=== PATIENT | female | born 1960 | race Caucasian/White ===

== ENCOUNTER 2018-04-30 13:02 | Observation (INO) | payer OTHER, BC, SELFPAY ==
[2018-04-30 13:05] VITALS: BP 90/57; PULSE 71; RESP 18; TEMP 37.2; O2SAT 100; BMI 49.0
--- NOTE | 2018-04-30 13:30 | RAD_ITS ---
STUDY: X-RAY - LEFT KNEE REASON FOR EXAM: Pain, injury. TECHNIQUE: 4 view(s) of the knee. COMPARISON: None. FINDINGS: Normal visualized distal femur. Normal visualized proximal tibia and fibula. Normal proximal tibiofibular articulation. There are marginal osteophytes and joint space loss of the medial femorotibial compartment. There is joint space narrowing of the mesial aspect of the lateral femorotibial compartment. There is joint space narrowing of the patellofemoral articulation. There is mild lateral subluxation of the patella. There is a joint effusion. RAD/Knee 4 or More Views IMPRESSION: Tricompartmental arthrosis. Joint effusion. No demonstrated fracture. Electronically Signed: Bne Schultz MD at 14:08 EDT Tel , Service support ,
--- NOTE | 2018-04-30 15:15 | ED.DCSUM_ITS ---
- ER Visit Summary Date of Service: 04/30/18 Chief Complaint: Left knee pain History of Present Illness: The patient is a 57 F who presents with left knee pain. She states that she had bent over to pick something on her computer and when she was in the process of standing back up she heard a sound and had sudden pain behind her left knee. She has been able to stand and bear weight since that time but after sitting down on the commode was unable to get back up due to pain. No history of prior similar symptoms. No other injuries. No recent illness and otherwise without complaint. Physical Examination: Initial blood pressure 90/57 vitals otherwise unremarkable Moist mucous membranes Heart regular rate and rhythm Lungs clear Examination is limited due to obesity, I do not appreciate any obvious effusion on my exam or bony deformity her extensor mechanism is intact she is neurovascularly intact distally with normal sensation light touch is capillary refill and palpable dorsalis pedis pulse Test Results: Knee x-ray shows tricompartmental arthrosis and a joint effusion no fracture Emergency Department Course and Treatment: Patient declined any analgesics here. She was able to ambulate to the bedside commode. She was placed in a knee immobilizer and has a walker that she can use at home. She was referred to Dr. Alfaro of orthopedics for outpatient follow-up. She understands to return for new or worsening symptoms and was discharged home. Treatment Plan: [] Disposition: Discharge Impression: Acute left knee sprain Joint effusion This note was generated with [employer] dictation software. It may contain incorrect words, spelling, and punctuation that were not noted in review of the chart prior to signing ED Disposition - Plan for ED Patient: Chief Complaint: Lower Extremity Injury Referrals: Care Physician,No Primary [Primary Care Provider] -
--- NOTE | 2018-04-30 15:16 | ED.DEP ---
ED Disposition - Plan for ED Patient: Chief Complaint: Lower Extremity Injury Instructions: ED Sprain Knee, ED Effusion Knee Prescriptions: traMADol [Ultram] 50 mg PO Q6H PRN 4 Days #16 tab PRN Reason: Pain Referrals: Justine Alfaro DO [STAFF PHYSICIAN] - Care Physician,No Primary [Primary Care Provider] - Corporate,Care [GROUP OF PHYSICIANS] -
[2018-04-30] MEDS: traMADol 50 MG Tablet PO (15:45)
[2018-04-30 16:40] VITALS: BMI 49.1
[2018-04-30 17:05] VITALS: BP 125/92; PULSE 73; RESP 17; O2SAT 99
--- NOTE | 2018-04-30 17:12 | PCM.HP.STD ---
Problem List (1) Chronic atrial fibrillation Status: Chronic (2) Nonrheumatic tricuspid valve regurgitation Status: Chronic (3) Nonrheumatic mitral (valve) insufficiency Status: Chronic (4) Status post radiofrequency ablation (RFA) operation for arrhythmia Status: Chronic Comment: For Atrial Fib @ [facility] (5) Hypertension Status: Chronic Qualifiers: (6) Iron deficiency anemia Status: Chronic History of Present Illness Date of Admission: 04/30/18 Chief Complaint: Left knee pain. The patient is a 57 year old F with past medical history as mentioned above presented to the emergency department because of left knee pain. She mentioned that she bent over to plug her computer and when she stood up, she heard a sound in the back of her left knee and started having left knee pain. The pain starts in the back of the left knee, described as dull aching pain and sometimes described as muscle spasm pain, 7 out of 10 in severity, not radiating, aggravated by standing, relieved by sitting and resting. She denies any prodromal symptoms. Denied chest pain or shortness of breath. Denied dizziness or lightheadedness. In the emergency room, her vital signs are stable. No routine blood work was done because the plan is was to send her home. She received 1 dose of tramadol. She mentioned that she is not able to stand or walk because of left knee pain. X-ray of the left knee revealed arthritic changes, joint effusion and no evidence of fractures or dislocations. She is being admitted for intractable left knee pain and joint effusion leading to difficulty ambulating and physical debility. Past Medical History Past Medical History (Chronic Problems): Chronic Problems (Last Reviewed 11/21/17 @ 10:26 by Antonino Colvin MD) Chronic atrial fibrillation (Chronic) Nonrheumatic tricuspid valve regurgitation (Chronic) Nonrheumatic mitral (valve) insufficiency (Chronic) Status post radiofrequency ablation (RFA) operation for arrhythmia (Chronic ~09/21/17) For Atrial Fib @ [facility] Hypertension (Chronic) Iron deficiency anemia (Chronic) Medical History: Medical History (Last Reviewed 11/21/17 @ 10:26 by Antonino Colvin MD) Nonrheumatic tricuspid valve regurgitation (Chronic) I36.1 Nonrheumatic mitral (valve) insufficiency (Chronic) I34.0 Hypertension (Chronic) I10 Anemia D64.9 Body mass index (BMI) 35 or more 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 History of cardioversion Onset Date: ~11/2016 Z98.890 Obstructive sleep apnea G47.33 Paroxysmal atrial fibrillation I48.0 Allergies metoprolol Adverse Reaction (Severe, Verified 04/30/18 13:05) Fatigue, weigt gain Home Medications: Ambulatory Orders Medication Instructions Recorded rivaroxaban 20 mg tablet 20 mg PO DAILY #90 tab 11/21/17 dofetilide 250 mcg capsule 250 mcg PO Q12H #180 cap 03/19/18 Diltiazem HCl [Diltiazem ER] 120 mg PO DAILY 04/30/18 traMADol [Ultram] 50 mg PO Q6H PRN 4 Days #16 tab 04/30/18 Surgical History: Surgical History (Last Reviewed 11/21/17 @ 10:26 by Antonino Colvin MD) Status post radiofrequency ablation (RFA) operation for arrhythmia (Chronic) Onset Date: ~09/21/17 Z98.890, Z86.79 For Atrial Fib @ [facility] History of Z98.891 History of tonsillectomy Z98.890, Z90.89 Surgical History: - - section. Psychiatric History: No pertinent psych hx ACTIVITY MANAGER History: No pertinent ACTIVITY MANAGER history, - Lives: With Family Smoking Status: Never smoker Alcohol: None Drugs: None - *Family History Paternal Family History: Family History (Last Updated 02/20/18 @ 08:35 by Faby Starkey) Father Afib History Items: Heart Disease Maternal Family History: Family History (Last Updated 02/20/18 @ 08:35 by Faby Starkey) Father Afib History Items: No pertinent history Review of Systems Constitutional: Denies: Anorexia, Chills, Fever, Weakness Eyes: Denies: Blurred vision, Double vision, Drainage, Redness HEENT: Denies: Difficulty Hearing, Ear Pain, Eye Pain, Nasal Congestion, Sore Throat Cardiovascular: Denies: Chest Pain, Chest Pressure, Chest Tightness, Edema, Heaviness, Palpitations, Syncope Respiratory: Denies: Cough, Hemoptysis, Pleuritic Pain, Shortness of Breath, Sputum production, Wheezing Gastrointestinal: Denies: Abdominal Pain, Constipation, Diarrhea, Nausea, Vomiting Genitourinary: Denies: Dysuria, Frequency, Hematuria Musculoskeletal: Reports: Joint Pain, Joint swelling. Denies: Arm Pain, Back Pain Skin: Denies: Dryness, Rash Neurological: Denies: Balance problems, Double vision, Change in Speech, Slurred speech, Headaches, Incoordination, Numbness Psychiatric: Denies: Anxiety, Depression Endocrine: Denies: Change in Body Habitus, Polydipsia VTE Information - Inpt Only VTE Present on Admission: No VTE Mechan Device Prophylaxis: None VTE Pharm Prophylaxis ordered?: No - Physical Exam General: Alert, Oriented x3, Cooperative, No apparent distress HEENT: Atraumatic, PERRLA, EOMI, Normocephalic Oral: Moist Mucosa, No Gingival or Mucosal Lesions/ Ulcerations Neck: Supple, No JVD, Negative Carotid Bruits, Trachea Midline, Thyroid Normal Size and Texture Lungs: Clear to auscultation, No rhonchi, No wheeze, No rales, Diminished Cardiovascular: Regular rate, Regular Rhythm, Normal S1, Normal S2, No murmurs, PMI Normal Abdomen: Bowel Sounds Present, Soft, Non Tender, Non-Distended, No Hepato-splenomegaly, Obese Extremities: No clubbing, No cyanosis, No edema Skin: No rashes, No breakdown Musculoskeletal: - - Left knee: Morbidly obese patient, swollen knee, no significant tenderness on palpation. Lymphatic: No Cervical, Supraclavicular, or Inguinal Adenopathy Neurological: Cranial nerves II-XII grossly intact, Motor Exam 5/5 strength throughout Psych/Mental Status: Normal Affect, Appropriate, Alert and oriented to time, place, person, mood and affect Vital Signs Temp Pulse Resp BP Pulse Ox 98.9 F 73 17 125/92 H 99 04/30/18 13:05 04/30/18 17:05 04/30/18 17:05 04/30/18 17:05 04/30/18 17:05 Oxygen Delivery Method Room Air Weight: 304 lb Body Mass Index (BMI) 49.0 Assessment/Plan This is a 57 years old female patient presented to the emergency room because of left knee pain after she she was trying to bend over and she is being admitted for intractable left knee pain with physical debility and difficulty ambulating. #1 left knee pain/left knee effusion: Secondary to twisting injury. X-ray of the left knee revealed arthritis and joint effusion. Patient has been on Xarelto. Hemarthrosis cannot be ruled out. [facility] monitoring, ambulate as tolerated, IV morphine as needed for pain, OxyIR as needed for pain, Flexeril as needed for muscle spasm, stat CBC and BMP, pro time and INR, orthopedic surgery consult, PT OT evaluation and treatment. #2 physical debility/difficulty ambulating: Secondary to above in addition to morbid obesity and history of right knee arthritis. Plan to control left knee pain, PT OT evaluation and treatment, patient may need [facility] to [facility] facility. #3 atrial fibrillation, chronic: Status post ablation. At this time, she is in sinus rhythm, rate is controlled. Continue Tikosyn and Cardizem for rate control and Xarelto for defibrillation. #4 chronic anemia: We will do stat CBC at this time. #5 DVT prophylaxis: Continue Xarelto. This note was generated with [employer] dictation software. It may contain incorrect words, spelling, and punctuation that were not noted in checking the note before signing. Code Visit OBSV E&M: 53205 Initial observation care L3
--- NOTE | 2018-04-30 17:21 | HP.PCM_ITS ---
Problem List (1) Chronic atrial fibrillation Status: Chronic (2) Nonrheumatic tricuspid valve regurgitation Status: Chronic (3) Nonrheumatic mitral (valve) insufficiency Status: Chronic (4) Status post radiofrequency ablation (RFA) operation for arrhythmia Status: Chronic Comment: For Atrial Fib @ [facility] (5) Hypertension Status: Chronic Qualifiers: (6) Iron deficiency anemia Status: Chronic History of Present Illness Date of Admission: 04/30/18 Chief Complaint: Left knee pain. The patient is a 57 year old F with past medical history as mentioned above presented to the emergency department because of left knee pain. She mentioned that she bent over to plug her computer and when she stood up, she heard a sound in the back of her left knee and started having left knee pain. The pain starts in the back of the left knee, described as dull aching pain and sometimes described as muscle spasm pain, 7 out of 10 in severity, not radiating , aggravated by standing, relieved by sitting and resting. She denies any prodromal symptoms. Denied chest pain or shortness of breath. Denied dizziness or lightheadedness. In the emergency room, her vital signs are stable. No routine blood work was done because the plan is was to send her home. She received 1 dose of tramadol. She mentioned that she is not able to stand or walk because of left knee pain. X-ray of the left knee revealed arthritic changes, joint effusion and no evidence of fractures or dislocations. She is being admitted for intractable left knee pain and joint effusion leading to difficulty ambulating and physical debility. Past Medical History Past Medical History (Chronic Problems): Chronic Problems (Last Reviewed 11/21/17 @ 10:26 by Antonino Colvin MD) Chronic atrial fibrillation (Chronic) Nonrheumatic tricuspid valve regurgitation (Chronic) Nonrheumatic mitral (valve) insufficiency (Chronic) Status post radiofrequency ablation (RFA) operation for arrhythmia (Chronic ~02/02) For Atrial Fib @ [facility] Hypertension (Chronic) Iron deficiency anemia (Chronic) Medical History: Medical History (Last Reviewed 11/21/17 @ 10:26 by Antonino Colvin MD) Nonrheumatic tricuspid valve regurgitation (Chronic) I36.1 Nonrheumatic mitral (valve) insufficiency (Chronic) I34.0 Hypertension (Chronic) I10 Anemia D64.9 Body mass index (BMI) 35 or more 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 History of cardioversion Onset Date: ~11/2016 Z98.890 Obstructive sleep apnea G47.33 Paroxysmal atrial fibrillation I48.0 Allergies metoprolol Adverse Reaction (Severe, Verified 04/30/18 13:05) Fatigue, weigt gain Home Medications: Ambulatory Orders Medication Instructions Recorded rivaroxaban 20 mg tablet 20 mg PO DAILY #90 tab 11/21/17 dofetilide 250 mcg capsule 250 mcg PO Q12H #180 cap 03/19/18 Diltiazem HCl [Diltiazem ER] 120 mg PO DAILY 04/30/18 traMADol [Ultram] 50 mg PO Q6H PRN 4 Days #16 tab 04/30/18 Surgical History: Surgical History (Last Reviewed 11/21/17 @ 10:26 by Antonino Colvin MD) Status post radiofrequency ablation (RFA) operation for arrhythmia (Chronic) Onset Date: ~09/21/17 Z98.890, Z86.79 For Atrial Fib @ [facility] History of Z98.891 History of tonsillectomy Z98.890, Z90.89 Surgical History: - - section. 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 SANDER WOOD[employer] PENCILS history, - Lives: With Family Smoking Status: Never smoker Alcohol: None Drugs: None - *Family History Paternal Family History: Family History (Last Updated 02/20/18 @ 08:35 by Faby Starkey) Father Afib History Items: Heart Disease Maternal Family History: Family History (Last Updated 02/20/18 @ 08:35 by Faby Starkey) Father Afib History Items: No pertinent history Review of Systems Constitutional: Denies: Anorexia, Chills, Fever, Weakness Eyes: Denies: Blurred vision, Double vision, Drainage, Redness HEENT: Denies: Difficulty Hearing, Ear Pain, Eye Pain, Nasal Congestion, Sore Throat Cardiovascular: Denies: Chest Pain, Chest Pressure, Chest Tightness, Edema, Heaviness, Palpitations, Syncope Respiratory: Denies: Cough, Hemoptysis, Pleuritic Pain, Shortness of Breath, Sputum production, Wheezing Gastrointestinal: Denies: Abdominal Pain, Constipation, Diarrhea, Nausea, Vomiting Genitourinary: Denies: Dysuria, Frequency, Hematuria Musculoskeletal: Reports: Joint Pain, Joint swelling. Denies: Arm Pain, Back Pain Skin: Denies: Dryness, Rash Neurological: Denies: Balance problems, Double vision, Change in Speech, Slurred speech, Headaches, Incoordination, Numbness Psychiatric: Denies: Anxiety, Depression Endocrine: Denies: Change in Body Habitus, Polydipsia VTE Information - Inpt Only VTE Present on Admission: No VTE Mechan Device Prophylaxis: None VTE Pharm Prophylaxis ordered?: No - Physical Exam General: Alert, Oriented x3, Cooperative, No apparent distress HEENT: Atraumatic, PERRLA, EOMI, Normocephalic Oral: Moist Mucosa, No Gingival or Mucosal Lesions/ Ulcerations Neck: Supple, No JVD, Negative Carotid Bruits, Trachea Midline, Thyroid Normal Size and Texture Lungs: Clear to auscultation, No rhonchi, No wheeze, No rales, Diminished Cardiovascular: Regular rate, Regular Rhythm, Normal S1, Normal S2, No murmurs, PMI Normal Abdomen: Bowel Sounds Present, Soft, Non Tender, Non-Distended, No Hepato- splenomegaly, Obese Extremities: No clubbing, No cyanosis, No edema Skin: No rashes, No breakdown Musculoskeletal: - - Left knee: Morbidly obese patient, swollen knee, no significant tenderness on palpation. Lymphatic: No Cervical, Supraclavicular, or Inguinal Adenopathy Neurological: Cranial nerves II-XII grossly intact, Motor Exam 5/5 strength throughout Psych/Mental Status: Normal Affect, Appropriate, Alert and oriented to time, place, person, mood and affect Vital Signs Temp Pulse Resp BP Pulse Ox 98.9 F 73 17 125/92 H 99 04/30/18 13:05 04/30/18 17:05 04/30/18 17:05 04/30/18 17:05 04/30/18 17:05 Oxygen Delivery Method Room Air Weight: 304 lb Body Mass Index (BMI) 49.0 Assessment/Plan This is a 57 years old female patient presented to the emergency room because of left knee pain after she she was trying to bend over and she is being admitted for intractable left knee pain with physical debility and difficulty ambulating. #1 left knee pain/left knee effusion: Secondary to twisting injury. X-ray of the left knee revealed arthritis and joint effusion. Patient has been on Xarelto. Hemarthrosis cannot be ruled out. [facility], cardiac monitoring, ambulate as tolerated, IV morphine as needed for pain, OxyIR as needed for pain, Flexeril as needed for muscle spasm, stat CBC and BMP, pro time and INR, orthopedic surgery consult, PT OT evaluation and treatment. #2 physical debility/difficulty ambulating: Secondary to above in addition to morbid obesity and history of right knee arthritis. Plan to control left knee pain, PT OT evaluation and treatment, patient may need placement to halfway facility. #3 atrial fibrillation, chronic: Status post ablation. At this time, she is in sinus rhythm, rate is controlled. Continue Tikosyn and Cardizem for rate control and Xarelto for defibrillation. #4 chronic anemia: We will do stat CBC at this time. #5 DVT prophylaxis: Continue Xarelto. This note was generated with [employer] dictation software. It may contain incorrect words, spelling, and punctuation that were not noted in checking the note before signing. Code Visit OBSV E&M: 34759 Initial observation care L3
[2018-04-30] MEDS: oxyCODONE 5 MG Tablet PO (18:06)
[2018-04-30 18:46] VITALS: BMI 49.0
--- NOTE | 2018-04-30 18:49 | NURSING ---
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
[2018-04-30 19:11] VITALS: PULSE 80
[2018-04-30 19:42] LABS: Anion Gap 7 (5-15); BUN 22 mg/dL (7-18); BUN/Creat Ratio 16.8 RATIO (10-20); Calcium,Total 9.2 mg/dL (8.5-10.1); Chloride 108 mmol/L (98-107); Creatinine, Serum 1.31 mg/dL (0.55-1.02); EST Glomerular Filtration Rate 45 mL/min (>60); Est Glom Filt Rate - Afr Amer 54 mL/min (>60); Glucose 116 mg/dL (74-106); Potassium 3.9 mmol/L (3.5-5.1); Sodium Level 139 mmol/L (136-145)
[2018-04-30 19:54] LABS: Absolute Lymphocyte Count 1.54 X10^3/ul (0.83-4.51); Absolute Neutrophil Count 6.8 X10^3/uL (2.0-7.7); Basophil# 0.01 X10^3/uL; Basophil% 0.1 % (0-1); Eosinophil# 0.11 X10^3/uL; Eosinophils% 1.2 % (0-5); Hematocrit 29.2 % (37-47); Hemoglobin 8.2 g/dl (12.0-15.0); Lymphocyte # 1.54 X10^3/ul (4.0); Lymphocyte % 17.1 % (19-41); Mean Corp Hgb Conc 28.1 g/gl (32-36); Mean Corpuscular Hgb 21.4 pg (27.0-32.0); Mean Platelet Vol. 10.6 fl (6.2-12.0); Monocyte# 0.53 X10^3/uL; Monocyte% 5.9 % (0-10); Neutrophil # 6.81 X10^3/uL (2.7-7.7); Neutrophil % 75.6 % (47-70); Platelet Count 300 K/mm3 (150-450); RBC Distribution Width CV 16.1 % (11.6-14.6); RBC Distribution Width SD 44.5 fl (35.1-43.9); Red Blood Count 3.84 M/mm3 (4.2-5.4)
[2018-04-30 20:03] LABS: POSITIVE COUNT NO; POSITIVE DIFFERENTIAL NO; POSITIVE MORPHOLOGY NO
[2018-04-30 20:09] LABS: Thyroid Stim Hormone (TSH) 1.26 uIU/mL (0.358-3.74)
[2018-04-30 20:45] VITALS: BP 151/71; PULSE 67; RESP 18; TEMP 36.9; O2SAT 98
--- NOTE | 2018-04-30 20:50 | NURSING ---
Spoke with Dr. Adler the the pt was referred by ED to see Dr. Alfaro of orthopedics for outpatient follow-up before she was admitted d/t unable to ambulate.Pt told her nusre she would like to go with [facility] since she had procedures done @ [facility] in the past.
--- NOTE | 2018-04-30 20:51 | NURSING ---
Pt stated she wanted orthopedic consult with [facility] - Dr. Qureshi - clyde or Dr. Woo. Dr. Samuel Adler has already been called. Notified of toya Becerra nurse that patient wants to change orthopedic groups. toya Becerra nurse called Dr. Adler, as a courtsey, of patient's wishes. Will notify the hospitalist.
[2018-04-30] MEDS: Dofetilide 250 MCG Capsule PO (21:53)
--- NOTE | 2018-04-30 22:36 | PCA ---
this FACILITIES FLIGHT CHECK PILOT assisted patient to BSC, patient asks for BSC to be placed in front of her and she is able to transfer to and from [facility] with minimal assist from this FACILITIES FLIGHT CHECK PILOT. patient is wearing immobilizer on her left leg and is bearing weight during her transfer. patient is able to life both her legs back into bed and tells this FACILITIES FLIGHT CHECK PILOT to let her do it and to just provide help if she asks for it.
[2018-04-30 23:02] VITALS: PULSE 73
[2018-05-01] VITALS (9 sets, daily range): BP systolic 131–150; BP diastolic 67–78; PULSE 59–74; RESP 16–20; TEMP 36.3–37.6; O2SAT 97–99
--- NOTE | 2018-05-01 01:30 | PCA ---
patient assisted up to BSC, patient requests to not wear immobilizer at this time because it cuts into her leg and doesn't stay where it should on her leg.patient continues to bear weight during her transfer and asks for very minimal help in getting on and off BSC.
[2018-05-01] MEDS: Acetaminophen 325 MG Tablet 650 MG PO (01:43)
[2018-05-01] MEDS: oxyCODONE 5 MG Tablet PO (01:44)
[2018-05-01 06:24] LABS: International Normalized Ratio 1.6; Prothrombin Time (Protime)PT. 19.3 SECONDS (11.7-14.9)
--- NOTE | 2018-05-01 06:40 | PCA ---
patient up to [facility] this morning, again refusing to wear the immobilizer, patient bears weight on both legs to and from [facility] and is able to lift both legs back into bed. patient states to this C IRON WORKER that her pain is minimal this morning.
[2018-05-01] MEDS: Nystatin Powder 15gm Bottle 1 APPLIC TOPICAL ×3 (06:48→22:55)
--- NOTE | 2018-05-01 09:28 | PCA ---
PT CALLED OUT TO GO TO THE BATHROOM, THERAPIST GOT THE BSC FOR PT, PT ASSISTED HERSELF ONTO THE BSC, PT THEN ASSISTED HERSELF WITH NO HELP TO GET BACK TO BED, PT DID NOT WANT ANY HELP, BSC EMPTIED, PT LEGS ON PILLOWS
[2018-05-01] MEDS: Dofetilide 250 MCG Capsule PO ×2 (10:31→22:55)
--- NOTE | 2018-05-01 12:27 | CASEMGMT ---
Social Work Assessment Referral Date: 05/01/2018 Date of Assessment: 05/01/2018 Reason for consult: Rehab vs. SNF Informant: CM Personal Status: SW met with pt to complete initial assessment and discuss discharge planning. SW introduced self and role at [facility]. Pt is alert and orientated x4. Pt states that she lives alone in a one story home. Pt denied steps to enter her home but states that she has a steep ramp. Pt states that she was previously independent with ADLs and that she still works. 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 Pt states that her mom lives close to her but that her mom is 76 years old and unable to assist her. Pt states that she would like to wait to hear from orthopedics and what they recommend along with PT/OT to determine what she may need at discharge. Pt states that if she has to be placed at SNF short term for rehabilitation she would prefer [facility] as her first choice and second choice would be [facility]. Pt states that she would like a facility that Dr. Butler follows as this is her PCP. SW informed pt that at this time, this worker is unsure if [facility] accepts pt's insurance which is [employer]. SW explained to pt that last time this worker check, [facility] was only accepting Medicare and Medicaid but that if placement is needed this worker will call them to confirm. SW informed pt that if [facility] is unable to accept, this worker will send a referral to [facility] and confirm that Dr. Butler follows at the facility. Pt states understanding. Pt denied additional needs or concerns at this time. Substance Abuse Hx: Pt denied Mental Health Hx: Pt denied SW will continue to follow along to assist with discharge planning if needs arise. Plan: TBD. Blessing Sorto BLUEPRINT MAKER, ELECTRICAL PROJECT MANAGER
[2018-05-01] MEDS: Rivaroxaban 20 MG Tablet PO (16:28)
[2018-05-01] MEDS: dilTIAZem CD 120 MG Capsule PO (16:28)
--- NOTE | 2018-05-01 16:31 | CHAPLAIN ---
Type of Pastoral Visit _x__ Initial Visit ___ Follow-up Visit ___ On-call Visit ___ General Patient Visit ___ Spiritual Assessment ___ Family Conference ___ Bereavement ___ Rapid Response ___ Code Blue ___ Other (describe below) Pastoral Care Referral From _x__ Patient ___ Family ___ Nurse ___ Physician ___ Bag Making Machine Tender ___ Spa Director/Finance ___ Other (describe below) Sacrament/Intervention _x__ Active listening ___ Anointing ___ Restoration ___ Bereavement ___ Communion _x__ Megan exploration ___ _x__ Life review _x__ Prayer ___ Reconciliation ___ Sacrament of Sick _x__ Supportive presence ___ Wedding ___ Other (describe below) Pastoral Comments patient is very talkative about her life and her situation; pt shares life story and gives examples of 'seeing God and miracles' in her life; pt has concern for her daughter that has major health issues; pt requests prayer as the best thing to be done
--- NOTE | 2018-05-01 16:36 | PCM.PN.HOSP ---
Subjective: CC: Left knee pain Objective: This is a 57 years old female with history of atrial fibrillation on Coumadin who presented to the emergency room due to left knee pain after she she was trying to bend over , xrays showed joint effusion. Vitals/I&O's: Vital Signs Temp Pulse Resp BP Pulse Ox 98.8 F 71 20 H 150/75 H 98 05/01/18 16:22 05/01/18 16:22 05/01/18 16:22 05/01/18 16:22 05/01/18 16:22 Oxygen Delivery Method Room Air Weight: 137.892 kg Body Mass Index (BMI) 49.0 Intake and Output for Last 24 Hours 04/29/18 04/30/18 05/01/18 23:59 23:59 23:59 Intake Total 660 / 660 Output Total 1000 / 1000 Balance -340 / -340 General: Alert, Oriented x3 HEENT: Atraumatic Neck: Supple Lungs: Clear to auscultation Cardiovascular: Regular rate, Normal S1, Normal S2 Abdomen: Bowel Sounds Present, Soft Extremities: Tenderness Neurological: Cranial nerves II-XII grossly intact, Deep Tendon Reflexes 2+/4 and Symmetrical, Motor Exam 5/5 strength throughout Psych/Mental Status: Normal Affect, Appropriate Laboratory Results 04/30/18 19:18: PT Cancelled, INR Cancelled 04/30/18 19:18: TSH 1.26 04/30/18 19:18: WBC 9.0, RBC 3.84 L, Hgb 8.2 L, Hct 29.2 L, MCV 76.0 L, MCH 21.4 L, MCHC 28.1 L, RDW 16.1 H, RDW Differential 44.5 H, Plt Count 300, MPV 10.6, Immature Gran % (Auto) 0.100, Neut % (Auto) 75.6 H, Lymph % (Auto) 17.1 L, [place] % (Auto) 5.9, Eos % (Auto) 1.2, Baso % (Auto) 0.1, Absolute Neuts (auto) 6.8, Absolute Lymphs (auto) 1.54, Total Counted Not Reportable 04/30/18 19:18: Sodium 139, Potassium 3.9, Chloride 108 H, Carbon Dioxide 24.0, Anion Gap 7, BUN 22 H, Creatinine 1.31 H, Est GFR (MDRD) Af Amer 54 L, Est GFR (MDRD) Non-Af 45 L, BUN/Creatinine Ratio 16.8, Glucose 116 H, Calcium 9.2 05/01/18 05:45: PT 19.3 H, INR 1.6 Current Medications Acetaminophen (Tylenol) 650 mg PO Q6H PRN PRN PRN Reason: Headache, pain, fever Last Admin: 05/01/18 01:43 Dose: 650 mg Cyclobenzaprine HCl (Flexeril) 10 mg PO TID PRN PRN PRN Reason: Muscle spasm, knee pain Last Admin: 05/01/18 16:24 Dose: 10 mg Diltiazem HCl (Cardizem Cd) 120 mg PO DAILY@1630 [facility] Last Admin: 05/01/18 16:28 Dose: 120 mg Dofetilide (Tikosyn) 250 mcg PO Q12H [facility] Last Admin: 05/01/18 10:31 Dose: 250 mcg Magnesium Hydroxide (Milk Of Magnesia) 30 ml PO DAILY PRN PRN PRN Reason: Constipation Morphine Sulfate () 2 mg IV Q4H PRN PRN PRN Reason: SEVERE PAIN (6-10/10) Nystatin (Mycostatin Powder) 1 applic TOPICAL TID [facility] PRN Reason: Protocol Last Admin: 05/01/18 16:12 Dose: 1 applicatio Ondansetron HCl (Zofran) 4 mg IV Q6H PRN PRN PRN Reason: NAUSEA/VOMITING Oxycodone HCl (Oxyir) 5 mg PO Q6H PRN PRN PRN Reason: SEVERE PAIN (6-10/10) Last Admin: 05/01/18 01:44 Dose: 5 mg Rivaroxaban (Xarelto) 20 mg PO DAILY@1630 [facility] Last Admin: 05/01/18 16:28 Dose: 20 mg Senna (Senokot) 2 tablet PO DAILY PRN PRN PRN Reason: CONSTIPATION Sodium Chloride () 5 - 30 ml IV UD PRN PRN Reason: SALINE FLUSH Medical Necessity - Tobacco Use Smoking Status: Never smoker Assessment/Plan 1 left knee pain/left knee effusion due to twisting injury; will continue pain control and await orthopedic recommendation. 2. Chronic Atrial fibrillation; S/P RFA, ablation, she is on Tikosyn and Cardizem for rate control , we will hold off on Xarelto until hemarthroses is ruled out. 3. Anemia, chronic; weight loss recommended. 4. Obesity; weight loss recommended. 5. DVT prophylaxis with SCDs. Code Visit Inpatient E&M: 74117 Subs Hosp L2
[2018-05-01] MEDS: 0.9% NaCl Peripheral Flush Adult/Peds IV (16:40)
--- NOTE | 2018-05-01 16:42 | PN_ITS ---
Subjective: CC: Left knee pain Objective: This is a 57 years old female with history of atrial fibrillation on Coumadin who presented to the emergency room due to left knee pain after she she was trying to bend over , xrays showed joint effusion. Vitals/I&O's: Vital Signs Temp Pulse Resp BP Pulse Ox 98.8 F 71 20 H 150/75 H 98 05/01/18 16:22 05/01/18 16:22 05/01/18 16:22 05/01/18 16:22 05/01/18 16:22 Oxygen Delivery Method Room Air Weight: 137.892 kg Body Mass Index (BMI) 49.0 Intake and Output for Last 24 Hours 04/29/18 04/30/18 05/01/18 23:59 23:59 23:59 Intake Total 660 / 660 Output Total 1000 / 1000 Balance -340 / -340 General: Alert, Oriented x3 HEENT: Atraumatic Neck: Supple Lungs: Clear to auscultation Cardiovascular: Regular rate, Normal S1, Normal S2 Abdomen: Bowel Sounds Present, Soft Extremities: Tenderness Neurological: Cranial nerves II-XII grossly intact, Deep Tendon Reflexes 2+/4 and Symmetrical, Motor Exam 5/5 strength throughout Psych/Mental Status: Normal Affect, Appropriate Laboratory Results 04/30/18 19:18: PT Cancelled, INR Cancelled 04/30/18 19:18: TSH 1.26 04/30/18 19:18: WBC 9.0, RBC 3.84 L, Hgb 8.2 L, Hct 29.2 L, MCV 76.0 L, MCH 21.4 L, MCHC 28.1 L, RDW 16.1 H, RDW Differential 44.5 H, Plt Count 300, MPV 10.6, Immature Gran % (Auto) 0.100, Neut % (Auto) 75.6 H, Lymph % (Auto) 17.1 L , [place] % (Auto) 5.9, Eos % (Auto) 1.2, Baso % (Auto) 0.1, Absolute Neuts (auto) 6.8, Absolute Lymphs (auto) 1.54, Total Counted Not Reportable 04/30/18 19:18: Sodium 139, Potassium 3.9, Chloride 108 H, Carbon Dioxide 24.0, Anion Gap 7, BUN 22 H, Creatinine 1.31 H, Est GFR (MDRD) Af Amer 54 L, Est GFR ( MDRD) Non-Af 45 L, BUN/Creatinine Ratio 16.8, Glucose 116 H, Calcium 9.2 05/01/18 05:45: PT 19.3 H, INR 1.6 Current Medications Acetaminophen (Tylenol) 650 mg PO Q6H PRN PRN PRN Reason: Headache, pain, fever Last Admin: 05/01/18 01:43 Dose: 650 mg Cyclobenzaprine HCl (Flexeril) 10 mg PO TID PRN PRN PRN Reason: Muscle spasm, knee pain Last Admin: 05/01/18 16:24 Dose: 10 mg Diltiazem HCl (Cardizem Cd) 120 mg PO DAILY@1630 [facility] Last Admin: 05/01/18 16:28 Dose: 120 mg Dofetilide (Tikosyn) 250 mcg PO Q12H [facility] Last Admin: 05/01/18 10:31 Dose: 250 mcg Magnesium Hydroxide (Milk Of Magnesia) 30 ml PO DAILY PRN PRN PRN Reason: Constipation Morphine Sulfate () 2 mg IV Q4H PRN PRN PRN Reason: SEVERE PAIN (6-10/10) Nystatin (Mycostatin Powder) 1 applic TOPICAL TID [facility] PRN Reason: Protocol Last Admin: 05/01/18 16:12 Dose: 1 applicatio Ondansetron HCl (Zofran) 4 mg IV Q6H PRN PRN PRN Reason: NAUSEA/VOMITING Oxycodone HCl (Oxyir) 5 mg PO Q6H PRN PRN PRN Reason: SEVERE PAIN (6-10/10) Last Admin: 05/01/18 01:44 Dose: 5 mg Rivaroxaban (Xarelto) 20 mg PO DAILY@1630 [facility] Last Admin: 05/01/18 16:28 Dose: 20 mg Senna (Senokot) 2 tablet PO DAILY PRN PRN PRN Reason: CONSTIPATION Sodium Chloride () 5 - 30 ml IV UD PRN PRN Reason: SALINE FLUSH Medical Necessity - Tobacco Use Smoking Status: Never smoker Assessment/Plan 1 left knee pain/left knee effusion due to twisting injury; will continue pain control and await orthopedic recommendation. 2. Chronic Atrial fibrillation; S/P RFA, ablation, she is on Tikosyn and Cardizem for rate control , we will hold off on Xarelto until hemarthroses is ruled out. 3. Anemia, chronic; weight loss recommended. 4. Obesity; weight loss recommended. 5. DVT prophylaxis with SCDs. Code Visit Inpatient E&M: 24570 Subs Hosp L2
[2018-05-02] VITALS (8 sets, daily range): BP systolic 115–149; BP diastolic 68–93; PULSE 66–111; RESP 16–18; TEMP 36.9–37.6; O2SAT 92–99
[2018-05-02] MEDS: Dofetilide 250 MCG Capsule PO ×2 (09:07→22:51)
--- NOTE | 2018-05-02 13:39 | MRI_ITS ---
STUDY: MRI LEFT KNEE REASON FOR EXAM: Chronic knee pain, felt a pop 2 days ago, unable to bear weight. Surgery last year. TECHNIQUE: Standardized fat and water weighted pulse sequences were obtained in all 3 orthogonal planes. COMPARISON: Radiographs 05/02/2018. FINDINGS: There is diffuse attrition of the medial meniscus (proton-density sagittal images 9-17), either secondary to partial medial meniscectomy or tear/degeneration. There is peripheral subluxation of the medial meniscus. There is arthrosis of the medial femorotibial compartment with marginal osteophytes, loss of articular cartilage (T2 sagittal image 8) and subchondral cystic change/mild bone edema. Normal medial collateral ligamentous complex (MCL). Normal distal semimembranosus, gracilis and semitendinosus tendons. There is a radial tear of the posterior horn of the lateral meniscus at the root (T2 coronal image 14; T2 sagittal images 14, 15). There is arthrosis of the lateral femorotibial compartment with marginal osteophytes and chondral thinning (T2 sagittal image 17). Normal lateral femoral condyle and tibial plateau. Normal proximal tibiofibular articulation. There is a sprain of the superficial fibers of the fibular collateral ligament (T2 coronal image 14). Normal popliteus tendon. Normal biceps femoris tendon. There is complete tear of the mid anterior cruciate ligament (T2 sagittal image 12; T2 coronal image 16; series 8 image 11). Normal posterior cruciate ligament (PCL). Normal congruent patellofemoral articulation. There is arthrosis of the patellofemoral compartment with marginal osteophytes, chondral loss (T2 sagittal image 14) and subchondral cystic change of the patella. Normal medial and lateral patellar retinaculum. Normal visualized quadriceps tendon. Normal patellar tendon. Normal Hoffa's fat pad. There is a large joint effusion. There is a popliteal cyst measuring 9.4 cm in length with extravasation of fluid (T2 sagittal images 3-9). There is edema in the subcutis adipose space. There is cystic change in the proximal tibia at the insertion site of the anterior cruciate ligament. MRI/Lower Ext Joint Only (Routine) IMPRESSION: Anterior cruciate ligament tear. Attrition of the medial meniscus, either secondary to partial meniscectomy or tear/degeneration. Radial tear of the lateral meniscus. Fibular collateral ligament sprain. Tricompartmental arthrosis. Joint effusion. Popliteal cyst with extravasation of fluid. Electronically Signed: Ben Schultz MD at 7:20 EDT Tel , Service support ,
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
--- NOTE | 2018-05-02 14:10 | RAD_ITS ---
STUDY: X-RAY - RIGHT KNEE REASON FOR EXAM: Female, 57 years old. Pain. TECHNIQUE: 2 view(s) of the knee. COMPARISON: None. FINDINGS: Normal visualized distal femur. Normal visualized proximal tibia and fibula. Normal proximal tibiofibular articulation. There is no demonstrated fracture. Severe narrowing and degenerative changes of the medial and lateral tibiofemoral compartments. Tibia is subluxed laterally. Moderate patellofemoral osteoarthritis. No gross effusions. The soft tissue structures are unremarkable. RAD/Knee 1 or 2 Views IMPRESSION: Limited 2 view study of the knee shows no acute fracture or dislocation. Moderate to severe multicompartment degenerative changes. Electronically Signed: Pola Vargas MD at 14:46 EDT , Service support ,
--- NOTE | 2018-05-02 14:50 | NURSING ---
PT TO MRI VIA BED.
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
--- NOTE | 2018-05-02 15:12 | PCM.PN.HOSP ---
Subjective: CC: Left knee pain Objective: Pain has improved, she denies any fever, chills, shortness of breath, chest pain, cough, nausea or vomiting. The patient and family insisting an MRI be done of the knees. Vitals/I&O's: Vital Signs Temp Pulse Resp BP Pulse Ox 98.5 F 111 H 16 115/68 92 05/02/18 15:07 05/02/18 15:07 05/02/18 15:07 05/02/18 15:07 05/02/18 15:07 Oxygen Delivery Method Room Air Weight: 137.892 kg Body Mass Index (BMI) 49.0 Intake and Output for Last 24 Hours 04/30/18 05/01/18 05/02/18 23:59 23:59 23:59 Intake Total 780 / 780 500 / 500 Output Total 1500 / 1500 910 / 910 Balance -720 / -720 -410 / -410 General: Alert, Oriented x3 Oral: Moist Mucosa Neck: Supple Lungs: Clear to auscultation Cardiovascular: Regular rate, Normal S1, Normal S2 Abdomen: Bowel Sounds Present, Soft Neurological: Cranial nerves II-XII grossly intact, Deep Tendon Reflexes 2+/4 and Symmetrical, Motor Exam 5/5 strength throughout Current Medications Acetaminophen (Tylenol) 650 mg PO Q6H PRN PRN PRN Reason: Headache, pain, fever Last Admin: 05/01/18 01:43 Dose: 650 mg Cyclobenzaprine HCl (Flexeril) 10 mg PO TID PRN PRN PRN Reason: Muscle spasm, knee pain Last Admin: 05/02/18 07:45 Dose: 10 mg Diltiazem HCl (Cardizem Cd) 120 mg PO DAILY@1630 [facility] Last Admin: 05/01/18 16:28 Dose: 120 mg Dofetilide (Tikosyn) 250 mcg PO Q12H [facility] Last Admin: 05/02/18 09:07 Dose: 250 mcg Magnesium Hydroxide (Milk Of Magnesia) 30 ml PO DAILY PRN PRN PRN Reason: Constipation Morphine Sulfate () 2 mg IV Q4H PRN PRN PRN Reason: SEVERE PAIN (6-10/10) Nystatin (Mycostatin Powder) 1 applic TOPICAL TID [facility] PRN Reason: Protocol Last Admin: 05/02/18 06:05 Dose: Not Given Ondansetron HCl (Zofran) 4 mg IV Q6H PRN PRN PRN Reason: NAUSEA/VOMITING Oxycodone HCl (Oxyir) 5 mg PO Q6H PRN PRN PRN Reason: SEVERE PAIN (6-10/10) Last Admin: 05/01/18 01:44 Dose: 5 mg Rivaroxaban (Xarelto) 20 mg PO DAILY@1630 [facility] Last Admin: 05/01/18 16:28 Dose: 20 mg Senna (Senokot) 2 tablet PO DAILY PRN PRN PRN Reason: CONSTIPATION Sodium Chloride () 5 - 30 ml IV UD PRN PRN Reason: SALINE FLUSH Last Admin: 05/01/18 16:40 Dose: 10 ml Medical Necessity - Tobacco Use Smoking Status: Never smoker Assessment/Plan 1 left knee pain/left knee effusion due to twisting injury; patient and family insisted on getting an MRI done today and that is fine with me. Will continue PT/OT and pain control. 2. Chronic Atrial fibrillation; S/P RFA, ablation, she is on Tikosyn and Cardizem for rate control , we will hold off on Xarelto until hemarthroses is ruled out. 3. Anemia, chronic; weight loss recommended. 4. Obesity; weight loss recommended. 5. Ambulatory dysfunction due to #1, physical and Occupational Therapy, the patient would benefit from post acute care rehabilitation at a skilled facility. 6. DVT prophylaxis with SCDs restart Xarelto. Code Visit Inpatient E&M: 64875 Subs Hosp L2
--- NOTE | 2018-05-02 15:20 | PN_ITS ---
Subjective: CC: Left knee pain Objective: Pain has improved, she denies any fever, chills, shortness of breath, chest pain , cough, nausea or vomiting. The patient and family insisting an MRI be done of the knees. Vitals/I&O's: Vital Signs Temp Pulse Resp BP Pulse Ox 98.5 F 111 H 16 115/68 92 05/02/18 15:07 05/02/18 15:07 05/02/18 15:07 05/02/18 15:07 05/02/18 15:07 Oxygen Delivery Method Room Air Weight: 137.892 kg Body Mass Index (BMI) 49.0 Intake and Output for Last 24 Hours 04/30/18 05/01/18 05/02/18 23:59 23:59 23:59 Intake Total 780 / 780 500 / 500 Output Total 1500 / 1500 910 / 910 Balance -720 / -720 -410 / -410 General: Alert, Oriented x3 Oral: Moist Mucosa Neck: Supple Lungs: Clear to auscultation Cardiovascular: Regular rate, Normal S1, Normal S2 Abdomen: Bowel Sounds Present, Soft Neurological: Cranial nerves II-XII grossly intact, Deep Tendon Reflexes 2+/4 and Symmetrical, Motor Exam 5/5 strength throughout Current Medications Acetaminophen (Tylenol) 650 mg PO Q6H PRN PRN PRN Reason: Headache, pain, fever Last Admin: 05/01/18 01:43 Dose: 650 mg Cyclobenzaprine HCl (Flexeril) 10 mg PO TID PRN PRN PRN Reason: Muscle spasm, knee pain Last Admin: 05/02/18 07:45 Dose: 10 mg Diltiazem HCl (Cardizem Cd) 120 mg PO DAILY@1630 [facility] Last Admin: 05/01/18 16:28 Dose: 120 mg Dofetilide (Tikosyn) 250 mcg PO Q12H [facility] Last Admin: 05/02/18 09:07 Dose: 250 mcg Magnesium Hydroxide (Milk Of Magnesia) 30 ml PO DAILY PRN PRN PRN Reason: Constipation Morphine Sulfate () 2 mg IV Q4H PRN PRN PRN Reason: SEVERE PAIN (6-10/10) Nystatin (Mycostatin Powder) 1 applic TOPICAL TID [facility] PRN Reason: Protocol Last Admin: 05/02/18 06:05 Dose: Not Given Ondansetron HCl (Zofran) 4 mg IV Q6H PRN PRN PRN Reason: NAUSEA/VOMITING Oxycodone HCl (Oxyir) 5 mg PO Q6H PRN PRN PRN Reason: SEVERE PAIN (6-10/10) Last Admin: 05/01/18 01:44 Dose: 5 mg Rivaroxaban (Xarelto) 20 mg PO DAILY@1630 [facility] Last Admin: 05/01/18 16:28 Dose: 20 mg Senna (Senokot) 2 tablet PO DAILY PRN PRN PRN Reason: CONSTIPATION Sodium Chloride () 5 - 30 ml IV UD PRN PRN Reason: SALINE FLUSH Last Admin: 05/01/18 16:40 Dose: 10 ml Medical Necessity - Tobacco Use Smoking Status: Never smoker Assessment/Plan 1 left knee pain/left knee effusion due to twisting injury; patient and family insisted on getting an MRI done today and that is fine with me. Will continue PT/OT and pain control. 2. Chronic Atrial fibrillation; S/P RFA, ablation, she is on Tikosyn and Cardizem for rate control , we will hold off on Xarelto until hemarthroses is ruled out. 3. Anemia, chronic; weight loss recommended. 4. Obesity; weight loss recommended. 5. Ambulatory dysfunction due to #1, physical and Occupational Therapy, the patient would benefit from post acute care rehabilitation at a skilled facility. 6. DVT prophylaxis with SCDs restart Xarelto. Code Visit Inpatient E&M: 84431 Subs Hosp L2
[2018-05-02] MEDS: dilTIAZem CD 120 MG Capsule PO (16:20)
[2018-05-02] MEDS: Rivaroxaban 20 MG Tablet PO (16:20)
[2018-05-02] MEDS: Nystatin Powder 15gm Bottle 1 APPLIC TOPICAL (21:14)
[2018-05-02] MEDS: oxyCODONE 5 MG Tablet PO (23:47)
[2018-05-03 02:07] VITALS: BP 151/80; PULSE 75; RESP 18; TEMP 37.2; O2SAT 99
[2018-05-03 02:29] VITALS: PULSE 101
[2018-05-03] MEDS: Lidocaine 5% Patch 1 PATCH TOPICAL (03:00)
[2018-05-03] MEDS: oxyCODONE 5 MG Tablet PO ×2 (05:48→14:23)
[2018-05-03] MEDS: Acetaminophen 325 MG Tablet 650 MG PO (05:48)
--- NOTE | 2018-05-03 08:33 | CASEMGMT ---
Social Work Note SW received message from Sugar at [facility] stating that she is able to accept pt. TREVOR placed a call to Sugar and left her a message informing Sugar to submit for pre-cert today. Plan: [facility] pending pre-cert Blessing Sorto COOKY PACKER, FILM INSPECTOR
[2018-05-03 10:00] VITALS: BP 134/50; PULSE 72; RESP 18; TEMP 37.2; O2SAT 99
[2018-05-03] MEDS: Dofetilide 250 MCG Capsule PO (10:10)
--- NOTE | 2018-05-03 10:13 | CASEMGMT ---
Social Work Note SW in to update pt that [facility] doesn't accept pt's insurance. SW informed pt that [facility] does accept pt insurance and that they have accepted pt. SW informed pt that pre-cert will need to be obtained from pt's insurance before pt will be able to go to [facility]. SW encouraged pt to continue to work with PT/OT as insurance will review her PT/OT notes. Pt states understanding. Pt denied additional needs or concerns at this time. Plan: [facility] pending pre-cert Blessing Sorto FUR TAILOR, COLLET DRILLER
[2018-05-03 11:15] VITALS: PULSE 70
--- NOTE | 2018-05-03 11:28 | NURSING ---
vitals done late because pt wanted to sleep and not be disturbed for a few hours
--- NOTE | 2018-05-03 14:11 | CASEMGMT ---
Social Work Note TREVOR received call from Sugar at [facility]. Sugar states that she submitted pre-cert and she hasn't heard from pt's insurance yet. TREVOR informed Sugar that pt is ready for discharge once pre-cert is obtained. Sugar states that she will let this worker know if she hears from pt's insurance. Plan: [facility] pending pre-cert Blessing Sorto MARKETING CONTENT COORDINATOR, STEEL PLATE PRINTER
[2018-05-03] MEDS: Nystatin Powder 15gm Bottle 1 APPLIC TOPICAL (14:24)
--- NOTE | 2018-05-03 15:23 | PCM.TXEXTCAR ---
- Diet 04/30/18 17:07 Diet: Regular Diet Food consistency:: Regular Liquid Consistency:: Regular/Thin - Routine Orders/Code Status Code Status: Full Code - Allergies/Procedures Done in Hospital Allergies/Adverse Reactions: Allergies metoprolol Adverse Reaction (Severe, Verified 04/30/18 13:05) Fatigue, weigt gain - Type of Care/Length of Stay Estimated LOS: Convalescent Care Less Than 30 days Type of Care Needed: Skilled Rehab Potential: Fair Prognosis: Fair - Additional Orders/Day of Discharge H&P will serve as current which was dated: 04/30/18 Day of Discharge: 05/03/18 - Dietary and Speech Recommendations Dietitian Recommendations/Changes: Recommend consider changing diet to Cardiac given pt's hx of HTN - Follow Up Care Primary Care Physician: [facility] [GROUP OF PHYSICIANS] - Justine Alfaro DO [STAFF PHYSICIAN] - Care Physician,No Primary [Primary Care Provider] -
--- NOTE | 2018-05-03 15:28 | PCM.DC.SUM ---
Discharge Date and Diagnosis Date of Admission: 04/30/18 Date of Discharge: 05/03/18 - Secondary Discharge Diagnosis Chronic Problems (Last Reviewed 11/21/17 @ 10:26 by Antonino Colvin MD) Chronic atrial fibrillation (Chronic) Nonrheumatic tricuspid valve regurgitation (Chronic) Nonrheumatic mitral (valve) insufficiency (Chronic) Status post radiofrequency ablation (RFA) operation for arrhythmia (Chronic ~09/21/17) For Atrial Fib @ [facility] Hypertension (Chronic) Iron deficiency anemia (Chronic) Hospital Course and Treatment Summary of Care Provided: This is a 57 years old female patient presented to the emergency room because of left knee pain after she she was trying to bend over and she is being admitted for intractable left knee pain with physical debility and difficulty ambulating. Advanced imaging with of the left knee with MRI showed anterior cruciate ligament tear,attrition of the medial meniscus, either secondary to partial meniscectomy or tear/degeneration.Radial tear of the lateral meniscus. Fibular collateral ligament sprain.Tricompartmental arthrosis and small Joint effusion.Popliteal cyst with extravasation of fluid also noted. Orthopedics saw this patient in consultation and recommended pain control and physical therapy, the patient is recommended to follow-up with Dr. Alfaro as an outpatient. Reagrding;' 1 left knee pain twisting injury; patient is being discharged to [facility] with pain control and physical therapy and she will follow-up with orthopedics as an outpatient for further management. 2. Chronic Atrial fibrillation; S/P RFA, ablation, she is on Tikosyn and Cardizem for rate control , we will restart Xarelto . 3. Anemia, chronic; hgb is stable. 4. Obesity; weight loss recommended. 5. Ambulatory dysfunction due to #1, physical and Occupational Therapy, the patient would benefit from post acute care rehabilitation at a skilled facility. physical exam at the time of discharge; vital signs were stable. He was alert and oriented to time place and person. He did not appear to be any form of distress. S1 and S2 heard no murmur or gallop Lung exam was clear to auscultation with no adventitious sounds. Abdomen was soft nontender with normal bowel sounds. extremity exam did not reveal any edema, palpable pulses bilaterally. Neurologic exam was grossly intact. MS: Knee tenderness with range of motion Discharge Diet: No Restrictions Home Medications: Medications to take at Discharge rivaroxaban 20 mg tablet 20 mg PO DAILY #90 tab 11/21/17 dofetilide 250 mcg capsule 250 mcg PO Q12H #180 cap 03/19/18 Diltiazem HCl [Diltiazem ER] 120 mg PO DAILY 04/30/18 Oxycodone [Oxyir] 5 mg PO Q6H PRN PRN #12 tab 05/03/18 Following Prescrptions Were Given to Patient: Oxycodone [Oxyir] 5 mg PO Q6H PRN PRN #12 tab PRN Reason: Severe Pain (-08/28) Primary Care Physician: [facility] [GROUP OF PHYSICIANS] - Justine Alfaro DO [STAFF PHYSICIAN] - Care Physician,No Primary [Primary Care Provider] - Patient Instructions: ED Effusion Knee, ED Sprain Knee Medical Necessity - Tobacco Use Smoking Status: Never smoker Meaningful Use Info Meaningful Use Diagnoses (Choose all that apply): None applicable Code Visit Inpatient E&M: 65595 Disch Hosp
--- NOTE | 2018-05-03 15:43 | CASEMGMT ---
Addendum entered by Blessing Sorto 05/03/18 16:33: SW placed a call to [place] to set up transportation. Per Storm the earliest they could get pt would be 8:00pm tonight. Beef Boner Remi placed a call to [facility] and they are able to pick pt up at 5:15-5:20pm. This worker placed a call back to [place] to cancel transportation. Transportation form on SNF folder and copy on pt's chart. TREVOR placed a call to Sugar at [facility] updating her of transportation time and that once discharge paperwork is completed, it will get faxed. Sugar states understanding. Beef Boner Remi states that she will fax completed discharge paperwork to [facility] when Dr. Curry completes it. Plan: Discharge to [facility] for rehabilitation with [facility] transporting pt via cot at 5:15-5:20pm. Beef Boner Remi will fax completed discharge paperwork to [facility] when available Blessing NICHOLSON, THOMAS Original Note: Social Work Note SW received call from Sugar at [facility] informing this worker that pre-cert has been obtained. SW updated Charge Nurse Yessica who paged Dr. Curry. SW in to update pt that pre-cert has been obtained and the doctor has put in discharge orders for pt. Pt states that she has torn ligaments in her knee and is wondering why she is being discharged instead of having her ligaments fixed. This worker explained that the doctor is recommending that her ligaments can be fixed on an outpatient basis instead of needing to be in the hospital. Pt states that she feel that isn't right and would like to talk to Dr. Curry. SW informed pt that this worker will have the charge nurse page Dr. Curry. SW updated Charge Nurse Sujatha paged Dr. Curry. Once discharge paperwork is complete, this worker will fax completed paperwork and set up transportation. SW waiting for completed paperwork. Plan: Pt is to discharge to [facility] today Blessing NICHOLSON, FILING CLERK
--- NOTE | 2018-05-03 16:35 | RAD_ITS ---
STUDY: X-RAY - LEFT FOOT CLINICAL: Female, 57 years old. Pain and swelling TECHNIQUE: 2 view(s) of the foot. COMPARISON: None. FINDINGS: There is no evidence of fracture or dislocation. There are moderate degenerative changes in the midfoot. There are no radiodense foreign bodies. There is mild diffuse soft tissue swelling. RAD/Foot 2 Views IMPRESSION: No fracture or dislocation. Moderate degenerative changes in the midfoot. Mild diffuse soft tissue swelling. Electronically Signed: Tien Marlow, at 16:57 EDT Tel , Service support ,
--- NOTE | 2018-05-03 16:40 | PCA ---
This clerical secretary faxed all appropriate discharge paperwork to [facility] at [phone]
[2018-05-03 16:43] VITALS: BP 125/75; PULSE 75; RESP 16; TEMP 37.1; O2SAT 98
[2018-05-03] MEDS: dilTIAZem CD 120 MG Capsule PO (16:47)
[2018-05-03] MEDS: Rivaroxaban 20 MG Tablet PO (16:47)
--- NOTE | 2018-05-03 17:37 | NURSING ---
report given to Flores at [facility]
== END 2018-05-03 19:10 | disposition skilled nursing facility (03) ==
LOC: ED 13:44 → MS3 18:07
PROVIDERS: Admitting Provider Hospitalist; Emergency Provider Emergency Medicine; Visit Provider Internal Medicine
DX: S83.512A Sprain of anterior cruciate ligament of left knee, initial encounter (principal); X50.1XXA Overexertion from prolonged static or awkward postures, initial encounter; Y93.89 Activity, other specified; Y92.9 Unspecified place or not applicable; I48.2 Chronic atrial fibrillation; I10 Essential (primary) hypertension; D50.9 Iron deficiency anemia, unspecified; E66.01 Morbid (severe) obesity due to excess calories; Z68.41 Body mass index [BMI] 40.0-44.9, adult; Z71.3 Dietary counseling and surveillance; S83.282A Other tear of lateral meniscus, current injury, left knee, initial encounter; S83.422A Sprain of lateral collateral ligament of left knee, initial encounter; M71.22 Synovial cyst of popliteal space [Baker], left knee; E06.3 Autoimmune thyroiditis; G47.33 Obstructive sleep apnea (adult) (pediatric); I48.0 Paroxysmal atrial fibrillation; Z79.899 Other long term (current) drug therapy
CPT/HCPCS: 36415; 73560; 73564; 73620; 73721; 80048; 84443; 85025; 85610; 97110; 97161; 97165; 97530; 97802; 99218; 99282; A4216; G0378

== ENCOUNTER → 2018-05-08 10:47 | Outpatient (CLI) | payer BC, SELFPAY ==
[2018-05-08] VITALS (7 sets, daily range): BP systolic 124–149; BP diastolic 80–100; PULSE 79–121; RESP 16–18; TEMP 36.1–37.1; O2SAT 99–100; BMI 49.0
[2018-05-08] MEDS: Furosemide 20 MG/2 ML VIAL IV (14:11)
== END ==
PROVIDERS: Family Provider Family Medicine; PCP Family Medicine; Visit Provider Family Medicine
DX: D64.9 Anemia, unspecified (principal)
CPT/HCPCS: 36430; 86850; 86900; 86920; 86922; J7040; P9016; A4216; J1940

== ENCOUNTER 2018-06-05 18:51 | Inpatient (IN) | payer BC, SELFPAY ==
[2018-06-05 18:52] VITALS: PULSE 104; RESP 20; TEMP 37.7; O2SAT 98; BMI 55.5
--- NOTE | 2018-06-05 19:38 | CT_ITS ---
STUDY: CT ABDOMEN AND PELVIS WITHOUT CONTRAST REASON FOR EXAM: Female, 57 years old. Abdominal pain, back pain RADIATION DOSAGE (If Supplied By Facility): CTDIvol = ( 24.18 ) mGy, DLP = ( 1274.56 ) mGycm TECHNIQUE: Transaxial images were obtained from the dome of the diaphragm to the symphysis pubis without oral contrast, and without intravenous contrast. Sagittal and coronal images were reconstructed. Individualized dose optimization techniques were used for this CT. COMPARISON: September 13, 2016 FINDINGS: The visualized lung bases are unremarkable. The visualized portions of the heart are within normal limits. Normal liver. Cholelithiasis. No significant dilatation of the extrahepatic biliary system. Normal spleen. Normal pancreas. Normal bilateral adrenal glands. There are 2 nonobstructive stones up to 7 mm in the right kidney. Possible punctate left renal stone. Perinephric stranding around the left kidney with left suprarenal increased attenuation. Left hydronephrosis with a nonobstructive mid left ureteral stone measuring 8 mm noted. Prominent hiatal hernia. Normal small intestine. Normal colon. The appendix is visualized and appears normal. Calcified abdominal aorta. Normal inferior vena cava. Normal retroperitoneum. Possible 2 mm stone in the urinary bladder. Stable prominent uterus. Small fatty umbilical hernia. Mild degenerative vertebral changes with scoliosis. CT/Abdomen/Pelvis without Cont IMPRESSION: Nonobstructive right renal calculi. Left hydronephrosis with an obstructing mid left ureteral stone. There is left perinephric stranding and suprarenal soft tissue attenuation. Evaluation is limited without intravenous contrast. Possible stone in the urinary bladder. Fatty umbilical hernia. Hiatal hernia. Cholelithiasis. Electronically Signed: Wesley Self DO at 21:54 EDT Tel [phone], Service support ,
[2018-06-05 19:40] VITALS: BP 154/100
[2018-06-05 19:56] LABS: Color, Urine Yellow (Yellow); Glucose, Dipstick Normal (Normal); Ketone-Dipstick Negative (Negative); Leukocyte Esterase-Dipstick 100 /ul (Negative); Mucous, Urine 0 SEEN /hpf (<or=2+); Nitrite-Dipstick Positive (Negative); Occult Blood-Urine 150 /ul (Negative); Protein-Dipstick Negative (Negative); Specific Gravity, Urine 1.015 (1.002-1.030); Urine Bilirubin Dipstick Negative (Negative); Urine Clarity Sl. Cloudy (Clear); Urine Urobilinogen Normal (Normal)
[2018-06-05] MEDS: Ondansetron 4 MG/2 ML Vial IV (20:11)
[2018-06-05] MEDS: Ketorolac 15 MG/ML Vial IV (20:14)
[2018-06-05] MEDS: Morphine 4 MG/ML Syringe IV (20:15)
[2018-06-05] MEDS: 0.9% Normal Saline 1,000 ML 150 ML IV (20:19)
[2018-06-05 20:46] LABS: Bacteria 3+ /hpf (None Seen); Red Blood Cells-Urine 0-5 SEEN /hpf (0-5); Squamous Epithelial Cells - UA 5-10 SEEN /hpf (5-10); White Blood Cells 5-10 SEEN /hpf (0-5)
[2018-06-05 20:55] LABS: Absolute Lymphocyte Count 0.69 X10^3/ul (0.83-4.51); Absolute Neutrophil Count 16.6 X10^3/uL (2.0-7.7); Basophil# 0.02 X10^3/uL; Basophil% 0.1 % (0-1); Hematocrit 37.6 % (37-47); Lymphocyte # 0.69 X10^3/ul (4.0); Lymphocyte % 3.9 % (19-41); Mean Corp Hgb Conc 29.3 g/gl (32-36); Mean Corpuscular Hgb 22.6 pg (27.0-32.0); Mean Corpuscular Volume 77.2 fL (81-99); Monocyte# 0.12 X10^3/uL; Monocyte% 0.7 % (0-10); Platelet Count 273 K/mm3 (150-450); RBC Distribution Width CV 18.3 % (11.6-14.6); RBC Distribution Width SD 51.6 fl (35.1-43.9); Red Blood Count 4.87 M/mm3 (4.2-5.4); White Blood Count 17.5 K/mm3 (4.4-11.0)
[2018-06-05 20:56] LABS: POSITIVE COUNT NO; POSITIVE DIFFERENTIAL NO; POSITIVE MORPHOLOGY NO
[2018-06-05] MEDS: Acetaminophen 500 MG Tablet 1000 MG PO (21:03)
[2018-06-05 21:11] LABS: Anion Gap 12 (5-15); BUN 29 mg/dL (7-18); BUN/Creat Ratio 21.2 RATIO (10-20); Calcium,Total 9.3 mg/dL (8.5-10.1); Chloride 110 mmol/L (98-107); Creatinine, Serum 1.37 mg/dL (0.55-1.02); EST Glomerular Filtration Rate 42 mL/min (>60); Est Glom Filt Rate - Afr Amer 51 mL/min (>60); Estimated Creatinine Clearance 36.26 ml/min; Glucose 132 mg/dL (74-106); Potassium 4.1 mmol/L (3.5-5.1); Sodium Level 142 mmol/L (136-145)
--- NOTE | 2018-06-05 21:15 | ED.RN ---
MULTIPLE ATTEMPTS MADE FOR IV ACCESS. IV ACCESS WAS MADE. BLUE DRAWN VIA BUTTERFLY NEEDLE. NOTIFIED DR. WOODS ONLY ONE BLOOD CULTURE WAS ABLE TO BE DRAWN. PER DR. CHUCK FRAGA FOR NOW.
[2018-06-05 21:37] VITALS: BP 152/84; PULSE 99; RESP 19; O2SAT 96
[2018-06-05] MEDS: Ceftriaxone 1 GM/50 ML BAG IV (21:58)
--- NOTE | 2018-06-05 22:28 | ED.DCSUM_ITS ---
- ER Visit Summary Date of Service: 06/05/18 Chief Complaint: Back pain, nausea History of Present Illness: The patient is a 57 F with left flank pain since early this morning. She reports nausea and heaves. She denies dysuria or hematuria. She did note a fever at home today. She is a history of hypertension, atrial fibrillation status post ablation, Unruly's thyroiditis , anemia, sleep apnea. Physical Examination: Blood pressure is 154/100, temperature 100.0, heart rate 104, respiratory rate 20, pulse ox 98% on room air. Patient sitting upright at bedside. She appears uncomfortable but is not toxic appearing. Heart is regular rate and rhythm. Lung sounds are clear. Abdomen is soft with mild tenderness in the left lower quadrant. There is no guarding or rebound. Back examination does reveal left CVA tenderness. There are no appreciable rashes or lesions. Test Results: CT flank shows a nonobstructive right renal calculi. There is left hydronephrosis with an obstructing 8 mm mid ureter stone. There is left perinephric stranding. CBC was white count 17.5 with 95% neutrophils. Hemoglobin 11.0. Chemistry studies reveal BUN 29 creatinine 1.37. Urinalysis is positive for nitrites with 5-10 white cells and 3+ bacteria. Blood and urine cultures have been ordered. Emergency Department Course and Treatment: Patient was initially given morphine , Zofran, Toradol, and Tylenol. Upon completion of the urinalysis Rocephin was ordered. I spoke with Dr. Posey. He asked that we have the hospitalist admit the patient and keep her n.p.o. after midnight. He will plan to place a stent tomorrow. Treatment Plan: [] Disposition: Admit Impression: 1. Left ureter stone 2. Pyonephritis This note was generated with [employer] dictation software. It may contain incorrect words, spelling, and punctuation that were not noted in review of the chart prior to signing ED Disposition - Plan for ED Patient: Chief Complaint: Back Referrals: Jordan Butler MD [Primary Care Provider] -
[2018-06-05 22:50] VITALS: TEMP 37.5
--- NOTE | 2018-06-05 23:58 | HP.PCM_ITS ---
Problem List (1) Acute pyelonephritis Status: Acute (2) Iron deficiency anemia Status: Chronic History of Present Illness Date of Admission: 06/05/18 Chief Complaint: left flank pain The patient is a 57 year old F with a significant history of hypertension, CKD, A. fib status post ablation, gout and chronic anemia who presents because of left flank pain that started the morning of the day of admission. Patient reported that she had excruciating pain in the left flank that woke up from her sleep. She tried Flexeril, originally prescribed for knee pain, but it did not help with her flank pain. Associated with her symptoms his fever, nausea and vomiting. A CT scan of the abdomen and pelvis showed left hydronephrosis with an obstructing mid left ureteral stone and it was consented for pyelonephritis. Urologist was consulted from the ED. The ED doctor reported that urology wants patient to be kept n.p.o. after midnight for ureteral stent. Patient was started on IV antibiotics while at the emergency department. Past Medical History Past Medical History (Chronic Problems): Chronic Problems (Last Reviewed 11/21/17 @ 10:26 by Antonino Colvin MD) Chronic atrial fibrillation (Chronic) Nonrheumatic tricuspid valve regurgitation (Chronic) Nonrheumatic mitral (valve) insufficiency (Chronic) Status post radiofrequency ablation (RFA) operation for arrhythmia (Chronic ~02/02) For Atrial Fib @ [facility] Hypertension (Chronic) Iron deficiency anemia (Chronic) Medical History: Medical History (Last Reviewed 06/06/18 @ 01:20 by Sacha Giraldo MD) Nonrheumatic tricuspid valve regurgitation (Chronic) I36.1 Nonrheumatic mitral (valve) insufficiency (Chronic) I34.0 Hypertension (Chronic) I10 Anemia D64.9 Body mass index (BMI) 35 or more 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 History of cardioversion Onset Date: ~11/2016 Z98.890 Obstructive sleep apnea G47.33 Paroxysmal atrial fibrillation I48.0 Allergies metoprolol Adverse Reaction (Severe, Verified 06/05/18 18:52) Fatigue, weigt gain Home Medications: Ambulatory Orders Medication Instructions Recorded Diltiazem HCl [Diltiazem ER] 120 mg PO DAILY 04/30/18 Oxycodone [Oxyir] 5 mg PO Q6H PRN PRN #12 tab 05/03/18 Cyclobenzaprine [Flexeril] 10 mg PO Q8H PRN PRN 05/08/18 Dofetilide [Tikosyn] 250 mcg PO Q12 05/08/18 Acetaminophen [Tylenol Extra 500 mg PO Q4H PRN PRN 06/05/18 Strength] Febuxostat [Uloric] 40 mg PO DAILY 06/05/18 Prednisone [Prednisone] See Taper PO DAILY 06/05/18 Rivaroxaban [Xarelto] 20 mg PO DAILY 06/05/18 Surgical History: Surgical History (Last Reviewed 06/06/18 @ 01:21 by Sacha Giraldo MD) Status post radiofrequency ablation (RFA) operation for arrhythmia (Chronic) Onset Date: ~09/21/17 Z98.890, Z86.79 For Atrial Fib @ [facility] History of Z98.891 History of tonsillectomy Z98.890, Z90.89 Surgical History: - - section. Psychiatric History: No pertinent psych hx [facility] History: No pertinent [facility] history, - Lives: Alone Smoking Status: Never smoker - *Family History Paternal Family History: Family History (Last Updated 02/20/18 @ 08:35 by Faby Starkey) Father Afib History Items: Heart Disease, Renal Disease Maternal Family History: Family History (Last Updated 02/20/18 @ 08:35 by Faby Starkey) Father Afib History Items: Renal Disease, No pertinent history Review of Systems Constitutional: Reports: Fever Eyes: Denies: Blurred vision, Pain HEENT: Denies: Head Aches, Sinus Congestion, Sinus Drainage Cardiovascular: Denies: Chest Pain, Palpitations Respiratory: Denies: Cough, Shortness of breath at rest, Sputum production Gastrointestinal: Reports: Nausea, Vomiting Genitourinary: Denies: Dysuria Musculoskeletal: Reports: - - Chronic knee pain Skin: Denies: Rash, Wounds Neurological: Denies: Numbness, Tingling, Focal weakness Psychiatric: Denies: Anxiety, Depression, Homicidal Ideations, Suicidal Ideations Hematologic/ Lymphatic: Denies: Easy Bruising, Easy Bleeding VTE Information - Inpt Only VTE Present on Admission: No VTE Mechan Device Prophylaxis: None VTE Pharm Prophylaxis ordered?: No Reason prophylaxis not ordered:: Medical Contraindication Patient Problems: Active and Suspected Problems (Last Reviewed 11/21/17 @ 10:26 by Antonino Colvin MD ) Acute pyelonephritis (Acute) - Physical Exam General: Alert, Oriented x3, Cooperative HEENT: Atraumatic, PERRLA, EOMI, Normocephalic Neck: Supple, No JVD, Negative Carotid Bruits Lungs: Clear to auscultation, Normal air movement Cardiovascular: Regular rate, No murmurs Abdomen: Bowel Sounds Present, - - Left CVA tenderness Extremities: No clubbing Skin: No rashes, No breakdown Musculoskeletal: No Tenderness to Palpation of Joints or Extremities Neurological: Cranial nerves II-XII grossly intact Psych/Mental Status: Normal Affect, Appropriate Vital Signs Temp Pulse Resp BP Pulse Ox 99.5 F H 99 19 H 152/84 H 96 06/05/18 22:50 06/05/18 21:37 06/05/18 21:37 06/05/18 21:37 06/05/18 21:37 Oxygen Delivery Method Room Air Weight: 137.892 kg Body Mass Index (BMI) 55.5 Laboratory Tests Past 24 Hrs 06/05/18 06/05/18 06/05/18 19:45 20:35 20:35 WBC 17.5 H RBC 4.87 Hgb 11.0 L Hct 37.6 MCV 77.2 L MCH 22.6 L MCHC 29.3 L RDW 18.3 H RDW Differential 51.6 H Plt Count 273 MPV 11.0 Immature Gran % (Auto) 0.300 Neut % (Auto) 95.0 H Lymph % (Auto) 3.9 L [place] % (Auto) 0.7 Eos % (Auto) 0.0 Baso % (Auto) 0.1 Absolute Neuts (auto) 16.6 H Absolute Lymphs (auto) 0.69 L Total Counted Not Reportable Sodium 142 Potassium 4.1 Chloride 110 H Carbon Dioxide 20.0 L Anion Gap 12 BUN 29 H Creatinine 1.37 H Estim Creat Clear Calc 36.26 Est GFR (MDRD) Af Amer 51 L Est GFR (MDRD) Non-Af 42 L BUN/Creatinine Ratio 21.2 H Glucose 132 H Calcium 9.3 Urine Color Yellow Urine Clarity Sl. Cloudy Urine pH 5.0 Ur Specific [place]ector 1.015 Urine Protein Negative Urine Glucose (UA) Normal Urine Ketones Negative Urine Occult Blood 150 H Urine Nitrite Positive H Urine Bilirubin Negative Urine Urobilinogen Normal Ur Leukocyte Esterase 100 H Urine RBC 0-5 SEEN Urine WBC 5-10 SEEN Ur Squamous Epith Cells 5-10 SEEN Urine Bacteria 3+ Urine Mucus 0 SEEN Assessment/Plan All Active Problems (Last Reviewed 11/21/17 @ 10:26 by Antonino Colvin MD) Acute pyelonephritis (Acute) The patient is a 57 year old F with a significant history of hypertension, CKD, A. fib status post ablation, gout and chronic anemia who presents because of left flank pain, nausea, and vomiting with radiographic evidence of left pyelonephritis and left urethral stone. Acute pyelonephritis White count of 17.5. Received morphine, NSS,Toradol, Tylenol and Rocephin at the ED Rocephin continued Left ureteral stone Morphine and Zofran as above Flomax ordered. Continue normal saline N.p.o. after midnight for ureteral stent in the a.m. Urology consulted. History of A. fib Status post ablation Currently in sinus rhythm Continue Xarelto. Chronic anemia Reports receiving 2 units of packed red blood cells 2 weeks ago Hemoglobin stable. DVT prophylaxis On therapeutic anticoagulation with Xarelto. Code Visit Inpatient E&M: 73047 Init Hosp L2
[2018-06-06] VITALS (16 sets, daily range): BP systolic 98–133; BP diastolic 53–80; PULSE 50–79; RESP 14–23; TEMP 36.2–37.4; O2SAT 93–100; BMI 49.4; BMI 48.9
[2018-06-06] MEDS: Ondansetron 4 MG/2 ML Vial IV ×2 (00:41→19:19)
[2018-06-06] MEDS: Morphine 4 MG/ML Syringe IV (00:42)
[2018-06-06] MEDS: 0.9% Normal Saline 1,000 ML 100 ML IV ×2 (04:50→21:58)
--- NOTE | 2018-06-06 05:00 | EKG12_ITS ---
Test Reason : EE Blood Pressure : / mmHG Vent. Rate : 061 BPM Atrial Rate : 061 BPM P-R Int : 148 ms QRS Dur : 082 ms QT Int : 504 ms P-R-T Axes : 052 065 044 degrees QTc Int : 507 ms Sinus rhythm with Premature atrial complexes Nonspecific T wave abnormality Prolonged QT Abnormal ECG Confirmed by MATHEW FELICIANO, REGINE ([id number]), magazine editor GAVIN GAO ([id number]) on 06/14/2018 1:54:15 PM Referred By: Confirmed By:REGINE CARMONA MD
[2018-06-06 05:28] LABS: Absolute Neutrophil Count 20.1 X10^3/uL (2.0-7.7); Basophil# 0.01 X10^3/uL; Eosinophil# 0.02 X10^3/uL; Eosinophils% 0.1 % (0-5); Hematocrit 29.6 % (37-47); Hemoglobin 8.6 g/dl (12.0-15.0); International Normalized Ratio 2.2; Lymphocyte % 8.1 % (19-41); Mean Corp Hgb Conc 29.1 g/gl (32-36); Mean Corpuscular Hgb 22.8 pg (27.0-32.0); Mean Corpuscular Volume 78.3 fL (81-99); Monocyte# 1.51 X10^3/uL; Monocyte% 6.4 % (0-10); Neutrophil # 20.06 X10^3/uL (2.7-7.7); Neutrophil % 85.1 % (47-70); Platelet Count 288 K/mm3 (150-450); Prothrombin Time (Protime)PT. 24.6 SECONDS (11.7-14.9); RBC Distribution Width CV 18.5 % (11.6-14.6); RBC Distribution Width SD 51.1 fl (35.1-43.9); Red Blood Count 3.78 M/mm3 (4.2-5.4); White Blood Count 23.6 K/mm3 (4.4-11.0)
[2018-06-06 05:29] LABS: Partial Thromboplast Time 42.4 Seconds (24.1-36.2)
[2018-06-06 05:30] LABS: Differential Indicated SCAN CRITERIA MET; POSITIVE COUNT NO; POSITIVE DIFFERENTIAL YES; POSITIVE MORPHOLOGY NO
[2018-06-06 05:50] LABS: Anion Gap 7 (5-15); BUN 30 mg/dL (7-18); BUN/Creat Ratio 21.6 RATIO (10-20); Calcium,Total 8.5 mg/dL (8.5-10.1); Chloride 111 mmol/L (98-107); Creatinine, Serum 1.39 mg/dL (0.55-1.02); EST Glomerular Filtration Rate 42 mL/min (>60); Est Glom Filt Rate - Afr Amer 50 mL/min (>60); Estimated Creatinine Clearance 42.31 ml/min; Glucose 129 mg/dL (74-106); Potassium 4.4 mmol/L (3.5-5.1); Sodium Level 141 mmol/L (136-145); Thyroid Stim Hormone (TSH) 0.71 uIU/mL (0.358-3.74)
--- NOTE | 2018-06-06 07:41 | PCM.PN.HOSP ---
Patient Problems: Active and Suspected Problems (Last Reviewed 06/06/18 @ 01:20 by Sacha Giraldo MD) Acute pyelonephritis (Acute) Subjective: Patient is a 57-year-old lady admitted with left flank pain; CT obtained and admission demonstrated Nonobstructive right renal calculi. Left hydronephrosis with an obstructing mid left ureteral stone. There is left perinephric stranding and suprarenal soft tissue attenuation. 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 SKIN: No Rash Vitals/I&O's: Vital Signs Temp Pulse Resp BP Pulse Ox 99.4 F H 64 16 98/56 L 99 06/06/18 01:46 06/06/18 01:46 06/06/18 01:46 06/06/18 01:46 06/06/18 01:46 Oxygen Delivery Method Room Air Weight: 138.709 kg Body Mass Index (BMI) 49.4 Intake and Output for Last 24 Hours 06/04/18 06/05/18 06/06/18 23:59 23:59 23:59 Intake Total 403 / 403 Balance 403 / 403 Laboratory Results 06/06/18 05:10: WBC 23.6 H, RBC 3.78 L, Hgb 8.6 L, Hct 29.6 L, MCV 78.3 L, MCH 22.8 L, MCHC 29.1 L, RDW 18.5 H, RDW Differential 51.1 H, Plt Count 288, MPV 11.0, Immature Gran % (Auto) 0.300, Neut % (Auto) 85.1 H, Lymph % (Auto) 8.1 L, [place] % (Auto) 6.4, Eos % (Auto) 0.1, Baso % (Auto) 0.0, Absolute Neuts (auto) 20.1 H, Absolute Lymphs (auto) 1.90, Total Counted Not Reportable 06/06/18 05:10: PT 24.6 H, INR 2.2, APTT 42.4 H 06/06/18 05:10: Sodium 141, Potassium 4.4, Chloride 111 H, Carbon Dioxide 23.0, Anion Gap 7, BUN 30 H, Creatinine 1.39 H, Estim Creat Clear Calc 42.31, Est GFR (MDRD) Af Amer 50 L, Est GFR (MDRD) Non-Af 42 L, BUN/Creatinine Ratio 21.6 H, Glucose 129 H, Calcium 8.5, TSH 0.71 Current Medications Acetaminophen (Tylenol) 500 mg PO Q4H PRN PRN PRN Reason: PAIN Cyclobenzaprine HCl (Flexeril) 10 mg PO Q8H PRN PRN PRN Reason: MUSCLE SPASM Diltiazem HCl (Cardizem Cd) 120 mg PO DAILY [facility] Docusate Sodium (Colace) 200 mg PO BID PRN PRN PRN Reason: Constipation Dofetilide (Tikosyn) 250 mcg PO Q12 [facility] Sodium Chloride () 1,000 mls @ 100 mls/hr IV .Q10H [facility] Stop: 06/07/18 00:34 Last Admin: 06/06/18 04:50 Dose: 100 mls/hr Ceftriaxone Sodium (Rocephin) 1 gm in 50 mls @ 100 mls/hr IV Q24 [facility] Magnesium Hydroxide (Milk Of Magnesia) 30 ml PO DAILY PRN PRN PRN Reason: Constipation Morphine Sulfate () 1 - 2 mg IV Q4H PRN PRN PRN Reason: Moderate Pain (pain scale 4-5) Ondansetron HCl (Zofran) 4 mg IV Q8H PRN PRN PRN Reason: Nausea Oxycodone HCl (Oxyir) 5 mg PO Q4H PRN PRN PRN Reason: Moderate Pain (pain scale 4-5) Prednisone () 40 mg PO DAILY@0800 [facility] PRN Reason: Taper Stop: 06/14/18 07:59 Rivaroxaban (Xarelto) 20 mg PO DAILY [facility] Sodium Chloride () 5 - 30 ml IV UD PRN PRN Reason: SALINE FLUSH Tamsulosin HCl (Flomax) 0.4 mg PO DAILY [facility] Zolpidem Tartrate (Ambien (Generic)) 5 mg PO QHS PRN PRN PRN Reason: INSOMNIA Medical Necessity - Tobacco Use Smoking Status: Never smoker Assessment/Plan All Active Problems (Last Reviewed 06/06/18 @ 01:20 by Sacha Giraldo MD) Acute pyelonephritis (Acute) Patient is a 57-year-old lady admitted with left flank pain; CT obtained and admission demonstrated Nonobstructive right renal calculi. Left hydronephrosis with an obstructing mid left ureteral stone. There is left perinephric stranding and suprarenal soft tissue attenuation. 1. Acute pyelonephritis patient has been admitted to regular nursing floor cultures sent on admission please on Rocephin with plans to adjust antibiotic therapy based on culture result 2. Nephrolithiasis CT demonstrated Nonobstructive right renal calculi. Left hydronephrosis with an obstructing mid left ureteral stone. There is left perinephric stranding and suprarenal soft tissue attenuation. Consult was placed to urology 4. History of A. fib with previous ablation currently on Tikosyn systemic anticoagulation with Xarelto 4. Anemia secondary to anemia of chronic disorder monitoring H&H with plans to transfuse if patient becomes symptomatic or hemoglobin falls below 7. Of note patient had received 2 units PRBC blood transfusion 2 weeks prior to her admission 5. Hypertension-blood pressure controlled, home medications continued with dose adjustment as needed 6. Acute Renal failure possibly related to patient underlying infection on IV fluids with monitoring of electrolyte 7. Gout 8. DVT prophylaxis on Xarelto 9. Morbid obesity with BMI of 49.4 lifestyle modification including weight loss advised 10. Cholelithiasis. CT findings currently is symptomatic Clinical Impression(s) from Imaging Studies Abdomen/Pelvis CT 06/05/18 19:38 IMPRESSION: Nonobstructive right renal calculi. Left hydronephrosis with an obstructing mid left ureteral stone. There is left perinephric stranding and suprarenal soft tissue attenuation. Evaluation is limited without intravenous contrast. Possible stone in the urinary bladder. Fatty umbilical hernia. Hiatal hernia. Cholelithiasis. Electronically Signed: Wesley Self DO at 21:54 EDT Tel [phone], Service support , Active Medications Acetaminophen (Tylenol) 500 mg PO Q4H PRN PRN PRN Reason: PAIN Cyclobenzaprine HCl (Flexeril) 10 mg PO Q8H PRN PRN PRN Reason: MUSCLE SPASM Diltiazem HCl (Cardizem Cd) 120 mg PO DAILY [facility] Docusate Sodium (Colace) 200 mg PO BID PRN PRN PRN Reason: Constipation Dofetilide (Tikosyn) 250 mcg PO Q12 [facility] Sodium Chloride () 1,000 mls @ 100 mls/hr IV .Q10H [facility] Stop: 06/07/18 00:34 Last Admin: 06/06/18 04:50 Dose: 100 mls/hr Ceftriaxone Sodium (Rocephin) 1 gm in 50 mls @ 100 mls/hr IV Q24 [facility] Magnesium Hydroxide (Milk Of Magnesia) 30 ml PO DAILY PRN PRN PRN Reason: Constipation Morphine Sulfate () 1 - 2 mg IV Q4H PRN PRN PRN Reason: Moderate Pain (pain scale 4-5) Ondansetron HCl (Zofran) 4 mg IV Q8H PRN PRN PRN Reason: Nausea Oxycodone HCl (Oxyir) 5 mg PO Q4H PRN PRN PRN Reason: Moderate Pain (pain scale 4-5) Prednisone () 40 mg PO DAILY@0800 [facility] PRN Reason: Taper Stop: 06/14/18 07:59 Rivaroxaban (Xarelto) 20 mg PO DAILY [facility] Sodium Chloride () 5 - 30 ml IV UD PRN PRN Reason: SALINE FLUSH Tamsulosin HCl (Flomax) 0.4 mg PO DAILY [facility] Zolpidem Tartrate (Ambien (Generic)) 5 mg PO QHS PRN PRN PRN Reason: INSOMNIA Code Visit Inpatient E&M: [id number] [facility] L3
--- NOTE | 2018-06-06 07:44 | PN_ITS ---
Patient Problems: Active and Suspected Problems (Last Reviewed 06/06/18 @ 01:20 by Sacha Giraldo MD) Acute pyelonephritis (Acute) Subjective: Patient is a 57-year-old lady admitted with left flank pain; CT obtained and admission demonstrated Nonobstructive right renal calculi. Left hydronephrosis with an obstructing mid left ureteral stone. There is left perinephric stranding and suprarenal soft tissue attenuation. 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 SKIN: No Rash Vitals/I&O's: Vital Signs Temp Pulse Resp BP Pulse Ox 99.4 F H 64 16 98/56 L 99 06/06/18 01:46 06/06/18 01:46 06/06/18 01:46 06/06/18 01:46 06/06/18 01:46 Oxygen Delivery Method Room Air Weight: 138.709 kg Body Mass Index (BMI) 49.4 Intake and Output for Last 24 Hours 06/04/18 06/05/18 06/06/18 23:59 23:59 23:59 Intake Total 403 / 403 Balance 403 / 403 Laboratory Results 06/06/18 05:10: WBC 23.6 H, RBC 3.78 L, Hgb 8.6 L, Hct 29.6 L, MCV 78.3 L, MCH 22.8 L, MCHC 29.1 L, RDW 18.5 H, RDW Differential 51.1 H, Plt Count 288, MPV 11.0, Immature Gran % (Auto) 0.300, Neut % (Auto) 85.1 H, Lymph % (Auto) 8.1 L, [place] % (Auto) 6.4, Eos % (Auto) 0.1, Baso % (Auto) 0.0, Absolute Neuts (auto) 20.1 H, Absolute Lymphs (auto) 1.90, Total Counted Not Reportable 06/06/18 05:10: PT 24.6 H, INR 2.2, APTT 42.4 H 06/06/18 05:10: Sodium 141, Potassium 4.4, Chloride 111 H, Carbon Dioxide 23.0, Anion Gap 7, BUN 30 H, Creatinine 1.39 H, Estim Creat Clear Calc 42.31, Est GFR (MDRD) Af Amer 50 L, Est GFR (MDRD) Non-Af 42 L, BUN/Creatinine Ratio 21.6 H, Glucose 129 H, Calcium 8.5, TSH 0.71 Current Medications Acetaminophen (Tylenol) 500 mg PO Q4H PRN PRN PRN Reason: PAIN Cyclobenzaprine HCl (Flexeril) 10 mg PO Q8H PRN PRN PRN Reason: MUSCLE SPASM Diltiazem HCl (Cardizem Cd) 120 mg PO DAILY [facility] Docusate Sodium (Colace) 200 mg PO BID PRN PRN PRN Reason: Constipation Dofetilide (Tikosyn) 250 mcg PO Q12 [facility] Sodium Chloride () 1,000 mls @ 100 mls/hr IV .Q10H [facility] Stop: 06/07/18 00:34 Last Admin: 06/06/18 04:50 Dose: 100 mls/hr Ceftriaxone Sodium (Rocephin) 1 gm in 50 mls @ 100 mls/hr IV Q24 [facility] Magnesium Hydroxide (Milk Of Magnesia) 30 ml PO DAILY PRN PRN PRN Reason: Constipation Morphine Sulfate () 1 - 2 mg IV Q4H PRN PRN PRN Reason: Moderate Pain (pain scale 4-5) Ondansetron HCl (Zofran) 4 mg IV Q8H PRN PRN PRN Reason: Nausea Oxycodone HCl (Oxyir) 5 mg PO Q4H PRN PRN PRN Reason: Moderate Pain (pain scale 4-5) Prednisone () 40 mg PO DAILY@0800 [facility] PRN Reason: Taper Stop: 06/14/18 07:59 Rivaroxaban (Xarelto) 20 mg PO DAILY [facility] Sodium Chloride () 5 - 30 ml IV UD PRN PRN Reason: SALINE FLUSH Tamsulosin HCl (Flomax) 0.4 mg PO DAILY [facility] Zolpidem Tartrate (Ambien (Generic)) 5 mg PO QHS PRN PRN PRN Reason: INSOMNIA Medical Necessity - Tobacco Use Smoking Status: Never smoker Assessment/Plan All Active Problems (Last Reviewed 06/06/18 @ 01:20 by Sacha Giraldo MD) Acute pyelonephritis (Acute) Patient is a 57-year-old lady admitted with left flank pain; CT obtained and admission demonstrated Nonobstructive right renal calculi. Left hydronephrosis with an obstructing mid left ureteral stone. There is left perinephric stranding and suprarenal soft tissue attenuation. 1. Acute pyelonephritis patient has been admitted to regular nursing floor cultures sent on admission please on Rocephin with plans to adjust antibiotic therapy based on culture result 2. Nephrolithiasis CT demonstrated Nonobstructive right renal calculi. Left hydronephrosis with an obstructing mid left ureteral stone. There is left perinephric stranding and suprarenal soft tissue attenuation. Consult was placed to urology 4. History of A. fib with previous ablation currently on Tikosyn systemic anticoagulation with Xarelto 4. Anemia secondary to anemia of chronic disorder monitoring H&H with plans to transfuse if patient becomes symptomatic or hemoglobin falls below 7. Of note patient had received 2 units PRBC blood transfusion 2 weeks prior to her admission 5. Hypertension-blood pressure controlled, home medications continued with dose adjustment as needed 6. Acute Renal failure possibly related to patient underlying infection on IV fluids with monitoring of electrolyte 7. Gout 8. DVT prophylaxis on Xarelto 9. Morbid obesity with BMI of 49.4 lifestyle modification including weight loss advised 10. Cholelithiasis. CT findings currently is symptomatic Clinical Impression(s) from Imaging Studies Abdomen/Pelvis CT 06/05/18 19:38 IMPRESSION: Nonobstructive right renal calculi. Left hydronephrosis with an obstructing mid left ureteral stone. There is left perinephric stranding and suprarenal soft tissue attenuation. Evaluation is limited without intravenous contrast. Possible stone in the urinary bladder. Fatty umbilical hernia. Hiatal hernia. Cholelithiasis. Electronically Signed: Wesley Self DO at 21:54 EDT Tel [phone], Service support , Active Medications Acetaminophen (Tylenol) 500 mg PO Q4H PRN PRN PRN Reason: PAIN Cyclobenzaprine HCl (Flexeril) 10 mg PO Q8H PRN PRN PRN Reason: MUSCLE SPASM Diltiazem HCl (Cardizem Cd) 120 mg PO DAILY [facility] Docusate Sodium (Colace) 200 mg PO BID PRN PRN PRN Reason: Constipation Dofetilide (Tikosyn) 250 mcg PO Q12 [facility] Sodium Chloride () 1,000 mls @ 100 mls/hr IV .Q10H [facility] Stop: 06/07/18 00:34 Last Admin: 06/06/18 04:50 Dose: 100 mls/hr Ceftriaxone Sodium (Rocephin) 1 gm in 50 mls @ 100 mls/hr IV Q24 [facility] Magnesium Hydroxide (Milk Of Magnesia) 30 ml PO DAILY PRN PRN PRN Reason: Constipation Morphine Sulfate () 1 - 2 mg IV Q4H PRN PRN PRN Reason: Moderate Pain (pain scale 4-5) Ondansetron HCl (Zofran) 4 mg IV Q8H PRN PRN PRN Reason: Nausea Oxycodone HCl (Oxyir) 5 mg PO Q4H PRN PRN PRN Reason: Moderate Pain (pain scale 4-5) Prednisone () 40 mg PO DAILY@0800 [facility] PRN Reason: Taper Stop: 06/14/18 07:59 Rivaroxaban (Xarelto) 20 mg PO DAILY [facility] Sodium Chloride () 5 - 30 ml IV UD PRN PRN Reason: SALINE FLUSH Tamsulosin HCl (Flomax) 0.4 mg PO DAILY [facility] Zolpidem Tartrate (Ambien (Generic)) 5 mg PO QHS PRN PRN PRN Reason: INSOMNIA Code Visit Inpatient E&M: 90064 [facility] L3
--- NOTE | 2018-06-06 07:52 | PCM.CONS.U ---
Problem List (1) Left ureteral calculus Status: Acute (2) Acute pyelonephritis Status: Acute Reason for Consult Date of Consultation: 06/06/18 Reason for Consultation: Obstructing stone in pyelonephritis, left side History of Present Illness: The patient is a 57 year old female who presents with an elevated white blood count left flank pain and has obstruction of the left kidney with an 8 mm stone in the mid ureter. She is admitted for pyelonephritis and to take her surgery today for cystoscopy and left stent placement explained to the patient why I cannot do ureteroscopy and laser lithotripsy the setting of an infection. Clinically she is now stable Past Medical History Past Medical History (Chronic Problems): Chronic Problems (Last Reviewed 06/06/18 @ 01:20 by Sacha Giraldo MD) Chronic atrial fibrillation (Chronic) Nonrheumatic tricuspid valve regurgitation (Chronic) Nonrheumatic mitral (valve) insufficiency (Chronic) Status post radiofrequency ablation (RFA) operation for arrhythmia (Chronic ~09/21/17) For Atrial Fib @ [facility] Hypertension (Chronic) Iron deficiency anemia (Chronic) Medical History: Medical History (Last Reviewed 06/06/18 @ 01:20 by Sacha Giraldo MD) Nonrheumatic tricuspid valve regurgitation (Chronic) I36.1 Nonrheumatic mitral (valve) insufficiency (Chronic) I34.0 Hypertension (Chronic) I10 Anemia D64.9 Body mass index (BMI) 35 or more 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 History of cardioversion Onset Date: ~11/2016 Z98.890 Obstructive sleep apnea G47.33 Paroxysmal atrial fibrillation I48.0 Allergies metoprolol Adverse Reaction (Severe, Verified 06/05/18 18:52) Fatigue, weigt gain Home Medications: Ambulatory Orders Medication Instructions Recorded Diltiazem HCl [Diltiazem ER] 120 mg PO DAILY 04/30/18 Oxycodone [Oxyir] 5 mg PO Q6H PRN PRN #12 tab 05/03/18 Cyclobenzaprine [Flexeril] 10 mg PO Q8H PRN PRN 05/08/18 Dofetilide [Tikosyn] 250 mcg PO Q12 05/08/18 Acetaminophen [Tylenol Extra 500 mg PO Q4H PRN PRN 06/05/18 Strength] Febuxostat [Uloric] 40 mg PO DAILY 06/05/18 Prednisone [Prednisone] See Taper PO DAILY 06/05/18 Rivaroxaban [Xarelto] 20 mg PO DAILY 06/05/18 Surgical History: Surgical History (Last Reviewed 06/06/18 @ 01:21 by Sacha Giraldo MD) Status post radiofrequency ablation (RFA) operation for arrhythmia (Chronic) Onset Date: ~09/21/17 Z98.890, Z86.79 For Atrial Fib @ [facility] History of Z98.891 History of tonsillectomy Z98.890, Z90.89 Surgical History: noncontributory, - - section. 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 Denies: Weight Change HEENT: Denies: Head Aches, Sinus Congestion, Sinus Drainage Cardiovascular: Denies: Chest Pain, Palpitations Respiratory: Denies: Cough, Shortness of breath at rest, Sputum production Gastrointestinal: Reports: Abdominal Pain. Denies: Nausea, Vomiting Genitourinary: Denies: Dysuria Musculoskeletal: Denies: Joint Pain, Joint Tenderness Skin: Denies: Rash, Wounds Neurological: Denies: Numbness, Tingling, Focal weakness Psychiatric: Denies: Anxiety, Depression, Homicidal Ideations, Suicidal Ideations Hematologic/ Lymphatic: Denies: Easy Bruising, Easy Bleeding Physical Exam - Physical Exam Vital Signs Temp 99.4 F H 06/06/18 01:46 Pulse 64 06/06/18 01:46 Resp 16 06/06/18 01:46 BP 98/56 L 06/06/18 01:46 Pulse Ox 99 06/06/18 01:46 Intake & Output 06/04/18 06/05/18 06/06/18 23:59 23:59 23:59 Intake Total 403 / 403 Balance 403 / 403 Weight: 138.709 kg Intake: IV fluid/meds 403 / 403 General: Alert, Oriented x3 HEENT: Atraumatic Oral: Moist Mucosa Neck: Supple Lungs: Normal air movement Cardiovascular: Regular rate Abdomen: Bowel Sounds Present, Soft, Obese Laboratory Tests Past 24 Hrs 06/06/18 06/06/18 06/06/18 05:10 05:10 05:10 WBC 23.6 H RBC 3.78 L Hgb 8.6 L Hct 29.6 L MCV 78.3 L MCH 22.8 L MCHC 29.1 L RDW 18.5 H RDW Differential 51.1 H Plt Count 288 MPV 11.0 Immature Gran % (Auto) 0.300 Neut % (Auto) 85.1 H Lymph % (Auto) 8.1 L [place] % (Auto) 6.4 Eos % (Auto) 0.1 Baso % (Auto) 0.0 Absolute Neuts (auto) 20.1 H Absolute Lymphs (auto) 1.90 Total Counted Not Reportable PT 24.6 H INR 2.2 APTT 42.4 H Sodium 141 Potassium 4.4 Chloride 111 H Carbon Dioxide 23.0 Anion Gap 7 BUN 30 H Creatinine 1.39 H Estim Creat Clear Calc 42.31 Est GFR (MDRD) Af Amer 50 L Est GFR (MDRD) Non-Af 42 L BUN/Creatinine Ratio 21.6 H Glucose 129 H Calcium 8.5 TSH 0.71 Assessment/Plan All Active Problems (Last Reviewed 06/06/18 @ 01:20 by Sacha Giraldo MD) Acute pyelonephritis (Acute) Left ureteral calculus (Acute) 57-year-old female with obstructing stone in the proximal left ureter, pyelonephritis, fevers and chills, elevated white count plan to take her surgery for a cystoscopy left stent placement and then plan for delayed laser lithotripsy or shockwave lithotripsy of stone depending on the findings.
[2018-06-06] MEDS: Dofetilide 250 MCG Capsule PO ×2 (09:25→21:57)
[2018-06-06] MEDS: Ceftriaxone 1 GM/50 ML BAG IV (09:26)
--- NOTE | 2018-06-06 09:47 | NURSING ---
Upon entry into patient's room- pt removed her cpap appliance and said, this is unbelievable! she states she arrived at 0300 and expected to get some sleep but that she has been interrupted every 30 minutes. Apology given- educated patient that when you arrive at 0300 to the hospital and have an infection and are scheduled to have surgery- sleep is not the priority but that her health is. Patient states that she always takes her tikosyn at 1000 and wants to take it now for her arryhythmia. Patient given same per her request. Did notify patient that after this RN finished vitals and assessment with atb infusion patient would be left alone by this RN and a sign would be placed on door to not disturb patient. Patient asked who the anesthesiologist is today- notified that this RN is not sure- but that it could be Dr. Thomas. This RN offered to call and find out- patient denied need for same. patient states no, it is probably [facility]. This RN asked patient if she worked in hospital or knows Dr. 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 Patient requested BSC to be moved near her bed and denies further needs. Cpap placed and patient closed eyes. After this RN left pts. room- therapy asked to assess patient- notified rakan Hunt, to skip her today due to her request to not be disturbed until surgery pick up driver. Verbalized understanding.
--- NOTE | 2018-06-06 10:27 | NURSING ---
pt taken from unit at this time for MRI-
--- NOTE | 2018-06-06 11:14 | NURSING ---
REPORT CALLED TO [facility] IN [facility] AT THIS TIME-
--- NOTE | 2018-06-06 12:25 | CASEMGMT ---
RN CM NOTE: Attempted to do Initial CM assessment. Pt @ OR at this time. RN CM to attempt assessment @ later time. Tyler ESPARZA RN CM.
[2018-06-06] MEDS: Lidocaine Jelly 2% 20 ML Syringe (URO-JET) 20 APPLIC (12:46)
--- NOTE | 2018-06-06 12:53 | PCM.OPRPT ---
Problem List (1) Left ureteral calculus Status: Acute (2) Acute pyelonephritis Status: Acute Report of Operation Date of Procedure: 06/06/18 Pre-Operative Diagnosis: Left ureteral calculi causing obstruction and pain and pyelonephritis Post-Operative Diagnosis: Same Surgery/Procedure Performed:: Cystoscopy and left stent placement Description of Surgical Findings:: 57-year-old female taken back to the operating room after smooth induction of MAC local she is placed in dorsal lithotomy position the urethra and vaginal area were prepped and draped in usual sterile fashion, went into the bladder with a 21 [place] rigid cystourethroscope cannulated the left ureteral orifice advanced it up into the kidney and then over the wire I then advanced a stent 6 [place] by 26 cm stent pulled the wire the stent coiled in the kidney bladder good good position the stone is radiolucent was then not able to see the stone under fluoroscopy. Patient bladder was drained she is taken back to the PACU in good condition Type of Anesthesia:: Local MAC Drains: Left stent - Admit VTE Documentation VTE Present on Admission: No VTE Mechan Device Prophylaxis: SCD's
--- NOTE | 2018-06-06 15:21 | CHAPLAIN ---
Type of Pastoral Visit ___ Initial Visit ___ Follow-up Visit ___ On-call Visit ___ General Patient Visit ___ Spiritual Assessment ___ Family Conference ___ Bereavement ___ Rapid Response ___ Code Blue _x__ Other (describe below) Pastoral Care Referral From ___ Patient ___ Family ___ Nurse ___ Physician ___ Pediatric Surgeon ___ Mortgage Loan Reviewer ___ Other (describe below) Sacrament/Intervention ___ Active listening ___ Anointing ___ Scientologist ___ Bereavement ___ Communion ___ Megan exploration ___ ___ Life review ___ Prayer ___ Reconciliation ___ Sacrament of Sick ___ Supportive presence ___ Wedding ___ Other (describe below) Pastoral Comments two attempts made to visit with patient; pt is not in her room at either occasion and bed is also gone; left a calling card with message at bedside
[2018-06-06] MEDS: Tamsulosin HCl 0.4 MG Capsule PO (16:31)
[2018-06-06] MEDS: Febuxostat 40 MG TABLET PO (16:31)
[2018-06-06] MEDS: Rivaroxaban 20 MG Tablet PO (16:31)
[2018-06-06] MEDS: dilTIAZem CD 120 MG Capsule PO (16:31)
[2018-06-06] MEDS: predniSONE 10 MG Tablet 40 MG PO (16:34)
[2018-06-06] MEDS: 0.9% NaCl Peripheral Flush Adult/Peds IV (19:19)
[2018-06-06] MEDS: Morphine 2 MG/ML Syringe IV (19:19)
--- NOTE | 2018-06-06 19:46 | PCA ---
upon this [employer]'s initial rounding entered patient's room and RN was present providing patient with pain medication. RN told this [employer] that patient had been incontinent but patient then said she did not want to get OOB at this time due to her pain and would let this [employer] know when she felt okay enough to get OOB and clean up from her incontinence. patient then started to eat from her dinner tray still refusing to get OOB for hygiene purposes.
--- NOTE | 2018-06-06 20:41 | PCA ---
patient called out at this time with multiple different requests, this ITALIAN TUTOR entered patient's room and with supplies to preform incontinence hygiene and patient is still refusing hygiene at this time due to her pain. this ITALIAN TUTOR offered for patient to stay in bed and just roll back and forth so hygiene can be provided and patient states that her pain is still to much to tolerate any activity. this ITALIAN TUTOR met patient's other needs and patient states no other needs at this time, will attempt hygiene again at a later time.
--- NOTE | 2018-06-06 21:26 | PCA ---
PATIENT CALLED OUT TO GO TO [facility], HYGIENE PROVIDED AT THAT TIME- BED LINENS CHANGED
[2018-06-06] MEDS: Docusate Sodium 100 MG Capsule 200 MG PO (21:57)
[2018-06-06] MEDS: Acetaminophen 500 MG Tablet PO (23:34)
[2018-06-07 02:15] VITALS: BP 136/71; PULSE 64; RESP 18; TEMP 36.9; O2SAT 97
[2018-06-07] MEDS: 0.9% NaCl Peripheral Flush Adult/Peds IV ×2 (02:24→10:02)
[2018-06-07] MEDS: oxyCODONE 5 MG Tablet PO (02:25)
[2018-06-07 09:05] LABS: Hematocrit 30.7 % (37-47); Hemoglobin 8.9 g/dl (12.0-15.0); Mean Corpuscular Volume 79.3 fL (81-99); Mean Platelet Vol. 11.8 fl (6.2-12.0); Platelet Count 303 K/mm3 (150-450); RBC Distribution Width CV 18.4 % (11.6-14.6); RBC Distribution Width SD 51.8 fl (35.1-43.9); Red Blood Count 3.87 M/mm3 (4.2-5.4); Scan Indicated on CBC? Y/N NO; White Blood Count 9.4 K/mm3 (4.4-11.0)
[2018-06-07 09:18] LABS: Anion Gap 5 (5-15); BUN 25 mg/dL (7-18); BUN/Creat Ratio 21.9 RATIO (10-20); Calcium,Total 8.3 mg/dL (8.5-10.1); Chloride 113 mmol/L (98-107); Creatinine, Serum 1.14 mg/dL (0.55-1.02); EST Glomerular Filtration Rate 52 mL/min (>60); Est Glom Filt Rate - Afr Amer 63 mL/min (>60); Estimated Creatinine Clearance 51.58 ml/min; Glucose 105 mg/dL (74-106); Magnesium 2.4 mg/dL (1.6-2.6); Potassium 4.4 mmol/L (3.5-5.1); Sodium Level 143 mmol/L (136-145)
[2018-06-07 09:58] VITALS: BP 125/50; PULSE 60; RESP 18; TEMP 36.6; O2SAT 100
[2018-06-07] MEDS: Rivaroxaban 20 MG Tablet PO (10:01)
[2018-06-07] MEDS: Febuxostat 40 MG TABLET PO (10:01)
[2018-06-07] MEDS: Dofetilide 250 MCG Capsule PO ×2 (10:01→21:01)
[2018-06-07] MEDS: Tamsulosin HCl 0.4 MG Capsule PO (10:01)
[2018-06-07] MEDS: dilTIAZem CD 120 MG Capsule PO (10:01)
[2018-06-07] MEDS: predniSONE 10 MG Tablet PO (10:01)
[2018-06-07] MEDS: Ceftriaxone 1 GM/50 ML BAG IV (10:02)
--- NOTE | 2018-06-07 10:43 | PCM.PN.HOSP ---
Patient Problems: Active and Suspected Problems (Last Reviewed 06/06/18 @ 01:20 by Sacha Giraldo MD) Acute pyelonephritis (Acute) Left ureteral calculus (Acute) Subjective: Patient seen still complains of back pain. Urine cultures back positive for E. coli on appropriate antibiotic therapy. She underwent cystoscopy and left stent placement on 06/06/2018 Objective: GENERAL: Seen appears ill looking HEENT: Clear conjunctiva, NECK; supple, normal thyroid, CHEST: Diminished to auscultation bilaterally, HEART: Regular S1 S2, no audible murmurs ABDOMEN: soft, non-tender, normoactive bowel sounds, RECTAL: deferred EXTREMITIES: No edema, no clubbing, EXPLOSIVE ORDNANCE DISPOSAL SPECIALIST: Awake; no lateralizing signs. SKIN: No Rash Vitals/I&O's: Vital Signs Temp Pulse Resp BP Pulse Ox 98 F 60 18 125/50 H 100 06/07/18 09:58 06/07/18 09:58 06/07/18 09:58 06/07/18 09:58 06/07/18 09:58 Oxygen Delivery Method Room Air Weight: 138.709 kg Body Mass Index (BMI) 48.9 Intake and Output for Last 24 Hours 06/05/18 06/06/18 06/07/18 23:59 23:59 23:59 Intake Total 3315 / 3315 750 / 750 Output Total 560 / 560 350 / 350 Balance 2755 / 2755 400 / 400 Laboratory Results 06/07/18 08:30: WBC 9.4, RBC 3.87 L, Hgb 8.9 L, Hct 30.7 L, MCV 79.3 L, MCH 23.0 L, MCHC 29.0 L, RDW 18.4 H, RDW Differential 51.8 H, Plt Count 303, MPV 11.8 06/07/18 08:30: Sodium 143, Potassium 4.4, Chloride 113 H, Carbon Dioxide 25.0, Anion Gap 5, BUN 25 H, Creatinine 1.14 H, Estim Creat Clear Calc 51.58, Est GFR (MDRD) Af Amer 63, Est GFR (MDRD) Non-Af 52 L, BUN/Creatinine Ratio 21.9 H, Glucose 105, Calcium 8.3 L, Magnesium 2.4 Current Medications Acetaminophen (Tylenol) 500 mg PO Q4H PRN PRN PRN Reason: PAIN Last Admin: 06/06/18 23:34 Dose: 500 mg Cyclobenzaprine HCl (Flexeril) 10 mg PO Q8H PRN PRN PRN Reason: MUSCLE SPASM Last Admin: 06/06/18 23:34 Dose: 10 mg Diltiazem HCl (Cardizem Cd) 120 mg PO DAILY [facility] Last Admin: 06/07/18 10:01 Dose: 120 mg Docusate Sodium (Colace) 200 mg PO BID PRN PRN PRN Reason: Constipation Last Admin: 06/06/18 21:57 Dose: 200 mg Dofetilide (Tikosyn) 250 mcg PO Q12 [facility] Last Admin: 06/07/18 10:01 Dose: 250 mcg Ceftriaxone Sodium (Rocephin) 1 gm in 50 mls @ 100 mls/hr IV Q24 [facility] Last Admin: 06/07/18 10:02 Dose: 100 mls/hr Magnesium Hydroxide (Milk Of Magnesia) 30 ml PO DAILY PRN PRN PRN Reason: Constipation Morphine Sulfate () 1 - 2 mg IV Q4H PRN PRN PRN Reason: Moderate Pain (pain scale 4-5) Last Admin: 06/06/18 19:19 Dose: 2 mg Ondansetron HCl (Zofran) 4 mg IV Q8H PRN PRN PRN Reason: Nausea Last Admin: 06/06/18 19:19 Dose: 4 mg Oxycodone HCl (Oxyir) 5 mg PO Q4H PRN PRN PRN Reason: Moderate Pain (pain scale 4-5) Last Admin: 06/07/18 02:25 Dose: 5 mg Prednisone () 20 mg PO DAILY@0800 [facility] PRN Reason: Taper Stop: 06/11/18 07:59 Last Admin: 06/07/18 10:01 Dose: 20 mg Rivaroxaban (Xarelto) 20 mg PO DAILY [facility] Last Admin: 06/07/18 10:01 Dose: 20 mg Sodium Chloride () 5 - 30 ml IV UD PRN PRN Reason: SALINE FLUSH Last Admin: 06/07/18 10:02 Dose: 10 ml Tamsulosin HCl (Flomax) 0.4 mg PO DAILY [facility] Last Admin: 06/07/18 10:01 Dose: 0.4 mg Zolpidem Tartrate (Ambien (Generic)) 5 mg PO QHS PRN PRN PRN Reason: INSOMNIA Medical Necessity - Tobacco Use Smoking Status: Never smoker Assessment/Plan All Active Problems (Last Reviewed 06/06/18 @ 01:20 by Sacha Giraldo MD) Acute pyelonephritis (Acute) Left ureteral calculus (Acute) Patient is a 57-year-old lady admitted with left flank pain; CT obtained and admission demonstrated Nonobstructive right renal calculi. Left hydronephrosis with an obstructing mid left ureteral stone. There is left perinephric stranding and suprarenal soft tissue attenuation. 1. Acute pyelonephritis E. coli patient has been managed appropriately with Rocephin 2. Nephrolithiasis CT demonstrated Nonobstructive right renal calculi. Left hydronephrosis with an obstructing mid left ureteral stone. There is left perinephric stranding and suprarenal soft tissue attenuation. Consult was placed to urology patient underwent Cystoscopy and left stent placement on 06/06/2018 4. History of A. fib with previous ablation currently on Tikosyn systemic anticoagulation with Xarelto 4. Anemia secondary to anemia of chronic disorder monitoring H&H with plans to transfuse if patient becomes symptomatic or hemoglobin falls below 7. Of note patient had received 2 units PRBC blood transfusion 2 weeks prior to her admission 5. Hypertension-blood pressure controlled, home medications continued with dose adjustment as needed 6. Acute Renal failure possibly related to patient underlying infection on IV fluids with monitoring of electrolyte 7. Gout 8. DVT prophylaxis on Xarelto 9. Morbid obesity with BMI of 49.4 lifestyle modification including weight loss advised 10. Cholelithiasis. CT findings currently is symptomatic Clinical Impression(s) from Imaging Studies Abdomen/Pelvis CT 06/05/18 19:38 IMPRESSION: Nonobstructive right renal calculi. Left hydronephrosis with an obstructing mid left ureteral stone. There is left perinephric stranding and suprarenal soft tissue attenuation. Evaluation is limited without intravenous contrast. Possible stone in the urinary bladder. Fatty umbilical hernia. Hiatal hernia. Cholelithiasis. Electronically Signed: Wesley Self DO at 21:54 EDT Tel [phone], Service support , Active Medications Acetaminophen (Tylenol) 500 mg PO Q4H PRN PRN PRN Reason: PAIN Cyclobenzaprine HCl (Flexeril) 10 mg PO Q8H PRN PRN PRN Reason: MUSCLE SPASM Diltiazem HCl (Cardizem Cd) 120 mg PO DAILY [facility] Docusate Sodium (Colace) 200 mg PO BID PRN PRN PRN Reason: Constipation Dofetilide (Tikosyn) 250 mcg PO Q12 [facility] Sodium Chloride () 1,000 mls @ 100 mls/hr IV .Q10H [facility] Stop: 06/07/18 00:34 Last Admin: 06/06/18 04:50 Dose: 100 mls/hr Ceftriaxone Sodium (Rocephin) 1 gm in 50 mls @ 100 mls/hr IV Q24 [facility] Magnesium Hydroxide (Milk Of Magnesia) 30 ml PO DAILY PRN PRN PRN Reason: Constipation Morphine Sulfate () 1 - 2 mg IV Q4H PRN PRN PRN Reason: Moderate Pain (pain scale 4-5) Ondansetron HCl (Zofran) 4 mg IV Q8H PRN PRN PRN Reason: Nausea Oxycodone HCl (Oxyir) 5 mg PO Q4H PRN PRN PRN Reason: Moderate Pain (pain scale 4-5) Prednisone () 40 mg PO DAILY@0800 [facility] PRN Reason: Taper Stop: 06/14/18 07:59 Rivaroxaban (Xarelto) 20 mg PO DAILY [facility] Sodium Chloride () 5 - 30 ml IV UD PRN PRN Reason: SALINE FLUSH Tamsulosin HCl (Flomax) 0.4 mg PO DAILY [facility] Zolpidem Tartrate (Ambien (Generic)) 5 mg PO QHS PRN PRN PRN Reason: INSOMNIA Code Visit Inpatient E&M: 65452 [facility] Hosp L3
--- NOTE | 2018-06-07 12:31 | CASEMGMT ---
SEE TERA CANNON ASSESS LINK: Intro to role of CM to pt. Assess completed. Pt states would like Adv Directive Info. TREVOR Gonzalez notified. No other needs identified. D/C Plan: Discharge Home to her mother's house where she was previously staying. Tyler TOTHN RN CM
--- NOTE | 2018-06-07 13:27 | CHAPLAIN ---
Type of Pastoral Visit _x__ Initial Visit ___ Follow-up Visit ___ On-call Visit ___ General Patient Visit ___ Spiritual Assessment ___ Family Conference ___ Bereavement ___ Rapid Response ___ Code Blue ___ Other (describe below) Pastoral Care Referral From _x__ Patient ___ Family ___ Nurse ___ Physician ___ Polymerization Kettle Operator ___ Real Estate Marketing Coordinator ___ Other (describe below) Sacrament/Intervention ___ Active listening ___ Anointing ___ Yarsanism ___ Bereavement ___ Communion ___ Megan exploration ___ ___ Life review ___ Prayer ___ Reconciliation ___ Sacrament of Sick _x__ Supportive presence ___ Wedding ___ Other (describe below) Pastoral Comments patient is trying to sleep and asked if this no experience would come back another time; pt would welcome visit and prayers from no experience and states that I'm going to be here for awhile
[2018-06-07 14:18] VITALS: BP 142/78; PULSE 62; RESP 18; TEMP 36.9; O2SAT 98
--- NOTE | 2018-06-07 15:26 | CASEMGMT ---
Social Work Note MS2 Referral source: TERA CANNON Reason for referral: Advanced directives Met with patient in room, introducing to self and social work role. Patient confirms interest in completed advanced directives before going home, but does not wish to complete today as patient recently had surgery, and reports to not be feeling up to completion of forms. Answered patient's questions about the advanced directives and agreed that a social work professor will try to meet with patient at a later time. Patient reports will be having surgery again next week, so will be here for awhile. Patient reports to have a copy of the power of salt washer harvesting station on night stand and plans to review. Plan: Will attempt completion of advanced directives with patient at a later time during this admission. -CRISTI Amezcua, ASSEMBLY MEMBER
[2018-06-07 20:49] VITALS: BP 146/90; PULSE 60; RESP 18; TEMP 37.1; O2SAT 100
[2018-06-08] MEDS: oxyCODONE 5 MG Tablet PO ×3 (00:29→23:48)
[2018-06-08 03:00] VITALS: BP 140/78; PULSE 62; RESP 18; TEMP 37.1; O2SAT 99
[2018-06-08] MEDS: 0.9% NaCl Peripheral Flush Adult/Peds IV ×4 (05:41→10:15)
[2018-06-08] MEDS: Morphine 2 MG/ML Syringe IV (06:52)
[2018-06-08] MEDS: Ondansetron 4 MG/2 ML Vial IV (07:12)
--- NOTE | 2018-06-08 08:16 | CASEMGMT ---
SW checked in with patient to see if she wanted to complete advance directives. Patient said she had a bad night and does not want to do them today. Zahra RAMÍREZ MSW
--- NOTE | 2018-06-08 08:49 | PN_ITS ---
Patient Problems: Active and Suspected Problems (Last Reviewed 06/06/18 @ 01:20 by Sacha Giraldo MD) Acute pyelonephritis (Acute) Left ureteral calculus (Acute) Subjective: Chief complaint: Follow-up after admission for acute pyelonephritis, nonobstructive right kidney stone, obstructing left ureteral stone with left hydronephrosis. Patient seen and examined. No acute events overnight. She mentioned that overnight, her pain was not very well controlled. This morning, she received IV morphine and she feels better. Denies fever chills. Denied chest pain or shortness of breath. She has been afebrile, other vital signs are stable. - Physical Exam General: Alert, Oriented x3, Cooperative, No apparent distress HEENT: Atraumatic, PERRLA, EOMI, Normocephalic Oral: Moist Mucosa, No Gingival or Mucosal Lesions/ Ulcerations Neck: Supple, No JVD, Negative Carotid Bruits, Trachea Midline, Thyroid Normal Size and Texture Lungs: Clear to auscultation, No rhonchi, No wheeze, No rales, Diminished Cardiovascular: Normal S1, Normal S2, No murmurs, PMI Normal, Irregular Rate Abdomen: Bowel Sounds Present, Soft, Non Tender, Non-Distended, No Hepato- splenomegaly, Obese Extremities: No clubbing, No cyanosis, No edema Skin: No rashes, No breakdown Lymphatic: No Cervical, Supraclavicular, or Inguinal Adenopathy Neurological: Cranial nerves II-XII grossly intact, Motor Exam 5/5 strength throughout Psych/Mental Status: Normal Affect, Appropriate, Alert and oriented to time, place, person, mood and affect Vital Signs Temp Pulse Resp BP Pulse Ox 98.7 F 62 18 140/78 H 99 06/08/18 03:00 06/08/18 03:00 06/08/18 03:00 06/08/18 03:00 06/08/18 03:00 Oxygen Delivery Method Room Air Weight: 305 lb 12.816 oz Body Mass Index (BMI) 48.9 Intake and Output for Last 24 Hours 06/06/18 06/07/18 06/08/18 23:59 23:59 23:59 Intake Total 3315 / 3315 1800 / 1800 360 / 360 Output Total 560 / 560 350 / 350 150 / 150 Balance 2755 / 2755 1450 / 1450 210 / 210 Laboratory Tests Past 24 Hrs 06/07/18 06/07/18 08:30 08:30 WBC 9.4 RBC 3.87 L Hgb 8.9 L Hct 30.7 L MCV 79.3 L MCH 23.0 L MCHC 29.0 L RDW 18.4 H RDW Differential 51.8 H Plt Count 303 MPV 11.8 Sodium 143 Potassium 4.4 Chloride 113 H Carbon Dioxide 25.0 Anion Gap 5 BUN 25 H Creatinine 1.14 H Estim Creat Clear Calc 51.58 Est GFR (MDRD) Af Amer 63 Est GFR (MDRD) Non-Af 52 L BUN/Creatinine Ratio 21.9 H Glucose 105 Calcium 8.3 L Magnesium 2.4 Clinical Impression(s) from Imaging Studies Abdomen/Pelvis CT 06/05/18 19:38 IMPRESSION: Nonobstructive right renal calculi. Left hydronephrosis with an obstructing mid left ureteral stone. There is left perinephric stranding and suprarenal soft tissue attenuation. Evaluation is limited without intravenous contrast. Possible stone in the urinary bladder. Fatty umbilical hernia. Hiatal hernia. Cholelithiasis. Electronically Signed: Wesley Self DO at 21:54 EDT Tel [phone], Service support , Medical Necessity - Tobacco Use Smoking Status: Never smoker Assessment/Plan All Active Problems (Last Reviewed 06/06/18 @ 01:20 by Sacha Giraldo MD) Acute pyelonephritis (Acute) Left ureteral calculus (Acute) This is a 57 years old female patient admitted because of left flank pain, found to have acute left-sided pyelonephritis, obstructing mid left ureteral stone with left hydronephrosis status post cystoscopy and left stent placement. #1 acute left pyelonephritis: She is on IV Rocephin. Vital signs are stable, remained afebrile, white blood cell count is back to normal. Urinalysis revealed E. coli, pansensitive. Blood cultures pending. Plan to change IV Rocephin to 2 g IV daily, continue other treatments, repeat CBC and BMP after tomorrow. #2 obstructing left mid ureteral stone/left hydronephrosis: CT scan abdomen and pelvis revealed nonobstructing right kidney stone, obstructing left mid ureteral stone with hydronephrosis. Status post cystoscopy and left stent placement. Her kidney function is improving, plan for external shockwave lithotripsy on Sunday. Urology on the case. #3 chronic atrial fibrillation: Heart rate controlled, blood pressure stable. Continue Cardizem and Tikosyn for rate control, continue Xarelto for anticoagulation. #4 hypertension: Blood pressure stable, continue Cardizem. #5 chronic anemia: Hemoglobin and hematocrit are stable at baseline, no indication for transfusion. #6 stage III chronic kidney disease: His baseline creatinine has been around 1.1 -1.3 mg/dL. Her GFR has been always less than 60. Admission creatinine is 1.37 , today's creatinine 1.14, improving. #7 DVT prophylaxis: Continue Xarelto. This note was generated with [employer] dictation software. It may contain incorrect words, spelling, and punctuation that were not noted in checking the note before signing. Code Visit Inpatient E&M: 18486 Subs Hosp L2
[2018-06-08 09:00] VITALS: BP 134/69; PULSE 57; RESP 16; TEMP 36.6; O2SAT 100
[2018-06-08] MEDS: predniSONE 10 MG Tablet PO (10:10)
[2018-06-08] MEDS: Dofetilide 250 MCG Capsule PO ×2 (10:11→22:36)
[2018-06-08] MEDS: Tamsulosin HCl 0.4 MG Capsule PO (10:11)
[2018-06-08] MEDS: Febuxostat 40 MG TABLET PO (10:11)
[2018-06-08 15:00] VITALS: BP 136/80; PULSE 72; RESP 14; TEMP 36.7; O2SAT 99
[2018-06-08] MEDS: dilTIAZem CD 120 MG Capsule PO (16:02)
[2018-06-08] MEDS: Rivaroxaban 20 MG Tablet PO (16:03)
[2018-06-08 21:00] VITALS: BP 130/58; PULSE 64; RESP 20; TEMP 37; O2SAT 100
[2018-06-09 02:37] VITALS: BP 120/55; PULSE 58; RESP 18; TEMP 36.9; O2SAT 99
[2018-06-09] MEDS: oxyCODONE 5 MG Tablet PO ×2 (04:51→10:15)
[2018-06-09 08:08] VITALS: O2SAT 97
--- NOTE | 2018-06-09 08:59 | PCM.PROGNOTE ---
Patient Problems: Active and Suspected Problems (Last Reviewed 06/06/18 @ 01:20 by Sacha Giraldo MD) Acute pyelonephritis (Acute) Left ureteral calculus (Acute) Subjective: Chief complaint: Follow-up after admission for acute pyelonephritis, nonobstructive right kidney stone, obstructing left ureteral stone with left hydronephrosis. Patient seen and examined. No acute events overnight. All over, she is feeling better. She still having intermittent mild left flank pain. Urine is clearing up. Her vital signs are stable. - Physical Exam General: Alert, Oriented x3, Cooperative, No apparent distress HEENT: Atraumatic, PERRLA, EOMI, Normocephalic Oral: Moist Mucosa, No Gingival or Mucosal Lesions/ Ulcerations Neck: Supple, No JVD, Negative Carotid Bruits, Trachea Midline, Thyroid Normal Size and Texture Lungs: Clear to auscultation, No rhonchi, No wheeze, No rales, Diminished Cardiovascular: Normal S1, Normal S2, No murmurs, PMI Normal, Irregular Rate Abdomen: Bowel Sounds Present, Soft, Non Tender, Non-Distended, No Hepato-splenomegaly, Obese Extremities: No clubbing, No cyanosis, No edema Skin: No rashes, No breakdown Lymphatic: No Cervical, Supraclavicular, or Inguinal Adenopathy Neurological: Cranial nerves II-XII grossly intact, Motor Exam 5/5 strength throughout Psych/Mental Status: Normal Affect, Appropriate, Alert and oriented to time, place, person, mood and affect Vital Signs Temp Pulse Resp BP Pulse Ox 98.4 F 58 L 18 120/55 L 97 06/09/18 02:37 06/09/18 02:37 06/09/18 02:37 06/09/18 02:37 06/09/18 08:08 Oxygen Delivery Method Room Air Weight: 305 lb 12.816 oz Body Mass Index (BMI) 48.9 Intake and Output for Last 24 Hours 06/07/18 06/08/18 06/09/18 23:59 23:59 23:59 Intake Total 1800 / 1800 2194 / 2194 600 / 600 Output Total 350 / 350 150 / 150 Balance 1450 / 1450 2044 / 2044 600 / 600 Medical Necessity - Tobacco Use Smoking Status: Never smoker Assessment/Plan All Active Problems (Last Reviewed 06/06/18 @ 01:20 by Sacha Giraldo MD) Acute pyelonephritis (Acute) Left ureteral calculus (Acute) This is a 57 years old female patient admitted because of left flank pain, found to have acute left-sided pyelonephritis, obstructing mid left ureteral stone with left hydronephrosis status post cystoscopy and left stent placement. #1 E. coli acute left pyelonephritis: Remained on IV Rocephin. Vital signs are stable, remained afebrile, white blood cell count is back to normal. Urine culture revealed E. coli, pansensitive. Blood cultures showed no growth in 48 hours. Plan to continue same treatment, repeat CBC and BMP tomorrow morning. #2 obstructing left mid ureteral stone/left hydronephrosis: CT scan abdomen and pelvis revealed nonobstructing right kidney stone, obstructing left mid ureteral stone with hydronephrosis. Status post cystoscopy and left stent placement. Her kidney function is improving, plan for external shockwave lithotripsy tomorrow morning according to urology. #3 chronic atrial fibrillation: Heart rate controlled, blood pressure stable. Continue Cardizem and Tikosyn for rate control, continue Xarelto for anticoagulation. #4 hypertension: Blood pressure stable, continue Cardizem. #5 chronic anemia: Hemoglobin and hematocrit are stable at baseline, no indication for transfusion. #6 stage III chronic kidney disease: His baseline creatinine has been around 1.1-1.3 mg/dL. Her GFR has been always less than 60. Admission creatinine is 1.37, yesterday's creatinine 1.14, stable. #7 DVT prophylaxis: Continue Xarelto. This note was generated with [employer] dictation software. It may contain incorrect words, spelling, and punctuation that were not noted in checking the note before signing. Code Visit Inpatient E&M: 39699 Subs Hosp L2
[2018-06-09 09:46] VITALS: BP 124/49; PULSE 56; RESP 18; TEMP 36.9; O2SAT 99
[2018-06-09] MEDS: Tamsulosin HCl 0.4 MG Capsule PO (09:49)
[2018-06-09] MEDS: predniSONE 10 MG Tablet PO (09:49)
[2018-06-09] MEDS: dilTIAZem CD 120 MG Capsule PO (09:49)
[2018-06-09] MEDS: Dofetilide 250 MCG Capsule PO ×2 (09:50→21:32)
[2018-06-09] MEDS: Febuxostat 40 MG TABLET PO (09:50)
[2018-06-09] MEDS: Rivaroxaban 20 MG Tablet PO (09:51)
[2018-06-09] MEDS: 0.9% NaCl Peripheral Flush Adult/Peds IV (09:55)
[2018-06-09] MEDS: Acetaminophen 500 MG Tablet PO ×2 (10:15→17:32)
[2018-06-09 14:39] VITALS: BP 127/58; PULSE 65; RESP 18; TEMP 36.7; O2SAT 100
[2018-06-09 21:27] VITALS: BP 117/65; PULSE 68; RESP 18; TEMP 36.8; O2SAT 99
[2018-06-10] VITALS (17 sets, daily range): BP systolic 109–179; BP diastolic 43–107; PULSE 59–84; RESP 18; TEMP 36.6–37.4; O2SAT 97–100
[2018-06-10] MEDS: oxyCODONE 5 MG Tablet PO (00:15)
[2018-06-10 06:24] LABS: Absolute Lymphocyte Count 2.85 X10^3/ul (0.83-4.51); Basophil# 0.02 X10^3/uL; Basophil% 0.2 % (0-1); Eosinophil# 0.27 X10^3/uL; Eosinophils% 2.7 % (0-5); Hematocrit 22.9 % (37-47); Hemoglobin 6.4 g/dl (12.0-15.0); Lymphocyte # 2.85 X10^3/ul (4.0); Lymphocyte % 28.7 % (19-41); Mean Corp Hgb Conc 27.9 g/gl (32-36); Mean Corpuscular Hgb 21.9 pg (27.0-32.0); Mean Corpuscular Volume 78.4 fL (81-99); Mean Platelet Vol. 10.4 fl (6.2-12.0); Monocyte# 0.65 X10^3/uL; Monocyte% 6.5 % (0-10); Neutrophil # 5.96 X10^3/uL (2.7-7.7); Neutrophil % 60.1 % (47-70); Platelet Count 256 K/mm3 (150-450); RBC Distribution Width CV 18.6 % (11.6-14.6); RBC Distribution Width SD 53.7 fl (35.1-43.9); Red Blood Count 2.92 M/mm3 (4.2-5.4); White Blood Count 9.9 K/mm3 (4.4-11.0)
[2018-06-10 06:31] LABS: Anion Gap 8 (5-15); BUN 29 mg/dL (7-18); BUN/Creat Ratio 27.6 RATIO (10-20); Calcium,Total 8.2 mg/dL (8.5-10.1); Chloride 112 mmol/L (98-107); Creatinine, Serum 1.05 mg/dL (0.55-1.02); EST Glomerular Filtration Rate 57 mL/min (>60); Est Glom Filt Rate - Afr Amer 70 mL/min (>60); Estimated Creatinine Clearance 56.01 ml/min; Glucose 103 mg/dL (74-106); Sodium Level 146 mmol/L (136-145)
[2018-06-10 06:36] LABS: POSITIVE COUNT NO; POSITIVE DIFFERENTIAL NO; POSITIVE MORPHOLOGY NO
--- NOTE | 2018-06-10 07:49 | PCM.PN.BLA ---
Progress Note 57-year-old female status post stent placement the left side for pyelonephritis. Some confusion patient thinks she was going to go to surgery today spoke to the patient explained that early stye could do the surgery because of my schedule will be this Sunday she still in the hospital so if she has not discharged by Sunday I can do her surgery with ureteroscopy and laser other issue is her hemoglobin is really low I do not think it is caused by her stent. She states she has had low hemoglobin in the past. 57-year-old female status post stent placement for pyelonephritis and kidney stone , Patient still in the hospital by Sunday and clinically and medically ready plan to proceed with left ureteroscopy laser of stone and removal of stent.
[2018-06-10 08:32] LABS: International Normalized Ratio 1.6; Prothrombin Time (Protime)PT. 19.1 SECONDS (11.7-14.9)
[2018-06-10 08:33] LABS: Partial Thromboplast Time 35.4 Seconds (24.1-36.2)
--- NOTE | 2018-06-10 08:47 | PCM.PROGNOTE ---
Patient Problems: Active and Suspected Problems (Last Reviewed 06/06/18 @ 01:20 by Sacha Giraldo MD) Acute pyelonephritis (Acute) Left ureteral calculus (Acute) Subjective: Chief complaint: Follow-up after admission for acute pyelonephritis, nonobstructive right kidney stone, obstructing left ureteral stone with left hydronephrosis and she developed acute on chronic anemia requiring blood transfusion. Patient seen and examined. No acute events overnight. She has no acute symptoms at this time. She has no more flank pain, denies fever chills. She mentioned that her urine is clean except some blood-tinged urine occasionally. She stated that she has been having dark black stool and that has been going on for some time. She mentioned that she has history of anemia with multiple blood transfusions. Her vital signs are stable. - Physical Exam General: Alert, Oriented x3, Cooperative, No apparent distress HEENT: Atraumatic, PERRLA, EOMI, Normocephalic Oral: Moist Mucosa, No Gingival or Mucosal Lesions/ Ulcerations Neck: Supple, No JVD, Negative Carotid Bruits, Trachea Midline, Thyroid Normal Size and Texture Lungs: Clear to auscultation, No rhonchi, No wheeze, No rales, Diminished Cardiovascular: Normal S1, Normal S2, No murmurs, PMI Normal, Irregular Rate Abdomen: Bowel Sounds Present, Soft, Non Tender, Non-Distended, No Hepato-splenomegaly, Obese Extremities: No clubbing, No cyanosis, No edema Skin: No rashes, No breakdown Lymphatic: No Cervical, Supraclavicular, or Inguinal Adenopathy Neurological: Cranial nerves II-XII grossly intact, Motor Exam 5/5 strength throughout Psych/Mental Status: Normal Affect, Appropriate, Alert and oriented to time, place, person, mood and affect Vital Signs Temp Pulse Resp BP Pulse Ox 98.8 F 60 18 109/43 L 98 06/10/18 02:38 06/10/18 02:38 06/10/18 02:38 06/10/18 02:38 06/10/18 07:17 Oxygen Delivery Method Room Air Weight: 305 lb 12.816 oz Body Mass Index (BMI) 48.9 Intake and Output for Last 24 Hours 06/08/18 06/09/18 06/10/18 23:59 23:59 23:59 Intake Total 2194 / 2194 1800 / 1800 600 / 600 Output Total 150 / 150 Balance 2044 / 2044 1800 / 1800 600 / 600 Laboratory Tests Past 24 Hrs 06/10/18 06/10/18 06/10/18 05:35 05:35 08:15 WBC 9.9 RBC 2.92 L Hgb 6.4 L Hct 22.9 L MCV 78.4 L MCH 21.9 L MCHC 27.9 L RDW 18.6 H RDW Differential 53.7 H Plt Count 256 MPV 10.4 Immature Gran % (Auto) 1.800 H Neut % (Auto) 60.1 Lymph % (Auto) 28.7 [place] % (Auto) 6.5 Eos % (Auto) 2.7 Baso % (Auto) 0.2 Absolute Neuts (auto) 6.0 Absolute Lymphs (auto) 2.85 Total Counted Not Reportable PT 19.1 H INR 1.6 APTT 35.4 Sodium 146 H Potassium 4.0 Chloride 112 H Carbon Dioxide 26.0 Anion Gap 8 BUN 29 H Creatinine 1.05 H Estim Creat Clear Calc 56.01 Est GFR (MDRD) Af Amer 70 Est GFR (MDRD) Non-Af 57 L BUN/Creatinine Ratio 27.6 H Glucose 103 Calcium 8.2 L Medical Necessity - Tobacco Use Smoking Status: Never smoker Assessment/Plan All Active Problems (Last Reviewed 06/06/18 @ 01:20 by Sacha Giraldo MD) Acute pyelonephritis (Acute) Left ureteral calculus (Acute) This is a 57 years old female patient admitted because of left flank pain, found to have acute left-sided pyelonephritis, obstructing mid left ureteral stone with left hydronephrosis status post cystoscopy and left stent placement. She developed acute on chronic anemia requiring blood transfusion while in the hospital. #1 E. coli acute left pyelonephritis: Remained on IV Rocephin. Vital signs are stable, remained afebrile, white blood cell count is back to normal. Urine culture revealed E. coli, pansensitive. Blood cultures showed no growth in 48 hours. Plan to continue same treatment. #2 obstructing left mid ureteral stone/left hydronephrosis: CT scan abdomen and pelvis revealed nonobstructing right kidney stone, obstructing left mid ureteral stone with hydronephrosis. Status post cystoscopy and left stent placement. Her kidney function is improving. Urology on the case. There was misunderstanding that patient will go for shockwave lithotripsy today but urology mentioned that it will not be today and it would be either this coming Sunday or in the near future as outpatient. #3 acute on chronic anemia: Today's hemoglobin is 6.4 g/dL. Patient mentioned that she has been having black dark stool and that has been going on for a long time. She has been on Xarelto. Her INR was 2.23 days ago and today, it is 1.6. She denied sheila hematuria, denied hemoptysis or hematemesis. She denies hematochezia but reported melena. She had upper endoscopy and colonoscopy on August, that revealed no evidence of bleeding, ulcers, polyps or masses. Plan: Stool for occult blood, transfuse 2 units of packed RBCs, repeat CBC tomorrow morning. #4 chronic atrial fibrillation: Heart rate controlled, blood pressure stable. Continue Cardizem and Tikosyn for rate control, continue Xarelto for anticoagulation. #5 hypertension: Blood pressure stable, continue Cardizem. #6 stage III chronic kidney disease: His baseline creatinine has been around 1.1-1.3 mg/dL. Her GFR has been always less than 60. Admission creatinine is 1.37, yesterday's creatinine 1.05, stable. #7 DVT prophylaxis: Continue Xarelto. This note was generated with [employer] software. It may contain incorrect words, spelling, and punctuation that were not noted in checking the note before signing. Code Visit Inpatient E&M: [id number] [place] [id number]
--- NOTE | 2018-06-10 08:54 | PN_ITS ---
Patient Problems: Active and Suspected Problems (Last Reviewed 06/06/18 @ 01:20 by Sacha Giraldo MD) Acute pyelonephritis (Acute) Left ureteral calculus (Acute) Subjective: Chief complaint: Follow-up after admission for acute pyelonephritis, nonobstructive right kidney stone, obstructing left ureteral stone with left hydronephrosis and she developed acute on chronic anemia requiring blood transfusion. Patient seen and examined. No acute events overnight. She has no acute symptoms at this time. She has no more flank pain, denies fever chills. She mentioned that her urine is clean except some blood-tinged urine occasionally. She stated that she has been having dark black stool and that has been going on for some time. She mentioned that she has history of anemia with multiple blood transfusions. Her vital signs are stable. - Physical Exam General: Alert, Oriented x3, Cooperative, No apparent distress HEENT: Atraumatic, PERRLA, EOMI, Normocephalic Oral: Moist Mucosa, No Gingival or Mucosal Lesions/ Ulcerations Neck: Supple, No JVD, Negative Carotid Bruits, Trachea Midline, Thyroid Normal Size and Texture Lungs: Clear to auscultation, No rhonchi, No wheeze, No rales, Diminished Cardiovascular: Normal S1, Normal S2, No murmurs, PMI Normal, Irregular Rate Abdomen: Bowel Sounds Present, Soft, Non Tender, Non-Distended, No Hepato- splenomegaly, Obese Extremities: No clubbing, No cyanosis, No edema Skin: No rashes, No breakdown Lymphatic: No Cervical, Supraclavicular, or Inguinal Adenopathy Neurological: Cranial nerves II-XII grossly intact, Motor Exam 5/5 strength throughout Psych/Mental Status: Normal Affect, Appropriate, Alert and oriented to time, place, person, mood and affect Vital Signs Temp Pulse Resp BP Pulse Ox 98.8 F 60 18 109/43 L 98 06/10/18 02:38 06/10/18 02:38 06/10/18 02:38 06/10/18 02:38 06/10/18 07:17 Oxygen Delivery Method Room Air Weight: 305 lb 12.816 oz Body Mass Index (BMI) 48.9 Intake and Output for Last 24 Hours 06/08/18 06/09/18 06/10/18 23:59 23:59 23:59 Intake Total 2194 / 2194 1800 / 1800 600 / 600 Output Total 150 / 150 Balance 2044 / 2044 1800 / 1800 600 / 600 Laboratory Tests Past 24 Hrs 06/10/18 06/10/18 06/10/18 05:35 05:35 08:15 WBC 9.9 RBC 2.92 L Hgb 6.4 L Hct 22.9 L MCV 78.4 L MCH 21.9 L MCHC 27.9 L RDW 18.6 H RDW Differential 53.7 H Plt Count 256 MPV 10.4 Immature Gran % (Auto) 1.800 H Neut % (Auto) 60.1 Lymph % (Auto) 28.7 [place] % (Auto) 6.5 Eos % (Auto) 2.7 Baso % (Auto) 0.2 Absolute Neuts (auto) 6.0 Absolute Lymphs (auto) 2.85 Total Counted Not Reportable PT 19.1 H INR 1.6 APTT 35.4 Sodium 146 H Potassium 4.0 Chloride 112 H Carbon Dioxide 26.0 Anion Gap 8 BUN 29 H Creatinine 1.05 H Estim Creat Clear Calc 56.01 Est GFR (MDRD) Af Amer 70 Est GFR (MDRD) Non-Af 57 L BUN/Creatinine Ratio 27.6 H Glucose 103 Calcium 8.2 L Medical Necessity - Tobacco Use Smoking Status: Never smoker Assessment/Plan All Active Problems (Last Reviewed 06/06/18 @ 01:20 by Sacha Giraldo MD) Acute pyelonephritis (Acute) Left ureteral calculus (Acute) This is a 57 years old female patient admitted because of left flank pain, found to have acute left-sided pyelonephritis, obstructing mid left ureteral stone with left hydronephrosis status post cystoscopy and left stent placement. She developed acute on chronic anemia requiring blood transfusion while in the hospital. #1 E. coli acute left pyelonephritis: Remained on IV Rocephin. Vital signs are stable, remained afebrile, white blood cell count is back to normal. Urine culture revealed E. coli, pansensitive. Blood cultures showed no growth in 48 hours. Plan to continue same treatment. #2 obstructing left mid ureteral stone/left hydronephrosis: CT scan abdomen and pelvis revealed nonobstructing right kidney stone, obstructing left mid ureteral stone with hydronephrosis. Status post cystoscopy and left stent placement. Her kidney function is improving. Urology on the case. There was misunderstanding that patient will go for shockwave lithotripsy today but urology mentioned that it will not be today and it would be either this coming Sunday or in the near future as outpatient. #3 acute on chronic anemia: Today's hemoglobin is 6.4 g/dL. Patient mentioned that she has been having black dark stool and that has been going on for a long time. She has been on Xarelto. Her INR was 2.23 days ago and today, it is 1.6. She denied sheila hematuria, denied hemoptysis or hematemesis. She denies hematochezia but reported melena. She had upper endoscopy and colonoscopy on August, that revealed no evidence of bleeding, ulcers, polyps or masses. Plan: Stool for occult blood, transfuse 2 units of packed RBCs, repeat CBC tomorrow morning. #4 chronic atrial fibrillation: Heart rate controlled, blood pressure stable. Continue Cardizem and Tikosyn for rate control, continue Xarelto for anticoagulation. #5 hypertension: Blood pressure stable, continue Cardizem. #6 stage III chronic kidney disease: His baseline creatinine has been around 1.1 -1.3 mg/dL. Her GFR has been always less than 60. Admission creatinine is 1.37 , yesterday's creatinine 1.05, stable. #7 DVT prophylaxis: Continue Xarelto. This note was generated with [employer] software. It may contain incorrect words, spelling, and punctuation that were not noted in checking the note before signing. Code Visit Inpatient E&M: [id number] [place] [id number]
[2018-06-10] MEDS: 0.9% NaCl Peripheral Flush Adult/Peds IV ×2 (09:28→20:09)
[2018-06-10] MEDS: predniSONE 10 MG Tablet PO (09:29)
[2018-06-10] MEDS: Febuxostat 40 MG TABLET PO (09:29)
[2018-06-10] MEDS: Tamsulosin HCl 0.4 MG Capsule PO (09:29)
[2018-06-10] MEDS: Dofetilide 250 MCG Capsule PO ×2 (09:29→21:45)
--- NOTE | 2018-06-10 12:18 | CASEMGMT ---
SW spoke w/pt briefly today, she states she is not up for doing the advance directives forms today. SW let pt know when she is feeling up to it, to let the RN know and SW can come in to complete forms w/pt. Pt expressed frustration with her current situation, states she has been dealing with this since April 30. SW offered support to pt, let pt know if she needs to talk about anything else, SW is available. CRISTI Kruse, SEISMOGRAPH OPERATOR
[2018-06-10] MEDS: Rivaroxaban 20 MG Tablet PO (18:08)
[2018-06-10] MEDS: dilTIAZem CD 120 MG Capsule PO (18:09)
[2018-06-10] MEDS: Acetaminophen 500 MG Tablet PO (21:47)
[2018-06-11 01:52] VITALS: BP 151/86; PULSE 64; RESP 18; TEMP 36.9; O2SAT 99
[2018-06-11 01:54] VITALS: PULSE 64
[2018-06-11] MEDS: oxyCODONE 5 MG Tablet PO (02:14)
[2018-06-11] MEDS: 0.9% NaCl Peripheral Flush Adult/Peds IV (02:17)
[2018-06-11] MEDS: Ondansetron 4 MG/2 ML Vial IV (02:17)
[2018-06-11 07:26] VITALS: O2SAT 96
[2018-06-11 07:53] LABS: Differential Indicated MANUAL DIFF; Hematocrit 27.2 % (37-47); Hemoglobin 8.1 g/dl (12.0-15.0); Mean Corp Hgb Conc 29.8 g/gl (32-36); Mean Corpuscular Hgb 23.9 pg (27.0-32.0); Mean Corpuscular Volume 80.2 fL (81-99); Mean Platelet Vol. 11.1 fl (6.2-12.0); POSITIVE COUNT YES; POSITIVE DIFFERENTIAL NO; POSITIVE MORPHOLOGY YES; Platelet Count 261 K/mm3 (150-450); RBC Distribution Width CV 18.6 % (11.6-14.6); RBC Distribution Width SD 52.1 fl (35.1-43.9); Red Blood Count 3.39 M/mm3 (4.2-5.4); White Blood Count 11.2 K/mm3 (4.4-11.0)
[2018-06-11 08:00] VITALS: BP 149/83; PULSE 67; RESP 18; TEMP 37.1; O2SAT 98
[2018-06-11 08:13] LABS: Anion Gap 6 (5-15); BUN 20 mg/dL (7-18); BUN/Creat Ratio 20.8 RATIO (10-20); Chloride 111 mmol/L (98-107); Creatinine, Serum 0.96 mg/dL (0.55-1.02); EST Glomerular Filtration Rate 64 mL/min (>60); Est Glom Filt Rate - Afr Amer 77 mL/min (>60); Estimated Creatinine Clearance 61.26 ml/min; Glucose 100 mg/dL (74-106); Potassium 3.9 mmol/L (3.5-5.1); Sodium Level 145 mmol/L (136-145)
[2018-06-11 08:18] LABS: Eosinophil 2 % (0-5); Lymphocyte 32 % (19-41); Monocyte 6 % (0-10); Neutrophil-Segmented 60 % (47-70); Nucleated Red Bld Cells,Manual 1 % (0-5); Total Cells Counted 100 (MANUAL DIFF)
[2018-06-11 08:19] LABS: Hypochromasia 2+; Platelet Estimate ADEQUATE (ADEQ); Polychromasia RARE
[2018-06-11 08:20] LABS: Absolute Neutrophil Count 6.7 X10^3/uL (2.0-7.7)
[2018-06-11 09:00] VITALS: PULSE 67; RESP 18; O2SAT 100
--- NOTE | 2018-06-11 09:00 | DCINST_ITS ---
- Discharge Diagnoses Current Active Problems: Current Active and Chronic Problems (Last Reviewed 06/06/18 @ 01:20 by Sacha Giraldo MD) Acute pyelonephritis (Acute) Left ureteral calculus (Acute) You will use the following diet at home:: Regular Your food should be the consistency of: Regular Discharge Activity: Return to Normal Activity Weight Bearing Status: Weight bearing as tolerated Call your doctor if you observe: Fever of 101 or Higher, Shortness of breath, Dizziness, Fainting spells, Chest pain, Increased palpitations (irregular heartbeat), Uncontrolled pain Additional Instructions: Do not take xarelto tonight. No food or drink starting midnight. Allergies/Adverse Reactions: Allergies metoprolol Adverse Reaction (Severe, Verified 06/05/18 18:52) Fatigue, weigt gain Medications to take at Discharge Diltiazem HCl [Diltiazem ER] 120 mg PO DAILY 04/30/18 Oxycodone [Oxyir] 5 mg PO Q6H PRN PRN #12 tab 05/03/18 Cyclobenzaprine [Flexeril] 10 mg PO Q8H PRN PRN 05/08/18 Dofetilide [Tikosyn] 250 mcg PO Q12 05/08/18 Acetaminophen [Tylenol] 500 mg PO Q4H PRN PRN 06/05/18 Febuxostat [Uloric] 40 mg PO DAILY 06/05/18 Rivaroxaban [Xarelto] 20 mg PO DAILY 06/05/18 Ciprofloxacin [Cipro] 500 mg PO BID #10 tab 06/11/18 The following prescriptions were given: Ciprofloxacin [Cipro] 500 mg PO BID #10 tab Primary Care Physician: Jordan Butler MD [Primary Care Provider] - Please follow up with your Primary Care Physician in: 1 week. Test Results: Test results from this visit will be discussed in further detail at your follow- up appointment, if applicable. Please Follow Up With: Yash Posey MD When: they will call you.
[2018-06-11] MEDS: Febuxostat 40 MG TABLET PO (09:46)
[2018-06-11] MEDS: Dofetilide 250 MCG Capsule PO (09:46)
[2018-06-11] MEDS: Tamsulosin HCl 0.4 MG Capsule PO (09:47)
[2018-06-11 12:05] VITALS: BP 149/83; PULSE 67; RESP 18; TEMP 37.1; O2SAT 100
--- NOTE | 2018-06-11 14:40 | PCM.DC.SUM ---
Discharge Date and Diagnosis Date of Admission: 06/05/18 Date of Discharge: 06/11/18 - Primary Discharge Diagnosis #1 acute E. coli left pyelonephritis. #2 obstructing left mid ureteral stone/left hydronephrosis, status post cystoscopy and left stent placement. #3 acute on chronic anemia required blood transfusion. - Secondary Discharge Diagnosis Chronic Problems (Last Reviewed 06/06/18 @ 01:20 by Sacha Giraldo MD) Chronic atrial fibrillation (Chronic) Nonrheumatic tricuspid valve regurgitation (Chronic) Nonrheumatic mitral (valve) insufficiency (Chronic) Status post radiofrequency ablation (RFA) operation for arrhythmia (Chronic ~09/21/17) For Atrial Fib @ [facility] Hypertension (Chronic) Iron deficiency anemia (Chronic) Hospital Course and Treatment Imaging Results: Clinical Impression(s) from Imaging Studies Abdomen/Pelvis CT 06/05/18 19:38 IMPRESSION: Nonobstructive right renal calculi. Left hydronephrosis with an obstructing mid left ureteral stone. There is left perinephric stranding and suprarenal soft tissue attenuation. Evaluation is limited without intravenous contrast. Possible stone in the urinary bladder. Fatty umbilical hernia. Hiatal hernia. Cholelithiasis. Electronically Signed: Wesley Self DO at 21:54 EDT Tel [phone], Service support , Dr. Posey, urology. Operations: None Procedures: Blood transfusion, - - Cystoscopy and placement of left ureteral stent. Summary of Care Provided: Patient seen and examined on the day of discharge and appeared to be stable to be discharged home. She has no specific complaints today. She has no more flank pain. Denied chest pain or shortness of breath. Denied dizziness or lightheadedness. Urine is clean and clear, no more hematuria. Vital signs are stable. - Physical Exam General: Alert, Oriented x3, Cooperative, No apparent distress. HEENT: Atraumatic, PERRLA, EOMI. Neck: Supple, No JVD, Negative Carotid Bruits, Trachea Midline, Thyroid Normal. Lungs: Decreased breath sounds bilateral, otherwise clear, no rhonchi, No wheeze, No rales. Cardiovascular: Regular rate, Regular Rhythm, Normal S1, Normal S2, PMI Normal. Abdomen: Bowel Sounds Present, Soft, Non Tender, Non-Distended, No Hepato-splenomegaly, obese. Extremities: No clubbing, No cyanosis, No edema Skin: No rashes, No breakdown Neurological: Neuro grossly intact Vital Signs are stable. Hospital course: This is a 57 years old female patient admitted because of left flank pain, found to have acute left-sided pyelonephritis, obstructing mid left ureteral stone with left hydronephrosis status post cystoscopy and left stent placement. She developed acute on chronic anemia required blood transfusion while in the hospital. #1 E. coli acute left pyelonephritis: Treated with IV Rocephin. CT scan abdomen and pelvis revealed left mid ureteral stone with left hydronephrosis. She underwent cystoscopy and placement of left ureteral stent. Urine culture revealed E. coli, pansensitive. Blood cultures showed no growth in 5 days. Patient discharged home in a stable medical condition, discharged on Omnicef 300 mg p.o. twice daily for 5 days. Initially, I sent prescription of ciprofloxacin to the pharmacy and the pharmacist called me back saying that patient has been on Tikosyn and ciprofloxacin is contraindicated. Prescription was changed to Omnicef 300 mg p.o. twice daily. #2 obstructing left mid ureteral stone/left hydronephrosis: Status post cystoscopy and placement of left ureteral stent. CT scan abdomen and pelvis revealed nonobstructing right kidney stone, obstructing left mid ureteral stone with hydronephrosis. After the procedure, patient symptoms improved and she has been having satisfactory urine output. Her kidney function was normal. Urology is planning to do shockwave lithotripsy tomorrow as outpatient. #3 acute on chronic anemia: She does have history of chronic anemia with recurrent transfusions. During this hospital stay, hemoglobin came down to 6.4 g/dL. There was no evidence of active bleeding. She denied sheila hematuria, denied hemoptysis or hematemesis. She denies hematochezia but reported melena. She had upper endoscopy and colonoscopy on August, that revealed no evidence of bleeding, ulcers, polyps or masses. Stool for occult blood was negative. She received 2 units of packed RBCs and hemoglobin up to 8.1 g/dL. #4 chronic atrial fibrillation: Stable, continued on Cardizem and Tikosyn for rate control, continue Xarelto for anticoagulation. #5 hypertension: Blood pressure stable, continued on Cardizem. Patient discharged home in a stable medical condition, discharged on Omnicef twice daily for 5 days to complete treatment of 10 days for acute pyonephritis, continued on her chronic home medication without any changes, order given to repeat CBC in 1 week, plan to come back tomorrow morning as outpatient for shockwave lithotripsy according to urology, recommended follow-up with PCP in 1 week. This note was generated with [employer] dictation software. It may contain incorrect words, spelling, and punctuation that were not noted in checking the note before signing. Discharge Activity: Return to Normal Activity Weight Bearing Status: Weight bearing as tolerated Call your doctor if you observe: Fever of 101 or Higher, Shortness of breath, Dizziness, Fainting spells, Chest pain, Increased palpitations (irregular heartbeat), Uncontrolled pain Home Medications: Medications to take at Discharge Diltiazem HCl [Diltiazem ER] 120 mg PO DAILY 04/30/18 Oxycodone [Oxyir] 5 mg PO Q6H PRN PRN #12 tab 05/03/18 Cyclobenzaprine [Flexeril] 10 mg PO Q8H PRN PRN 05/08/18 Dofetilide [Tikosyn] 250 mcg PO Q12 05/08/18 Acetaminophen [Tylenol] 500 mg PO Q4H PRN PRN 06/05/18 Febuxostat [Uloric] 40 mg PO DAILY 06/05/18 Rivaroxaban [Xarelto] 20 mg PO DAILY 06/05/18 Ciprofloxacin [Cipro] 500 mg PO BID #10 tab 06/11/18 Following Prescrptions Were Given to Patient: Ciprofloxacin [Cipro] 500 mg PO BID #10 tab Primary Care Physician: Jordan Butler MD [Primary Care Provider] - Please follow up with your Primary Care Physician in: 1 week. Please Follow Up With: Yash Posey MD When: they will call you. Disposition: Home Minutes spent on discharge:: 34 Patient Condition:: Stable Medical Necessity - Tobacco Use Smoking Status: Never smoker Meaningful Use Info Meaningful Use Diagnoses (Choose all that apply): None applicable Code Visit Inpatient E&M: [id number] [facility]
--- NOTE | 2018-06-11 14:49 | DS.PCM_ITS ---
Discharge Date and Diagnosis Date of Admission: 06/05/18 Date of Discharge: 06/11/18 - Primary Discharge Diagnosis #1 acute E. coli left pyelonephritis. #2 obstructing left mid ureteral stone/left hydronephrosis, status post cystoscopy and left stent placement. #3 acute on chronic anemia required blood transfusion. - Secondary Discharge Diagnosis Chronic Problems (Last Reviewed 06/06/18 @ 01:20 by Sacha Giraldo MD) Chronic atrial fibrillation (Chronic) Nonrheumatic tricuspid valve regurgitation (Chronic) Nonrheumatic mitral (valve) insufficiency (Chronic) Status post radiofrequency ablation (RFA) operation for arrhythmia (Chronic ~02/02) For Atrial Fib @ [facility] Hypertension (Chronic) Iron deficiency anemia (Chronic) Hospital Course and Treatment Imaging Results: Clinical Impression(s) from Imaging Studies Abdomen/Pelvis CT 06/05/18 19:38 IMPRESSION: Nonobstructive right renal calculi. Left hydronephrosis with an obstructing mid left ureteral stone. There is left perinephric stranding and suprarenal soft tissue attenuation. Evaluation is limited without intravenous contrast. Possible stone in the urinary bladder. Fatty umbilical hernia. Hiatal hernia. Cholelithiasis. Electronically Signed: Wesley Self DO at 21:54 EDT Tel [phone], Service support , Dr. Posey, urology. Operations: None Procedures: Blood transfusion, - - Cystoscopy and placement of left ureteral stent. Summary of Care Provided: Patient seen and examined on the day of discharge and appeared to be stable to be discharged home. She has no specific complaints today. She has no more flank pain. Denied chest pain or shortness of breath. Denied dizziness or lightheadedness. Urine is clean and clear, no more hematuria. Vital signs are stable. - Physical Exam General: Alert, Oriented x3, Cooperative, No apparent distress. HEENT: Atraumatic, PERRLA, EOMI. Neck: Supple, No JVD, Negative Carotid Bruits, Trachea Midline, Thyroid Normal. Lungs: Decreased breath sounds bilateral, otherwise clear, no rhonchi, No wheeze , No rales. Cardiovascular: Regular rate, Regular Rhythm, Normal S1, Normal S2, PMI Normal. Abdomen: Bowel Sounds Present, Soft, Non Tender, Non-Distended, No Hepato- splenomegaly, obese. Extremities: No clubbing, No cyanosis, No edema Skin: No rashes, No breakdown Neurological: Neuro grossly intact Vital Signs are stable. Hospital course: This is a 57 years old female patient admitted because of left flank pain, found to have acute left-sided pyelonephritis, obstructing mid left ureteral stone with left hydronephrosis status post cystoscopy and left stent placement. She developed acute on chronic anemia required blood transfusion while in the hospital. #1 E. coli acute left pyelonephritis: Treated with IV Rocephin. CT scan abdomen and pelvis revealed left mid ureteral stone with left hydronephrosis. She underwent cystoscopy and placement of left ureteral stent. Urine culture revealed E. coli, pansensitive. Blood cultures showed no growth in 5 days. Patient discharged home in a stable medical condition, discharged on Omnicef 300 mg p.o. twice daily for 5 days. Initially, I sent prescription of ciprofloxacin to the pharmacy and the pharmacist called me back saying that patient has been on Tikosyn and ciprofloxacin is contraindicated. Prescription was changed to Omnicef 300 mg p.o. twice daily. #2 obstructing left mid ureteral stone/left hydronephrosis: Status post cystoscopy and placement of left ureteral stent. CT scan abdomen and pelvis revealed nonobstructing right kidney stone, obstructing left mid ureteral stone with hydronephrosis. After the procedure, patient symptoms improved and she has been having satisfactory urine output. Her kidney function was normal. Urology is planning to do shockwave lithotripsy tomorrow as outpatient. #3 acute on chronic anemia: She does have history of chronic anemia with recurrent transfusions. During this hospital stay, hemoglobin came down to 6.4 g/dL. There was no evidence of active bleeding. She denied sheila hematuria, denied hemoptysis or hematemesis. She denies hematochezia but reported melena. She had upper endoscopy and colonoscopy on August, that revealed no evidence of bleeding, ulcers, polyps or masses. Stool for occult blood was negative. She received 2 units of packed RBCs and hemoglobin up to 8.1 g/dL. #4 chronic atrial fibrillation: Stable, continued on Cardizem and Tikosyn for rate control, continue Xarelto for anticoagulation. #5 hypertension: Blood pressure stable, continued on Cardizem. Patient discharged home in a stable medical condition, discharged on Omnicef twice daily for 5 days to complete treatment of 10 days for acute pyonephritis, continued on her chronic home medication without any changes, order given to repeat CBC in 1 week, plan to come back tomorrow morning as outpatient for shockwave lithotripsy according to urology, recommended follow-up with PCP in 1 week. This note was generated with [employer] dictation software. It may contain incorrect words, spelling, and punctuation that were not noted in checking the note before signing. Discharge Activity: Return to Normal Activity Weight Bearing Status: Weight bearing as tolerated Call your doctor if you observe: Fever of 101 or Higher, Shortness of breath, Dizziness, Fainting spells, Chest pain, Increased palpitations (irregular heartbeat), Uncontrolled pain Home Medications: Medications to take at Discharge Diltiazem HCl [Diltiazem ER] 120 mg PO DAILY 04/30/18 Oxycodone [Oxyir] 5 mg PO Q6H PRN PRN #12 tab 05/03/18 Cyclobenzaprine [Flexeril] 10 mg PO Q8H PRN PRN 05/08/18 Dofetilide [Tikosyn] 250 mcg PO Q12 05/08/18 Acetaminophen [Tylenol] 500 mg PO Q4H PRN PRN 06/05/18 Febuxostat [Uloric] 40 mg PO DAILY 06/05/18 Rivaroxaban [Xarelto] 20 mg PO DAILY 06/05/18 Ciprofloxacin [Cipro] 500 mg PO BID #10 tab 06/11/18 Following Prescrptions Were Given to Patient: Ciprofloxacin [Cipro] 500 mg PO BID #10 tab Primary Care Physician: Jordan Butler MD [Primary Care Provider] - Please follow up with your Primary Care Physician in: 1 week. Please Follow Up With: Yash Posey MD When: they will call you. Disposition: Home Minutes spent on discharge:: 34 Patient Condition:: Stable Medical Necessity - Tobacco Use Smoking Status: Never smoker Meaningful Use Info Meaningful Use Diagnoses (Choose all that apply): None applicable Code Visit Inpatient E&M: 48648 Disch Hosp
[2018-06-11 16:29] LABS: Pathologist Review Reviewed
== END 2018-06-11 12:20 | disposition home or self-care (01) | DRG 690 ==
LOC: ED 21:08 → MS2 06-06 00:25
PROVIDERS: Anesthesiology; Internal Medicine; Urology; Admitting Provider Hospitalist; Emergency Provider Emergency Medicine; Family Provider Family Medicine; PCP Family Medicine; Visit Provider Hospitalist
PROC: 0T778DZ Dilation of Left Ureter with Intraluminal Device, Via Natural or Artificial Opening Endoscopic (ICD-10-PCS; principal; 2018-06-06 12:20)
DX: N13.6 Pyonephrosis (principal); Z68.42 Body mass index [BMI] 45.0-49.9, adult; B96.20 Unspecified Escherichia coli [E. coli] as the cause of diseases classified elsewhere; I48.0 Paroxysmal atrial fibrillation; I12.9 Hypertensive chronic kidney disease with stage 1 through stage 4 chronic kidney disease, or unspecified chronic kidney disease; N18.3 Chronic kidney disease, stage 3 (moderate); D50.9 Iron deficiency anemia, unspecified; D63.8 Anemia in other chronic diseases classified elsewhere; I36.1 Nonrheumatic tricuspid (valve) insufficiency; I34.0 Nonrheumatic mitral (valve) insufficiency; E06.3 Autoimmune thyroiditis; M10.9 Gout, unspecified; G47.33 Obstructive sleep apnea (adult) (pediatric); E66.01 Morbid (severe) obesity due to excess calories; Z79.01 Long term (current) use of anticoagulants; Z79.52 Long term (current) use of systemic steroids; Z79.899 Other long term (current) drug therapy
CPT/HCPCS: 36415; 74176; 76000; 80048; 81001; 82274; 83735; 84443; 85025; 85027; 85610; 85730; 86850; 86900; 86920; 86922; 87040; 87077; 87086; 87088; 87186; 93005; 97802; 99285; J7030; J7040; P9016; A4216; C1769; C2617; J0696; J2405

== ENCOUNTER 2018-06-12 10:48 | Day surgery (SDC) | payer BC, SELFPAY ==
[2018-06-12 11:17] VITALS: BP 132/68; PULSE 116; RESP 16; TEMP 36.4; O2SAT 97; BMI 49.0
[2018-06-12] MEDS: Cefazolin 2 GM in 0.9% Normal Saline 100 ML IV (13:53)
--- NOTE | 2018-06-12 14:28 | PCM.DC.URO ---
Discharge Diet: Light diet - advance as tolerated Discharge Activity: Return to Normal Activity Allergies/Adverse Reactions: Allergies metoprolol Adverse Reaction (Severe, Verified 06/11/18 16:03) Fatigue, weigt gain Medications to take at Discharge Diltiazem HCl [Diltiazem ER] 120 mg PO DAILY 04/30/18 Oxycodone [Oxyir] 5 mg PO Q6H PRN PRN #12 tab 05/03/18 Cyclobenzaprine [Flexeril] 10 mg PO Q8H PRN PRN 05/08/18 Dofetilide [Tikosyn] 250 mcg PO DAILY 05/08/18 Acetaminophen [Tylenol] 500 mg PO Q4H PRN PRN 06/05/18 Febuxostat [Uloric] 40 mg PO DAILY 06/05/18 Rivaroxaban [Xarelto] 20 mg PO DAILY 06/05/18 Hydrocodone/Acetaminophen [[place] 5-325 Tablet] 1 ea PO Q4H PRN PRN 5 Days #14 tab 06/12/18 Ondansetron HCl [Zofran] 4 mg PO Q4H PRN PRN #10 tab 06/12/18 Primary Care Physician: Jordan Butler MD [Primary Care Provider] - Test Results: Test results from this visit will be discussed in further detail at your follow-up appointment, if applicable. Please Follow Up With: Yash Posey MD When: in 2 weeks, please call to make an appointment.
--- NOTE | 2018-06-12 14:32 | DCINST_ITS ---
Discharge Diet: Light diet - advance as tolerated Discharge Activity: Return to Normal Activity Allergies/Adverse Reactions: Allergies metoprolol Adverse Reaction (Severe, Verified 06/11/18 16:03) Fatigue, weigt gain Medications to take at Discharge Diltiazem HCl [Diltiazem ER] 120 mg PO DAILY 04/30/18 Oxycodone [Oxyir] 5 mg PO Q6H PRN PRN #12 tab 05/03/18 Cyclobenzaprine [Flexeril] 10 mg PO Q8H PRN PRN 05/08/18 Dofetilide [Tikosyn] 250 mcg PO DAILY 05/08/18 Acetaminophen [Tylenol] 500 mg PO Q4H PRN PRN 06/05/18 Febuxostat [Uloric] 40 mg PO DAILY 06/05/18 Rivaroxaban [Xarelto] 20 mg PO DAILY 06/05/18 Hydrocodone/Acetaminophen [[place] 5-325 Tablet] 1 ea PO Q4H PRN PRN 5 Days #14 tab 06/12/18 Ondansetron HCl [Zofran] 4 mg PO Q4H PRN PRN #10 tab 06/12/18 Primary Care Physician: Jordan Butler MD [Primary Care Provider] - Test Results: Test results from this visit will be discussed in further detail at your follow- up appointment, if applicable. Please Follow Up With: Yash Posey MD When: in 2 weeks, please call to make an appointment.
--- NOTE | 2018-06-12 14:34 | OP.PCM_ITS ---
Report of Operation Date of Procedure: 06/12/18 Pre-Operative Diagnosis: Left ureteral calculi causing obstruction Post-Operative Diagnosis: Same Surgery/Procedure Performed:: Cystoscopy left ureteroscopy laser lithotripsy of stone, removal of stent to left retrograde Polygram Description of Surgical Findings:: 57-year-old female taken back to the operating room at the smooth induction of general anesthesia she was placed in dorsal lithotomy position, the urethra and vaginal area were prepped and draped in usual sterile fashion within the bladder with a 21 [place] rigid cystourethroscope grabbed the existing stent pulled out the meatus, but a wire up the stent and over the wire went with a flexible ureteroscope I encountered a stone and laser the stone little tiny pieces went up to the kidney then and check the upper pole midpole lower pole no other fragments are seen did a retrograde pyelogram contrast stayed within the system went all the way down the ureter and all the stones extracted into the bladder inside out the leave the stent since he is causing her a lot of irritation preoperatively, drain the bladder patient anesthetic was reversed and she will see her back in the office in a few weeks. Type of Anesthesia:: General Drains: none - Admit VTE Documentation VTE Present on Admission: No VTE Mechan Device Prophylaxis: SCD's VTE Pharm Prophylaxis ordered?: No Reason prophylaxis not ordered:: Treatment Not Indicated
[2018-06-12 14:40] VITALS: BP 132/68; BP 153/57; PULSE 78; RESP 16; TEMP 37.2; O2SAT 91
[2018-06-12 14:45] VITALS: BP 132/68; BP 160/76; PULSE 68; RESP 16; O2SAT 93
[2018-06-12 15:00] VITALS: BP 132/68; BP 137/67; PULSE 70; RESP 16; TEMP 37.1; O2SAT 95
[2018-06-12 15:30] VITALS: BP 132/68
== END 2018-06-12 15:43 | disposition home or self-care (01) ==
LOC: SDC 10:49 → AC 10:50
PROVIDERS: Family Provider Family Medicine; PCP Family Medicine; Visit Provider Urology
PROC: 0TJ98ZZ Inspection of Ureter, Via Natural or Artificial Opening Endoscopic (ICD-10-PCS; CPT 52352; principal; 2018-06-12 12:40)
DX: N13.6 Pyonephrosis (principal); I48.0 Paroxysmal atrial fibrillation; I10 Essential (primary) hypertension; D50.9 Iron deficiency anemia, unspecified; E06.3 Autoimmune thyroiditis; G47.33 Obstructive sleep apnea (adult) (pediatric); Z79.01 Long term (current) use of anticoagulants; Z79.899 Other long term (current) drug therapy
CPT/HCPCS: 52353; 76000; J7120; C1769; J2405

== ENCOUNTER → 2018-06-24 11:50 | Outpatient (CLI) | payer BC, SELFPAY ==
[2018-06-24 13:11] LABS: Absolute Lymphocyte Count 1.05 X10^3/ul (0.83-4.51); Absolute Neutrophil Count 2.3 X10^3/uL (2.0-7.7); Basophil# 0.01 X10^3/uL; Basophil% 0.3 % (0-1); Eosinophil# 0.15 X10^3/uL; Eosinophils% 3.9 % (0-5); Hematocrit 34.7 % (37-47); Hemoglobin 10.1 g/dl (12.0-15.0); Lymphocyte # 1.05 X10^3/ul (4.0); Lymphocyte % 27.6 % (19-41); Mean Corp Hgb Conc 29.1 g/gl (32-36); Mean Corpuscular Hgb 24.8 pg (27.0-32.0); Mean Platelet Vol. 11.3 fl (6.2-12.0); Monocyte% 7.9 % (0-10); Neutrophil # 2.28 X10^3/uL (2.7-7.7); Platelet Count 281 K/mm3 (150-450); RBC Distribution Width CV 21.5 % (11.6-14.6); Red Blood Count 4.08 M/mm3 (4.2-5.4); White Blood Count 3.8 K/mm3 (4.4-11.0)
[2018-06-24 13:13] LABS: POSITIVE COUNT NO; POSITIVE DIFFERENTIAL NO
[2018-06-24 13:14] LABS: Differential Indicated SCAN CRITERIA MET; POSITIVE MORPHOLOGY YES
[2018-06-24 13:31] LABS: Anisocytosis 1+; Red Cell Morphology N CHROM NORMAL (NORM C&C)
== END ==
PROVIDERS: Family Provider Family Medicine; PCP Family Medicine; Visit Provider Hospitalist
DX: D64.9 Anemia, unspecified (principal)
CPT/HCPCS: 36415; 85025

== ENCOUNTER → 2018-07-04 11:26 | Outpatient (CLI) | payer BC, SELFPAY ==
[2018-07-04 13:06] LABS: Anion Gap 8 (5-15); BUN 16 mg/dL (7-18); BUN/Creat Ratio 16.5 RATIO (10-20); Calcium,Total 9.1 mg/dL (8.5-10.1); Chloride 111 mmol/L (98-107); Cholesterol 192 mg/dL (200); Creatinine, Serum 0.97 mg/dL (0.55-1.02); EST Glomerular Filtration Rate 63 mL/min (>60); Est Glom Filt Rate - Afr Amer 76 mL/min (>60); Glucose 101 mg/dL (74-106); High Density Lipoprotein 67 mg/dL; Potassium 4.1 mmol/L (3.5-5.1); Sodium Level 142 mmol/L (136-145); Triglycerides 96 mg/dL; Uric Acid 4.6 mg/dL (2.6-6.0); Very Low Density Lipoprotein 19 mg/dL (5-40)
== END ==
PROVIDERS: Family Provider Family Medicine; PCP Family Medicine; Visit Provider Family Medicine
DX: I48.91 Unspecified atrial fibrillation (principal); M10.9 Gout, unspecified
CPT/HCPCS: 36415; 80048; 80061; 84550

== ENCOUNTER → 2018-09-10 17:27 | Outpatient (CLI) | payer BC, SELFPAY ==
[2018-09-10 18:00] LABS: Absolute Neutrophil Count 3.9 X10^3/uL (2.0-7.7); Basophil# 0.01 X10^3/uL; Basophil% 0.2 % (0-1); Eosinophil# 0.21 X10^3/uL; Eosinophils% 3.5 % (0-5); Hemoglobin 11.4 g/dl (12.0-15.0); Lymphocyte % 21.7 % (19-41); Mean Corpuscular Hgb 26.8 pg (27.0-32.0); Mean Corpuscular Volume 89.2 fL (81-99); Monocyte# 0.52 X10^3/uL; Monocyte% 8.7 % (0-10); Neutrophil # 3.94 X10^3/uL (2.7-7.7); Neutrophil % 65.7 % (47-70); Platelet Count 268 K/mm3 (150-450); RBC Distribution Width CV 14.1 % (11.6-14.6); RBC Distribution Width SD 45.5 fl (35.1-43.9); Red Blood Count 4.26 M/mm3 (4.2-5.4)
[2018-09-10 18:07] LABS: Anion Gap 8 (5-15); BUN 25 mg/dL (7-18); BUN/Creat Ratio 24.8 RATIO (10-20); Calcium,Total 9.3 mg/dL (8.5-10.1); Chloride 108 mmol/L (98-107); Creatinine, Serum 1.01 mg/dL (0.55-1.02); EST Glomerular Filtration Rate 60 mL/min (>60); Est Glom Filt Rate - Afr Amer 73 mL/min (>60); Glucose 97 mg/dL (74-106); Potassium 4.1 mmol/L (3.5-5.1); Sodium Level 140 mmol/L (136-145)
[2018-09-10 18:10] LABS: Hemoglobin A1c 4.9 % (4.2-6.3)
[2018-09-10 18:13] LABS: POSITIVE COUNT NO; POSITIVE DIFFERENTIAL NO; POSITIVE MORPHOLOGY NO
== END ==
PROVIDERS: Family Provider Family Medicine; PCP Family Medicine; Referring Provider Family Medicine; Visit Provider Family Medicine
DX: Z01.818 Encounter for other preprocedural examination (principal); R73.09 Other abnormal glucose
CPT/HCPCS: 80048; 83036; 85025

== ENCOUNTER 2018-09-17 10:29 | Observation (INO) | payer BC, SELFPAY ==
[2018-09-17 10:31] VITALS: BP 123/82; PULSE 77; PULSE 80; RESP 14; RESP 18; TEMP 37.4; O2SAT 95; O2SAT 97; BMI 49.2
--- NOTE | 2018-09-17 11:33 | RAD_ITS ---
STUDY: X-RAY - RIGHT KNEE REASON FOR EXAM: Female, 58 years old. Recent total knee replacement. TECHNIQUE: 3 view(s) of the knee. COMPARISON: Comparison is made with prior study dated May 02, 2018. FINDINGS: Normal visualized distal femur. Normal visualized proximal tibia and fibula. Normal proximal tibiofibular articulation. The patient is status post total knee replacement. The alignment. Diffuse soft tissue swelling. Moderate joint effusion. RAD/Knee 1 or 2 Views IMPRESSION: Status post total knee replacement. Diffuse soft tissue swelling. Moderate size joint effusion. Electronically Signed: Moshe Field MD at 12:35 EDT Tel [phone], Service support ,
--- NOTE | 2018-09-17 11:36 | ED.VISSUMM ---
- ER Visit Summary Date of Service: 09/17/18 Chief Complaint: Atraumatic right knee pain and swelling History of Present Illness: The patient is a 58 F has a history of gout and A. fib. She is currently on Xarelto. She underwent a right knee total joint replacement by Dr. Александр Whaley at the [facility] in [place] last . States she was doing well. She does have a wound VAC on the site. She states today she had more swelling and pain to the knee. Denies any fall or trauma. No fever. States that the surgery she has been doing well. Physical Examination: Vital signs are stable. Afebrile. She does not look septic or toxic. She is in no acute distress. H EENT exam unremarkable. Neck nontender no lymphadenopathy. Lungs clear to auscultation bilaterally. Heart regular rhythm no murmur. Abdomen no peritoneal signs. Extremities both upper and left lower extremity unremarkable. Her right knee has a wound VAC. There is swelling. There is no significant warmth. No redness. She has significant pain with passive or active range of motion of the right knee. Thigh and hamstring are unremarkable. Right foot is neurovascularly intact with palpable DP pulse. Dorsi and plantar flexion. Normal touch sensation. Neurologically she is awake alert with no focal motor deficits. Test Results: Right knee x-ray shows dorsal soft tissue swelling and a moderate effusion read both of myself and the radiologist. Status post right total knee replacement. White count of 10. Hemoglobin 9.6 patient's hemoglobin normally runs between 8 and 11. Electrolytes unremarkable creatinine 1.06. Gap is 6. Sed rate of 30. Patient's labs and exam are consistent with a knee infusion post knee replacement. On repeat exam at 1415 patient is any sustained. Again no signs or red or warm. Emergency Department Course and Treatment: Patient was treated with IV morphine and Zofran. Screening labs and x-ray will be obtained. Treatment Plan: I discussed with the patient all test results. She wants to be admitted to a skilled facility for rehab. We already spoken to the social work associate states with the patient's insurance she will need clearance and need to be admitted to the hospital first. Disposition: admission Impression: Atraumatic right knee pain status post knee replacement Right knee postop effusion Status post right knee replacement This note was generated with [employer] software. It may contain incorrect words, spelling, and punctuation that were not noted in review of the chart prior to signing ED Disposition - Plan for ED Patient: Chief Complaint: Lower Extremity Injury Referrals: Jordan Butler MD [Primary Care Provider] -
[2018-09-17] MEDS: morphine 8 MG/ML Syringe 6 MG IV ×2 (11:55→13:32)
[2018-09-17] MEDS: Ondansetron 4 MG/2 ML Vial IV (11:55)
[2018-09-17 13:22] LABS: Absolute Lymphocyte Count 1.09 X10^3/ul (0.83-4.51); Absolute Neutrophil Count 8.3 X10^3/uL (2.0-7.7); Basophil# 0.01 X10^3/uL; Basophil% 0.1 % (0-1); Eosinophil# 0.12 X10^3/uL; Eosinophils% 1.2 % (0-5); Hematocrit 31.6 % (37-47); Hemoglobin 9.6 g/dl (12.0-15.0); Lymphocyte # 1.09 X10^3/ul (4.0); Lymphocyte % 10.7 % (19-41); Mean Corp Hgb Conc 30.4 g/gl (32-36); Mean Corpuscular Volume 88.8 fL (81-99); Mean Platelet Vol. 11.4 fl (6.2-12.0); Monocyte# 0.68 X10^3/uL; Monocyte% 6.7 % (0-10); Neutrophil # 8.27 X10^3/uL (2.7-7.7); Neutrophil % 80.8 % (47-70); POSITIVE COUNT NO; POSITIVE DIFFERENTIAL NO; POSITIVE MORPHOLOGY NO; Platelet Count 268 K/mm3 (150-450); RBC Distribution Width CV 13.5 % (11.6-14.6); RBC Distribution Width SD 41.9 fl (35.1-43.9); Red Blood Count 3.56 M/mm3 (4.2-5.4); White Blood Count 10.2 K/mm3 (4.4-11.0)
[2018-09-17 13:26] VITALS: RESP 17
[2018-09-17 13:26] LABS: Erythrocyte Sedimentation Rate 30 mm/hr (0-30)
[2018-09-17 13:36] LABS: Anion Gap 6 (5-15); BUN 28 mg/dL (7-18); BUN/Creat Ratio 26.4 RATIO (10-20); Calcium,Total 8.4 mg/dL (8.5-10.1); Chloride 108 mmol/L (98-107); Creatinine, Serum 1.06 mg/dL (0.55-1.02); EST Glomerular Filtration Rate 57 mL/min (>60); Est Glom Filt Rate - Afr Amer 69 mL/min (>60); Estimated Creatinine Clearance 54.82 ml/min; Glucose 110 mg/dL (74-106); Potassium 4.3 mmol/L (3.5-5.1); Sodium Level 140 mmol/L (136-145)
--- NOTE | 2018-09-17 14:36 | NURSING ---
MED SURG [place] POST OP RT KNEE EFFUSION, S/P RT TKR PLACEMENT
[2018-09-17 14:49] VITALS: BP 114/90; RESP 14
--- NOTE | 2018-09-17 14:50 | NURSING ---
CALLED [facility] FOR DR RAIZA SANCHEZ. IS OUT TODAY AND LEFT MESSAGE ON [employer] PHONE
[2018-09-17 15:11] VITALS: BMI 49.2
[2018-09-17] MEDS: Morphine 4 MG/ML Syringe 6 MG IV (15:17)
--- NOTE | 2018-09-17 15:26 | PCM.HP.STD ---
<Maru Bauer - Last Filed: 09/17/18 16:12> Problem List (1) Chronic atrial fibrillation Status: Chronic (2) Nonrheumatic tricuspid valve regurgitation Status: Chronic (3) Nonrheumatic mitral (valve) insufficiency Status: Chronic (4) Status post radiofrequency ablation (RFA) operation for arrhythmia Status: Chronic Comment: [facility] (5) Hypertension Status: Chronic History of Present Illness Date of Admission: 09/17/18 Chief Complaint: Right knee pain and swelling. The patient is a 58 year old F who presents emergency room due to increased right knee pain and swelling. She underwent right total knee replacement with Dr. Whaley at [facility] 09/12/18. Patient states she was doing well at home. This morning around 4:30 AM she developed right knee pain and swelling. She reports she is now not able to ambulate due to severe right knee pain. She denies fall or injury to right knee. She had wound VAC in place which has since been removed. She wishes to go to rehab for further PT. She currently states her right knee pain is 10 out of 10 and throbbing in nature. Denies fever, chills. She has a past medical history of atrial fibrillation status post ablation, tricuspid valve regurgitation, mitral valve insufficiency, hypertension, gout, MALA, morbid obesity, chronic kidney disease, chronic normocytic anemia. Past Medical History Past Medical History (Chronic Problems): Chronic Problems (Last Reviewed 07/30/18 @ 14:14 by Antonino Colvin MD) Chronic atrial fibrillation (Chronic) Nonrheumatic tricuspid valve regurgitation (Chronic) Nonrheumatic mitral (valve) insufficiency (Chronic) Status post radiofrequency ablation (RFA) operation for arrhythmia (Chronic ~09/21/17) For Atrial [facility] Hypertension (Chronic) Medical History: Medical History (Last Reviewed 07/30/18 @ 14:14 by Antonino Colvin MD) Nonrheumatic tricuspid valve regurgitation (Chronic) I36.1 Nonrheumatic mitral (valve) insufficiency (Chronic) I34.0 Hypertension (Chronic) I10 Body mass index (BMI) 35 or more Urnuly's thyroiditis E06.3 History of cardioversion Onset Date: ~11/2016 Z98.890 Iron deficiency anemia D50.9 Obstructive sleep apnea G47.33 Paroxysmal atrial fibrillation I48.0 Acute pyelonephritis (Resolved) N10 Left ureteral calculus (Resolved) N20.1 Anemia D64.9 Allergies metoprolol Adverse Reaction (Severe, Verified 09/17/18 10:30) Fatigue, weigt gain Home Medications: Ambulatory Orders Medication Instructions Recorded Diltiazem HCl [Diltiazem ER] 120 mg PO DAILY 04/30/18 Dofetilide [Tikosyn] 250 mcg PO BID 05/08/18 febuxostat 40 mg tablet 40 mg PO DAILY 07/30/18 ondansetron HCl 4 mg tablet 4 mg PO Q4H PRN PRN tab 07/30/18 rivaroxaban 20 mg tablet 20 mg PO DAILY 07/30/18 Colchicine 0.6 mg PO PRN PRN 09/17/18 Cyclobenzaprine [Flexeril] 10 mg PO TID PRN PRN 09/17/18 Oxycodone HCl/Acetaminophen 1 tablet PO Q6H PRN PRN 09/17/18 [Percocet 5/325] Surgical History: Surgical History (Last Reviewed 09/17/18 @ 16:01 by TABATHA Menezes) Status post radiofrequency ablation (RFA) operation for arrhythmia (Chronic) Onset Date: ~09/21/17 Z98.890, Z86.79 For Atrial Fib @ [facility] History of Z98.891 History of tonsillectomy Z98.890, Z90.89 Surgical History: - - section, tonsillectomy, cystoscopy left ureteroscopy laser lithotripsy of stone, removal of stent to left retrograde pyelogram Psychiatric History: 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 Denies: Chest Pain, Palpitations, Syncope Respiratory: Denies: Cough, Shortness of breath at rest, Sputum production Gastrointestinal: Denies: Abdominal Pain, Nausea, Vomiting Genitourinary: Denies: Dysuria Musculoskeletal: Reports: - - Right knee pain Skin: Reports: - - Right knee post-op incision. Denies: Rash, Wounds Psychiatric: Denies: Anxiety, Depression, Homicidal Ideations, Suicidal Ideations Hematologic/ Lymphatic: Denies: Easy Bruising, Easy Bleeding VTE Information - Inpt Only VTE Present on Admission: No VTE Mechan Device Prophylaxis: None VTE Pharm Prophylaxis ordered?: Yes - Physical Exam General: Alert, Oriented x3, Cooperative, - - Appears uncomfortable HEENT: Atraumatic, PERRLA, EOMI, Normocephalic Neck: Supple, No JVD, Negative Carotid Bruits Lungs: Clear to auscultation, Normal air movement Cardiovascular: Regular rate, Regular Rhythm, Normal S1, Normal S2, No murmurs Abdomen: Bowel Sounds Present, Soft, Non Tender, Non-Distended, Obese Extremities: No clubbing, No cyanosis, Edema - Right knee Skin: No rashes, No breakdown, - - Right knee postop incision without redness or drainage Musculoskeletal: Tenderness - Right knee Neurological: Cranial nerves II-XII grossly intact, Neuro grossly intact Psych/Mental Status: Normal Affect, Appropriate Vital Signs Temp Pulse Resp BP Pulse Ox 99.4 F H 80 14 114/90 H 97 09/17/18 10:31 09/17/18 10:31 09/17/18 14:49 09/17/18 14:49 09/17/18 10:31 Oxygen Delivery Method Room Air Weight: 305 lb Body Mass Index (BMI) 49.2 Laboratory Tests Past 24 Hrs 09/17/18 09/17/18 13:15 13:15 WBC 10.2 RBC 3.56 L Hgb 9.6 L Hct 31.6 L MCV 88.8 MCH 27.0 MCHC 30.4 L RDW 13.5 RDW Differential 41.9 Plt Count 268 MPV 11.4 Immature Gran % (Auto) 0.500 Neut % (Auto) 80.8 H Lymph % (Auto) 10.7 L [place] % (Auto) 6.7 Eos % (Auto) 1.2 Baso % (Auto) 0.1 Absolute Neuts (auto) 8.3 H Absolute Lymphs (auto) 1.09 Total Counted Not Reportable ESR 30 Sodium 140 Potassium 4.3 Chloride 108 H Carbon Dioxide 26.0 Anion Gap 6 BUN 28 H Creatinine 1.06 H Estim Creat Clear Calc 54.82 Est GFR (MDRD) Af Amer 69 Est GFR (MDRD) Non-Af 57 L BUN/Creatinine Ratio 26.4 H Glucose 110 H Calcium 8.4 L Assessment/Plan All Active Problems (Last Reviewed 07/30/18 @ 14:14 by Antonino Colvin MD) Acute pyelonephritis (Resolved) Left ureteral calculus (Resolved) 1. Right knee post-op effusion/intractable right knee pain with associated debility- Status post right total knee replacement with Dr. Whaley at [facility] 09/12/18. X-ray of right knee on admission shows dorsal soft tissue swelling and moderate effusion. Consult ortho. PRN pain regimen. PT/OT. Plan for rehab pending insurance pre-cert. Elevate and ice RLE. Keep post op incision covered with ABD/wrap with kerlex. Snug ronald wrap right knee. 2. Chronic atrial fibrillation-status post ablation. States she has been sinus rhythm since ablation in 2017. Continue Tikosyn, Xarelto, Cardizem. 3. Hypertension-stable, continue home Cardizem, Tikosyn regimen. 4. Valvular heart disease, mild-echo 2015 with EF 60%, mild aortic sclerosis, pulmonary systolic pressure 37 mmHg, mild tricuspid valve insufficiency. 5. Gout- continue uloric. 6. Obstructive sleep apnea-CPAP nightly. 7. Chronic normocytic anemia-stable, trend CBC. 8. Chronic kidney disease stage III-stable, trend BMP. 9. Morbid obesity-encourage diet lifestyle modifications. DVT prophylaxis-Xarelto. This patient was seen by TABATHA Menezes under the supervision of Dr. Acuna. <Richard Acuna F - Last Filed: 09/17/18 21:03> History of Present Illness The patient is a 58 year old F [] Past Medical History Medical History: Medical History (Last Reviewed 07/30/18 @ 14:14 by Antonino Colvin MD) Nonrheumatic tricuspid valve regurgitation (Chronic) I36.1 Nonrheumatic mitral (valve) insufficiency (Chronic) I34.0 Hypertension (Chronic) I10 Body mass index (BMI) 35 or more 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 History of cardioversion Onset Date: ~11/2016 Z98.890 Iron deficiency anemia D50.9 Obstructive sleep apnea G47.33 Paroxysmal atrial fibrillation I48.0 Acute pyelonephritis (Resolved) N10 Left ureteral calculus (Resolved) N20.1 Anemia D64.9 Allergies metoprolol Adverse Reaction (Severe, Verified 09/17/18 10:30) Fatigue, weigt gain Surgical History: Surgical History (Last Reviewed 09/17/18 @ 16:01 by TABATHA Menezes) Status post radiofrequency ablation (RFA) operation for arrhythmia (Chronic) Onset Date: ~09/21/17 Z98.890, Z86.79 For Atrial Fib @ [facility] History of Z98.891 History of tonsillectomy Z98.890, Z90.89 - *Family History Paternal Family History: Family History (Last Reviewed 09/17/18 @ 16:10 by TABATHA Menezes) Father Afib Maternal Family History: Family History (Last Reviewed 09/17/18 @ 16:10 by TABATHA Menezes) Father Afib - Physical Exam Vital Signs Temp Pulse Resp BP Pulse Ox 99.4 F H 90 16 132/67 H 94 09/17/18 16:52 09/17/18 16:52 09/17/18 16:52 09/17/18 16:52 09/17/18 16:52 Oxygen Delivery Method Room Air Weight: 324 lb 1.272 oz Body Mass Index (BMI) 52.0 Intake and Output for Last 24 Hours 09/15/18 09/16/18 09/17/18 23:59 23:59 23:59 Intake Total 200 / 200 Balance 200 / 200 Laboratory Tests Past 24 Hrs 09/17/18 09/17/18 09/17/18 13:15 13:15 13:15 WBC 10.2 RBC 3.56 L Hgb 9.6 L Hct 31.6 L MCV 88.8 MCH 27.0 MCHC 30.4 L RDW 13.5 RDW Differential 41.9 Plt Count 268 MPV 11.4 Immature Gran % (Auto) 0.500 Neut % (Auto) 80.8 H Lymph % (Auto) 10.7 L [place] % (Auto) 6.7 Eos % (Auto) 1.2 Baso % (Auto) 0.1 Absolute Neuts (auto) 8.3 H Absolute Lymphs (auto) 1.09 Total Counted Not Reportable ESR 30 Sodium 140 Potassium 4.3 Chloride 108 H Carbon Dioxide 26.0 Anion Gap 6 BUN 28 H Creatinine 1.06 H Estim Creat Clear Calc 54.82 Est GFR (MDRD) Af Amer 69 Est GFR (MDRD) Non-Af 57 L BUN/Creatinine Ratio 26.4 H Glucose 110 H Calcium 8.4 L C-React Prot Ext Range 36.40 H Code Visit Addendum: Dr. Acuna I personally examined the patient and reviewed the chart. I agree with the above. 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 fib, iron deficiency anemia, hypertension presenting with increased right knee pain a week after a right total knee replacement by Dr. Whaley. She states that she had been doing fine and everything felt great over the last week and then this morning she woke up at 4 AM with significant right knee pain with inability to walk or ambulate very well. Her surgical incision is so new that she still has her wound VAC in place. She called her orthopedic surgeon today who recommended that she present to this hospital for evaluation. On presentation she did not have a leukocytosis and was afebrile, her ESR was 30 and her CRP was elevated to 36. X-ray of the right knee on admission in the ER shows dorsal soft tissue swelling and moderate effusion. At this time given the lack of a leukocytosis and no other systemic symptoms I do not feel that this effusion is necessarily inflammatory or infectious however will consult orthopedics for follow-up. I do recommend that if for some reason this were to become more present as a postoperative infection I would recommend transferring back to the performing surgeon. Otherwise on my exam her heart and lungs were normal, and her knee was tender but given her body habitus could not feel infusion. We will consult PT and OT for evaluation and possible placement in a rehab facility. OBSV E&M: 19344 Initial observation care L3
[2018-09-17 15:48] VITALS: BMI 52.0
[2018-09-17] MEDS: HYDROmorphone 1 MG/ML Syringe IV ×2 (16:26→20:48)
[2018-09-17] MEDS: 0.9% NaCl Peripheral Flush Adult/Peds IV (16:26)
--- NOTE | 2018-09-17 16:26 | NURSING ---
Spoke with Dr. Jose Guadalupe Camarillo re: consult. states that since pt did not have surgery by [facility], the consult should go to Dr. 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 Dr. Alfaro called, states that she does not do total knee surgeries and that if pt would require a revision, the consult should go to Dr. Hawk. Dr. Alfaro states she will call Dr. Hawk and discuss.
[2018-09-17 16:52] VITALS: BP 132/67; PULSE 90; RESP 16; TEMP 37.4; O2SAT 94
[2018-09-17] MEDS: dilTIAZem CD 120 MG Capsule PO (17:03)
[2018-09-17] MEDS: Rivaroxaban 20 MG Tablet PO (17:03)
[2018-09-17 22:00] VITALS: BP 105/65; PULSE 72; PULSE 73; RESP 16; TEMP 37.3; O2SAT 97
[2018-09-17] MEDS: Dofetilide 250 MCG Capsule PO (22:06)
[2018-09-18] MEDS: HYDROmorphone 1 MG/ML Syringe IV ×3 (00:01→09:38)
[2018-09-18 04:00] VITALS: BP 106/66; PULSE 74; PULSE 80; RESP 16; TEMP 37.4; O2SAT 96
[2018-09-18 06:13] LABS: Absolute Lymphocyte Count 1.56 X10^3/ul (0.83-4.51); Absolute Neutrophil Count 4.1 X10^3/uL (2.0-7.7); Basophil# 0.01 X10^3/uL; Basophil% 0.1 % (0-1); Eosinophil# 0.22 X10^3/uL; Eosinophils% 3.3 % (0-5); Hematocrit 26.2 % (37-47); Hemoglobin 7.8 g/dl (12.0-15.0); Lymphocyte # 1.56 X10^3/ul (4.0); Lymphocyte % 23.1 % (19-41); Mean Corp Hgb Conc 29.8 g/gl (32-36); Mean Corpuscular Hgb 26.9 pg (27.0-32.0); Mean Corpuscular Volume 90.3 fL (81-99); Mean Platelet Vol. 11.2 fl (6.2-12.0); Monocyte# 0.82 X10^3/uL; Monocyte% 12.2 % (0-10); Neutrophil # 4.07 X10^3/uL (2.7-7.7); Neutrophil % 60.4 % (47-70); Platelet Count 223 K/mm3 (150-450); RBC Distribution Width CV 13.5 % (11.6-14.6); RBC Distribution Width SD 43.1 fl (35.1-43.9); White Blood Count 6.7 K/mm3 (4.4-11.0)
[2018-09-18 06:17] LABS: POSITIVE COUNT NO; POSITIVE DIFFERENTIAL NO; POSITIVE MORPHOLOGY NO
[2018-09-18 06:37] LABS: Anion Gap 8 (5-15); BUN 21 mg/dL (7-18); BUN/Creat Ratio 23.1 RATIO (10-20); Chloride 109 mmol/L (98-107); Creatinine, Serum 0.91 mg/dL (0.55-1.02); EST Glomerular Filtration Rate 68 mL/min (>60); Est Glom Filt Rate - Afr Amer 82 mL/min (>60); Estimated Creatinine Clearance 63.85 ml/min; Glucose 120 mg/dL (74-106); Sodium Level 142 mmol/L (136-145)
--- NOTE | 2018-09-18 09:11 | PCM.PN.HOSP ---
Patient Problems: Active and Suspected Problems (Last Reviewed 07/30/18 @ 14:14 by Antonino Colvin MD) Postoperative pain of right knee (Acute) Subjective: Still with pain in right knee, though the pain medication are helping. Receiving diludid. Denies any antecedent trauma before pain set in. Vitals/I&O's: Vital Signs Temp Pulse Resp BP Pulse Ox 37.4 C H 74 16 106/66 96 09/18/18 04:00 09/18/18 04:00 09/18/18 04:00 09/18/18 04:00 09/18/18 04:00 Oxygen Delivery Method CPAP Weight: 147 kg Body Mass Index (BMI) 52.0 Intake and Output for Last 24 Hours 09/16/18 09/17/18 09/18/18 23:59 23:59 23:59 Intake Total 200 / 200 200 / 200 Balance 200 / 200 200 / 200 General: Alert, Cooperative, No apparent distress HEENT: Atraumatic, Normocephalic Oral: Moist Mucosa, No Gingival or Mucosal Lesions/ Ulcerations Neck: No Nodes, Thyroid Normal Size and Texture Lungs: Clear to auscultation, Normal air movement, No rhonchi, No wheeze Cardiovascular: Regular rate, Regular Rhythm, Normal S1, Normal S2, No murmurs Abdomen: Bowel Sounds Present, Soft, Non Tender, Non-Distended, No Hepato-splenomegaly, Obese Extremities: - - TTP medial and lateral knee. unable to appreciate any significant effusion in right knee. incision badaged--did not remove. Skin: No rashes, No breakdown Psych/Mental Status: Normal Affect Laboratory Results 09/17/18 13:15: WBC 10.2, RBC 3.56 L, Hgb 9.6 L, Hct 31.6 L, MCV 88.8, MCH 27.0, MCHC 30.4 L, RDW 13.5, RDW Differential 41.9, Plt Count 268, MPV 11.4, Immature Gran % (Auto) 0.500, Neut % (Auto) 80.8 H, Lymph % (Auto) 10.7 L, [place] % (Auto) 6.7, Eos % (Auto) 1.2, Baso % (Auto) 0.1, Absolute Neuts (auto) 8.3 H, Absolute Lymphs (auto) 1.09, Total Counted Not Reportable, ESR 30 09/17/18 13:15: Sodium 140, Potassium 4.3, Chloride 108 H, Carbon Dioxide 26.0, Anion Gap 6, BUN 28 H, Creatinine 1.06 H, Estim Creat Clear Calc 54.82, Est GFR (MDRD) Af Amer 69, Est GFR (MDRD) Non-Af 57 L, BUN/Creatinine Ratio 26.4 H, Glucose 110 H, Calcium 8.4 L 09/17/18 13:15: C-React Prot Ext Range 36.40 H 09/18/18 05:15: WBC 6.7, RBC 2.90 L, Hgb 7.8 L, Hct 26.2 L, MCV 90.3, MCH 26.9 L, MCHC 29.8 L, RDW 13.5, RDW Differential 43.1, Plt Count 223, MPV 11.2, Immature Gran % (Auto) 0.900, Neut % (Auto) 60.4, Lymph % (Auto) 23.1, [place] % (Auto) 12.2 H, Eos % (Auto) 3.3, Baso % (Auto) 0.1, Absolute Neuts (auto) 4.1, Absolute Lymphs (auto) 1.56, Total Counted Not Reportable 09/18/18 05:15: Sodium 142, Potassium 4.0, Chloride 109 H, Carbon Dioxide 25.0, Anion Gap 8, BUN 21 H, Creatinine 0.91, Estim Creat Clear Calc 63.85, Est GFR (MDRD) Af Amer 82, Est GFR (MDRD) Non-Af 68, BUN/Creatinine Ratio 23.1 H, Glucose 120 H, Calcium 8.0 L Current Medications Cyclobenzaprine HCl (Flexeril) 10 mg PO TID PRN PRN PRN Reason: PAIN Diltiazem HCl (Cardizem Cd) 120 mg PO DAILY [facility] Last Admin: 09/17/18 17:03 Dose: 120 mg Dofetilide (Tikosyn) 250 mcg PO BID [facility] Last Admin: 09/17/18 22:06 Dose: 250 mcg Hydromorphone HCl (Dilaudid Inj) 1 mg IV Q2H PRN PRN PRN Reason: SEVERE PAIN (6-10/10) Last Admin: 09/18/18 04:48 Dose: 1 mg Magnesium Hydroxide (Milk Of Magnesia) 30 ml PO DAILY PRN PRN PRN Reason: Constipation Rivaroxaban (Xarelto) 20 mg PO DAILY@1700 STEFF Last Admin: 09/17/18 17:03 Dose: 20 mg Sodium Chloride () 5 - 30 ml IV UD PRN PRN Reason: SALINE FLUSH Last Admin: 09/17/18 16:26 Dose: 10 ml Medical Necessity - Tobacco Use Smoking Status: Never smoker Tobacco Use: Non-smoker Assessment/Plan All Active Problems (Last Reviewed 07/30/18 @ 14:14 by Antonino Colvin MD) Postoperative pain of right knee (Acute) Acute pyelonephritis (Resolved) Left ureteral calculus (Resolved) 1. right knee pain, postoperative no s/s of septic arthritis xray showed diffuse soft tissue swelling with moderate joint effusion pain control: will start oxycodone, scheduled acetaminophen, decrease dilaudid ortho on consult, if intervention necessary, then patient will need to transferred back to [place] more likely, no intervention will be necessary, and patient will need to go to rehab/SNF 2. chronic afib: stable continue with dilt, tikosyn, xarelto 3. dvt proph: anticoagulated. Code Visit Inpatient E&M: 63138 Subs Hosp L2
--- NOTE | 2018-09-18 09:15 | PN_ITS ---
Patient Problems: Active and Suspected Problems (Last Reviewed 07/30/18 @ 14:14 by Antonino Colvin MD) Postoperative pain of right knee (Acute) Subjective: Still with pain in right knee, though the pain medication are helping. Receiving diludid. Denies any antecedent trauma before pain set in. Vitals/I&O's: Vital Signs Temp Pulse Resp BP Pulse Ox 37.4 C H 74 16 106/66 96 09/18/18 04:00 09/18/18 04:00 09/18/18 04:00 09/18/18 04:00 09/18/18 04:00 Oxygen Delivery Method CPAP Weight: 147 kg Body Mass Index (BMI) 52.0 Intake and Output for Last 24 Hours 09/16/18 09/17/18 09/18/18 23:59 23:59 23:59 Intake Total 200 / 200 200 / 200 Balance 200 / 200 200 / 200 General: Alert, Cooperative, No apparent distress HEENT: Atraumatic, Normocephalic Oral: Moist Mucosa, No Gingival or Mucosal Lesions/ Ulcerations Neck: No Nodes, Thyroid Normal Size and Texture Lungs: Clear to auscultation, Normal air movement, No rhonchi, No wheeze Cardiovascular: Regular rate, Regular Rhythm, Normal S1, Normal S2, No murmurs Abdomen: Bowel Sounds Present, Soft, Non Tender, Non-Distended, No Hepato- splenomegaly, Obese Extremities: - - TTP medial and lateral knee. unable to appreciate any significant effusion in right knee. incision badaged--did not remove. Skin: No rashes, No breakdown Psych/Mental Status: Normal Affect Laboratory Results 09/17/18 13:15: WBC 10.2, RBC 3.56 L, Hgb 9.6 L, Hct 31.6 L, MCV 88.8, MCH 27.0, MCHC 30.4 L, RDW 13.5, RDW Differential 41.9, Plt Count 268, MPV 11.4, Immature Gran % (Auto) 0.500, Neut % (Auto) 80.8 H, Lymph % (Auto) 10.7 L, [place] % (Auto) 6.7, Eos % (Auto) 1.2, Baso % (Auto) 0.1, Absolute Neuts (auto) 8.3 H, Absolute Lymphs (auto) 1.09, Total Counted Not Reportable, ESR 30 09/17/18 13:15: Sodium 140, Potassium 4.3, Chloride 108 H, Carbon Dioxide 26.0, Anion Gap 6, BUN 28 H, Creatinine 1.06 H, Estim Creat Clear Calc 54.82, Est GFR (MDRD) Af Amer 69, Est GFR (MDRD) Non-Af 57 L, BUN/Creatinine Ratio 26.4 H, Glucose 110 H, Calcium 8.4 L 09/17/18 13:15: C-React Prot Ext Range 36.40 H 09/18/18 05:15: WBC 6.7, RBC 2.90 L, Hgb 7.8 L, Hct 26.2 L, MCV 90.3, MCH 26.9 L , MCHC 29.8 L, RDW 13.5, RDW Differential 43.1, Plt Count 223, MPV 11.2, Immature Gran % (Auto) 0.900, Neut % (Auto) 60.4, Lymph % (Auto) 23.1, [place] % (Auto) 12.2 H, Eos % (Auto) 3.3, Baso % (Auto) 0.1, Absolute Neuts (auto) 4.1, Absolute Lymphs (auto) 1.56, Total Counted Not Reportable 09/18/18 05:15: Sodium 142, Potassium 4.0, Chloride 109 H, Carbon Dioxide 25.0, Anion Gap 8, BUN 21 H, Creatinine 0.91, Estim Creat Clear Calc 63.85, Est GFR (MDRD) Af Amer 82, Est GFR (MDRD) Non-Af 68, BUN/Creatinine Ratio 23.1 H, Glucose 120 H, Calcium 8.0 L Current Medications Cyclobenzaprine HCl (Flexeril) 10 mg PO TID PRN PRN PRN Reason: PAIN Diltiazem HCl (Cardizem Cd) 120 mg PO DAILY [facility] Last Admin: 09/17/18 17:03 Dose: 120 mg Dofetilide (Tikosyn) 250 mcg PO BID [facility] Last Admin: 09/17/18 22:06 Dose: 250 mcg Hydromorphone HCl (Dilaudid Inj) 1 mg IV Q2H PRN PRN PRN Reason: SEVERE PAIN (6-10/10) Last Admin: 09/18/18 04:48 Dose: 1 mg Magnesium Hydroxide (Milk Of Magnesia) 30 ml PO DAILY PRN PRN PRN Reason: Constipation Rivaroxaban (Xarelto) 20 mg PO DAILY@1700 STEFF Last Admin: 09/17/18 17:03 Dose: 20 mg Sodium Chloride () 5 - 30 ml IV UD PRN PRN Reason: SALINE FLUSH Last Admin: 09/17/18 16:26 Dose: 10 ml Medical Necessity - Tobacco Use Smoking Status: Never smoker Tobacco Use: Non-smoker Assessment/Plan All Active Problems (Last Reviewed 07/30/18 @ 14:14 by Antonino Colvin MD) Postoperative pain of right knee (Acute) Acute pyelonephritis (Resolved) Left ureteral calculus (Resolved) 1. right knee pain, postoperative * no s/s of septic arthritis * xray showed diffuse soft tissue swelling with moderate joint effusion * pain control: will start oxycodone, scheduled acetaminophen, decrease dilaudid * ortho on consult, if intervention necessary, then patient will need to transferred back to [place] * more likely, no intervention will be necessary, and patient will need to go to rehab/SNF 2. chronic afib: * stable * continue with dilt, tikosyn, xarelto 3. dvt proph: anticoagulated. Code Visit Inpatient E&M: 10952 Subs Hosp L2
[2018-09-18 09:20] VITALS: BP 127/58; PULSE 87; RESP 16; TEMP 37.1; O2SAT 98
[2018-09-18] MEDS: 0.9% NaCl Peripheral Flush Adult/Peds IV (09:38)
[2018-09-18] MEDS: Febuxostat 40 MG TABLET PO (09:38)
[2018-09-18] MEDS: Dofetilide 250 MCG Capsule PO ×2 (09:38→22:37)
--- NOTE | 2018-09-18 10:35 | CASEMGMT ---
Social Work Note SW met with pt to confirm discharge plans. Pt states that she wishes to go to TCU at discharge. SW explained this worker will have to check on bed availability and pt will need pre-cert from insurance. Pt states understanding. SW placed a call to referral line and spoke with Ryann. SW provided Ryann with referral. Per Ryann TCU is able to accept and she will submit for pre-cert. Plan: TCU pending pre-cert [facility] POISON INFORMATION SPECIALIST, CORPORATE STAFF ACCOUNTANT
[2018-09-18] MEDS: oxyCODONE 5 MG Tablet 10 MG PO ×3 (11:12→19:36)
--- NOTE | 2018-09-18 12:16 | PCM.PN.ORT ---
Patient Problems: Active and Suspected Problems (Last Reviewed 07/30/18 @ 14:14 by Antonino Colvin MD) Postoperative pain of right knee (Acute) Subjective: Patient sitting up in bed with her mother at her side. States her pain has improved but still having a lot of pain with any motion. For complete details of my interaction please see my fully dictated consult note - Physical Exam Vital Signs Temp Pulse Resp BP Pulse Ox 98.8 F 87 16 127/58 H 98 09/18/18 09:20 09/18/18 09:20 09/18/18 09:20 09/18/18 09:20 09/18/18 09:20 Oxygen Delivery Method Room Air Weight: 147 kg Body Mass Index (BMI) 52.0 Intake and Output for Last 24 Hours 09/16/18 09/17/18 09/18/18 23:59 23:59 23:59 Intake Total 200 / 200 200 / 200 Balance 200 / 200 200 / 200 Laboratory Tests Past 24 Hrs 09/17/18 09/17/18 09/17/18 13:15 13:15 13:15 WBC 10.2 RBC 3.56 L Hgb 9.6 L Hct 31.6 L MCV 88.8 MCH 27.0 MCHC 30.4 L RDW 13.5 RDW Differential 41.9 Plt Count 268 MPV 11.4 Immature Gran % (Auto) 0.500 Neut % (Auto) 80.8 H Lymph % (Auto) 10.7 L [place] % (Auto) 6.7 Eos % (Auto) 1.2 Baso % (Auto) 0.1 Absolute Neuts (auto) 8.3 H Absolute Lymphs (auto) 1.09 Total Counted Not Reportable ESR 30 Sodium 140 Potassium 4.3 Chloride 108 H Carbon Dioxide 26.0 Anion Gap 6 BUN 28 H Creatinine 1.06 H Estim Creat Clear Calc 54.82 Est GFR (MDRD) Af Amer 69 Est GFR (MDRD) Non-Af 57 L BUN/Creatinine Ratio 26.4 H Glucose 110 H Calcium 8.4 L C-React Prot Ext Range 36.40 H 09/18/18 09/18/18 05:15 05:15 WBC 6.7 RBC 2.90 L Hgb 7.8 L Hct 26.2 L MCV 90.3 MCH 26.9 L MCHC 29.8 L RDW 13.5 RDW Differential 43.1 Plt Count 223 MPV 11.2 Immature Gran % (Auto) 0.900 Neut % (Auto) 60.4 Lymph % (Auto) 23.1 [place] % (Auto) 12.2 H Eos % (Auto) 3.3 Baso % (Auto) 0.1 Absolute Neuts (auto) 4.1 Absolute Lymphs (auto) 1.56 Total Counted Not Reportable ESR Sodium 142 Potassium 4.0 Chloride 109 H Carbon Dioxide 25.0 Anion Gap 8 BUN 21 H Creatinine 0.91 Estim Creat Clear Calc 63.85 Est GFR (MDRD) Af Amer 82 Est GFR (MDRD) Non-Af 68 BUN/Creatinine Ratio 23.1 H Glucose 120 H Calcium 8.0 L C-React Prot Ext Range Medical Necessity - Tobacco Use Smoking Status: Never smoker Tobacco Use: Non-smoker Assessment/Plan All Active Problems (Last Reviewed 07/30/18 @ 14:14 by Antonino Colvin MD) Postoperative pain of right knee (Acute) Acute pyelonephritis (Resolved) Left ureteral calculus (Resolved)
--- NOTE | 2018-09-18 12:23 | CON.PCM_ITS ---
Problem List (1) Postoperative pain of right knee Status: Acute - Consult Date of Consult: 09/18/18 Impression postop right total knee pain Morbid obesity Plan 1. Continue all pain medications as presently prescribed by medicine, and operative orthopedic surgeon 2. Continue DVT prophylaxis as prescribed 3. Continue aggressive physical therapy 4. Consult operative orthopedic surgeon for possible transfer to the patient's operative facility History Patient states that she underwent a right total knee on 09/12/2018 at [facility]. Patient states she was discharged home and started developing pain in her thigh and knee. Patient denies any falls, denies any chest pain, shortness breath, calf pain, nausea vomiting. Patient also denies any fever chills or rigor she feels she is also having spasm type activity or pain in her thigh and knee. Exam I found a morbidly obese 58-year-old female lying in bed. Patient was alert oriented, without respiratory distress. Patient speaking in full sentences. Patient appear to be resting comfortably in bed upon entering the room. Patient good range of motion of the upper extremities without limitations patient abdomen was pendulous and obese. Exam of the right leg patient was exquisitely tender to palpation through the mid thigh area, in the area where the tourniquet went up in place. Patient had no obvious ecchymosis or soft tissue trauma to this area. Patient's dressing was clean dry and intact the knee was cool to touch nonerythematous. Patient complained of severe pain with any flexion and extension. Patient had asked full extension to 5 degrees, flexion to 80 degrees with severe pain. Patient had no pain in the calf region she had negative signs and symptoms of DVT. She had good plantar flexion dorsiflexion of the right foot without pain. Imaging studies 3 views of the operative right knee show patient has a very nicely seated cemented femoral component, the tibial tray is seated nicely with a stem the patella appears to be tracking very nice within the femoral groove. There appears to be no obvious translucency's or loosening of the components. And no other bony abnormality noted. Discussion Patient is approximately 6 days postop, surgery performed at [facility] in [place] by Dr. Whaley. Patient at this time does not appear to be febrile or septic. The knee is cool to touch does not appear to be septic. There is no calf tenderness or indication of DVT. Patient's vitals labs all within normal limits. At this time patient appears to be presenting with acute postoperative pain. It is recommended that she continue all pain medications as prescribed, continue ice, physical therapy with ambulation with walker. Discussion with Dr. Whaley for possible transfer to a rehab facility. And follow with Dr. Whaley at discharge. This is Fantasma Brandy dictating a perform a consult per the request of Dr. Adelso Hamilton. All clinical findings and review of medical records were discussed at length with Dr. Hamilton and plan approved by Dr. Hamilton. Approximately 45 minutes was spent performing this consult.
--- NOTE | 2018-09-18 12:48 | CHAPLAIN ---
Type of Pastoral Visit ___ Initial Visit ___ Follow-up Visit ___ On-call Visit ___ General Patient Visit ___ Spiritual Assessment ___ Family Conference ___ Bereavement ___ Rapid Response ___ Code Blue _x__ Other (describe below) Pastoral Care Referral From ___ Patient ___ Family ___ Nurse ___ Physician ___ Etl Bi Developer ___ Examining Chair Assembler _x__ Other (describe below) Sacrament/Intervention ___ Active listening ___ Anointing ___ Sikhism ___ Bereavement ___ Communion ___ Megan exploration ___ ___ Life review ___ Prayer ___ Reconciliation ___ Sacrament of Sick ___ Supportive presence ___ Wedding _x__ Other (describe below) Pastoral Comments patient was a referral for spiritual support on 09/17 but press feeder broomcorn was unable to make visit; on 09/18 offer of support given but patient declined it due to increased pain; family member is with patient and pt has notified RN of her situation
[2018-09-18] MEDS: Acetaminophen 500 MG Tablet 1000 MG PO ×2 (14:44→22:37)
[2018-09-18 14:45] VITALS: BP 114/47; PULSE 73; RESP 16; TEMP 37.3; O2SAT 98
[2018-09-18] MEDS: Rivaroxaban 20 MG Tablet PO (17:20)
[2018-09-18] MEDS: dilTIAZem CD 120 MG Capsule PO (17:20)
[2018-09-18 22:05] VITALS: BP 119/49; PULSE 68; RESP 18; TEMP 37.4; O2SAT 98
[2018-09-18] MEDS: Senna Tablet 1 TABLET PO (22:37)
[2018-09-19] MEDS: oxyCODONE 5 MG Tablet 10 MG PO ×2 (01:01→10:39)
[2018-09-19 04:00] VITALS: BP 128/75; PULSE 63; RESP 18; TEMP 37.2; O2SAT 97
[2018-09-19] MEDS: Acetaminophen 500 MG Tablet 1000 MG PO ×2 (05:54→13:10)
--- NOTE | 2018-09-19 08:25 | PCM.PN.HOSP ---
Patient Problems: Active and Suspected Problems (Last Reviewed 07/30/18 @ 14:14 by Antonino Colvin MD) Postoperative pain of right knee (Acute) Subjective: Feeling better. Decreased pain in right knee, though, still uncomfortable. Vitals/I&O's: Vital Signs Temp Pulse Resp BP Pulse Ox 37.2 C 63 18 128/75 H 97 09/19/18 04:00 09/19/18 04:00 09/19/18 04:00 09/19/18 04:00 09/19/18 04:00 Oxygen Delivery Method Room Air Weight: 147 kg Body Mass Index (BMI) 52.0 Intake and Output for Last 24 Hours 09/17/18 09/18/18 09/19/18 23:59 23:59 23:59 Intake Total 200 / 200 1000 / 1000 810 / 810 Balance 200 / 200 1000 / 1000 810 / 810 General: Alert, No apparent distress HEENT: Atraumatic, Normocephalic Oral: Moist Mucosa, No Gingival or Mucosal Lesions/ Ulcerations Neck: No Nodes, Thyroid Normal Size and Texture Lungs: Clear to auscultation, Normal air movement, No rhonchi, No wheeze Cardiovascular: Regular rate, Regular Rhythm, Normal S1, Normal S2, No murmurs Abdomen: Bowel Sounds Present, Soft, Non Tender, Non-Distended, No Hepato-splenomegaly Extremities: No clubbing, No Calf Tenderness Skin: No rashes, No breakdown Musculoskeletal: - - TTP over right medial knee. no palpable effusion. Psych/Mental Status: Normal Affect, Appropriate Current Medications Acetaminophen (Tylenol) 1,000 mg PO Q8 [facility] Last Admin: 09/19/18 05:54 Dose: 1,000 mg Cyclobenzaprine HCl (Flexeril) 10 mg PO TID PRN PRN PRN Reason: PAIN Diltiazem HCl (Cardizem Cd) 120 mg PO DAILY@1700 [facility] Last Admin: 09/18/18 17:20 Dose: 120 mg Dofetilide (Tikosyn) 250 mcg PO BID [facility] Last Admin: 09/18/18 22:37 Dose: 250 mcg Hydromorphone HCl (Dilaudid Inj) 1 mg IV Q2H PRN PRN PRN Reason: SEVERE PAIN (6-10/10) Last Admin: 10/31/18 09:38 Dose: 1 mg Magnesium Hydroxide (Milk Of Magnesia) 30 ml PO DAILY PRN PRN PRN Reason: Constipation Oxycodone HCl (Oxyir) 10 mg PO Q4H PRN PRN PRN Reason: SEVERE PAIN (6-10/10) Last Admin: 09/19/18 01:01 Dose: 10 mg Rivaroxaban (Xarelto) 20 mg PO DAILY@1700 [facility] Last Admin: 09/18/18 17:20 Dose: 20 mg Senna (Senokot) 1 tablet PO BID [facility] Last Admin: 09/18/18 22:37 Dose: 1 tablet Sodium Chloride () 5 - 30 ml IV UD PRN PRN Reason: SALINE FLUSH Last Admin: 09/18/18 09:38 Dose: 10 ml Medical Necessity - Tobacco Use Smoking Status: Never smoker Tobacco Use: Non-smoker Assessment/Plan All Active Problems (Last Reviewed 07/30/18 @ 14:14 by Antonino Colvin MD) Postoperative pain of right knee (Acute) Acute pyelonephritis (Resolved) Left ureteral calculus (Resolved) 1. right knee pain, postoperative improved due to effusion and routine healing. no acute surgical intervention necessary. no s/s of septic arthritis xray showed diffuse soft tissue swelling with moderate joint effusion pain control: will start oxycodone, scheduled acetaminophen, decrease dilaudid seen by ortho here, and have deferred any true clinical assessment to pt's primary orthopaedist clinically, I do not feel there as any surgical need at this time. Patient may follow up with Dr. Whaley as outpt, as previously scheduled. 2. chronic afib: stable continue with dilt, tikosyn, xarelto 3. dvt proph: anticoagulated. 4. Debility to SNF pending precertification. Code Visit Inpatient E&M: 26207 Subs Hosp L2
--- NOTE | 2018-09-19 08:30 | PN_ITS ---
Patient Problems: Active and Suspected Problems (Last Reviewed 07/30/18 @ 14:14 by Antonino Colvin MD) Postoperative pain of right knee (Acute) Subjective: Feeling better. Decreased pain in right knee, though, still uncomfortable. Vitals/I&O's: Vital Signs Temp Pulse Resp BP Pulse Ox 37.2 C 63 18 128/75 H 97 09/19/18 04:00 09/19/18 04:00 09/19/18 04:00 09/19/18 04:00 09/19/18 04:00 Oxygen Delivery Method Room Air Weight: 147 kg Body Mass Index (BMI) 52.0 Intake and Output for Last 24 Hours 09/17/18 09/18/18 09/19/18 23:59 23:59 23:59 Intake Total 200 / 200 1000 / 1000 810 / 810 Balance 200 / 200 1000 / 1000 810 / 810 General: Alert, No apparent distress HEENT: Atraumatic, Normocephalic Oral: Moist Mucosa, No Gingival or Mucosal Lesions/ Ulcerations Neck: No Nodes, Thyroid Normal Size and Texture Lungs: Clear to auscultation, Normal air movement, No rhonchi, No wheeze Cardiovascular: Regular rate, Regular Rhythm, Normal S1, Normal S2, No murmurs Abdomen: Bowel Sounds Present, Soft, Non Tender, Non-Distended, No Hepato- splenomegaly Extremities: No clubbing, No Calf Tenderness Skin: No rashes, No breakdown Musculoskeletal: - - TTP over right medial knee. no palpable effusion. Psych/Mental Status: Normal Affect, Appropriate Current Medications Acetaminophen (Tylenol) 1,000 mg PO Q8 [facility] Last Admin: 09/19/18 05:54 Dose: 1,000 mg Cyclobenzaprine HCl (Flexeril) 10 mg PO TID PRN PRN PRN Reason: PAIN Diltiazem HCl (Cardizem Cd) 120 mg PO DAILY@1700 [facility] Last Admin: 09/18/18 17:20 Dose: 120 mg Dofetilide (Tikosyn) 250 mcg PO BID [facility] Last Admin: 09/18/18 22:37 Dose: 250 mcg Hydromorphone HCl (Dilaudid Inj) 1 mg IV Q2H PRN PRN PRN Reason: SEVERE PAIN (6-10/10) Last Admin: 10/31/18 09:38 Dose: 1 mg Magnesium Hydroxide (Milk Of Magnesia) 30 ml PO DAILY PRN PRN PRN Reason: Constipation Oxycodone HCl (Oxyir) 10 mg PO Q4H PRN PRN PRN Reason: SEVERE PAIN (6-10/10) Last Admin: 09/19/18 01:01 Dose: 10 mg Rivaroxaban (Xarelto) 20 mg PO DAILY@1700 [facility] Last Admin: 09/18/18 17:20 Dose: 20 mg Senna (Senokot) 1 tablet PO BID [facility] Last Admin: 09/18/18 22:37 Dose: 1 tablet Sodium Chloride () 5 - 30 ml IV UD PRN PRN Reason: SALINE FLUSH Last Admin: 09/18/18 09:38 Dose: 10 ml Medical Necessity - Tobacco Use Smoking Status: Never smoker Tobacco Use: Non-smoker Assessment/Plan All Active Problems (Last Reviewed 07/30/18 @ 14:14 by Antonino Colvin MD) Postoperative pain of right knee (Acute) Acute pyelonephritis (Resolved) Left ureteral calculus (Resolved) 1. right knee pain, postoperative * improved * due to effusion and routine healing. no acute surgical intervention necessary. * no s/s of septic arthritis * xray showed diffuse soft tissue swelling with moderate joint effusion * pain control: will start oxycodone, scheduled acetaminophen, decrease dilaudid * seen by ortho here, and have deferred any true clinical assessment to pt's primary orthopaedist * clinically, I do not feel there as any surgical need at this time. Patient may follow up with Dr. Whaley as outpt, as previously scheduled. 2. chronic afib: * stable * continue with dilt, tikosyn, xarelto 3. dvt proph: anticoagulated. 4. Debility * to SNF pending precertification. Code Visit Inpatient E&M: 44725 Subs Hosp L2
--- NOTE | 2018-09-19 09:00 | CASEMGMT ---
Social Work Note TREVOR received message from Nenita in TCU stating pre-cert has been obtained and pt is able to discharge today. TREVOR updated physician. Plan: Discharge to TCU today Blessing Sorto MSW, GRAIN UNLOADER MACHINE
--- NOTE | 2018-09-19 09:32 | DCINST_ITS ---
- Discharge Diagnoses Current Active Problems: Current Active and Chronic Problems (Last Reviewed 07/30/18 @ 14:14 by Antonino Colvin MD) Postoperative pain of right knee (Acute) You will use the following diet at home:: Cardiac Your food should be the consistency of: Regular Call your doctor if you observe: Fever of 101 or Higher, - - increased pain in knee. Allergies/Adverse Reactions: Allergies metoprolol Adverse Reaction (Severe, Verified 09/17/18 10:30) Fatigue, weigt gain Medications to take at Discharge Diltiazem HCl [Diltiazem ER] 120 mg PO DAILY 04/30/18 Dofetilide [Tikosyn] 250 mcg PO BID 05/08/18 febuxostat 40 mg tablet 40 mg PO DAILY 07/30/18 ondansetron HCl 4 mg tablet 4 mg PO Q4H PRN PRN tab 07/30/18 rivaroxaban 20 mg tablet 20 mg PO DAILY 07/30/18 Colchicine 0.6 mg PO PRN PRN 09/17/18 Cyclobenzaprine [Flexeril] 10 mg PO TID PRN PRN 09/17/18 Acetaminophen [Tylenol] 1,000 mg PO Q8 tablet 09/19/18 Oxycodone [Oxyir] 1 - 2 tab PO Q4H PRN PRN 3 Days #18 tab 09/19/18 The following prescriptions were given: Oxycodone [Oxyir] 1 - 2 tab PO Q4H PRN PRN 3 Days #18 tab PRN Reason: Severe Pain (6-10/10) Primary Care Physician: Jordan Butler MD [Primary Care Provider] - Within 2 Weeks Test Results: Test results from this visit will be discussed in further detail at your follow- up appointment, if applicable. Please Follow Up With: Randy Whaley MD When: next scheduled appointment.
--- NOTE | 2018-09-19 09:33 | PCM.TXEXTCAR ---
- Diet 09/17/18 15:46 Diet: Regular Diet Food consistency:: Regular Liquid Consistency:: Regular/Thin - Routine Orders/Code Status Routine Lab Work: CBC, BMP - Wound(s) Right Knee Wound Type: Surgical Incision Dressing Change: Dry Sterile Dressing - Therapies Weight Bearing: Weight bearing as tolerated Extremity Affected:: Right Lower Physical Therapy: Eval and Treat Occupational Therapy: Eval and Treat - Allergies/Procedures Done in Hospital Allergies/Adverse Reactions: Allergies metoprolol Adverse Reaction (Severe, Verified 09/17/18 10:30) Fatigue, weigt gain - Type of Care/Length of Stay Estimated LOS: Convalescent Care Less Than 30 days Type of Care Needed: Skilled Rehab Potential: Fair Prognosis: Good - Additional Orders/Day of Discharge Day of Discharge: 09/19/18 - Dietary and Speech Recommendations Dietitian Recommendations/Changes: Suggest diet change to 2000 jacey/Cardiac/low sodium. - Follow Up Care Primary Care Physician: Jordan Butler MD [Primary Care Provider] - Within 2 Weeks Please Follow Up With: Randy Whaley MD When: next scheduled appointment.
--- NOTE | 2018-09-19 09:36 | PCM.DC.SUM ---
Discharge Date and Diagnosis - Problem List Patient Problems: Active and Suspected Problems (Last Reviewed 07/30/18 @ 14:14 by Antonino Colvin MD) Postoperative pain of right knee (Acute) Date of Admission: 09/17/18 Date of Discharge: 09/19/18 - Primary Discharge Diagnosis Active and Suspected Problems (Last Reviewed 07/30/18 @ 14:14 by Antonino Colvin MD) Postoperative pain of right knee (Acute) - Secondary Discharge Diagnosis Chronic Problems (Last Reviewed 07/30/18 @ 14:14 by Antonino Colvin MD) Chronic atrial fibrillation (Chronic) Nonrheumatic tricuspid valve regurgitation (Chronic) Nonrheumatic mitral (valve) insufficiency (Chronic) Status post radiofrequency ablation (RFA) operation for arrhythmia (Chronic ~09/21/17) For Atrial Fib @ [facility] Hypertension (Chronic) Hospital Course and Treatment Imaging Results: Clinical Impression(s) from Imaging Studies Knee X-Ray 09/17/18 11:33 IMPRESSION: Status post total knee replacement. Diffuse soft tissue swelling. Moderate size joint effusion. Electronically Signed: Moshe Field MD at 12:35 EDT Tel [phone], Service support , Operations: None Procedures: None Summary of Care Provided: The patient is a 58 year old F presents with pain in her knee. Patient on 12 September underwent a total knee arthroplasty by Dr. Whaley at the [facility]. Patient was doing well then patient suddenly had increased pain in her right knee and unable to bear weight. Presented to [facility] with these complaints and did have after x-ray that showed an effusion. Ranger to be likely the etiology of her pain. Patient was seen by the orthopedic service here and essentially to heard to the patient's orthopedic doctor Dr. Whaley. On my evaluation, clinically I did not feel that there is any concern for septic arthritis nor a compromise of her device. Feel is probably a postoperative effusion and expected healing processes associated with that. Patient was evaluated by physical therapy and recommended intermediate facility. Patient achieved precertification for the transitional care unit and will be discharged there today. Patient will need follow-up with Dr. Whaley. I called the [facility] but was unable to contact anyone to verify her appointment dates. [] Patient Problems: Active and Suspected Problems (Last Reviewed 07/30/18 @ 14:14 by Antonino Colvin MD) Postoperative pain of right knee (Acute) - Physical Exam Vital Signs Temp Pulse Resp BP Pulse Ox 37.2 C 63 18 128/75 H 97 09/19/18 04:00 09/19/18 04:00 09/19/18 04:00 09/19/18 04:00 09/19/18 04:00 Oxygen Delivery Method Room Air Weight: 147 kg Body Mass Index (BMI) 52.0 Intake and Output for Last 24 Hours 09/17/18 09/18/18 09/19/18 23:59 23:59 23:59 Intake Total 200 / 200 1000 / 1000 810 / 810 Balance 200 / 200 1000 / 1000 810 / 810 Discharge Diet: Low fat/ Low Cholesterol Discharge Activity: Return to Normal Activity Home Medications: Medications to take at Discharge Diltiazem HCl [Diltiazem ER] 120 mg PO DAILY 04/30/18 Dofetilide [Tikosyn] 250 mcg PO BID 05/08/18 febuxostat 40 mg tablet 40 mg PO DAILY 07/30/18 ondansetron HCl 4 mg tablet 4 mg PO Q4H PRN PRN tab 07/30/18 rivaroxaban 20 mg tablet 20 mg PO DAILY 07/30/18 Colchicine 0.6 mg PO PRN PRN 09/17/18 Cyclobenzaprine [Flexeril] 10 mg PO TID PRN PRN 09/17/18 Acetaminophen [Tylenol] 1,000 mg PO Q8 tablet 09/19/18 Oxycodone [Oxyir] 1 - 2 tab PO Q4H PRN PRN 3 Days #18 tab 09/19/18 Following Prescrptions Were Given to Patient: Oxycodone [Oxyir] 1 - 2 tab PO Q4H PRN PRN 3 Days #18 tab PRN Reason: Severe Pain (-08/28) Primary Care Physician: Jordan Butler MD [Primary Care Provider] - Within 2 Weeks Please Follow Up With: Randy Whaley MD When: next scheduled appointment. Disposition: [facility] facility Minutes spent on discharge:: 35 Patient Condition:: Good Medical Necessity - Tobacco Use Smoking Status: Never smoker Tobacco Use: Non-smoker Meaningful Use Info Meaningful Use Diagnoses (Choose all that apply): None applicable Code Visit Inpatient E&M: 19082 Disch Hosp
--- NOTE | 2018-09-19 09:40 | DS.PCM_ITS ---
Discharge Date and Diagnosis - Problem List Patient Problems: Active and Suspected Problems (Last Reviewed 07/30/18 @ 14:14 by Antonino Colvin MD) Postoperative pain of right knee (Acute) Date of Admission: 09/17/18 Date of Discharge: 09/19/18 - Primary Discharge Diagnosis Active and Suspected Problems (Last Reviewed 07/30/18 @ 14:14 by Antonino Colvin MD) Postoperative pain of right knee (Acute) - Secondary Discharge Diagnosis Chronic Problems (Last Reviewed 07/30/18 @ 14:14 by Antonino Colvin MD) Chronic atrial fibrillation (Chronic) Nonrheumatic tricuspid valve regurgitation (Chronic) Nonrheumatic mitral (valve) insufficiency (Chronic) Status post radiofrequency ablation (RFA) operation for arrhythmia (Chronic ~09/21/17) For Atrial Fib @ [facility] Hypertension (Chronic) Hospital Course and Treatment Imaging Results: Clinical Impression(s) from Imaging Studies Knee X-Ray 09/17/18 11:33 IMPRESSION: Status post total knee replacement. Diffuse soft tissue swelling. Moderate size joint effusion. Electronically Signed: Moshe Field MD at 12:35 EDT Tel [phone], Service support , Operations: None Procedures: None Summary of Care Provided: The patient is a 58 year old F presents with pain in her knee. Patient on 12 September underwent a total knee arthroplasty by Dr. Whaley at the [facility]. Patient was doing well then patient suddenly had increased pain in her right knee and unable to bear weight. Presented to [facility] with these complaints and did have after x-ray that showed an effusion. [place] to be likely the etiology of her pain. Patient was seen by the orthopedic service here and essentially to heard to the patient's orthopedic doctor Dr. Whaley. On my evaluation, clinically I did not feel that there is any concern for septic arthritis nor a compromise of her device. Feel is probably a postoperative effusion and expected healing processes associated with that. Patient was evaluated by physical therapy and recommended fdc facility. Patient achieved precertification for the transitional care unit and will be discharged there today. Patient will need follow-up with Dr. Whaley. I called the [facility] but was unable to contact anyone to verify her appointment dates. [] Patient Problems: Active and Suspected Problems (Last Reviewed 07/30/18 @ 14:14 by Lorna Zavala) Postoperative pain of right knee (Acute) - Physical Exam Vital Signs Temp Pulse Resp BP Pulse Ox 37.2 C 63 18 128/75 H 97 09/19/18 04:00 09/19/18 04:00 09/19/18 04:00 09/19/18 04:00 09/19/18 04:00 Oxygen Delivery Method Room Air Weight: 147 kg Body Mass Index (BMI) 52.0 Intake and Output for Last 24 Hours 09/17/18 09/18/18 09/19/18 23:59 23:59 23:59 Intake Total 200 / 200 1000 / 1000 810 / 810 Balance 200 / 200 1000 / 1000 810 / 810 Discharge Diet: Low fat/ Low Cholesterol Discharge Activity: Return to Normal Activity Home Medications: Medications to take at Discharge Diltiazem HCl [Diltiazem ER] 120 mg PO DAILY 04/30/18 Dofetilide [Tikosyn] 250 mcg PO BID 05/08/18 febuxostat 40 mg tablet 40 mg PO DAILY 07/30/18 ondansetron HCl 4 mg tablet 4 mg PO Q4H PRN PRN tab 07/30/18 rivaroxaban 20 mg tablet 20 mg PO DAILY 07/30/18 Colchicine 0.6 mg PO PRN PRN 09/17/18 Cyclobenzaprine [Flexeril] 10 mg PO TID PRN PRN 09/17/18 Acetaminophen [Tylenol] 1,000 mg PO Q8 tablet 09/19/18 Oxycodone [Oxyir] 1 - 2 tab PO Q4H PRN PRN 3 Days #18 tab 09/19/18 Following Prescrptions Were Given to Patient: Oxycodone [Oxyir] 1 - 2 tab PO Q4H PRN PRN 3 Days #18 tab PRN Reason: Severe Pain (-08/28) Primary Care Physician: Jordan Butler MD [Primary Care Provider] - Within 2 Weeks Please Follow Up With: Randy Whaley MD When: next scheduled appointment. Disposition: Detention facility Minutes spent on discharge:: 35 Patient Condition:: Good Medical Necessity - Tobacco Use Smoking Status: Never smoker Tobacco Use: Non-smoker Meaningful Use Info Meaningful Use Diagnoses (Choose all that apply): None applicable Code Visit Inpatient E&M: 46974 Disch Hosp
[2018-09-19] MEDS: Senna Tablet 1 TABLET PO (09:43)
[2018-09-19] MEDS: Febuxostat 40 MG TABLET PO (09:44)
[2018-09-19] MEDS: Dofetilide 250 MCG Capsule PO (09:44)
[2018-09-19 10:00] VITALS: BP 112/66; PULSE 68; RESP 18; TEMP 37.2; O2SAT 97
== END 2018-09-19 10:45 | disposition skilled nursing facility (03) ==
LOC: ED 11:41 → MS3 14:40
PROVIDERS: Orthopaedic Surgery; Admitting Provider Family Medicine; Emergency Provider Emergency Medicine; Family Provider Family Medicine; PCP Family Medicine
DX: G89.18 Other acute postprocedural pain (principal); M25.561 Pain in right knee; I48.2 Chronic atrial fibrillation; G47.33 Obstructive sleep apnea (adult) (pediatric); E66.01 Morbid (severe) obesity due to excess calories; I12.9 Hypertensive chronic kidney disease with stage 1 through stage 4 chronic kidney disease, or unspecified chronic kidney disease; Z68.43 Body mass index [BMI] 50.0-59.9, adult; Z71.3 Dietary counseling and surveillance; Z79.899 Other long term (current) drug therapy; Z96.651 Presence of right artificial knee joint; Z79.01 Long term (current) use of anticoagulants; I48.0 Paroxysmal atrial fibrillation; N18.3 Chronic kidney disease, stage 3 (moderate); D50.9 Iron deficiency anemia, unspecified
CPT/HCPCS: 36415; 73560; 80048; 85025; 85652; 86140; 96374; 96375; 96376; 97162; 97165; 97530; 97535; 97802; 99218; 99285; A4216; G0378; J2405

== ENCOUNTER 2018-09-19 11:03 | Inpatient (IN) | payer BC, SELFPAY ==
[2018-09-19 12:00] VITALS: BP 134/73; PULSE 59; RESP 16; TEMP 36.5; O2SAT 97; BMI 52.2
[2018-09-19 12:14] VITALS: BMI 52.3
[2018-09-19 16:00] VITALS: BP 121/56; PULSE 70; RESP 16; TEMP 36.9; O2SAT 97
[2018-09-19] MEDS: Senna/Docusate Sodium 1 Tablet 2 TABLET PO (17:04)
[2018-09-19] MEDS: dilTIAZem CD 120 MG Capsule PO (17:40)
--- NOTE | 2018-09-19 20:09 | PCM.HP.STD ---
Problem List (1) Effusion of right knee Status: Acute (2) Osteoarthritis of knees, bilateral Status: Acute (3) Gout Status: Chronic (4) Atrial fibrillation Status: Chronic (5) Tricuspid regurgitation Status: Chronic (6) Mitral valve insufficiency Status: Chronic (7) Obstructive sleep apnea Status: Chronic (8) Body mass index (BMI) 50-59.9, adult Status: Chronic (9) Chronic kidney disease Status: Chronic (10) Anemia Status: Chronic (11) Muscle spasm Status: Acute (12) Postoperative pain of right knee Status: Acute (13) Hypertension Status: Chronic Qualifiers: History of Present Illness Date of Admission: 09/19/18 Chief Complaint: Here for rehabilitation, strengthening, prior to discharge home. The patient is a 58 year old Female with below past medical history presented to [facility] Emergency Department 09/17/2018 with right knee pain, swelling. 09/17/2018 X-ray right knee, status post right total knee replacement, diffuse soft tissue swelling, moderate joint effusion. Right total knee arthroplasty 09/12/2018, [address] Whaley at [facility]. Wound on right knee. Increased swelling, pain, no trauma. WBC 10, Hemoglobin 9.6, Cr 1.06, ESR 30. Morphine, Zofran IV given, unable to walk, pain 10 out of 10. 09/17/2018 Admit to Hospital. PT/OT, consult Orthopedics. 09/18/2018 Fantasma Mcguire recommended conservative treatment, follow up with Dr. Whaley. 09/19/2018 Admit to TCU with debility, here for rehabilitation, strengthening, prior to discharge home. Past Medical History Past Medical History (Chronic Problems): Chronic Problems (Last Reviewed 07/30/18 @ 14:14 by Antonino Colvin MD) Gout (Chronic) Atrial fibrillation (Chronic) Tricuspid regurgitation (Chronic) Mitral valve insufficiency (Chronic) Obstructive sleep apnea (Chronic) Body mass index (BMI) 50-59.9, adult (Chronic) Chronic kidney disease (Chronic) Anemia (Chronic) Chronic atrial fibrillation (Chronic) Nonrheumatic tricuspid valve regurgitation (Chronic) Nonrheumatic mitral (valve) insufficiency (Chronic) Status post radiofrequency ablation (RFA) operation for arrhythmia (Chronic ~09/21/17) For Atrial Fib @ [facility] Hypertension (Chronic) Medical History: Medical History (Last Reviewed 07/30/18 @ 14:14 by Antonino Colvin MD) Nonrheumatic tricuspid valve regurgitation (Chronic) I36.1 Nonrheumatic mitral (valve) insufficiency (Chronic) I34.0 Hypertension (Chronic) I10 Body mass index (BMI) 35 or more 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 History of cardioversion Onset Date: ~11/2016 Z98.890 Iron deficiency anemia D50.9 Obstructive sleep apnea G47.33 Paroxysmal atrial fibrillation I48.0 Acute pyelonephritis (Resolved) N10 Left ureteral calculus (Resolved) N20.1 Anemia D64.9 Allergies metoprolol Adverse Reaction (Severe, Verified 09/17/18 10:30) Fatigue, weigt gain Home Medications: Ambulatory Orders Medication Instructions Recorded Diltiazem HCl [Diltiazem ER] 120 mg PO DAILY 04/30/18 Dofetilide [Tikosyn] 250 mcg PO BID 05/08/18 febuxostat 40 mg tablet 40 mg PO DAILY 07/30/18 ondansetron HCl 4 mg tablet 4 mg PO Q4H PRN PRN tab 07/30/18 rivaroxaban 20 mg tablet 20 mg PO DAILY 07/30/18 Colchicine 0.6 mg PO PRN PRN 09/17/18 Cyclobenzaprine [Flexeril] 10 mg PO TID PRN PRN 09/17/18 Acetaminophen [Tylenol] 1,000 mg PO Q8 09/19/18 Oxycodone [Oxyir] 1 - 2 tab PO Q4H PRN PRN 3 Days 09/19/18 #18 tab Surgical History: Surgical History (Last Reviewed 09/17/18 @ 16:01 by Maru Bauer NP-[facility]) Status post radiofrequency ablation (RFA) operation for arrhythmia (Chronic) Onset Date: ~09/21/17 Z98.890, Z86.79 For Atrial Fib @ [facility] History of Z98.891 History of tonsillectomy Z98.890, Z90.89 Surgical History: total knee arthroplasty - Right., tonsillectomy, - - section, cystoscopy left ureteroscopy laser lithotripsy of stone, removal of stent to left retrograde pyelogram, s/p RFA for atrial fibrillation. Psychiatric History: No pertinent psych hx INSIGHTS STRATEGIST History: No pertinent INSIGHTS STRATEGIST history Lives: Alone Smoking Status: Never smoker Tobacco Use: Non-smoker Alcohol: None Drugs: None - *Family History Paternal Family History: Family History (Last Reviewed 09/17/18 @ 16:10 by TABATHA Menezes) Father Afib History Items: Heart Disease - A.fib Maternal Family History: Family History (Last Reviewed 09/17/18 @ 16:10 by TABATHA Menezes) Father Afib History Items: Hypertension, Renal Disease Review of Systems Constitutional: Denies: Chills, Fever, Weight Change HEENT: Denies: Head Aches, Sinus Congestion, Sinus Drainage Cardiovascular: Denies: Chest Pain, Palpitations Respiratory: Denies: Cough, Shortness of breath at rest, Sputum production Gastrointestinal: Denies: Abdominal Pain, Nausea, Vomiting Genitourinary: Denies: Dysuria Musculoskeletal: Reports: Joint Pain - Right knee.. Denies: Joint Tenderness Skin: Denies: Rash, Wounds Neurological: Denies: Numbness, Tingling, Focal weakness Psychiatric: Denies: Anxiety, Depression, Homicidal Ideations, Suicidal Ideations Hematologic/ Lymphatic: Denies: Easy Bruising, Easy Bleeding VTE Information - Inpt Only VTE Present on Admission: No VTE Mechan Device Prophylaxis: Knee High GIFTY Hose VTE Pharm Prophylaxis ordered?: No Reason prophylaxis not ordered:: Treatment Not Indicated Patient Problems: Active and Suspected Problems (Last Reviewed 07/30/18 @ 14:14 by Antonino Colvin MD) Effusion of right knee (Acute) Osteoarthritis of knees, bilateral (Acute) Muscle spasm (Acute) Postoperative pain of right knee (Acute) - Physical Exam General: Alert, Oriented x3, Cooperative HEENT: Atraumatic, PERRLA, EOMI, Normocephalic Neck: Supple, No JVD, Negative Carotid Bruits Lungs: Clear to auscultation, Normal air movement Cardiovascular: Regular rate, No murmurs Abdomen: Bowel Sounds Present, Soft, Non Tender Extremities: No edema, Capillary Refill Less than 3 Seconds Skin: No rashes, No breakdown, Incision - Right knee clean, dry, intact. Musculoskeletal: No Tenderness to Palpation of Joints or Extremities Neurological: Cranial nerves II-XII grossly intact Psych/Mental Status: Normal Affect, Appropriate Vital Signs Temp Pulse Resp BP Pulse Ox 98.4 F 70 16 121/56 H 97 09/19/18 16:00 09/19/18 16:00 09/19/18 16:00 09/19/18 16:00 09/19/18 16:00 Oxygen Delivery Method Room Air Weight: 147 kg Body Mass Index (BMI) 52.2 Assessment/Plan All Active Problems (Last Reviewed 07/30/18 @ 14:14 by Antonino Colvin MD) Effusion of right knee (Acute) Osteoarthritis of knees, bilateral (Acute) Muscle spasm (Acute) Postoperative pain of right knee (Acute) Acute pyelonephritis (Resolved) Left ureteral calculus (Resolved) 58 year old female with below past medical history status post recent right total knee arthroplasty, hospitalized with intractable right knee pain, right knee effusion, admitted to TCU with debility, here for rehabilitation, strengthening, prior to discharge home. Debility - PT/OT. Pain - Tylenol 1000MG Q8H, Oxycodone 5-10MG Q4H PRN severe pain. Bowel - Miralax 17GM daily, Senna/colace 2 tablets BID, Dulcolax 10MG PO daily PRN. Pneumonia vaccination - Too young for pneumonia vaccination. DVT prophylaxis - Not necessary, already on Xarelto. Gout - Uloric 40MG daily, Colchicine 0.6MG BID PRN. Muscle spasm - Flexeril 10MG TID PRN. Atrial fibrillation - Diltiazem 120MG daily, Tikosyn 250MCG BID, Xarelto 20MG daily. Nausea - Zofran 4MG Q4H PRN.
--- NOTE | 2018-09-19 20:16 | HP.PCM_ITS ---
Problem List (1) Effusion of right knee Status: Acute (2) Osteoarthritis of knees, bilateral Status: Acute (3) Gout Status: Chronic (4) Atrial fibrillation Status: Chronic (5) Tricuspid regurgitation Status: Chronic (6) Mitral valve insufficiency Status: Chronic (7) Obstructive sleep apnea Status: Chronic (8) Body mass index (BMI) 50-59.9, adult Status: Chronic (9) Chronic kidney disease Status: Chronic (10) Anemia Status: Chronic (11) Muscle spasm Status: Acute (12) Postoperative pain of right knee Status: Acute (13) Hypertension Status: Chronic Qualifiers: History of Present Illness Date of Admission: 09/19/18 Chief Complaint: Here for rehabilitation, strengthening, prior to discharge home. The patient is a 58 year old Female with below past medical history presented to [facility] Emergency Department 09/17/2018 with right knee pain, swelling. 09/17/2018 X-ray right knee, status post right total knee replacement, diffuse soft tissue swelling, moderate joint effusion. Right total knee arthroplasty 09/12/2018, [address] Whaley at [facility]. Wound on right knee. Increased swelling, pain, no trauma. WBC 10, Hemoglobin 9.6, Cr 1.06, ESR 30. Morphine, Zofran IV given, unable to walk, pain 10 out of 10. 09/17/2018 Admit to Hospital. PT/OT, consult Orthopedics. 09/18/2018 Fantasma Mcguire recommended conservative treatment, follow up with Dr. Whaley. 09/19/2018 Admit to TCU with debility, here for rehabilitation, strengthening, prior to discharge home. Past Medical History Past Medical History (Chronic Problems): Chronic Problems (Last Reviewed 07/30/18 @ 14:14 by Antonino Colvin MD) Gout (Chronic) Atrial fibrillation (Chronic) Tricuspid regurgitation (Chronic) Mitral valve insufficiency (Chronic) Obstructive sleep apnea (Chronic) Body mass index (BMI) 50-59.9, adult (Chronic) Chronic kidney disease (Chronic) Anemia (Chronic) Chronic atrial fibrillation (Chronic) Nonrheumatic tricuspid valve regurgitation (Chronic) Nonrheumatic mitral (valve) insufficiency (Chronic) Status post radiofrequency ablation (RFA) operation for arrhythmia (Chronic ~09/21/17) For Atrial Fib @ [facility] Hypertension (Chronic) Medical History: Medical History (Last Reviewed 07/30/18 @ 14:14 by Antonino Colvin MD) Nonrheumatic tricuspid valve regurgitation (Chronic) I36.1 Nonrheumatic mitral (valve) insufficiency (Chronic) I34.0 Hypertension (Chronic) I10 Body mass index (BMI) 35 or more 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 History of cardioversion Onset Date: ~11/2016 Z98.890 Iron deficiency anemia D50.9 Obstructive sleep apnea G47.33 Paroxysmal atrial fibrillation I48.0 Acute pyelonephritis (Resolved) N10 Left ureteral calculus (Resolved) N20.1 Anemia D64.9 Allergies metoprolol Adverse Reaction (Severe, Verified 09/17/18 10:30) Fatigue, weigt gain Home Medications: Ambulatory Orders Medication Instructions Recorded Diltiazem HCl [Diltiazem ER] 120 mg PO DAILY 04/30/18 Dofetilide [Tikosyn] 250 mcg PO BID 05/08/18 febuxostat 40 mg tablet 40 mg PO DAILY 07/30/18 ondansetron HCl 4 mg tablet 4 mg PO Q4H PRN PRN tab 07/30/18 rivaroxaban 20 mg tablet 20 mg PO DAILY 07/30/18 Colchicine 0.6 mg PO PRN PRN 09/17/18 Cyclobenzaprine [Flexeril] 10 mg PO TID PRN PRN 09/17/18 Acetaminophen [Tylenol] 1,000 mg PO Q8 09/19/18 Oxycodone [Oxyir] 1 - 2 tab PO Q4H PRN PRN 3 Days 09/19/18 #18 tab Surgical History: Surgical History (Last Reviewed 09/17/18 @ 16:01 by Maru Bauer NP-[facility]) Status post radiofrequency ablation (RFA) operation for arrhythmia (Chronic) Onset Date: ~09/21/17 Z98.890, Z86.79 For Atrial Fib @ [facility] History of Z98.891 History of tonsillectomy Z98.890, Z90.89 Surgical History: total knee arthroplasty - Right., tonsillectomy, - - section, cystoscopy left ureteroscopy laser lithotripsy of stone, removal of stent to left retrograde pyelogram, s/p RFA for atrial fibrillation. Psychiatric History: No pertinent psych hx DIRECT CARE SPECIALIST History: No pertinent DIRECT CARE SPECIALIST history Lives: Alone Smoking Status: Never smoker Tobacco Use: Non-smoker Alcohol: None Drugs: None - *Family History Paternal Family History: Family History (Last Reviewed 09/17/18 @ 16:10 by TABATHA Menezes) Father Afib History Items: Heart Disease - A.fib Maternal Family History: Family History (Last Reviewed 09/17/18 @ 16:10 by TABATHA Menezes) Father Afib History Items: Hypertension, Renal Disease Review of Systems Constitutional: Denies: Chills, Fever, Weight Change HEENT: Denies: Head Aches, Sinus Congestion, Sinus Drainage Cardiovascular: Denies: Chest Pain, Palpitations Respiratory: Denies: Cough, Shortness of breath at rest, Sputum production Gastrointestinal: Denies: Abdominal Pain, Nausea, Vomiting Genitourinary: Denies: Dysuria Musculoskeletal: Reports: Joint Pain - Right knee.. Denies: Joint Tenderness Skin: Denies: Rash, Wounds Neurological: Denies: Numbness, Tingling, Focal weakness Psychiatric: Denies: Anxiety, Depression, Homicidal Ideations, Suicidal Ideations Hematologic/ Lymphatic: Denies: Easy Bruising, Easy Bleeding VTE Information - Inpt Only VTE Present on Admission: No VTE Mechan Device Prophylaxis: Knee High GIFTY Hose VTE Pharm Prophylaxis ordered?: No Reason prophylaxis not ordered:: Treatment Not Indicated Patient Problems: Active and Suspected Problems (Last Reviewed 07/30/18 @ 14:14 by Antonino Colvin MD) Effusion of right knee (Acute) Osteoarthritis of knees, bilateral (Acute) Muscle spasm (Acute) Postoperative pain of right knee (Acute) - Physical Exam General: Alert, Oriented x3, Cooperative HEENT: Atraumatic, PERRLA, EOMI, Normocephalic Neck: Supple, No JVD, Negative Carotid Bruits Lungs: Clear to auscultation, Normal air movement Cardiovascular: Regular rate, No murmurs Abdomen: Bowel Sounds Present, Soft, Non Tender Extremities: No edema, Capillary Refill Less than 3 Seconds Skin: No rashes, No breakdown, Incision - Right knee clean, dry, intact. Musculoskeletal: No Tenderness to Palpation of Joints or Extremities Neurological: Cranial nerves II-XII grossly intact Psych/Mental Status: Normal Affect, Appropriate Vital Signs Temp Pulse Resp BP Pulse Ox 98.4 F 70 16 121/56 H 97 09/19/18 16:00 09/19/18 16:00 09/19/18 16:00 09/19/18 16:00 09/19/18 16:00 Oxygen Delivery Method Room Air Weight: 147 kg Body Mass Index (BMI) 52.2 Assessment/Plan All Active Problems (Last Reviewed 07/30/18 @ 14:14 by Antonino Colvin MD) Effusion of right knee (Acute) Osteoarthritis of knees, bilateral (Acute) Muscle spasm (Acute) Postoperative pain of right knee (Acute) Acute pyelonephritis (Resolved) Left ureteral calculus (Resolved) 58 year old female with below past medical history status post recent right total knee arthroplasty, hospitalized with intractable right knee pain, right knee effusion, admitted to TCU with debility, here for rehabilitation, strengthening, prior to discharge home. * Debility - PT/OT. * Pain - Tylenol 1000MG Q8H, Oxycodone 5-10MG Q4H PRN severe pain. * Bowel - Miralax 17GM daily, Senna/colace 2 tablets BID, Dulcolax 10MG PO daily PRN. * Pneumonia vaccination - Too young for pneumonia vaccination. * DVT prophylaxis - Not necessary, already on Xarelto. * Gout - Uloric 40MG daily, Colchicine 0.6MG BID PRN. * Muscle spasm - Flexeril 10MG TID PRN. * Atrial fibrillation - Diltiazem 120MG daily, Tikosyn 250MCG BID, Xarelto 20MG daily. * Nausea - Zofran 4MG Q4H PRN.
[2018-09-19] MEDS: Bisacodyl 5 MG Tablet 10 MG PO (21:30)
[2018-09-19] MEDS: Dofetilide 250 MCG Capsule PO (21:31)
[2018-09-19] MEDS: Acetaminophen 500 MG Tablet 1000 MG PO (21:32)
[2018-09-19] MEDS: oxyCODONE 5 MG Tablet PO (23:24)
[2018-09-20 05:50] LABS: Absolute Lymphocyte Count 2.05 X10^3/ul (0.83-4.51); Absolute Neutrophil Count 4.3 X10^3/uL (2.0-7.7); Basophil# 0.01 X10^3/uL; Basophil% 0.1 % (0-1); Eosinophil# 0.26 X10^3/uL; Eosinophils% 3.5 % (0-5); Hematocrit 25.5 % (37-47); Hemoglobin 7.5 g/dl (12.0-15.0); Lymphocyte # 2.05 X10^3/ul (4.0); Lymphocyte % 27.8 % (19-41); Mean Corp Hgb Conc 29.4 g/gl (32-36); Mean Corpuscular Hgb 26.5 pg (27.0-32.0); Mean Corpuscular Volume 90.1 fL (81-99); Mean Platelet Vol. 11.4 fl (6.2-12.0); Monocyte# 0.64 X10^3/uL; Monocyte% 8.7 % (0-10); Neutrophil # 4.33 X10^3/uL (2.7-7.7); Neutrophil % 58.7 % (47-70); POSITIVE COUNT NO; POSITIVE DIFFERENTIAL NO; POSITIVE MORPHOLOGY NO; Platelet Count 251 K/mm3 (150-450); RBC Distribution Width CV 13.5 % (11.6-14.6); RBC Distribution Width SD 42.8 fl (35.1-43.9); Red Blood Count 2.83 M/mm3 (4.2-5.4); White Blood Count 7.4 K/mm3 (4.4-11.0)
[2018-09-20 06:10] LABS: Anion Gap 6 (5-15); BUN 15 mg/dL (7-18); BUN/Creat Ratio 17.8 RATIO (10-20); Calcium,Total 8.2 mg/dL (8.5-10.1); Chloride 111 mmol/L (98-107); Creatinine, Serum 0.84 mg/dL (0.55-1.02); EST Glomerular Filtration Rate 74 mL/min (>60); Est Glom Filt Rate - Afr Amer 89 mL/min (>60); Estimated Creatinine Clearance 69.17 ml/min; Glucose 103 mg/dL (74-106); Potassium 3.8 mmol/L (3.5-5.1); Sodium Level 143 mmol/L (136-145)
[2018-09-20] MEDS: Acetaminophen 500 MG Tablet 1000 MG PO ×3 (06:51→20:36)
[2018-09-20] MEDS: Febuxostat 40 MG TABLET PO (06:51)
[2018-09-20] MEDS: Senna/Docusate Sodium 1 Tablet 2 TABLET PO (06:58)
--- NOTE | 2018-09-20 07:02 | NURSING ---
Patient c/o of pain. Patient thinks that it can be possibly gout. Dr. Peraza notified, new orders given for uric acid.
[2018-09-20 07:17] LABS: Uric Acid 4.8 mg/dL (2.6-6.0)
[2018-09-20] MEDS: oxyCODONE 5 MG Tablet PO ×3 (08:58→22:02)
[2018-09-20] MEDS: Rivaroxaban 20 MG Tablet PO (10:24)
[2018-09-20] MEDS: Dofetilide 250 MCG Capsule PO ×2 (10:24→20:37)
[2018-09-20] MEDS: Tuberculin,Purif.prot.deriv. 50 TU/ML Vial 5 ML ID (13:47)
[2018-09-20] MEDS: dilTIAZem CD 120 MG Capsule PO (18:53)
[2018-09-20 20:40] VITALS: PULSE 74; RESP 16; O2SAT 95
[2018-09-21] MEDS: Ondansetron ODT 4 MG Tablet PO (00:13)
[2018-09-21] MEDS: Senna/Docusate Sodium 1 Tablet 2 TABLET PO (06:58)
[2018-09-21] MEDS: Febuxostat 40 MG TABLET PO (06:59)
[2018-09-21] MEDS: Acetaminophen 500 MG Tablet 1000 MG PO ×3 (06:59→21:05)
[2018-09-21] MEDS: Dofetilide 250 MCG Capsule PO ×2 (09:07→21:07)
[2018-09-21] MEDS: Iron Polysaccharide Complex 150 MG CAPSULE PO (09:07)
[2018-09-21] MEDS: oxyCODONE 5 MG Tablet PO ×2 (09:07→14:11)
[2018-09-21] MEDS: Rivaroxaban 20 MG Tablet PO (09:08)
[2018-09-21 15:45] VITALS: BP 127/70; PULSE 90; RESP 14; TEMP 35; O2SAT 97
[2018-09-21] MEDS: dilTIAZem CD 120 MG Capsule PO (16:32)
[2018-09-21 20:51] VITALS: PULSE 68; RESP 16; O2SAT 100
[2018-09-22] MEDS: oxyCODONE 5 MG Tablet PO ×2 (01:23→22:22)
--- NOTE | 2018-09-22 01:25 | NURSING ---
Pt c/o feeling nausea and having spasms in R knee, states she feel like under mepliex that the skin is tight. Request two things of jello and kayleigh sam this nurse offered prn zofran refused. Pt has polar care on and off during this shift. Given prn flexril at 9:03 pm states spasms has worsen requested PRN oxyir given rates pain level at 9 out 10 describe pain as spasms. Rn's made aware.
[2018-09-22] MEDS: Menthol/Lanolin/Calamine/Znox 113 GM Tube 1 APPLIC TOPICAL ×2 (06:24→17:32)
[2018-09-22] MEDS: Senna/Docusate Sodium 1 Tablet 2 TABLET PO (06:25)
[2018-09-22] MEDS: Acetaminophen 500 MG Tablet 1000 MG PO ×3 (06:25→21:17)
[2018-09-22] MEDS: Febuxostat 40 MG TABLET PO (06:26)
[2018-09-22 10:00] VITALS: PULSE 77; RESP 16; O2SAT 96
[2018-09-22] MEDS: Rivaroxaban 20 MG Tablet PO (10:11)
[2018-09-22] MEDS: Dofetilide 250 MCG Capsule PO ×2 (10:11→22:21)
[2018-09-22] MEDS: Iron Polysaccharide Complex 150 MG CAPSULE PO (10:13)
[2018-09-22] MEDS: Nystatin Powder 15gm Bottle 1 APPLIC TOPICAL ×2 (12:53→17:30)
[2018-09-22] MEDS: Ondansetron ODT 4 MG Tablet PO (15:31)
[2018-09-22 16:00] VITALS: BP 155/68; PULSE 74; RESP 14; TEMP 35.2; O2SAT 99
[2018-09-22] MEDS: dilTIAZem CD 120 MG Capsule PO (17:29)
--- NOTE | 2018-09-22 22:28 | NURSING ---
Addendum entered by Kimberly Red 09/23/18 16:43: ceftin started for UTI Original Note: Patient c/o abdominal discomfort, nausea and urine has a strong odor to it. Patient c/o urinary frequency. Dr. Peraza notified. New orders given
[2018-09-22 22:34] LABS: Color, Urine Yellow (Yellow); Glucose, Dipstick Normal (Normal); Ketone-Dipstick 5 mg/dl (Negative); Leukocyte Esterase-Dipstick 100 /ul (Negative); Nitrite-Dipstick Positive (Negative); Occult Blood-Urine 250 /ul (Negative); Protein-Dipstick 30 mg/dl (Negative); Specific Gravity, Urine 1.015 (1.002-1.030); Urine Bilirubin Dipstick Negative (Negative); Urine Clarity Sl. Cloudy (Clear); Urine Urobilinogen Normal (Normal)
[2018-09-22 22:46] LABS: White Blood Cells 10-25 SEEN /hpf (0-5)
[2018-09-22 22:47] LABS: Bacteria 3+ /hpf (None Seen); Mucous, Urine 1+ /hpf (<or=2+); Red Blood Cells-Urine 50-100 SEEN /hpf (0-5); Squamous Epithelial Cells - UA 5-10 SEEN /hpf (5-10)
[2018-09-23] MEDS: Acetaminophen 500 MG Tablet 1000 MG PO ×3 (06:30→21:36)
[2018-09-23] MEDS: Senna/Docusate Sodium 1 Tablet 2 TABLET PO (06:33)
[2018-09-23] MEDS: Febuxostat 40 MG TABLET PO (06:33)
[2018-09-23] MEDS: Nystatin Powder 15gm Bottle 1 APPLIC TOPICAL ×2 (06:35→16:44)
[2018-09-23] MEDS: Menthol/Lanolin/Calamine/Znox 113 GM Tube 1 APPLIC TOPICAL ×2 (06:36→16:44)
[2018-09-23] MEDS: oxyCODONE 5 MG Tablet PO (08:07)
[2018-09-23] MEDS: Ondansetron ODT 4 MG Tablet PO ×2 (08:10→21:36)
[2018-09-23] MEDS: Rivaroxaban 20 MG Tablet PO (10:37)
[2018-09-23] MEDS: Dofetilide 250 MCG Capsule PO ×2 (10:38→21:36)
--- NOTE | 2018-09-23 12:33 | CASEMGMT ---
Insurance Clinical information sent. Pending continued stay approval. Auth#[id number] THOMAS Angel, WARP KNIT OPERATOR
[2018-09-23 16:00] VITALS: BP 143/65; PULSE 63; RESP 16; TEMP 36.6; O2SAT 93
--- NOTE | 2018-09-23 16:07 | CASEMGMT ---
Insurance Continued stay approved with next update due on 09/27/18. LCD day being 09/28/18. Resident has used 40 our of 100 skilled days this year per insurance. Auth#[id number] THOMAS Angel, EXECUTIVE SECRETARY
[2018-09-23] MEDS: CEFUROXIME AXETIL 250 MG TABLET 500 MG PO (16:45)
[2018-09-23] MEDS: dilTIAZem CD 120 MG Capsule PO (16:46)
[2018-09-24] MEDS: oxyCODONE 5 MG Tablet PO ×4 (01:02→23:13)
[2018-09-24] MEDS: Acetaminophen 500 MG Tablet 1000 MG PO ×3 (06:34→21:45)
[2018-09-24] MEDS: CEFUROXIME AXETIL 250 MG TABLET 500 MG PO ×2 (06:34→17:48)
[2018-09-24] MEDS: Febuxostat 40 MG TABLET PO (06:34)
[2018-09-24] MEDS: Nystatin Powder 15gm Bottle 1 APPLIC TOPICAL ×2 (06:38→17:49)
[2018-09-24] MEDS: Menthol/Lanolin/Calamine/Znox 113 GM Tube 1 APPLIC TOPICAL ×2 (06:39→17:49)
[2018-09-24] MEDS: Iron Polysaccharide Complex 150 MG CAPSULE PO (08:30)
[2018-09-24] MEDS: Ondansetron ODT 4 MG Tablet PO ×2 (09:13→13:14)
[2018-09-24] MEDS: Dofetilide 250 MCG Capsule PO ×2 (10:00→21:45)
[2018-09-24] MEDS: Rivaroxaban 20 MG Tablet PO (10:01)
--- NOTE | 2018-09-24 12:56 | PCM.PN.RX ---
<Randy Manuel D - Last Filed: 09/24/18 12:56> Progress Note - Pharmacy Subjective: TCU Admission Objective: Allergies metoprolol Adverse Reaction (Severe, Verified 09/17/18 10:30) Fatigue, weigt gain Current Medications Generic Name Dose Route Start Last Admin Trade Name Freq PRN Reason Stop Dose Admin Acetaminophen 1,000 mg 09/19/18 14:00 09/24/18 06:34 Tylenol PO 1,000 mg Q8 STEFF Administration Bisacodyl 10 mg 09/19/18 20:26 09/19/18 21:30 Dulcolax PO 10 mg DAILY PRN Administration Constipation Calamine/Phenol 1 applic 09/22/18 06:00 09/24/18 06:39 Calmoseptine Ointment TOPICAL 1 applicatio BID [facility] Administration Protocol Cefuroxime Axetil 500 mg 09/23/18 16:30 09/24/18 06:34 Ceftin PO 10/03/18 16:31 500 mg BIDAC STEFF Administration Colchicine 0.6 mg 09/19/18 18:00 09/19/18 23:26 Colchicine PO 0.6 mg BID PRN Administration GOUT Cyclobenzaprine HCl 10 mg 09/19/18 11:49 09/23/18 23:05 Flexeril PO 10 mg TID PRN PRN Administration PAIN Diltiazem HCl 120 mg 09/19/18 17:15 09/23/18 16:46 Cardizem Cd PO 120 mg DAILY@1700 STEFF Administration Dofetilide 250 mcg 09/19/18 22:00 09/24/18 10:00 Tikosyn PO 250 mcg 1000,2200 STEFF Administration Nystatin 1 applic 09/22/18 06:00 09/24/18 06:38 Mycostatin Powder TOPICAL 1 applicatio BID STEFF Administration Protocol Ondansetron HCl 4 mg 09/19/18 11:49 09/24/18 09:13 Zofran Odt PO 4 mg Q4H PRN PRN Administration NAUSEA Oxycodone HCl 5 - 10 mg 09/19/18 11:48 09/24/18 06:34 Oxyir PO 10 mg Q4H PRN PRN Administration SEVERE PAIN (6-10/10) Polyethylene Glycol 17 gm 09/20/18 06:00 09/24/18 06:36 Miralax PO Not Given DAILY [facility] Polysaccharide Iron Complex 150 mg 09/21/18 08:00 09/24/18 08:30 Ferrex 150 PO 150 mg DAILYCM STEFF Administration Rivaroxaban 20 mg 09/20/18 10:00 09/24/18 10:01 Xarelto PO 20 mg DAILY@1000 STEFF Administration Senna/Docusate Sodium 2 tablet 09/19/18 18:00 09/24/18 06:36 Senokot-S, Lani-Colace PO Not Given BID [facility] Tuberculin PPD 5 tu 09/27/18 10:00 Tubersol, Aplisol, Ppd ID 09/27/18 10:01 X1 ONE Problem List (Last Reviewed 07/30/18 @ 14:14 by Antonino Colvin MD) Effusion of right knee (Acute) Osteoarthritis of knees, bilateral (Acute) Gout (Chronic) Atrial fibrillation (Chronic) Tricuspid regurgitation (Chronic) Mitral valve insufficiency (Chronic) Obstructive sleep apnea (Chronic) Body mass index (BMI) 50-59.9, adult (Chronic) Chronic kidney disease (Chronic) Anemia (Chronic) Muscle spasm (Acute) Vital Signs Temp Pulse Resp BP Pulse Ox 97.9 F 63 16 143/65 H 93 09/23/18 16:00 09/23/18 16:00 09/23/18 16:00 09/23/18 16:00 09/23/18 16:00 Oxygen Delivery Method Room Air Weight: 147 kg Body Mass Index (BMI) 52.2 Sodium 143 mmol/L (136-145) 09/20/18 05:10 Potassium 3.8 mmol/L (3.5-5.1) 09/20/18 05:10 Chloride 111 mmol/L (98-107) H 09/20/18 05:10 Carbon Dioxide 26.0 mmol/L (21.0-32.0) 09/20/18 05:10 Anion Gap 6 (5-15) 09/20/18 05:10 BUN 15 mg/dL (7-18) 09/20/18 05:10 Creatinine 0.84 mg/dL (0.55-1.02) 09/20/18 05:10 Est GFR (MDRD) Af Amer 89 mL/min (>60) 09/20/18 05:10 Est GFR (MDRD) Non-Af 74 mL/min (>60) 09/20/18 05:10 BUN/Creatinine Ratio 17.8 RATIO (10-20) 09/20/18 05:10 Glucose 103 mg/dL (74-106) 09/20/18 05:10 Assessment/Plan: 1) Pain APAP scheduled, oxycodone for severe pain, cyclobenzaprine for pain. Continue to monitor daily pain scores, prn medication use. * Please clarify instructions for cyclobenzaprine to reflect actual prn indication. Thank you. 2) ID Cefuroxime until 10/03. Continue to monitor s/s infection. 3) AFib Dofetilide, diltiazem, rivaroxaban. Continue to monitor BP/HR, renal function, s/s bleeding/clot. 4) Gout Febuxostat daily, colchicine as needed. Continue to monitor prn medication use, for gout symptoms. Psychotropic Medications: None Unnecessary Medications: None Bowel Regimen: 5) Senna/s, PEG, prn bisacodyl. Continue to monitor prn medication use, for constipation/diarrhea. Date of Note:: 09/24/18 - Provider Comments Provider responsibility: Provider responsible to enter orders to implement recommendations <Lm Peraza Chi - Last Filed: 09/24/18 17:18> Progress Note - Pharmacy Subjective: [] Objective: Allergies metoprolol Adverse Reaction (Severe, Verified 09/17/18 10:30) Fatigue, weigt gain Current Medications Generic Name Dose Route Start Last Admin Trade Name Freq PRN Reason Stop Dose Admin Acetaminophen 1,000 mg 09/19/18 14:00 09/24/18 13:15 Tylenol PO 1,000 mg Q8 STEFF Administration Bisacodyl 10 mg 09/19/18 20:26 09/19/18 21:30 Dulcolax PO 10 mg DAILY PRN Administration Constipation Calamine/Phenol 1 applic 09/22/18 06:00 09/24/18 06:39 Calmoseptine Ointment TOPICAL 1 applicatio BID STEFF Administration Protocol Cefuroxime Axetil 500 mg 09/23/18 16:30 09/24/18 06:34 Ceftin PO 10/03/18 16:31 500 mg BIDAC STEFF Administration Colchicine 0.6 mg 09/19/18 18:00 09/19/18 23:26 Colchicine PO 0.6 mg BID PRN Administration GOUT Cyclobenzaprine HCl 10 mg 09/19/18 11:49 09/23/18 23:05 Flexeril PO 10 mg TID PRN PRN Administration PAIN Diltiazem HCl 120 mg 09/19/18 17:15 09/23/18 16:46 Cardizem Cd PO 120 mg DAILY@1700 [facility] Administration Dofetilide 250 mcg 09/19/18 22:00 09/24/18 10:00 Tikosyn PO 250 mcg 1000,2200 [facility] Administration Nystatin 1 applic 09/22/18 06:00 09/24/18 06:38 Mycostatin Powder TOPICAL 1 applicatio BID [facility] Administration Protocol Ondansetron HCl 4 mg 09/19/18 11:49 09/24/18 13:14 Zofran Odt PO 4 mg Q4H PRN PRN Administration NAUSEA Oxycodone HCl 5 - 10 mg 09/19/18 11:48 09/24/18 13:14 Oxyir PO 10 mg Q4H PRN PRN Administration SEVERE PAIN (6-10/10) Polyethylene Glycol 17 gm 09/20/18 06:00 09/24/18 06:36 Miralax PO Not Given DAILY [facility] Polysaccharide Iron Complex 150 mg 09/21/18 08:00 09/24/18 08:30 Ferrex 150 PO 150 mg DAILYCM [facility] Administration Rivaroxaban 20 mg 09/20/18 10:00 09/24/18 10:01 Xarelto PO 20 mg DAILY@1000 [facility] Administration Senna/Docusate Sodium 2 tablet 09/19/18 18:00 09/24/18 06:36 Senokot-S, Lani-Colace PO Not Given BID [facility] Tuberculin PPD 5 tu 09/27/18 10:00 Tubersol, Aplisol, Ppd ID 09/27/18 10:01 X1 ONE Problem List (Last Reviewed 07/30/18 @ 14:14 by Antonino Colvin MD) Effusion of right knee (Acute) Osteoarthritis of knees, bilateral (Acute) Gout (Chronic) Atrial fibrillation (Chronic) Tricuspid regurgitation (Chronic) Mitral valve insufficiency (Chronic) Obstructive sleep apnea (Chronic) Body mass index (BMI) 50-59.9, adult (Chronic) Chronic kidney disease (Chronic) Anemia (Chronic) Muscle spasm (Acute) Vital Signs Temp Pulse Resp BP Pulse Ox 96.9 F L 70 18 125/79 H 95 09/24/18 16:00 09/24/18 16:00 09/24/18 16:00 09/24/18 16:00 09/24/18 16:00 Oxygen Delivery Method Room Air Weight: 147 kg Body Mass Index (BMI) 52.2 Sodium 143 mmol/L (136-145) 09/20/18 05:10 Potassium 3.8 mmol/L (3.5-5.1) 09/20/18 05:10 Chloride 111 mmol/L (98-107) H 09/20/18 05:10 Carbon Dioxide 26.0 mmol/L (21.0-32.0) 09/20/18 05:10 Anion Gap 6 (5-15) 09/20/18 05:10 BUN 15 mg/dL (7-18) 09/20/18 05:10 Creatinine 0.84 mg/dL (0.55-1.02) 09/20/18 05:10 Est GFR (MDRD) Af Amer 89 mL/min (>60) 09/20/18 05:10 Est GFR (MDRD) Non-Af 74 mL/min (>60) 09/20/18 05:10 BUN/Creatinine Ratio 17.8 RATIO (10-20) 09/20/18 05:10 Glucose 103 mg/dL (74-106) 09/20/18 05:10 Assessment/Plan: Psychotropic Medications: Unnecessary Medications: Bowel Regimen: - Provider Comments Provider responsibility: Provider responsible to enter orders to implement recommendations Provider Comments to Recommendations by Pharmacy: Agree
--- NOTE | 2018-09-24 13:11 | PHA.CONS_ITS ---
<Randy Manuel D - Last Filed: 09/24/18 12:56> Progress Note - Pharmacy Subjective: TCU Admission Objective: Allergies metoprolol Adverse Reaction (Severe, Verified 09/17/18 10:30) Fatigue, weigt gain Current Medications Generic Name Dose Route Start Last Admin Trade Name Freq PRN Reason Stop Dose Admin Acetaminophen 1,000 mg 09/19/18 14:00 09/24/18 06:34 Tylenol PO 1,000 mg Q8 STEFF Administration Bisacodyl 10 mg 09/19/18 20:26 09/19/18 21:30 Dulcolax PO 10 mg DAILY PRN Administration Constipation Calamine/Phenol 1 applic 09/22/18 06:00 09/24/18 06:39 Calmoseptine Ointment TOPICAL 1 applicatio BID [facility] Administration Protocol Cefuroxime Axetil 500 mg 09/23/18 16:30 09/24/18 06:34 Ceftin PO 10/03/18 16:31 500 mg BIDAC STEFF Administration Colchicine 0.6 mg 09/19/18 18:00 09/19/18 23:26 Colchicine PO 0.6 mg BID PRN Administration GOUT Cyclobenzaprine HCl 10 mg 09/19/18 11:49 09/23/18 23:05 Flexeril PO 10 mg TID PRN PRN Administration PAIN Diltiazem HCl 120 mg 09/19/18 17:15 09/23/18 16:46 Cardizem Cd PO 120 mg DAILY@1700 STEFF Administration Dofetilide 250 mcg 09/19/18 22:00 09/24/18 10:00 Tikosyn PO 250 mcg 1000,2200 STEFF Administration Nystatin 1 applic 09/22/18 06:00 09/24/18 06:38 Mycostatin Powder TOPICAL 1 applicatio BID STEFF Administration Protocol Ondansetron HCl 4 mg 09/19/18 11:49 09/24/18 09:13 Zofran Odt PO 4 mg Q4H PRN PRN Administration NAUSEA Oxycodone HCl 5 - 10 mg 09/19/18 11:48 09/24/18 06:34 Oxyir PO 10 mg Q4H PRN PRN Administration SEVERE PAIN (6-10/10) Polyethylene Glycol 17 gm 09/20/18 06:00 09/24/18 06:36 Miralax PO Not Given DAILY [facility] Polysaccharide Iron Complex 150 mg 09/21/18 08:00 09/24/18 08:30 Ferrex 150 PO 150 mg DAILYCM STEFF Administration Rivaroxaban 20 mg 09/20/18 10:00 09/24/18 10:01 Xarelto PO 20 mg DAILY@1000 STEFF Administration Senna/Docusate Sodium 2 tablet 09/19/18 18:00 09/24/18 06:36 Senokot-S, Lani-Colace PO Not Given BID [facility] Tuberculin PPD 5 tu 09/27/18 10:00 Tubersol, Aplisol, Ppd ID 09/27/18 10:01 X1 ONE Problem List (Last Reviewed 07/30/18 @ 14:14 by Antonino Colvin MD) Effusion of right knee (Acute) Osteoarthritis of knees, bilateral (Acute) Gout (Chronic) Atrial fibrillation (Chronic) Tricuspid regurgitation (Chronic) Mitral valve insufficiency (Chronic) Obstructive sleep apnea (Chronic) Body mass index (BMI) 50-59.9, adult (Chronic) Chronic kidney disease (Chronic) Anemia (Chronic) Muscle spasm (Acute) Vital Signs Temp Pulse Resp BP Pulse Ox 97.9 F 63 16 143/65 H 93 09/23/18 16:00 09/23/18 16:00 09/23/18 16:00 09/23/18 16:00 09/23/18 16:00 Oxygen Delivery Method Room Air Weight: 147 kg Body Mass Index (BMI) 52.2 Sodium 143 mmol/L (136-145) 09/20/18 05:10 Potassium 3.8 mmol/L (3.5-5.1) 09/20/18 05:10 Chloride 111 mmol/L (98-107) H 09/20/18 05:10 Carbon Dioxide 26.0 mmol/L (21.0-32.0) 09/20/18 05:10 Anion Gap 6 (5-15) 09/20/18 05:10 BUN 15 mg/dL (7-18) 09/20/18 05:10 Creatinine 0.84 mg/dL (0.55-1.02) 09/20/18 05:10 Est GFR (MDRD) Af Amer 89 mL/min (>60) 09/20/18 05:10 Est GFR (MDRD) Non-Af 74 mL/min (>60) 09/20/18 05:10 BUN/Creatinine Ratio 17.8 RATIO (10-20) 09/20/18 05:10 Glucose 103 mg/dL (74-106) 09/20/18 05:10 Assessment/Plan: 1) Pain APAP scheduled, oxycodone for severe pain, cyclobenzaprine for pain. Continue to monitor daily pain scores, prn medication use. * Please clarify instructions for cyclobenzaprine to reflect actual prn indication. Thank you. 2) ID Cefuroxime until 10/03. Continue to monitor s/s infection. 3) AFib Dofetilide, diltiazem, rivaroxaban. Continue to monitor BP/HR, renal function, s/s bleeding/clot. 4) Gout Febuxostat daily, colchicine as needed. Continue to monitor prn medication use, for gout symptoms. Psychotropic Medications: None Unnecessary Medications: None Bowel Regimen: 5) Senna/s, PEG, prn bisacodyl. Continue to monitor prn medication use, for constipation/diarrhea. Date of Note:: 09/24/18 - Provider Comments Provider responsibility: Provider responsible to enter orders to implement recommendations <Lm Peraza Chi - Last Filed: 09/24/18 17:18> Progress Note - Pharmacy Subjective: [] Objective: Allergies metoprolol Adverse Reaction (Severe, Verified 09/17/18 10:30) Fatigue, weigt gain Current Medications Generic Name Dose Route Start Last Admin Trade Name Freq PRN Reason Stop Dose Admin Acetaminophen 1,000 mg 09/19/18 14:00 09/24/18 13:15 Tylenol PO 1,000 mg Q8 STEFF Administration Bisacodyl 10 mg 09/19/18 20:26 09/19/18 21:30 Dulcolax PO 10 mg DAILY PRN Administration Constipation Calamine/Phenol 1 applic 09/22/18 06:00 09/24/18 06:39 Calmoseptine Ointment TOPICAL 1 applicatio BID STEFF Administration Protocol Cefuroxime Axetil 500 mg 09/23/18 16:30 09/24/18 06:34 Ceftin PO 10/03/18 16:31 500 mg BIDAC STEFF Administration Colchicine 0.6 mg 09/19/18 18:00 09/19/18 23:26 Colchicine PO 0.6 mg BID PRN Administration GOUT Cyclobenzaprine HCl 10 mg 09/19/18 11:49 09/23/18 23:05 Flexeril PO 10 mg TID PRN PRN Administration PAIN Diltiazem HCl 120 mg 09/19/18 17:15 09/23/18 16:46 Cardizem Cd PO 120 mg DAILY@1700 [facility] Administration Dofetilide 250 mcg 09/19/18 22:00 09/24/18 10:00 Tikosyn PO 250 mcg 1000,2200 [facility] Administration Nystatin 1 applic 09/22/18 06:00 09/24/18 06:38 Mycostatin Powder TOPICAL 1 applicatio BID [facility] Administration Protocol Ondansetron HCl 4 mg 09/19/18 11:49 09/24/18 13:14 Zofran Odt PO 4 mg Q4H PRN PRN Administration NAUSEA Oxycodone HCl 5 - 10 mg 09/19/18 11:48 09/24/18 13:14 Oxyir PO 10 mg Q4H PRN PRN Administration SEVERE PAIN (6-10/10) Polyethylene Glycol 17 gm 09/20/18 06:00 09/24/18 06:36 Miralax PO Not Given DAILY [facility] Polysaccharide Iron Complex 150 mg 09/21/18 08:00 09/24/18 08:30 Ferrex 150 PO 150 mg DAILYCM [facility] Administration Rivaroxaban 20 mg 09/20/18 10:00 09/24/18 10:01 Xarelto PO 20 mg DAILY@1000 [facility] Administration Senna/Docusate Sodium 2 tablet 09/19/18 18:00 09/24/18 06:36 Senokot-S, Lani-Colace PO Not Given BID [facility] Tuberculin PPD 5 tu 09/27/18 10:00 Tubersol, Aplisol, Ppd ID 09/27/18 10:01 X1 ONE Problem List (Last Reviewed 07/30/18 @ 14:14 by Antonino Clovin MD) Effusion of right knee (Acute) Osteoarthritis of knees, bilateral (Acute) Gout (Chronic) Atrial fibrillation (Chronic) Tricuspid regurgitation (Chronic) Mitral valve insufficiency (Chronic) Obstructive sleep apnea (Chronic) Body mass index (BMI) 50-59.9, adult (Chronic) Chronic kidney disease (Chronic) Anemia (Chronic) Muscle spasm (Acute) Vital Signs Temp Pulse Resp BP Pulse Ox 96.9 F L 70 18 125/79 H 95 09/24/18 16:00 09/24/18 16:00 09/24/18 16:00 09/24/18 16:00 09/24/18 16:00 Oxygen Delivery Method Room Air Weight: 147 kg Body Mass Index (BMI) 52.2 Sodium 143 mmol/L (136-145) 09/20/18 05:10 Potassium 3.8 mmol/L (3.5-5.1) 09/20/18 05:10 Chloride 111 mmol/L (98-107) H 09/20/18 05:10 Carbon Dioxide 26.0 mmol/L (21.0-32.0) 09/20/18 05:10 Anion Gap 6 (5-15) 09/20/18 05:10 BUN 15 mg/dL (7-18) 09/20/18 05:10 Creatinine 0.84 mg/dL (0.55-1.02) 09/20/18 05:10 Est GFR (MDRD) Af Amer 89 mL/min (>60) 09/20/18 05:10 Est GFR (MDRD) Non-Af 74 mL/min (>60) 09/20/18 05:10 BUN/Creatinine Ratio 17.8 RATIO (10-20) 09/20/18 05:10 Glucose 103 mg/dL (74-106) 09/20/18 05:10 Assessment/Plan: Psychotropic Medications: Unnecessary Medications: Bowel Regimen: - Provider Comments Provider responsibility: Provider responsible to enter orders to implement recommendations Provider Comments to Recommendations by Pharmacy: Agree
[2018-09-24 16:00] VITALS: BP 125/79; PULSE 70; RESP 18; TEMP 36.1; O2SAT 95
--- NOTE | 2018-09-24 16:20 | CASEMGMT ---
Brief interview for mental status (BIMS) and resident mood interview (PHQ-9) completed on this day. BIMS score 13/15. PHQ-9 score 03/15
[2018-09-24] MEDS: dilTIAZem CD 120 MG Capsule PO (17:48)
[2018-09-24 21:45] VITALS: PULSE 90; RESP 16; O2SAT 95
[2018-09-24] MEDS: Senna/Docusate Sodium 1 Tablet 2 TABLET PO (23:15)
[2018-09-25] MEDS: Menthol/Lanolin/Calamine/Znox 113 GM Tube 1 APPLIC TOPICAL ×2 (06:47→15:59)
[2018-09-25] MEDS: Nystatin Powder 15gm Bottle 1 APPLIC TOPICAL ×2 (06:48→16:00)
[2018-09-25] MEDS: Febuxostat 40 MG TABLET PO (06:49)
[2018-09-25] MEDS: Acetaminophen 500 MG Tablet 1000 MG PO ×3 (06:49→22:38)
[2018-09-25] MEDS: CEFUROXIME AXETIL 250 MG TABLET 500 MG PO ×2 (06:50→15:58)
[2018-09-25] MEDS: oxyCODONE 5 MG Tablet PO ×3 (07:32→16:01)
[2018-09-25] MEDS: Dofetilide 250 MCG Capsule PO ×2 (10:10→22:38)
[2018-09-25] MEDS: Rivaroxaban 20 MG Tablet PO (10:10)
[2018-09-25] MEDS: Iron Polysaccharide Complex 150 MG CAPSULE PO (10:10)
--- NOTE | 2018-09-25 13:10 | CASEMGMT ---
Plan of care meeting held. Resident present as well as resident mother. No discharge date set at this time. Resident with insurance update due on 09/27/18 and aware that continued stay approval is not guaranteed. Resident plans to discharge to home with mother at time of discharge. Resident to continue with further care and treatment on the Transitional Care Unit. Support given. Will continue to follow. Jenny Tilley, VETERINARY MEDICINE SCIENTIST, PHYSICAL INTEGRATION PRACTITIONER
[2018-09-25 14:21] VITALS: PULSE 72; RESP 18; O2SAT 95
[2018-09-25] MEDS: dilTIAZem CD 120 MG Capsule PO (15:59)
[2018-09-25 16:00] VITALS: BP 138/66; PULSE 74; RESP 20; TEMP 36.2; O2SAT 96
[2018-09-25] MEDS: Senna/Docusate Sodium 1 Tablet 2 TABLET PO (16:00)
[2018-09-26] MEDS: oxyCODONE 5 MG Tablet PO ×2 (00:49→08:29)
[2018-09-26] MEDS: Acetaminophen 500 MG Tablet 1000 MG PO ×3 (05:31→22:41)
[2018-09-26] MEDS: Senna/Docusate Sodium 1 Tablet 2 TABLET PO (05:31)
[2018-09-26] MEDS: Febuxostat 40 MG TABLET PO (05:31)
[2018-09-26] MEDS: Menthol/Lanolin/Calamine/Znox 113 GM Tube 1 APPLIC TOPICAL ×2 (05:32→17:45)
[2018-09-26] MEDS: Nystatin Powder 15gm Bottle 1 APPLIC TOPICAL ×2 (05:33→17:46)
[2018-09-26] MEDS: Iron Polysaccharide Complex 150 MG CAPSULE PO (08:28)
[2018-09-26] MEDS: CEFUROXIME AXETIL 250 MG TABLET 500 MG PO ×2 (08:29→17:47)
[2018-09-26] MEDS: Rivaroxaban 20 MG Tablet PO (10:26)
[2018-09-26] MEDS: Dofetilide 250 MCG Capsule PO ×2 (10:26→21:45)
[2018-09-26 15:39] VITALS: BP 123/64; PULSE 70; RESP 18; TEMP 36.9; O2SAT 97
[2018-09-26] MEDS: dilTIAZem CD 120 MG Capsule PO (17:47)
[2018-09-26 22:00] VITALS: PULSE 66; RESP 18; O2SAT 95
[2018-09-27] MEDS: oxyCODONE 5 MG Tablet PO (04:18)
[2018-09-27 05:53] LABS: Absolute Lymphocyte Count 1.36 X10^3/ul (0.83-4.51); Absolute Neutrophil Count 3.8 X10^3/uL (2.0-7.7); Basophil# 0.01 X10^3/uL; Basophil% 0.2 % (0-1); Eosinophil# 0.17 X10^3/uL; Eosinophils% 2.9 % (0-5); Hematocrit 26.2 % (37-47); Hemoglobin 7.4 g/dl (12.0-15.0); Lymphocyte # 1.36 X10^3/ul (4.0); Lymphocyte % 23.4 % (19-41); Mean Corp Hgb Conc 28.2 g/gl (32-36); Mean Corpuscular Hgb 26.5 pg (27.0-32.0); Mean Corpuscular Volume 93.9 fL (81-99); Mean Platelet Vol. 11.7 fl (6.2-12.0); Monocyte# 0.48 X10^3/uL; Monocyte% 8.3 % (0-10); Neutrophil # 3.75 X10^3/uL (2.7-7.7); Neutrophil % 64.5 % (47-70); POSITIVE COUNT NO; POSITIVE DIFFERENTIAL NO; POSITIVE MORPHOLOGY NO; Platelet Count 238 K/mm3 (150-450); RBC Distribution Width CV 14.9 % (11.6-14.6); Red Blood Count 2.79 M/mm3 (4.2-5.4); White Blood Count 5.8 K/mm3 (4.4-11.0)
[2018-09-27 06:18] LABS: Anion Gap 7 (5-15); BUN 12 mg/dL (7-18); BUN/Creat Ratio 15.2 RATIO (10-20); Calcium,Total 8.4 mg/dL (8.5-10.1); Chloride 110 mmol/L (98-107); Creatinine, Serum 0.79 mg/dL (0.55-1.02); EST Glomerular Filtration Rate 79 mL/min (>60); Est Glom Filt Rate - Afr Amer 96 mL/min (>60); Estimated Creatinine Clearance 73.55 ml/min; Glucose 95 mg/dL (74-106); Potassium 3.8 mmol/L (3.5-5.1); Sodium Level 144 mmol/L (136-145)
[2018-09-27] MEDS: Nystatin Powder 15gm Bottle 1 APPLIC TOPICAL ×2 (06:40→17:02)
[2018-09-27] MEDS: Menthol/Lanolin/Calamine/Znox 113 GM Tube 1 APPLIC TOPICAL ×2 (06:40→17:02)
[2018-09-27] MEDS: Febuxostat 40 MG TABLET PO (06:42)
[2018-09-27] MEDS: Acetaminophen 500 MG Tablet 1000 MG PO ×3 (06:42→22:02)
[2018-09-27] MEDS: Ondansetron ODT 4 MG Tablet PO ×2 (06:48→19:20)
[2018-09-27 10:00] VITALS: PULSE 70; RESP 18; O2SAT 94
[2018-09-27] MEDS: Dofetilide 250 MCG Capsule PO ×2 (10:11→21:55)
[2018-09-27] MEDS: Rivaroxaban 20 MG Tablet PO (10:11)
--- NOTE | 2018-09-27 11:53 | CASEMGMT ---
Insurance Clinical updates faxed. Will await continued stay determination. Auth # [id number] THOMAS Campbell
--- NOTE | 2018-09-27 13:30 | CASEMGMT ---
Insurance Continued stay approved with next update due 10/04/18. Auth # [id number] THOMAS Campbell
[2018-09-27 16:00] VITALS: BP 133/70; PULSE 75; RESP 20; TEMP 36.6; O2SAT 97
[2018-09-27] MEDS: CEFUROXIME AXETIL 250 MG TABLET 500 MG PO (17:03)
[2018-09-27] MEDS: dilTIAZem CD 120 MG Capsule PO (17:03)
--- NOTE | 2018-09-27 21:37 | NURSING ---
Dr. Peraza notified of patient Hbg of 7.4 and that patient is feeling more fatigued than usual. Orders given for occult stool.
[2018-09-28] MEDS: oxyCODONE 5 MG Tablet PO ×3 (01:03→23:40)
[2018-09-28] MEDS: Acetaminophen 500 MG Tablet 1000 MG PO ×3 (07:07→22:14)
[2018-09-28] MEDS: Menthol/Lanolin/Calamine/Znox 113 GM Tube 1 APPLIC TOPICAL (07:07)
[2018-09-28] MEDS: Nystatin Powder 15gm Bottle 1 APPLIC TOPICAL (07:08)
[2018-09-28] MEDS: Febuxostat 40 MG TABLET PO (07:09)
[2018-09-28] MEDS: CEFUROXIME AXETIL 250 MG TABLET 500 MG PO ×2 (07:09→16:31)
[2018-09-28] MEDS: Dofetilide 250 MCG Capsule PO ×2 (10:53→22:14)
[2018-09-28] MEDS: Rivaroxaban 20 MG Tablet PO (10:54)
[2018-09-28] MEDS: Iron Polysaccharide Complex 150 MG CAPSULE PO (10:54)
--- NOTE | 2018-09-28 12:58 | NURSING ---
Pt having c/o fatigue, weakness, nausea, no appetite. Feels it's related to low hemoglobin. Dr. Peraza updated, NO for type and cross and to transfuse 2 units PRBC with 40 units of lasix in between. Pt updated. Refusing to having lasix in between units, states it makes me pee every 5 minutes. Explained to patient that the lasix is to help decrease any fluid overload in the body, patient continued to refuse stating she was not taking the lasix. Dr. Peraza updated.
--- NOTE | 2018-09-28 15:57 | NURSING ---
Addendum entered by Andreina Montesinos 09/28/18 23:47: Pt arrived back to floor. Vitals BP 164/90, HR 69, resp 22, 94% on room air, and temp 98.8. Original Note: Pt transported to [facility] rm 214 for blood transfusion. Paperwork sent with patient, mother at bedside. Report called to TERA Almaraz.
[2018-09-28 16:00] VITALS: BP 174/96; PULSE 74; RESP 18; TEMP 36.4; O2SAT 92
[2018-09-28] MEDS: dilTIAZem CD 120 MG Capsule PO (16:31)
[2018-09-29] MEDS: Nystatin Powder 15gm Bottle 1 APPLIC TOPICAL ×2 (07:06→16:29)
[2018-09-29] MEDS: Menthol/Lanolin/Calamine/Znox 113 GM Tube 1 APPLIC TOPICAL (07:06)
[2018-09-29] MEDS: Febuxostat 40 MG TABLET PO (07:07)
[2018-09-29] MEDS: CEFUROXIME AXETIL 250 MG TABLET 500 MG PO ×2 (07:08→16:25)
[2018-09-29] MEDS: Acetaminophen 500 MG Tablet 1000 MG PO ×2 (09:53→16:26)
[2018-09-29] MEDS: Dofetilide 250 MCG Capsule PO ×2 (09:54→21:49)
[2018-09-29] MEDS: Rivaroxaban 20 MG Tablet PO (09:54)
[2018-09-29] MEDS: Iron Polysaccharide Complex 150 MG CAPSULE PO (09:54)
[2018-09-29 15:28] VITALS: BP 108/78; PULSE 84; RESP 18; TEMP 36.9; O2SAT 98
[2018-09-29] MEDS: dilTIAZem CD 120 MG Capsule PO (16:25)
[2018-09-29 20:20] VITALS: PULSE 67; RESP 18
[2018-09-29] MEDS: oxyCODONE 5 MG Tablet PO (21:51)
[2018-09-29 22:07] LABS: Hematocrit 32.6 % (37-47); Hemoglobin 9.9 g/dl (12.0-15.0)
--- NOTE | 2018-09-30 00:32 | NURSING ---
Pt states pain is at a 10/10. Repositioned for comfort and K pad applied. RN aware, continuing to monitor.
[2018-09-30] MEDS: Ondansetron ODT 4 MG Tablet PO (01:23)
--- NOTE | 2018-09-30 01:25 | NURSING ---
Pt remains extremely uncomfortable, writhing in bed, moaning, tearful and dry heaving twice. Cannot get comfortable in bed and cannot lie or sit still. Moving all about the bed in pain and discomfort. Has no other prn meds available for pain or discomfort, asked for zofran for nausea and was given it. RN aware. Pt requesting anything that might help her to relax. Encouraged to try and sit still, attempted several interventions to relieve pain. Remains at 10/10. Continuing to monitor.
[2018-09-30] MEDS: oxyCODONE 5 MG Tablet PO ×4 (02:11→23:17)
--- NOTE | 2018-09-30 06:26 | NURSING ---
Pt called nurse into room and stated Get me an EKG because I think I'm in Afib. Asked why she thought this, hoping for symptoms or why she was requesting this and she said because I've felt it before. RNs both made aware, vitals obtained. 173/106 Apical 88, sp02 99%, R 18, T 98.5. Pt has not slept at all during night. While this nurse was speaking with RN in hallway, pt called out again and told MC KAY MACHINE OPERATOR Tell the nurse to quit dicking around and get me my EKG. Second set of vitals obtained, 166/112, sp02 99% apical 83, R 18. Orders for EKG obtained. Pt aware.
--- NOTE | 2018-09-30 06:31 | EKG12_ITS ---
Test Reason : AFIB Blood Pressure : / mmHG Vent. Rate : 081 BPM Atrial Rate : 081 BPM P-R Int : 140 ms QRS Dur : 090 ms QT Int : 418 ms P-R-T Axes : 048 -05 061 degrees QTc Int : 485 ms Sinus rhythm with Premature atrial complexes Prolonged QT Abnormal ECG When compared with ECG of 06-JUN-2018 05:09, Questionable change in QRS axis Nonspecific T wave abnormality no longer evident in Anterolateral leads Confirmed by GHASSAN FELICIANO, BANDAR ([id number]), editor managing newspaper GAVIN GAO ([id number]) on 10/02/2018 11:40:32 AM Referred By: Lm Peraza Confirmed By:BANDAR FERRELL MD
[2018-09-30] MEDS: Menthol/Lanolin/Calamine/Znox 113 GM Tube 1 APPLIC TOPICAL ×2 (07:16→21:52)
[2018-09-30] MEDS: Febuxostat 40 MG TABLET PO (07:17)
[2018-09-30] MEDS: Acetaminophen 500 MG Tablet 1000 MG PO ×3 (07:17→22:01)
--- NOTE | 2018-09-30 07:19 | NURSING ---
Pt not pleased with EKG results, stating I know what I felt. Asked if Dr. Colvin had seen results and insisted he made aware of them MINAL, saying he was extremely unhappy he was not made aware of her hospitalization. Oncoming staff and RN aware of this. Mother is present in room and rubbing pts feet. Pt was pleasant with this nurse at this time. Continuing to monitor.
[2018-09-30] MEDS: CEFUROXIME AXETIL 250 MG TABLET 500 MG PO (08:19)
[2018-09-30] MEDS: Iron Polysaccharide Complex 150 MG CAPSULE PO (08:20)
[2018-09-30] MEDS: Dofetilide 250 MCG Capsule PO ×2 (10:04→22:04)
[2018-09-30] MEDS: Rivaroxaban 20 MG Tablet PO (10:04)
[2018-09-30 10:06] VITALS: BP 160/79; PULSE 70
[2018-09-30 16:00] VITALS: BP 126/60; PULSE 64; RESP 18; TEMP 36.8; O2SAT 98
[2018-09-30] MEDS: dilTIAZem CD 120 MG Capsule PO (18:35)
[2018-09-30] MEDS: Ciprofloxacin 500 MG Tablet PO (18:35)
[2018-09-30] MEDS: Nystatin Powder 15gm Bottle 1 APPLIC TOPICAL (21:56)
[2018-09-30] MEDS: LORazepam 0.5 MG Tablet PO (22:04)
[2018-09-30 22:05] VITALS: RESP 16
[2018-10-01] MEDS: oxyCODONE 5 MG Tablet PO ×2 (07:05→12:30)
[2018-10-01] MEDS: Febuxostat 40 MG TABLET PO (07:06)
[2018-10-01] MEDS: Ciprofloxacin 500 MG Tablet PO ×2 (07:07→17:23)
[2018-10-01] MEDS: Dofetilide 250 MCG Capsule PO ×2 (09:05→22:17)
[2018-10-01] MEDS: Rivaroxaban 20 MG Tablet PO (09:05)
[2018-10-01] MEDS: Iron Polysaccharide Complex 150 MG CAPSULE PO (09:05)
[2018-10-01] MEDS: Acetaminophen 500 MG Tablet 1000 MG PO (13:24)
[2018-10-01 16:00] VITALS: BP 136/60; PULSE 66; RESP 14; TEMP 36.4; O2SAT 95
[2018-10-01] MEDS: dilTIAZem CD 120 MG Capsule PO (17:24)
--- NOTE | 2018-10-01 18:08 | NURSING ---
PT REQEUSTING THAT FLEXERIL DOSE BE INCREASED, DR MONTALVO NOTIFIED, NEW ORDER FLEXERIL 10MG TID PRN. PT UPDATED ON NEW ORDER
[2018-10-01 21:15] VITALS: PULSE 78; RESP 16; O2SAT 95
[2018-10-01] MEDS: Nystatin Powder 15gm Bottle 1 APPLIC TOPICAL (22:19)
[2018-10-01] MEDS: LORazepam 0.5 MG Tablet PO (22:22)
[2018-10-02] MEDS: oxyCODONE 5 MG Tablet PO ×3 (00:45→14:06)
[2018-10-02] MEDS: Acetaminophen 500 MG Tablet 1000 MG PO (06:00)
[2018-10-02] MEDS: Febuxostat 40 MG TABLET PO (06:00)
[2018-10-02] MEDS: Ciprofloxacin 500 MG Tablet PO ×2 (06:00→18:29)
--- NOTE | 2018-10-02 08:46 | MDS.RN ---
Information for the mds was obtained from review of the clinical record, interview of resident, staff, and direct observation of resident's care.
--- NOTE | 2018-10-02 08:50 | NURSING ---
pt requesting Ferrex, Xarelto and Tikosyn to be given @ 10am
[2018-10-02] MEDS: Iron Polysaccharide Complex 150 MG CAPSULE PO (11:06)
[2018-10-02] MEDS: Dofetilide 250 MCG Capsule PO ×2 (11:06→22:03)
[2018-10-02] MEDS: Rivaroxaban 20 MG Tablet PO (11:06)
[2018-10-02 15:40] VITALS: BP 142/69; PULSE 66; RESP 20; TEMP 36.2; O2SAT 97
[2018-10-02] MEDS: dilTIAZem CD 120 MG Capsule PO (18:30)
[2018-10-02 22:00] VITALS: PULSE 68; RESP 18; O2SAT 96
[2018-10-02] MEDS: LORazepam 0.5 MG Tablet PO (22:02)
[2018-10-02] MEDS: Nystatin Powder 15gm Bottle 1 APPLIC TOPICAL (22:03)
[2018-10-02] MEDS: Menthol/Lanolin/Calamine/Znox 113 GM Tube 1 APPLIC TOPICAL (22:04)
[2018-10-03] MEDS: oxyCODONE 5 MG Tablet PO ×4 (01:25→23:04)
[2018-10-03] MEDS: Menthol/Lanolin/Calamine/Znox 113 GM Tube 1 APPLIC TOPICAL ×2 (06:53→22:03)
[2018-10-03] MEDS: Nystatin Powder 15gm Bottle 1 APPLIC TOPICAL ×2 (06:54→22:04)
[2018-10-03] MEDS: Febuxostat 40 MG TABLET PO (06:55)
[2018-10-03] MEDS: Ciprofloxacin 500 MG Tablet PO ×2 (06:56→17:41)
[2018-10-03] MEDS: Iron Polysaccharide Complex 150 MG CAPSULE PO (09:07)
[2018-10-03] MEDS: Rivaroxaban 20 MG Tablet PO (09:07)
[2018-10-03] MEDS: Dofetilide 250 MCG Capsule PO ×2 (10:15→22:05)
[2018-10-03] MEDS: Ondansetron ODT 4 MG Tablet PO (12:46)
[2018-10-03 15:43] VITALS: BP 120/61; PULSE 69; RESP 20; TEMP 36.8; O2SAT 94
[2018-10-03] MEDS: dilTIAZem CD 120 MG Capsule PO (17:42)
[2018-10-03 22:00] VITALS: PULSE 66; RESP 16; O2SAT 96
[2018-10-03] MEDS: LORazepam 0.5 MG Tablet PO (22:02)
[2018-10-04] MEDS: Ciprofloxacin 500 MG Tablet PO ×2 (04:54→17:27)
[2018-10-04] MEDS: Febuxostat 40 MG TABLET PO (04:54)
[2018-10-04] MEDS: Menthol/Lanolin/Calamine/Znox 113 GM Tube 1 APPLIC TOPICAL ×2 (04:55→20:53)
[2018-10-04] MEDS: Nystatin Powder 15gm Bottle 1 APPLIC TOPICAL ×2 (04:56→20:53)
[2018-10-04 06:26] LABS: Absolute Lymphocyte Count 1.19 X10^3/ul (0.83-4.51); Absolute Neutrophil Count 2.6 X10^3/uL (2.0-7.7); Basophil# 0.01 X10^3/uL; Basophil% 0.2 % (0-1); Eosinophils% 4.5 % (0-5); Hematocrit 32.4 % (37-47); Hemoglobin 9.6 g/dl (12.0-15.0); Lymphocyte # 1.19 X10^3/ul (4.0); Lymphocyte % 26.6 % (19-41); Mean Corp Hgb Conc 29.6 g/gl (32-36); Mean Corpuscular Hgb 27.2 pg (27.0-32.0); Mean Corpuscular Volume 91.8 fL (81-99); Mean Platelet Vol. 11.4 fl (6.2-12.0); Monocyte# 0.49 X10^3/uL; Monocyte% 10.9 % (0-10); Neutrophil # 2.58 X10^3/uL (2.7-7.7); Neutrophil % 57.6 % (47-70); Platelet Count 284 K/mm3 (150-450); RBC Distribution Width CV 15.1 % (11.6-14.6); RBC Distribution Width SD 49.1 fl (35.1-43.9); Red Blood Count 3.53 M/mm3 (4.2-5.4); White Blood Count 4.5 K/mm3 (4.4-11.0)
[2018-10-04 06:27] LABS: POSITIVE COUNT NO; POSITIVE DIFFERENTIAL NO; POSITIVE MORPHOLOGY NO
[2018-10-04 06:36] LABS: Anion Gap 8 (5-15); BUN 14 mg/dL (7-18); Calcium,Total 8.8 mg/dL (8.5-10.1); Chloride 107 mmol/L (98-107); EST Glomerular Filtration Rate 61 mL/min (>60); Est Glom Filt Rate - Afr Amer 73 mL/min (>60); Estimated Creatinine Clearance 58.11 ml/min; Glucose 93 mg/dL (74-106); Potassium 4.1 mmol/L (3.5-5.1); Sodium Level 142 mmol/L (136-145)
[2018-10-04] MEDS: oxyCODONE 5 MG Tablet PO ×3 (07:04→20:54)
[2018-10-04] MEDS: Iron Polysaccharide Complex 150 MG CAPSULE PO (09:16)
--- NOTE | 2018-10-04 10:06 | CASEMGMT ---
Insurance Clinicals provided via phone call with resident Elda approved more time. Next update due on 10/09/18. Auth#[id number] THOMAS Angel, GROCERY ASSOCIATE
[2018-10-04] MEDS: Rivaroxaban 20 MG Tablet PO (10:08)
[2018-10-04] MEDS: Dofetilide 250 MCG Capsule PO ×2 (10:08→21:08)
[2018-10-04 10:15] VITALS: PULSE 63; RESP 18; O2SAT 92
[2018-10-04 16:00] VITALS: BP 144/87; PULSE 74; RESP 18; TEMP 37.1; O2SAT 96
[2018-10-04] MEDS: dilTIAZem CD 120 MG Capsule PO (17:27)
[2018-10-04] MEDS: LORazepam 0.5 MG Tablet PO (20:54)
[2018-10-05] MEDS: oxyCODONE 5 MG Tablet PO ×3 (02:10→23:11)
[2018-10-05] MEDS: Menthol/Lanolin/Calamine/Znox 113 GM Tube 1 APPLIC TOPICAL ×2 (06:35→22:00)
[2018-10-05] MEDS: Febuxostat 40 MG TABLET PO (06:35)
[2018-10-05] MEDS: Ciprofloxacin 500 MG Tablet PO ×2 (06:35→17:51)
[2018-10-05] MEDS: Nystatin Powder 15gm Bottle 1 APPLIC TOPICAL ×2 (06:37→22:01)
[2018-10-05] MEDS: Iron Polysaccharide Complex 150 MG CAPSULE PO (09:35)
[2018-10-05] MEDS: Rivaroxaban 20 MG Tablet PO (09:35)
[2018-10-05] MEDS: Dofetilide 250 MCG Capsule PO ×2 (09:35→22:02)
[2018-10-05] MEDS: Ondansetron ODT 4 MG Tablet PO (15:06)
[2018-10-05 15:26] VITALS: BP 130/61; PULSE 66; RESP 14; TEMP 36.6; O2SAT 94
--- NOTE | 2018-10-05 16:01 | NURSING ---
Aware of Vital Signs taken at 1526 today.
[2018-10-05] MEDS: dilTIAZem CD 120 MG Capsule PO (17:51)
[2018-10-05] MEDS: Famotidine 20 MG Tablet 40 MG PO (18:02)
--- NOTE | 2018-10-05 18:09 | NURSING ---
pt daughter very upset that daughter was not getting PRN pepcid scheduled for her nausea. staff had been giving PRN Zofran d/t pt reporting that she was nauseated. Dr Peraza updated, pepcid changed to Daily scheduled. mother and pt updated.
[2018-10-05] MEDS: LORazepam 0.5 MG Tablet PO (22:08)
[2018-10-06] MEDS: Menthol/Lanolin/Calamine/Znox 113 GM Tube 1 APPLIC TOPICAL ×2 (07:10→22:11)
[2018-10-06] MEDS: Famotidine 20 MG Tablet 40 MG PO (07:11)
[2018-10-06] MEDS: Febuxostat 40 MG TABLET PO (07:11)
[2018-10-06] MEDS: Nystatin Powder 15gm Bottle 1 APPLIC TOPICAL ×2 (07:12→22:12)
[2018-10-06] MEDS: Rivaroxaban 20 MG Tablet PO (10:45)
[2018-10-06] MEDS: Iron Polysaccharide Complex 150 MG CAPSULE PO (10:45)
[2018-10-06] MEDS: Dofetilide 250 MCG Capsule PO ×2 (10:45→22:11)
--- NOTE | 2018-10-06 10:47 | NURSING ---
AM MEDS GIVEN NOW PER PT REQUEST. PT REPORTS SL NAUSEA. INFORMED THAT PEPCID WAS GIVEN EARLIER THIS AM, ZOFRAN IS AVAILABLE AT THIS TIME. PT STATES THE PEPCID SHOULD BE ENOUGH AND REFUSES THE ZOFRAN. WILL MONITOR.
--- NOTE | 2018-10-06 11:50 | NURSING ---
REPORTED TO STAFF FEELING NAUSEATED WHEN IN RESTROOM TO HAVE BM. THIS NURSE SPOKE TO PT WHEN SHE'S BACK TO BED. PT REPORTS NAUSEA IS GONE-DENIES NEED FOR MED. REPORTS FEELING BETTER AFTER LARGE BM. HAS ORDERED LUNCH. WILL CONT TO MONITOR. TOLD PT TO CALL IF NAUSEA RETURNS.
[2018-10-06] MEDS: dilTIAZem CD 120 MG Capsule PO (17:31)
[2018-10-06 22:00] VITALS: BP 134/76; PULSE 60; RESP 18; TEMP 36.4; O2SAT 96
[2018-10-07] MEDS: Febuxostat 40 MG TABLET PO (05:46)
[2018-10-07] MEDS: Famotidine 20 MG Tablet 40 MG PO (05:46)
[2018-10-07] MEDS: Nystatin Powder 15gm Bottle 1 APPLIC TOPICAL ×2 (05:47→20:57)
[2018-10-07] MEDS: oxyCODONE 5 MG Tablet PO ×3 (06:01→20:40)
[2018-10-07] MEDS: Iron Polysaccharide Complex 150 MG CAPSULE PO (09:56)
[2018-10-07] MEDS: Dofetilide 250 MCG Capsule PO ×2 (09:57→22:22)
[2018-10-07] MEDS: Rivaroxaban 20 MG Tablet PO (09:57)
[2018-10-07 10:00] VITALS: PULSE 77; RESP 18; O2SAT 96
--- NOTE | 2018-10-07 10:23 | NURSING ---
PT REQUESTING THAT 8AM FERREX BE CHANGED TO 10 AM. THIS NURSE SENT A COMMUNICATION TO PHARMACY. REPORTED TO TERA PHILLIPS
[2018-10-07 15:53] VITALS: BP 157/80; PULSE 68; RESP 16; TEMP 36.6; O2SAT 93
[2018-10-07] MEDS: dilTIAZem CD 120 MG Capsule PO (18:05)
[2018-10-07] MEDS: Menthol/Lanolin/Calamine/Znox 113 GM Tube 1 APPLIC TOPICAL (20:56)
[2018-10-08] MEDS: Menthol/Lanolin/Calamine/Znox 113 GM Tube 1 APPLIC TOPICAL ×2 (06:52→21:43)
[2018-10-08] MEDS: Nystatin Powder 15gm Bottle 1 APPLIC TOPICAL ×2 (06:52→21:43)
[2018-10-08] MEDS: oxyCODONE 5 MG Tablet PO (06:53)
[2018-10-08] MEDS: Famotidine 20 MG Tablet 40 MG PO (06:54)
[2018-10-08] MEDS: Febuxostat 40 MG TABLET PO (06:54)
--- NOTE | 2018-10-08 09:54 | CASEMGMT ---
Social Work Spoke with resident in room. Resident requesting for discharge date to be set for 10/09/18. Spoke with staff/therapy, 10/09/18 is an agreeable discharge date at this time. Physical therapy is recommending for resident to continue with outpatient physical therapy services. Resident is agreeable to recommendation and requesting for outpatient physical therapy to be set up through [facility]. Resident aware that order will be faxed to [facility] and then [facility] will contact resident to set up appointment. Resident reporting to have all needed durable medical equipment already set up within the home. Resident plans to discharge to home with mother at time of discharge. Resident mother plans to provide transportation home for resident at time of discharge. Support given. Will fax order to [facility] when obtained. Proposed discharge date: 10/09/18 PLAN: Discharge to home with mother and outpatient physical therapy. REBECCA AngelW, EXPERIMENTAL WELDER
[2018-10-08 10:00] VITALS: PULSE 80
[2018-10-08] MEDS: Iron Polysaccharide Complex 150 MG CAPSULE PO (10:08)
[2018-10-08] MEDS: Rivaroxaban 20 MG Tablet PO (10:08)
[2018-10-08] MEDS: Dofetilide 250 MCG Capsule PO ×2 (10:08→21:44)
--- NOTE | 2018-10-08 10:23 | CASEMGMT ---
Brief interview for mental status (BIMS) and resident mood interview (PHQ-9) completed on this day. BIMS score 1515. PHQ-9 score 02/12
[2018-10-08 16:00] VITALS: BP 133/71; PULSE 83; RESP 18; TEMP 37; O2SAT 94
[2018-10-08] MEDS: dilTIAZem CD 120 MG Capsule PO (17:56)
--- NOTE | 2018-10-08 20:55 | DCINST_ITS ---
- Discharge Diagnoses Current Active Problems: Current Active and Chronic Problems (Last Reviewed 07/30/18 @ 14:14 by Antonino Colvin MD) Effusion of right knee (Acute) Osteoarthritis of knees, bilateral (Acute) Gout (Chronic) Atrial fibrillation (Chronic) Tricuspid regurgitation (Chronic) Mitral valve insufficiency (Chronic) Obstructive sleep apnea (Chronic) Body mass index (BMI) 50-59.9, adult (Chronic) Chronic kidney disease (Chronic) Anemia (Chronic) Muscle spasm (Acute) You will use the following diet at home:: No restrictions, Regular Your food should be the consistency of: Regular Your liquids should be the consistency of: Regular/Thin Discharge Activity: Return to Normal Activity, May Shower, Use Walker Weight Bearing Status: Weight bearing as tolerated Call your doctor if you observe: Fever of 101 or Higher, Inability to urinate, Inability to have a bowel movement, Shortness of breath, Chest pain, Uncontrolled pain Allergies/Adverse Reactions: Allergies metoprolol Adverse Reaction (Severe, Verified 09/17/18 10:30) Fatigue, weigt gain Medications to take at Discharge Diltiazem HCl [Diltiazem ER] 120 mg PO DAILY 04/30/18 Dofetilide [Tikosyn] 250 mcg PO BID 05/08/18 febuxostat 40 mg tablet 40 mg PO DAILY 07/30/18 ondansetron HCl 4 mg tablet 4 mg PO Q4H PRN PRN tab 07/30/18 rivaroxaban 20 mg tablet 20 mg PO DAILY 07/30/18 Colchicine 0.6 mg PO PRN PRN 09/17/18 Cyclobenzaprine [Flexeril] 10 mg PO TID PRN PRN 09/17/18 Acetaminophen [Tylenol] 1,000 mg PO Q8 09/19/18 Famotidine [Pepcid] 40 mg PO DAILY #30 tablet 10/08/18 Iron Polysaccharide Complex [Ferrex 150] 150 mg PO DAILY@1000 #30 capsule 10/08/18 Lorazepam [Ativan] 0.5 mg PO Q8H PRN PRN #30 tab 10/08/18 Menthol/Lanolin/Calamine/Znox [Calmoseptine Ointment] 1 applic TOPICAL 0600,2200 tube 10/08/18 Nystatin Powder [Mycostatin Powder] 1 applic TOPICAL 0600,2200 bottle 10/08/18 Oxycodone [Oxyir] 5 - 10 mg PO Q4H PRN PRN 7 Days #30 tab 10/08/18 Polyethylene Glycol 3350 [Miralax] 17 gm PO DAILY #30 packet 10/08/18 Senna/Docusate Sodium [Senokot-S] 2 tablet PO BID #120 tablet 10/08/18 The following prescriptions were given: Oxycodone [Oxyir] 5 - 10 mg PO Q4H PRN PRN 7 Days #30 tab PRN Reason: Severe Pain () Lorazepam [Ativan] 0.5 mg PO Q8H PRN PRN #30 tab PRN Reason: Anxiety Famotidine [Pepcid] 40 mg PO DAILY #30 tablet Iron Polysaccharide Complex [Ferrex 150] 150 mg PO DAILY@1000 #30 capsule Polyethylene Glycol 3350 [Miralax] 17 gm PO DAILY #30 packet Senna/Docusate Sodium [Senokot-S] 2 tablet PO BID #120 tablet Primary Care Physician: Jordan Butler MD [Primary Care Provider] - Please follow up with your Primary Care Physician in: 1 week. Test Results: Test results from this visit will be discussed in further detail at your follow- up appointment, if applicable. Please Follow Up With: Kyle Whaley When: 2 weeks. Proposed Discharge Date: 10/09/18
--- NOTE | 2018-10-08 20:57 | DS.PCM_ITS ---
Discharge Date and Diagnosis - Problem List Patient Problems: Active and Suspected Problems (Last Reviewed 07/30/18 @ 14:14 by Antonino Colvin MD) Effusion of right knee (Acute) Osteoarthritis of knees, bilateral (Acute) Muscle spasm (Acute) Date of Admission: 09/19/18 Date of Discharge: 10/09/18 - Primary Discharge Diagnosis Active and Suspected Problems (Last Reviewed 07/30/18 @ 14:14 by Antonino Colvin MD) Effusion of right knee (Acute) Osteoarthritis of knees, bilateral (Acute) Muscle spasm (Acute) - Secondary Discharge Diagnosis Chronic Problems (Last Reviewed 07/30/18 @ 14:14 by Antonino Colvin MD) Gout (Chronic) Atrial fibrillation (Chronic) Tricuspid regurgitation (Chronic) Mitral valve insufficiency (Chronic) Obstructive sleep apnea (Chronic) Body mass index (BMI) 50-59.9, adult (Chronic) Chronic kidney disease (Chronic) Anemia (Chronic) Chronic atrial fibrillation (Chronic) Nonrheumatic tricuspid valve regurgitation (Chronic) Nonrheumatic mitral (valve) insufficiency (Chronic) Status post radiofrequency ablation (RFA) operation for arrhythmia (Chronic ~09/21/17) For Atrial Fib @ [facility] Hypertension (Chronic) Hospital Course and Treatment Imaging Results: 09/26/18 13:30 Diet: Regular Diet Food consistency:: Regular Liquid Consistency:: Regular/Thin Is pt able to select menu?: Yes Operations: None Procedures: None Summary of Care Provided: The patient is a 58 year old Female with below past medical history status post recent right total knee arthroplasty, hospitalized with intractable right knee pain, right knee effusion, admitted to TCU with debility, here for rehabilitation, strengthening, prior to discharge home. Discharge home with mother, outpatient physical therapy. Patient Problems: Active and Suspected Problems (Last Reviewed 07/30/18 @ 14:14 by Lorna Zavala) Effusion of right knee (Acute) Osteoarthritis of knees, bilateral (Acute) Muscle spasm (Acute) - Physical Exam Vital Signs Temp Pulse Resp BP Pulse Ox 98.6 F 83 18 133/71 H 94 10/08/18 16:00 10/08/18 16:00 10/08/18 16:00 10/08/18 16:00 10/08/18 16:00 Oxygen Delivery Method Room Air Weight: 138.998 kg Body Mass Index (BMI) 52.2 Intake and Output for Last 24 Hours 10/06/18 10/07/18 10/08/18 23:59 23:59 23:59 Intake Total 160 / 160 480 / 480 1080 / 1080 Balance 160 / 160 480 / 480 1080 / 1080 Discharge Diet: No Restrictions Discharge Activity: Return to Normal Activity, May Shower, Use Walker Weight Bearing Status: Weight bearing as tolerated Call your doctor if you observe: Fever of 101 or Higher, Inability to urinate, Inability to have a bowel movement, Shortness of breath, Chest pain, Uncontrolled pain Home Medications: Medications to take at Discharge Diltiazem HCl [Diltiazem ER] 120 mg PO DAILY 04/30/18 Dofetilide [Tikosyn] 250 mcg PO BID 05/08/18 febuxostat 40 mg tablet 40 mg PO DAILY 07/30/18 ondansetron HCl 4 mg tablet 4 mg PO Q4H PRN PRN tab 07/30/18 rivaroxaban 20 mg tablet 20 mg PO DAILY 07/30/18 Colchicine 0.6 mg PO PRN PRN 09/17/18 Cyclobenzaprine [Flexeril] 10 mg PO TID PRN PRN 09/17/18 Acetaminophen [Tylenol] 1,000 mg PO Q8 09/19/18 Famotidine [Pepcid] 40 mg PO DAILY #30 tablet 10/08/18 Iron Polysaccharide Complex [Ferrex 150] 150 mg PO DAILY@1000 #30 capsule 10/08/18 Lorazepam [Ativan] 0.5 mg PO Q8H PRN PRN #30 tab 10/08/18 Menthol/Lanolin/Calamine/Znox [Calmoseptine Ointment] 1 applic TOPICAL 0600,2200 tube 10/08/18 Nystatin Powder [Mycostatin Powder] 1 applic TOPICAL 0600,2200 bottle 10/08/18 Oxycodone [Oxyir] 5 - 10 mg PO Q4H PRN PRN 7 Days #30 tab 10/08/18 Polyethylene Glycol 3350 [Miralax] 17 gm PO DAILY #30 packet 10/08/18 Senna/Docusate Sodium [Senokot-S] 2 tablet PO BID #120 tablet 10/08/18 Following Prescrptions Were Given to Patient: Oxycodone [Oxyir] 5 - 10 mg PO Q4H PRN PRN 7 Days #30 tab PRN Reason: Severe Pain (-08/28) Lorazepam [Ativan] 0.5 mg PO Q8H PRN PRN #30 tab PRN Reason: Anxiety Famotidine [Pepcid] 40 mg PO DAILY #30 tablet Iron Polysaccharide Complex [Ferrex 150] 150 mg PO DAILY@1000 #30 capsule Polyethylene Glycol 3350 [Miralax] 17 gm PO DAILY #30 packet Senna/Docusate Sodium [Senokot-S] 2 tablet PO BID #120 tablet Primary Care Physician: Jordan Butler MD [Primary Care Provider] - Please follow up with your Primary Care Physician in: 1 week. Please Follow Up With: Kyle Whaley When: 2 weeks. Disposition: Home Minutes spent on discharge:: 30 Patient Condition:: Stable Medical Necessity - Tobacco Use Smoking Status: Never smoker Tobacco Use: Non-smoker Meaningful Use Info Meaningful Use Diagnoses (Choose all that apply): None applicable
[2018-10-08] MEDS: LORazepam 0.5 MG Tablet PO (21:47)
[2018-10-09] MEDS: oxyCODONE 5 MG Tablet PO (04:59)
[2018-10-09] MEDS: Febuxostat 40 MG TABLET PO (05:01)
[2018-10-09] MEDS: Famotidine 20 MG Tablet 40 MG PO (05:01)
[2018-10-09] MEDS: Nystatin Powder 15gm Bottle 1 APPLIC TOPICAL (05:06)
[2018-10-09 09:15] VITALS: PULSE 66; RESP 18; O2SAT 97
[2018-10-09] MEDS: Iron Polysaccharide Complex 150 MG CAPSULE PO (09:21)
[2018-10-09] MEDS: Rivaroxaban 20 MG Tablet PO (09:21)
[2018-10-09] MEDS: Dofetilide 250 MCG Capsule PO (09:21)
--- NOTE | 2018-10-09 09:33 | CASEMGMT ---
Social Work Order faxed to [facility]. [facility] to be in contact with resident to set up appointment. Proposed discharge date: 10/09/18 PLAN: Discharge to home with mother and outpatient physical therapy. THOMAS Angel, SHEET METAL DUCT INSTALLER APPRENTICE
[2018-10-09 11:11] VITALS: BP 132/68; PULSE 87; RESP 18; TEMP 37.3; O2SAT 93
--- NOTE | 2018-10-09 13:57 | CASEMGMT ---
Insurance Notified insurance of resident discharge on 10/09/18 to home with outpatient physical therapy. Auth#[id number] THOMAS Angel, ORGAN TUNER ELECTRONIC
== END 2018-10-09 11:20 | disposition home or self-care (01) | DRG 560 ==
PROVIDERS: Admitting Provider Family Medicine Geriatric Medicine; Family Provider Family Medicine; PCP Family Medicine; Referring Provider Family Medicine Geriatric Medicine; Visit Provider Family Medicine Geriatric Medicine
DX: Z47.1 Aftercare following joint replacement surgery (principal); Z94.0 Kidney transplant status; Z96.651 Presence of right artificial knee joint; I48.2 Chronic atrial fibrillation; G47.33 Obstructive sleep apnea (adult) (pediatric); I12.9 Hypertensive chronic kidney disease with stage 1 through stage 4 chronic kidney disease, or unspecified chronic kidney disease; N18.9 Chronic kidney disease, unspecified; I48.0 Paroxysmal atrial fibrillation; E06.3 Autoimmune thyroiditis; M10.9 Gout, unspecified
CPT/HCPCS: 36415; 80048; 81001; 84550; 85014; 85018; 85025; 86850; 86900; 86920; 86922; 87086; 87088; 87186; 93005; 97110; 97116; 97162; 97166; 97530; 97535; 97802

== ENCOUNTER 2018-09-28 16:00 | Outpatient (CLI) | payer BC, SELFPAY ==
[2018-09-28] VITALS (11 sets, daily range): BP systolic 129–164; BP diastolic 67–89; PULSE 63–73; RESP 16–18; TEMP 36.6–37.1; O2SAT 94–98
[2018-09-28] MEDS: 0.9% NaCl Peripheral Flush Adult/Peds IV (23:13)
== END 2018-09-28 23:20 | disposition skilled nursing facility (03) ==
LOC: MS2OUT 16:09 → MS2 16:10
PROVIDERS: Family Provider Family Medicine; PCP Family Medicine; Referring Provider Family Medicine Geriatric Medicine; Visit Provider Family Medicine Geriatric Medicine
DX: D64.9 Anemia, unspecified (principal)
CPT/HCPCS: 36415; 36430; 86850; 86900; 86920; 86922; J7040; P9016; A4216

== ENCOUNTER 2019-01-22 13:00 | Outpatient (RCR) | payer BC, SELFPAY ==
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
--- NOTE | 2019-02-26 19:04 | HP.PT.NRP ---
HP - Discharge Summary (1) - Patient Information NELLY KHAN was seen in my office for initial evaluation on 10/22/18. The following Plan of Care was established for this patient: Initial Frequency: 2-3x /Week Initial Duration: 2 Months - Anticipated Interventions Patient/Client Instruction: Educate patient on: Condition, Plan of Care For the Purpose of:: To decrease pain, To decrease swelling/inflammation, To increase ROM, To improve nutrient delivery to tissue, To improve muscle performance and motor function, To improve ability to perform ADL's, To increase tolerance to activity/condition/position, To improve performance and independence with ADL's, To decrease level of supervision to perform tasks, To improve ability of physical actions for home/community/work/leisure, To improve health of tissue, To increase flexibility/ROM, To improve endurance, To improve balance, To improve safety with gait Therapeutic Exercise to Include: Strength training, Endurance training, Balance training, Flexibilty training, Gait and locomotor training, In an aquatic setting, Passive ROM, Active ROM For the Purpose of:: To decrease pain, To decrease swelling/inflammation, To increase ROM, To improve nutrient delivery to tissue, To improve muscle performance and motor function, To improve ability to perform ADL's, To increase tolerance to activity/condition/position, To improve performance and independence with ADL's, To decrease level of supervision to perform tasks, To improve ability of physical actions for home/community/work/leisure, To improve gait and locomotor functions, To improve health of tissue, To decrease soft tissue restriction, To increase flexibility/ROM, To improve endurance, To improve balance, To improve safety with gait Functional Training to Include: Gait training For the Purpose of:: To improve gait and locomotor functions, To improve safety with gait Manual Therapy Techniques to Include: Passive ROM For the Purpose of:: To increase ROM This patient was last seen in our office 01/22/19. Pertinent comments regarding their Physical therapy will appear below: DC PT as her insurance would not do a date extension. She will join [facility] At this point I will be discontinuing this patient from physical therapy. I would be happy to see this patient again in the future if found appropriate by the physician. Thank you! Carla Salgado, MPT
== END 2019-01-22 19:00 | disposition home or self-care (01) ==
LOC: PT 13:00
PROVIDERS: Family Provider Family Medicine; PCP Family Medicine; Referring Provider Family Medicine Geriatric Medicine; Visit Provider Family Medicine Geriatric Medicine
DX: M25.461 Effusion, right knee (principal); Z96.651 Presence of right artificial knee joint
CPT/HCPCS: 97113; 97162; 97530

== ENCOUNTER → 2019-02-03 13:45 | Outpatient (CLI) | payer BC, SELFPAY ==
--- NOTE | 2019-02-03 14:00 | RAD_ITS ---
STUDY: X-RAY - ABDOMEN/PELVIS REASON FOR EXAM: Female, 58 years old. Kidney stones. TECHNIQUE: 3 supine views of the abdomen were obtained COMPARISON: CT dated 06/05/2018 FINDINGS: The urinary calculi seen on the CT dated 06/05/2018 are not definitively seen on these radiographs. If indicated, further evaluation with CT can be performed. There is no bowel obstruction. There is air and stool to the level of the rectum. The visualized osseous structures are within normal limits. RAD/Abdomen Single View IMPRESSION: The urinary calculi seen on the CT dated 06/05/2018 are not definitively seen on these radiographs. If indicated, further evaluation with CT can be performed. No bowel obstruction. Electronically Signed: Tien Marlow, at 14:19 EDT Tel , Service support ,
== END ==
PROVIDERS: Family Provider Family Medicine; PCP Family Medicine; Referring Provider Nurse Practitioner Adult Health; Visit Provider Nurse Practitioner Adult Health
DX: N20.0 Calculus of kidney (principal)
CPT/HCPCS: 74018

== ENCOUNTER → 2019-02-03 15:10 | Outpatient (CLI) | payer BC, SELFPAY ==
--- NOTE | 2019-02-03 15:15 | CT_ITS ---
STUDY: CT ABDOMEN AND PELVIS WITHOUT CONTRAST REASON FOR EXAM: Female, 58 years old. Right flank pain RADIATION DOSAGE (If Supplied By Facility): CTDIvol = ( 17.58 ) mGy, DLP = ( 796.62 ) mGycm TECHNIQUE: Transaxial images were obtained from the dome of the diaphragm to the symphysis pubis without oral contrast, and without intravenous contrast. Sagittal and coronal images were reconstructed. Individualized dose optimization techniques were used for this CT. COMPARISON: 06/05/2018 FINDINGS: Evaluation of the abdominal viscera is limited in the absence of intravenous contrast. There is stable atelectasis at the left lung base. The visualized portions of the heart and pericardium are within normal limits. There are stable multiple calcified gallstones present. The liver demonstrates an unremarkable unenhanced appearance. The spleen is normal in size. The pancreas demonstrates an unremarkable unenhanced appearance. The adrenal glands are within normal limits. There are stable cysts in the left kidney. There are stable subcentimeter nonobstructing right renal stones. There are no additional urinary stones. There is no hydronephrosis. There is a stable large hiatal hernia. There is no bowel obstruction or inflammation. The appendix is visualized and appears normal. There is a stable small fat-containing umbilical hernia. There is no bowel containing hernia. The aorta is normal in caliber. There is no abdominal or pelvic free air, free fluid, fluid collection or lymphadenopathy. There are no destructive osseous lesions. CT/Abdomen/Pelvis without Cont IMPRESSION: Stable subcentimeter nonobstructing right renal stones. No additional urinary calculi. No hydronephrosis. No bowel obstruction or inflammation. Normal appendix. Gallstones. Stable large hiatal hernia. Electronically Signed: Tien Marlow, at 16:23 EDT Tel , Service support ,
== END ==
PROVIDERS: Family Provider Family Medicine; PCP Family Medicine; Referring Provider Nurse Practitioner Adult Health; Visit Provider Nurse Practitioner Adult Health
DX: N20.0 Calculus of kidney (principal); R31.9 Hematuria, unspecified
CPT/HCPCS: 74176; 87086; 87088

== ENCOUNTER → 2019-04-23 12:10 | Outpatient (CLI) | payer BC, SELFPAY ==
[2019-04-23 11:23] VITALS: BMI 48.7
[2019-04-23 12:28] LABS: Hemoglobin 13.3 g/dl (12.0-15.0)
== END ==
PROVIDERS: Family Provider Family Medicine; PCP Family Medicine; Referring Provider Physician Assistant Medical; Visit Provider Physician Assistant Medical
DX: I48.91 Unspecified atrial fibrillation (principal)
CPT/HCPCS: 36415; 85014; 85018

== ENCOUNTER → 2019-12-31 12:56 | Outpatient (CLI) | payer BC, SELFPAY ==
[2019-04-23 11:23] VITALS: BMI 48.7
[2019-12-31 14:09] LABS: Absolute Lymphocyte Count 0.95 X10^3/uL (0.83-4.51); Basophil# 0.02 X10^3/uL; Basophil% 0.4 % (0-1); Eosinophils% 4.2 % (0-5); Hematocrit 28.9 % (37-47); Hemoglobin 7.9 g/dL (12.0-15.0); Lymphocyte # 0.95 X10^3/ul (4.0); Lymphocyte % 20.2 % (19-41); Mean Corp Hgb Conc 27.3 g/dL (32-36); Mean Corpuscular Hgb 22.3 pg (27.0-32.0); Mean Corpuscular Volume 81.4 fL (81-99); Mean Platelet Vol. 12.6 fl (6.2-12.0); Monocyte# 0.47 X10^3/uL; NRBC Flagged by Analyzer 0 % (0-5); Neutrophil # 3.03 X10^3/uL (2.7-7.7); Neutrophil % 64.4 % (47-70); Platelet Count 255 K/mm3 (150-450); RBC Distribution Width CV 16.6 % (11.6-14.6); RBC Distribution Width SD 46.6 fl (35.1-43.9); Red Blood Count 3.55 M/mm3 (4.2-5.4); White Blood Count 4.7 K/mm3 (4.4-11.0)
[2019-12-31 14:36] LABS: Anion Gap 5 (5-15); BUN 17 mg/dL (7-18); Calcium,Total 9.2 mg/dL (8.5-10.1); Chloride 112 mmol/L (98-107); Creatinine, Serum 1.06 mg/dL (0.55-1.02); EST Glomerular Filtration Rate 57 mL/min (>60); Est Glom Filt Rate - Afr Amer 68 mL/min (>60); Glucose 103 mg/dL (74-106); Potassium 3.8 mmol/L (3.5-5.1); Sodium Level 142 mmol/L (136-145)
== END ==
PROVIDERS: PCP Family Medicine; Referring Provider Internal Medicine Cardiovascular Disease; Visit Provider Internal Medicine Cardiovascular Disease
DX: I48.91 Unspecified atrial fibrillation (principal); R00.2 Palpitations; M17.0 Bilateral primary osteoarthritis of knee; D64.9 Anemia, unspecified; I07.1 Rheumatic tricuspid insufficiency; I34.0 Nonrheumatic mitral (valve) insufficiency; M10.9 Gout, unspecified; M25.461 Effusion, right knee; M62.838 Other muscle spasm; N18.9 Chronic kidney disease, unspecified; G47.33 Obstructive sleep apnea (adult) (pediatric); Z86.79 Personal history of other diseases of the circulatory system; Z98.890 Other specified postprocedural states
CPT/HCPCS: 36415; 80048; 85025; 93225; 93226

== ENCOUNTER → 2020-01-02 12:10 | Outpatient (CLI) | payer BC, SELFPAY ==
[2019-04-23 11:23] VITALS: BMI 48.7
[2020-01-02 15:40] LABS: Absolute Lymphocyte Count 1.08 X10^3/uL (0.83-4.51); Absolute Neutrophil Count 3.3 X10^3/uL (2.0-7.7); Basophil# 0.02 X10^3/uL; Basophil% 0.4 % (0-1); Eosinophil# 0.19 X10^3/uL; Eosinophils% 3.7 % (0-5); Hematocrit 29.4 % (37-47); Immature Platelet Fraction 7.9 % (1.0-7.9); Lymphocyte # 1.08 X10^3/ul (4.0); Lymphocyte % 21.1 % (19-41); Mean Corp Hgb Conc 27.2 g/dL (32-36); Mean Corpuscular Hgb 22.3 pg (27.0-32.0); Mean Corpuscular Volume 81.9 fL (81-99); Mean Platelet Vol. 13.3 fl (6.2-12.0); Monocyte# 0.48 X10^3/uL; Monocyte% 9.4 % (0-10); NRBC Flagged by Analyzer 0.4 % (0-5); Neutrophil # 3.32 X10^3/uL (2.7-7.7); Neutrophil % 64.8 % (47-70); POSITIVE MORPHOLOGY YES; Platelet Count 240 K/mm3 (150-450); RBC Distribution Width CV 18.3 % (11.6-14.6); RBC Distribution Width SD 50.1 fl (35.1-43.9); RET-HE 23.9 pg (30-35); Red Blood Count 3.59 M/mm3 (4.2-5.4); Reticulocyte Count 4.61 % (0.5-1.5); White Blood Count 5.1 K/mm3 (4.4-11.0)
[2020-01-02 15:46] LABS: Differential Indicated SCAN CRITERIA MET
[2020-01-02 15:51] LABS: Iron 149 ug/dL (50-170); Iron Binding Capacity,Total 472 ug/dL (250-450); PERCENT IRON SATURATION 31.6 % (15.0-55.0)
[2020-01-02 16:15] LABS: Differential Comment SCANNED
[2020-01-02 17:15] LABS: Osmolality, Serum 293 mOsm/KG (275-295)
== END ==
PROVIDERS: PCP Family Medicine; Referring Provider Family Medicine; Visit Provider Family Medicine
DX: D64.9 Anemia, unspecified (principal)
CPT/HCPCS: 36415; 83540; 83550; 83930; 85025; 85045

== ENCOUNTER → 2020-01-28 14:38 | Outpatient (CLI) | payer BC, SELFPAY ==
[2019-04-23 11:23] VITALS: BMI 48.7
[2020-01-28 15:20] LABS: Hematocrit 38.1 % (37-47); Hemoglobin 11.1 g/dL (12.0-15.0); Mean Corp Hgb Conc 29.1 g/dL (32-36); Mean Corpuscular Hgb 26.4 pg (27.0-32.0); Mean Corpuscular Volume 90.5 fL (81-99); Mean Platelet Vol. 11.6 fl (6.2-12.0); POSITIVE MORPHOLOGY YES; Platelet Count 243 K/mm3 (150-450); RBC Distribution Width CV 21.7 % (11.6-14.6); RBC Distribution Width SD 69.5 fl (35.1-43.9); Red Blood Count 4.21 M/mm3 (4.2-5.4); White Blood Count 3.7 K/mm3 (4.4-11.0)
[2020-01-28 15:32] LABS: Scan Indicated on CBC? Y/N YES- FLAGS NOTED
== END ==
PROVIDERS: PCP Family Medicine; Referring Provider Family Medicine; Visit Provider Family Medicine
DX: D64.9 Anemia, unspecified (principal)
CPT/HCPCS: 36415; 85027

== ENCOUNTER → 2020-03-24 15:54 | Outpatient (CLI) | payer BC, SELFPAY ==
[2020-03-24 14:46] VITALS: BMI 52.4
[2020-03-24 16:49] LABS: Absolute Lymphocyte Count 0.99 X10^3/uL (0.83-4.51); Absolute Neutrophil Count 4.5 X10^3/uL (2.0-7.7); Basophil# 0.02 X10^3/uL; Basophil% 0.3 % (0-1); Eosinophil# 0.27 X10^3/uL; Eosinophils% 4.2 % (0-5); Hematocrit 37.7 % (37-47); Hemoglobin 11.1 g/dL (12.0-15.0); Lymphocyte # 0.99 X10^3/ul (4.0); Lymphocyte % 15.5 % (19-41); Mean Corp Hgb Conc 29.4 g/dL (32-36); Mean Corpuscular Hgb 26.1 pg (27.0-32.0); Mean Corpuscular Volume 88.7 fL (81-99); Mean Platelet Vol. 11.4 fl (6.2-12.0); Monocyte# 0.57 X10^3/uL; Monocyte% 8.9 % (0-10); NRBC Flagged by Analyzer 0 % (0-5); Neutrophil # 4.49 X10^3/uL (2.7-7.7); Neutrophil % 70.6 % (47-70); Platelet Count 261 K/mm3 (150-450); RBC Distribution Width CV 14.6 % (11.6-14.6); Red Blood Count 4.25 M/mm3 (4.2-5.4); White Blood Count 6.4 K/mm3 (4.4-11.0)
[2020-03-24 17:29] LABS: Anion Gap 6 (5-15); BUN 21 mg/dL (7-18); BUN/Creat Ratio 21.7 RATIO (10-20); Calcium,Total 9.6 mg/dL (8.5-10.1); Chloride 108 mmol/L (98-107); Creatinine, Serum 0.97 mg/dL (0.55-1.02); EST Glomerular Filtration Rate 63 mL/min (>60); Est Glom Filt Rate - Afr Amer 76 mL/min (>60); Free T3 2.6 pg/mL (2.18-3.98); Glucose 101 mg/dL (74-106); Magnesium 2.1 mg/dL (1.6-2.6); Potassium 3.9 mmol/L (3.5-5.1); Sodium Level 139 mmol/L (136-145); T4 Free Direct 1.02 ng/dL (0.76-1.46); Thyroid Stim Hormone (TSH) 0.94 uIU/mL (0.358-3.74)
== END ==
PROVIDERS: PCP Family Medicine; Referring Provider Physician Assistant Medical; Visit Provider Physician Assistant Medical
DX: I48.91 Unspecified atrial fibrillation (principal)
CPT/HCPCS: 36415; 80048; 83735; 84439; 84443; 84481; 85025

== ENCOUNTER 2020-04-05 08:13 | Day surgery (SDC) | payer BC, SELFPAY ==
[2020-03-31 13:24] VITALS: BMI 52.2
[2020-04-05 08:35] VITALS: BP 150/79; PULSE 62; RESP 16; TEMP 36.9; O2SAT 100; BMI 115.2
[2020-04-05] MEDS: Lactated Ringers 1,000 ML 100 ML IV (08:43)
--- NOTE | 2020-04-05 09:15 | IMM_PTH ---
PATIENT: NELLY KHAN LOC: EN U#:[id number] AGE/SX: 59/F ROOM: RE04/05/[address]: Dr. Dutch Bedolla MD : 1960 BED: DIS: 04/05/2020 SPEC #: [id number] RECD: 04/06/20 11:19 STATUS: JOSSY REEmiliana #: [id number] VADIM: 04/05/20 09:[address]: Dutch Bedolla DEPT: IMMUNOHISTOCHEMISTRY RECD BY: Zuri Griffith ENTERED: 04/06/20 11:19 SP TYPE: IMMUNO OTHR DR: Dr. Jordan Butler MD Tissues: Stomach, NOS Procedures: H Pylori (initial) PHYSICIAN & INSTITUTION [place] [id number] SPECIMEN INFORMATION: Tissue Source: Antrum biopsy Clinical Info: Iron deficiency anemia Specimen Number: [id number] CPT code: 68519 METHODOLOGY: Deparaffinized sections of prefer/formalin-fixed tissue or PAP/DQ stained slides are incubated with monoclonal/polyclonal antibodies/oligonucleotide probes. Localization is made via biotin free immunoperoxidase method. Appropriate controls are performed and reacted as expected. Results on target cell population are indicated in the following table: RESULTS: ANTIBODY / CLONE RESULT H Pylori (polyclonal) negative These tests were developed and their performance characteristics determined by [facility]. They may not have been cleared or approved by the U.S. Food and Drug Administration. The FDA has determined that such clearance or approval is not necessary. INTERPRETATION: Antrum, biopsy: Negative for Helicobacter pylori organisms. AM:rufus 04/07/20
--- NOTE | 2020-04-05 09:15 | EGD_PTH ---
PATIENT: NELLY KHAN LOC: EN U#:[id number] AGE/SX: 59/F ROOM: RE04/05/[address]: Dr. Dutch Bedolla MD : 1960 BED: DIS: 04/05/2020 SPEC #: [id number] RECD: 04/05/20 13:30 STATUS: JOSSY RHONDA #: [id number] VADIM: 04/05/20 09:[address]: Dutch Bedolla DEPT: SURGICAL PATHOLOGY RECD BY: Prashant Tabor ENTERED: 04/06/20 09:25 SP TYPE: EGD BIOPSY OTHR DR: Dr. Jordan Butler MD Tissues: Gastric mucous membrane Procedures: Surgery Specimen Level IV HEADER OPERATION: Colonoscopy, EGD ([facility] [place]) PRE-OP DIAGNOSIS: Iron deficiency anemia TISSUE SUBMITTED: Antrum biopsy for histo and H. pylori MICROSCOPIC DIAGNOSIS Gastric antrum, biopsy: Mild chronic gastritis. See comment. AM:rufus 04/07/20 COMMENT The results of immunohistochemistry for Helicobacter pylori will be reported separately ([id number]). MICROSCOPIC DESCRIPTION Slides are reviewed. GROSS DESCRIPTION Received in fixative is one container labeled with the patient's name and designated antrum biopsy. The specimen consists of one irregular fragment of light howe soft tissue that measures 0.7 x 0.2 x 0.1 cm. The specimen is totally submitted in one cassette. / SJ:rg 04/06/20 TC:3 CPT: 92670
--- NOTE | 2020-04-05 09:19 | PCM.HP.BLA ---
History and Physical Date of Admission: 04/05/20 [facility] [address] [place], [place] [id number] OFFICE VISIT Date of Service: 03/31/20 MR#: [id number] Acct: [id number] Name: NELLY KHAN Rep #: [id number] : 1960 Provider: Dr. 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 Is patient in pain?: No Allergies metoprolol Adverse Reaction (Severe, Verified 04/01/20 16:00) Fatigue, weigt gain Medications rivaroxaban 20 mg tablet 20 mg PO DAILY 07/30/18 [History Confirmed 04/01/20] allopurinol 100 mg tablet 100 mg PO DAILY 04/23/19 [History Confirmed 04/01/20] dofetilide 250 mcg capsule 250 mcg PO BID 04/23/19 [History Confirmed 04/01/20] ferrous sulfate 324 mg (65 mg iron) tablet,delayed release 324 mg PO BID 03/23/20 [History Confirmed 04/01/20] diltiazem HCl 240 mg capsule,extended release 24 hr, controlled 240 mg PO DAILY #30 cap 03/24/20 [Rx Confirmed 04/01/20] atenolol 50 mg tablet 50 mg PO DAILY 03/31/20 [History Confirmed 04/01/20] vitamin B complex 1 tab PO DAILY 03/31/20 [History Confirmed 04/01/20] [facility] Medical History Nonrheumatic tricuspid valve regurgitation (Chronic) Nonrheumatic mitral (valve) insufficiency (Chronic) Hypertension (Chronic) Kidney stones (Acute) Sepsis (Acute) Body mass index (BMI) 35 or more (Chronic) Unruly's thyroiditis (Chronic) History of cardioversion (Chronic ~11/2016) Iron deficiency anemia (Chronic) Obstructive sleep apnea (Chronic) Paroxysmal atrial fibrillation (Chronic) Acute pyelonephritis (Resolved) Left ureteral calculus (Resolved) Anemia (Inactive) Surgical History Status post radiofrequency ablation (RFA) operation for arrhythmia (Chronic ~09/21/17) H/O nephrolithotomy with removal of calculi (Acute) History of right knee joint replacement (Acute) History of (Resolved) History of tonsillectomy (Resolved) Family History Father Afib Social History (Updated 04/02/20 @ 16:[address] Dutch Bedolla MD) Smoking Status: Never smoker alcohol intake: never HPI HPI HPI: NELLY KHAN, is a 59 F who presents to the office today for Evaluation for gallstones as well as anemia. Patient has a longstanding history of atrial fibrillation she failed the DC cardioversion. She underwent a СВЕТЛАНА guided cardioversion subsequently a double transseptal puncture.She has a history of anemia and her hemoglobin was 7.9 and her last scopes were in 2015. Her oncologist called me and thought that she would benefit from having repeat endoscopy to make sure that there is absolutely nothing going on in her upper or lower intestines. Patient has been getting bloated having some upper abdominal discomfort she has been having more discomfort particularly when she eats vegetables. She had a CAT scan of her abdomen and pelvis in January 2019 which showed multiple gallstones being present. ROS General General: Yes weight change and fatigue; no appetite, colon cancer, breast cancer or weakness HEENT HEENT: No difficulty swallowing, eye injury, eye surgery, swollen glands or hoarseness Endo Endocrine: No thyroid disease, diabetes mellitus, thyroid cancer, Hair loss, heat intolerance or cold intolerance Skin Skin: No rash or changing moles Breast Breast: No left breast lump, right breast lump, nipple discharge, breast pain, abnormal mammogram, abnormal US or breast enlargement Musc Musculoskeletal: Yes back problems and gout; no arthritis, rheumatoid arthritis or joint pain Cardio Cardiovascular: Yes atrial fibrillation; no murmur, pacemaker, heart disease, high blood pressure, heart attack, heart stent, palpitations, shortness of breat with exertion or chest pain Psych Psychiatric: Yes anxiety; no depression or hearing voices Resp Respiratory: No shortness of breath, No sleep apnea, No cough, No COPD, No asthma, No emphysema, No wheezing Gastro Gastrointestinal: No abdominal pain, No nausea or vomiting, Yes diarrhea, No constipation, No blood in stool, No acid reflux, No hemorrhoids, No ulcers, Yes gallbladder problem, No black,tarry stools Hernandez Hematologic: Yes blood thinners, No blood disorders, No bleeding, Yes anemia, No blood clots Neuro Neurologic: No system reviewed and no additional complaints, except as docu, No as per HPI, No abnormal walking, No abnormal hearing, No abnormal movements, No abnormal speech, No behavioral changes, No burning sensations, No confusion, No seizure-like activity, No unsteadiness, No dizziness, No localized weakness, No frequent falls, No headache(s), No lack of coordination, No loss of vision, No memory loss, No numbness, No other visual disturbances, No radiating pain, No restless legs, No sensory deficit, No fainting, No tingling, No tremor(s), No weakness, No other Exam Const General: no acute distress, well developed, well hydrated Orientation: oriented to person, oriented to place, oriented to time [facility] Head: normocephalic, atraumatic Ears: external ears normal Mouth: moist mucous membranes Eyes Sclera: sclerae normal Pupils: normal by confrontation Neck Neck: no lymphadenopathy noted Neck mass: No Thyroid: thyroid normal, symmetrical Chest Chest palpation & inspection: normal inspection of the chest Breast Palpation: No nipple discharge Resp Effort & Inspection: normal respiratory effort Auscultation: clear to auscultation bilaterally Percussion: percussion normal Cardio Rate: regular rate Rhythm: regular rhythm Heart Sounds: no murmurs GI Palpation: soft, no hepatosplenomegaly, no masses, tender Auscultation: normal bowel sounds Rectal Exam: other Other: Rectal exam deferred. Extrem General: normal to inspection, no clubbing, cyanosis or edema Assessment & Plan Problems 1. Iron deficiency anemia, unspecified iron deficiency anemia type D50.9 2. Calculus of gallbladder with chronic cholecystitis without obstruction K80.10 Plan I have discussed the above with the patient. I have offered the patient colonoscopy As well as an EGDfor evaluation. I have explained the risks/benefits of the procedure and described the procedure. I have discussed the risks with the patient, including but not limited to: infection, bleeding, perforation of the GI tract requiring emergency surgery, inability to complete the procedure, injury to any internal organs, complications of anesthesia, etc. - the patient understands and agrees to proceed. I have answered all the patient's questions to the patient's satisfaction and the patient has no further questions. The patient has been given instructions for the colon cleansing preparation. After her work-up for the anemia I will see her back. Reviewed the anatomy with the patient and discussed the procedure: laparoscopic cholecystectomy with possible cholangiograms, possible open. Review risks including but not limited to bleeding, infection, hernia, bile leak, retained gallstones requiring another procedure ERCP- Endoscopic Retrograde Cholangiopancreatography, injury to another organ (bile ducts, common bile duct, small bowel, etc.) and conversion to an open procedure. All questions were answered. Coding Level of Care Code Off vis,new,level 3 Diagnoses Iron deficiency anemia, unspecified iron deficiency anemia type D50.9 ??Anemia type: iron deficiency ??Iron deficiency anemia type: unspecified iron deficiency Calculus of gallbladder with chronic cholecystitis without obstruction K80.10 ??Cholelithiasis location: gallbladder ??Cholecystitis acuity: chronic 04/02/20 1601 <Electronically signed by Dutch Bedolla MD> Date Dutch Bedolla MD Cosigner Signature: Date (if applicable) CC: Dr. Jordan Cash, DO; Dr. Jordan Butler MD ~ I have re-examined the patient. There are no clinical changes since date of exam.
--- NOTE | 2020-04-05 09:58 | OP.EGD_ITS ---
Patient Name: Nabila Cardona Procedure Date: 04/05/2020 9:29 AM Date of : 1960 Age: 59 Procedure: Upper GI endoscopy Indications: Iron deficiency anemia Providers: Dutch Bedolla MD Referring MD: Jordan Butler MD Medicines: See the Anesthesia note for documentation of the administered medications Patient Profile: This is a 59 year old female. Refer to note in patient chart for documentation of history and physical. Complications: No immediate complications. Procedure: Pre-Anesthesia Assessment: - Prior to the procedure, a History and Physical was performed, and patient medications and allergies were reviewed. The patient's tolerance of previous anesthesia was also reviewed. The risks and benefits of the procedure and the sedation options and risks were discussed with the patient. All questions were answered, and informed consent was obtained. Prior Anticoagulants: The patient has taken Xarelto (rivaroxaban), last dose was 7 days prior to procedure. ASA Grade Assessment: III - A patient with severe systemic disease. After reviewing the risks and benefits, the patient was deemed in satisfactory condition to undergo the procedure. After obtaining informed consent, the endoscope was passed under direct vision. Throughout the procedure, the patient's blood pressure, pulse, and oxygen saturations were monitored continuously. The gastroscope was introduced through the mouth, and advanced to the second part of duodenum. The upper GI endoscopy was accomplished without difficulty. The patient tolerated the procedure well. Scope In: 9:39:22 AM Scope Out: 9:42:35 AM Total Procedure Duration Time 0 hours 3 minutes 13 seconds Findings: A medium-sized hiatal hernia was present. No biopsies or other specimens were collected for this exam. The entire examined stomach was normal. Biopsies were taken with a cold forceps for Helicobacter pylori testing. The examined duodenum was normal. No biopsies or other specimens were collected for this exam. Impression: - Medium-sized hiatal hernia. No specimens collected. - Normal stomach. Biopsied. - Normal examined duodenum. No specimens collected. Recommendation: - Discharge patient to home. - Resume previous diet. - Continue present medications. - Await pathology results. - Repeat upper endoscopy (date not yet determined) for surveillance. - Return to my office in 1 week. Procedure Code(s): --- Professional --- 14639, Esophagogastroduodenoscopy, flexible, transoral; with biopsy, single or multiple Diagnosis Code(s): --- Professional --- K44.9, Diaphragmatic hernia without obstruction or gangrene D50.9, Iron deficiency anemia, unspecified CPT copyright 2017 [employer]. All rights reserved. The codes documented in this report are preliminary and upon operating manager review may be revised to meet current compliance requirements. MD Dutch Marrero MD 04/05/2020 9:58:20 AM This report has been signed electronically. Number of Addenda: 0 Note Initiated On: 04/05/2020 9:29 AM
--- NOTE | 2020-04-05 09:58 | OP.CCLET_ITS ---
04/05/2020 Jordan Butler MD [address] [id number] Re : Upper GI endoscopy procedure for Nabila Cardona Dear Dr. Butler This procedure was performed on Sunday, April 05, 2020. My impressions and recommendations are as follows: Impressions : - Medium-sized hiatal hernia. No specimens collected. - Normal stomach. Biopsied. - Normal examined duodenum. No specimens collected. Recommendations : - Discharge patient to home. - Resume previous diet. - Continue present medications. - Await pathology results. - Repeat upper endoscopy (date not yet determined) for surveillance. - Return to my office in 1 week. My findings are described in the full procedure note, which is enclosed. If I can be of further assistance, please feel free to contact me at Doctor phone number(s): , Fax: [phone], Work: . Sincerely, MD Dutch Marrero MD 04/05/2020 9:58:20 AM This report has been signed electronically.
[2020-04-05 10:00] VITALS: BP 106/59; BP 150/79; PULSE 54; RESP 18; TEMP 36.5; O2SAT 99
--- NOTE | 2020-04-05 10:01 | OP.CCLET_ITS ---
04/05/2020 Jordan Butler MD [address] [phone] Re : Colonoscopy procedure for Nabila Cardona Dear Dr. Butler This procedure was performed on Sunday, April 05, 2020. My impressions and recommendations are as follows: Impressions : - The examined portion of the ileum was normal. - Non-bleeding internal hemorrhoids. No specimens collected. - Diverticulosis in the sigmoid colon and in the descending colon. No specimens collected. - The examination was otherwise normal. Recommendations : - Discharge patient to home. - Resume previous diet. - Continue present medications. - Repeat colonoscopy in 10 years for screening purposes. - Return to my office in 1 week. My findings are described in the full procedure note, which is enclosed. If I can be of further assistance, please feel free to contact me at Doctor phone number(s): , Fax: [phone], Work: . Sincerely, MD Dutch Marrero MD 04/05/2020 10:00:55 AM This report has been signed electronically.
--- NOTE | 2020-04-05 10:01 | OP.COLON_ITS ---
Patient Name: Nabila Cardona Procedure Date: 04/05/2020 9:43 AM Date of : 1960 Age: 59 Procedure: Colonoscopy Indications: Iron deficiency anemia Providers: Dutch Bedolla MD Referring MD: Jordan Butler MD Medicines: See the Anesthesia note for documentation of the administered medications Patient Profile: This is a 59 year old female. Refer to note in patient chart for documentation of history and physical. Last Colonoscopy: 2015. Complications: No immediate complications. Procedure: Pre-Anesthesia Assessment: - Prior to the procedure, a History and Physical was performed, and patient medications and allergies were reviewed. The patient's tolerance of previous anesthesia was also reviewed. The risks and benefits of the procedure and the sedation options and risks were discussed with the patient. All questions were answered, and informed consent was obtained. Prior Anticoagulants: The patient has taken Xarelto (rivaroxaban), last dose was 7 days prior to procedure. ASA Grade Assessment: III - A patient with severe systemic disease. After reviewing the risks and benefits, the patient was deemed in satisfactory condition to undergo the procedure. After I obtained informed consent, the scope was passed under direct vision. Throughout the procedure, the patient's blood pressure, pulse, and oxygen saturations were monitored continuously. The colonoscope was introduced through the anus and advanced to the terminal ileum. The colonoscopy was performed without difficulty. The patient tolerated the procedure well. The quality of the bowel preparation was good. Scope In: 9:44:52 AM Scope Withdrawal Time 0 hours 6 minutes 6 seconds Scope Out: 9:54:28 AM Total Procedure Duration Time 0 hours 9 minutes 36 seconds Findings: The terminal ileum appeared normal. Non-bleeding internal hemorrhoids were found during retroflexion. The hemorrhoids were moderate and medium-sized. No biopsies or other specimens were collected for this exam. Multiple small and large-mouthed diverticula were found in the sigmoid colon and descending colon. No biopsies or other specimens were collected for this exam. The exam was otherwise without abnormality. Impression: - The examined portion of the ileum was normal. - Non-bleeding internal hemorrhoids. No specimens collected. - Diverticulosis in the sigmoid colon and in the descending colon. No specimens collected. - The examination was otherwise normal. Recommendation: - Discharge patient to home. - Resume previous diet. - Continue present medications. - Repeat colonoscopy in 10 years for screening purposes. - Return to my office in 1 week. Procedure Code(s): --- Professional --- 48131, Colonoscopy, flexible; diagnostic, including collection of specimen(s) by brushing or washing, when performed (separate procedure) Diagnosis Code(s): --- Professional --- K64.8, Other hemorrhoids D50.9, Iron deficiency anemia, unspecified K57.30, Diverticulosis of large intestine without perforation or abscess without bleeding CPT copyright 2017 [employer]. All rights reserved. The codes documented in this report are preliminary and upon store sales consultant review may be revised to meet current compliance requirements. MD Dutch Marrero MD 04/05/2020 10:00:55 AM This report has been signed electronically. Number of Addenda: 0 Note Initiated On: 04/05/2020 9:43 AM
[2020-04-05 10:05] VITALS: BP 104/90; BP 150/79; PULSE 51; RESP 18; O2SAT 98
[2020-04-05 10:10] VITALS: BP 121/50; BP 150/79; PULSE 51; O2SAT 96
[2020-04-05 10:16] VITALS: BP 115/63; BP 150/79; PULSE 59; RESP 18; TEMP 36.3; O2SAT 96
[2020-04-05 10:35] VITALS: BP 150/79
== END 2020-04-05 11:01 | disposition home or self-care (01) ==
LOC: EN 08:14 → AC 08:15
PROVIDERS: PCP Family Medicine; Referring Provider Family Medicine; Visit Provider Surgery
PROC: 0DJD8ZZ Inspection of Lower Intestinal Tract, Via Natural or Artificial Opening Endoscopic (ICD-10-PCS; CPT 45378; principal; 2020-04-05 09:10)
DX: D50.9 Iron deficiency anemia, unspecified (principal); K44.9 Diaphragmatic hernia without obstruction or gangrene; K57.30 Diverticulosis of large intestine without perforation or abscess without bleeding; K29.50 Unspecified chronic gastritis without bleeding; K64.8 Other hemorrhoids; K80.10 Calculus of gallbladder with chronic cholecystitis without obstruction; I48.0 Paroxysmal atrial fibrillation; I10 Essential (primary) hypertension; E06.3 Autoimmune thyroiditis; E78.00 Pure hypercholesterolemia, unspecified; G47.33 Obstructive sleep apnea (adult) (pediatric); F41.9 Anxiety disorder, unspecified; Z79.01 Long term (current) use of anticoagulants; Z79.899 Other long term (current) drug therapy; Z96.651 Presence of right artificial knee joint; Z11.59 Encounter for screening for other viral diseases
CPT/HCPCS: 43239; 45378; 87635; 88305; 88342; G2023; J7120; J2405; U0002

== ENCOUNTER 2020-06-09 16:37 | Outpatient (RCR) | payer BC, SELFPAY ==
[2020-05-26 10:04] VITALS: BMI 52.2
[2020-06-09 17:55] LABS: Prothrombin Time (Protime)PT. 12.6 SECONDS (11.7-14.9)
== END 2020-06-09 18:00 | disposition home or self-care (01) ==
LOC: MTLAB 16:37
PROVIDERS: PCP Family Medicine; Referring Provider Internal Medicine Hematology & Oncology; Visit Provider Internal Medicine Hematology & Oncology
DX: Z01.818 Encounter for other preprocedural examination (principal)
CPT/HCPCS: 36415; 85610

== ENCOUNTER 2020-06-11 08:39 | Day surgery (SDC) | payer BC, SELFPAY ==
[2020-04-15 15:22] VITALS: BMI 52.2
[2020-05-26 10:04] VITALS: BMI 52.2
--- NOTE | 2020-05-26 10:39 | HP_ITS ---
Intake Vital Signs 05/26/20 BMI 52.2 05/26/20 Height 5 ft 6 in 05/26/20 BP 126/84 H 05/26/20 Blood Pressure Location Rt radial 05/26/20 Position Sitting 05/26/20 Respiration 18 05/26/20 Temp 97.2 F L 05/26/20 Temp Source Temporal Intake Visit Reasons: DISCUSS SURGERY GALLBLADDER Chief Complaint: R Knee Effusion S/P Right total knee Replacement Opthalmic Tech Required: No Is patient in pain?: No Allergies metoprolol Adverse Reaction (Severe, Verified 05/26/20 10:04) Fatigue, weigt gain Medications allopurinol 100 mg tablet 100 mg PO DAILY 04/23/19 [History Confirmed 05/26/20] atenolol 50 mg tablet 50 mg PO DAILY #90 tab 04/15/20 [Rx Confirmed 05/26/20] diltiazem HCl 120 mg capsule,extended release 24 hr, controlled 120 mg PO DAILY #90 cap 04/15/20 [Rx Confirmed 05/26/20] dofetilide 250 mcg capsule 250 mcg PO BID #180 cap 04/15/20 [Rx Confirmed 05/26/20] rivaroxaban 20 mg tablet 20 mg PO DAILY #90 tab 04/15/20 [Rx Confirmed 05/26/20] vitamin B complex 1 tab PO .qod tab 05/26/20 [History Confirmed 05/26/20] [facility] Medical History Nonrheumatic tricuspid valve regurgitation (Chronic) Nonrheumatic mitral (valve) insufficiency (Chronic) Hypertension (Chronic) Kidney stones (Acute) Sepsis (Acute) Body mass index (BMI) 35 or more (Chronic) Unruly's thyroiditis (Chronic) History of cardioversion (Chronic ~11/2016) Iron deficiency anemia (Chronic) Obstructive sleep apnea (Chronic) Paroxysmal atrial fibrillation (Chronic) Acute pyelonephritis (Resolved) Left ureteral calculus (Resolved) Anemia (Inactive) Surgical History Status post radiofrequency ablation (RFA) operation for arrhythmia (Chronic ~09/21/17) H/O nephrolithotomy with removal of calculi (Acute) History of right knee joint replacement (Acute) History of (Resolved) History of tonsillectomy (Resolved) Family History Father Afib Social History Smoking Status: Never smoker alcohol intake: never HPI HPI Surgical H&P: Yes HPI: NELLY KHAN, is a 59 F who presents to the office today for Follow-up from an endoscopy. Patient had a upper and lower scope for anemia completed was [facility] on 04/05/2020. I biopsied her stomach she had some chronic gastritis which was H. pylori negative she also had a mid sized hiatal hernia her colonoscopy was uneventful she did have some nonbleeding internal hemorrhoids and diverticulosis and her terminal ileum looked normal. I initially saw the patient back on 03/31/2020 at that time she had cholelithiasis with a CAT scan showing multiple gallstones being present. Her symptoms are primarily epigastric pain that does go into her back. Is particularly worse when she has been eating fatty foods. She has lessened her symptoms by changing her diet but has not eliminated her symptoms completely. And our plan at this point is to do a laparoscopic cholecystectomy on her. ROS General General: Yes weight change and fatigue; no appetite, colon cancer, breast cancer or weakness HEENT HEENT: No difficulty swallowing, eye injury, eye surgery, swollen glands or hoarseness Endo Endocrine: No thyroid disease, diabetes mellitus, thyroid cancer, Hair loss, heat intolerance or cold intolerance Skin Skin: No rash or changing moles Breast Breast: No left breast lump, right breast lump, nipple discharge, breast pain, abnormal mammogram, abnormal US or breast enlargement Musc Musculoskeletal: Yes back problems and gout; no arthritis, rheumatoid arthritis or joint pain Cardio Cardiovascular: Yes atrial fibrillation; no murmur, pacemaker, heart disease, high blood pressure, heart attack, heart stent, palpitations, shortness of breat with exertion or chest pain Psych Psychiatric: Yes anxiety; no depression or hearing voices Resp Respiratory: No shortness of breath, No sleep apnea, No cough, No COPD, No asthma, No emphysema, No wheezing Gastro Gastrointestinal: No abdominal pain, No nausea or vomiting, Yes diarrhea, No constipation, No blood in stool, No acid reflux, No hemorrhoids, No ulcers, Yes gallbladder problem, No black,tarry stools Hernandez Hematologic: Yes blood thinners, No blood disorders, No bleeding, Yes anemia, No blood clots Neuro Neurologic: No weakness Exam Const General: no acute distress, well developed, well hydrated Orientation: oriented to person, oriented to place, oriented to time [facility] Head: normocephalic, atraumatic Ears: external ears normal Mouth: moist mucous membranes Eyes Sclera: sclerae normal Pupils: normal by confrontation Neck Neck: no lymphadenopathy noted Neck mass: No Thyroid: thyroid normal, symmetrical Chest Chest palpation & inspection: normal inspection of the chest Breast Palpation: No nipple discharge Resp Effort & Inspection: normal respiratory effort Auscultation: clear to auscultation bilaterally Percussion: percussion normal Cardio Rate: regular rate Rhythm: regular rhythm Heart Sounds: no murmurs GI Inspection: obesity Palpation: soft, no hepatosplenomegaly, no masses, nontender Rectal Exam: other Other: Rectal exam deferred. Extrem General: normal to inspection, no clubbing, cyanosis or edema Assessment & Plan Problems 1. Calculus of gallbladder with chronic cholecystitis without obstruction K80.10 2. Epigastric abdominal pain R10.13 Plan Reviewed the anatomy with the patient and discussed the procedure: laparoscopic cholecystectomy with possible cholangiograms, possible open. Review risks including but not limited to bleeding, infection, hernia, bile leak, retained gallstones requiring another procedure ERCP- Endoscopic Retrograde Cholangiopancreatography, injury to another organ (bile ducts, common bile duct, small bowel, etc.) and conversion to an open procedure. All questions were answered. In addition the patient knows that she has an increased risk of blood clots heart attacks pneumonia strokes pulmonary embolus up to and including . Patient will be off of her Xarelto for 5 days. Coding Level of Care Code Off vis,est,level 3 Diagnoses Calculus of gallbladder with chronic cholecystitis without obstruction K80.10 ??Cholelithiasis location: gallbladder ??Cholecystitis acuity: chronic Epigastric abdominal pain R10.13 COVID (Procedure Consent) Procedure Criteria Procedure Criteria: Yes Elective The surgeon/proceduralist and patient have discussed in detail the risk of exposure to and/or potential harm posed by the COVID-19 virus with having a surgery/procedure at this time versus the risk of? delaying the surgery/procedure. It is not possible to know either the risk of delaying the surgery or procedure or chance of getting an infection with perfect accuracy, but a joint decision was made between the patient and the surgeon/proceduralist ?to proceed at this time with the scheduled surgery/procedure as indicated on the consent form. Date _ Dutch Bedolla MD I have re-examined the patient. There are no clinical changes since date of exam.
[2020-06-02 16:22] LABS: Absolute Neutrophil Count 3.3 X10^3/uL (2.0-7.7); Basophil# 0.02 X10^3/uL; Basophil% 0.4 % (0-1); Eosinophil# 0.23 X10^3/uL; Eosinophils% 4.7 % (0-5); Hematocrit 40.6 % (37-47); Lymphocyte % 18.3 % (19-41); Mean Corp Hgb Conc 29.6 g/dL (32-36); Mean Corpuscular Hgb 27.1 pg (27.0-32.0); Mean Corpuscular Volume 91.9 fL (81-99); Mean Platelet Vol. 12.2 fl (6.2-12.0); Monocyte# 0.44 X10^3/uL; NRBC Flagged by Analyzer 0 % (0-5); Neutrophil # 3.31 X10^3/uL (2.7-7.7); Neutrophil % 67.4 % (47-70); Platelet Count 241 K/mm3 (150-450); RBC Distribution Width CV 16.2 % (11.6-14.6); RBC Distribution Width SD 54.8 fl (35.1-43.9); Red Blood Count 4.42 M/mm3 (4.2-5.4); White Blood Count 4.9 K/mm3 (4.4-11.0)
[2020-06-02 16:29] LABS: Partial Thromboplast Time 35.8 Seconds (24.1-36.2); Prothrombin Time (Protime)PT. 21.7 SECONDS (11.7-14.9)
[2020-06-02 16:43] LABS: Anion Gap 7 (5-15); BUN 25 mg/dL (7-18); BUN/Creat Ratio 24.8 RATIO (10-20); Calcium,Total 8.8 mg/dL (8.5-10.1); Chloride 112 mmol/L (98-107); Creatinine, Serum 1.01 mg/dL (0.55-1.02); EST Glomerular Filtration Rate 60 mL/min (>60); Est Glom Filt Rate - Afr Amer 72 mL/min (>60); Ferritin 28 ng/mL (8-252); Glucose 99 mg/dL (74-106); Iron 42 ug/dL (50-170); Iron Binding Capacity,Total 377 ug/dL (250-450); PERCENT IRON SATURATION 11.1 % (15.0-55.0); Potassium 4.7 mmol/L (3.5-5.1); Sodium Level 142 mmol/L (136-145)
[2020-06-11] VITALS (12 sets, daily range): BP systolic 124–159; BP diastolic 59–108; PULSE 52–68; RESP 16–20; TEMP 36.3–37.4; O2SAT 91–100; BMI 51.7
--- NOTE | 2020-06-11 | GALL_PTH ---
PATIENT: NELLY [place]HAN [place] [facility] [place][id number] AGE/SX: 59/F ROOM: RE06/11/[address]: Dr. Dutch Bedolla MD : 1960 BED: DIS: 06/11/2020 SPEC #: [id number] RECD: 06/11/20 13:03 STATUS: JOSSY RHONDA #: [id number] VADIM: 06/11/20 00:[address]: Dutch Bedolla DEPT: SURGICAL PATHOLOGY RECD BY: Joselito Azul ENTERED: 06/11/20 13:03 SP TYPE: KENNETH ALEXANDRE DR: MD Dr. Lourdes Del Cid MD Dr. Paul Nielsen, MD Tissues: Gallbladder, NOS Procedures: Surgery Specimen Level III HEADER OPERATION: Laparoscopic cholecystectomy PRE-OP DIAGNOSIS: Calculus of gallbladder with chronic cholecystitis; epigastric abdominal pain TISSUE SUBMITTED: Gallbladder MICROSCOPIC DIAGNOSIS Gallbladder, cholecystectomy: Cholesterolosis, mild chronic cholecystitis and cholelithiasis. AM:rufus 06/14/20 MICROSCOPIC DESCRIPTION Slides are reviewed. GROSS DESCRIPTION Received is one container labeled with the patient's name and designated gallbladder. The specimen consists of a gallbladder measuring 10.5 cm in length and up to 5 cm in diameter. The external surface is pink-howe, smooth and glistening for the most part. Focally it is granular, hemorrhagic and contains cautery artifact. The gallbladder contains green-yellow mucoid bile and multiple greenish-brown multifaceted stones measuring in aggregate 6 x 6.5 x 2.5 cm and 0.5 to 1 cm in greatest dimension. The mucosa is bile-stained and without any mass lesions. The gallbladder wall measures up to 0.2 cm in thickness. The mucosa also shows several yellowish streaks consistent with cholesterolosis. Thread Separator sections from the gallbladder and the cystic duct are submitted in one cassette. / SJ:rufus 06/11/20 TC:3 CPT: 25946
[2020-06-11] MEDS: Lactated Ringers 1,000 ML 100 ML IV ×2 (09:30→11:40)
[2020-06-11] MEDS: Cefazolin 2 GM in 0.9% Normal Saline 100 ML IV (10:21)
[2020-06-11] MEDS: Bupivacaine Mpf 0.5% 30 ML VIAL (10:41)
--- NOTE | 2020-06-11 14:49 | SUR.PHASEII ---
HAS HAD NAUSEA SINCE RETURN TO ROOM FROM PACU. STATES SHE HAS DRY HEAVES. NO EMESIS SEEN. DR. BECKER NOTIFIED AT 1350. SCOPOLAMINE PATCH APPLIED AT 1405. PATIENT'S MOTHER WENT HOME AND RETURNED WITH THE PATIENT'S BIPAP MACHINE. BENADRYL 25 MG IV AND REGLAN 10 MG IV GIVEN AT 1430. PATIENT IS WEARING HER BIPAP.
--- NOTE | 2020-06-11 15:31 | DCINST_ITS ---
Discharge Diet: Light diet - advance as tolerated Discharge Activity: May Not Drive - for 2-3 days or while taking narcotic pain medications., - - Do not drive, work heavy equipment or sign legal documents for 24 hours. May shower in (days): 1 - with the bandage in place. Additional Activity Instructions:: Pain medication may cause nausea. You should typically eat light foods as you take your pain medications. Pain medication may also cause constipation. If this is a problem for you, please discuss with your doctor. Call your doctor if your incision/area has: Continuous Slow Oozing, Sudden Increased Bleeding, Increased Pain/ Swelling, Increased Redness, Foul Smelling Discharge Call your doctor if you observe: Fever of 101 or Higher Suture Line Care: Avoid Pulling/Pushing, Avoid Pinching/Bending Additional Dressing/Incision Instructions:: Leave operative bandaids on for 2 days. When you remove dressing, leave Steri-Strips on until your follow-up appointment, or until the Steri-Strips fall off on their own. Allergies/Adverse Reactions: Allergies metoprolol Adverse Reaction (Severe, Verified 06/11/20 08:54) Fatigue, weigt gain Medications to take at Discharge allopurinol 100 mg tablet 100 mg PO DAILY 04/23/19 dofetilide 250 mcg capsule 250 mcg PO BID #180 cap 04/15/20 rivaroxaban 20 mg tablet 20 mg PO DAILY #90 tab 04/15/20 vitamin B complex 1 tab PO .qod tab 05/26/20 Atenolol 50 mg PO 1600 06/02/20 Diltiazem HCl [Diltiazem 24Hr ER (Xr)] 120 mg PO 1300 06/02/20 Primary Care Physician: Jordan Butler MD [Primary Care Provider] - Test Results: Test results from this visit will be discussed in further detail at your follow- up appointment, if applicable. Please Follow Up With: Dutch Bedolla MD - Please call [phone] to schedule an appointment. When: 7 days after your surgery.
--- NOTE | 2020-06-11 18:48 | OP.PCM_ITS ---
Problem List (1) Calculus of gallbladder Status: Acute Qualifiers: Cholecystitis presence: with cholecystitis Cholecystitis acuity: chronic Biliary obstruction: without biliary obstruction Qualified Code(s): K80.10 - Calculus of gallbladder with chronic cholecystitis without obstruction Report of Operation Date of Procedure: 06/11/20 Pre-Operative Diagnosis: Calculus of the gallbladder. Epigastric pain Post-Operative Diagnosis: Same Surgery/Procedure Performed:: Laparoscopic cholecystectomy Type of Anesthesia:: General Anesthesiologist: Rito Chand Specimen's removed: Gallbladder Estimated Blood Loss (mL): < 25 cc Description of Procedure: Patient was brought in the operating room. Placed in the supine position. Under excellent general trach intubation the abdomen was sterilely prepped and draped in usual fashion. Local was injected supraumbilically. Incision was carried down to the fascia. The fascia grasped with a Kayode. Varies needle was placed inside the abdomen. The abdomen was insufflated to 15 torr. A 10/12 trocar was placed without difficulty. Patient was placed in the head up and rotated to the left position. Subxiphoid #5 trocar was placed, inferior to this another #5 trocar was placed, laterally a #5 trocar was placed. All these were placed under direct visualization without injury to underlying structures. Fundus of the gallbladder was grasped retracted in cephalad direction. I dissected out the cystic duct and the cystic artery and posterior to the liver. Once I had the anatomy identified I placed 2 hemoclips proximally and distally on the duct and ligated the duct. I placed 2 hemo-lock clips proximally on the artery and 1 distally and ligated the artery. I deliver the gallbladder from the gallbladder bed with use of electrocautery. Placed a specimen specimen bag and delivered through the umbilical port. I inspected the right upper quadrant good mistakes was noted. I remove the trochars under direct visualization good mistakes was noted. Closed the fascia the umbilical port with a [id number] stitch of 0 Vicryl. Skin incisions were closed with subcuticular stitches of 4- 0 Monocryl. Steri-Strips were applied sterile dressings were applied and the patient tolerated the procedure well. - Admit VTE Documentation VTE Present on Admission: No VTE Mechan Device Prophylaxis: SCD's VTE Pharm Prophylaxis ordered?: No Reason prophylaxis not ordered:: Treatment Not Indicated [id number]: [id number] Laparoscopic cholecystectomy
== END 2020-06-11 16:50 | disposition home or self-care (01) ==
LOC: SDC 08:40 → AC 08:46
PROVIDERS: Anesthesiology; PCP Family Medicine; Referring Provider Surgery; Visit Provider Surgery
PROC: (CPT 47562; principal; 2020-06-11 10:25)
DX: K80.11 Calculus of gallbladder with chronic cholecystitis with obstruction (principal); Z11.59 Encounter for screening for other viral diseases; Z79.899 Other long term (current) drug therapy; G47.33 Obstructive sleep apnea (adult) (pediatric); I48.0 Paroxysmal atrial fibrillation; E06.3 Autoimmune thyroiditis; I10 Essential (primary) hypertension; D50.9 Iron deficiency anemia, unspecified; Z79.01 Long term (current) use of anticoagulants
CPT/HCPCS: 47562; 36415; 80048; 82728; 83540; 83550; 85025; 85610; 85730; 87635; 88304; G2023; J7120; J2405; U0003

== ENCOUNTER → 2020-06-23 14:03 | Outpatient (CLI) | payer BC, SELFPAY ==
[2020-06-11 09:17] VITALS: BMI 51.7
[2020-06-23 14:33] VITALS: BP 153/84; PULSE 57; RESP 16; TEMP 36.5; O2SAT 99; BMI 50.8
[2020-06-23 15:13] VITALS: BP 152/53; PULSE 55; RESP 18; TEMP 36.3; O2SAT 100
== END ==
PROVIDERS: PCP Family Medicine; Referring Provider Internal Medicine Hematology & Oncology; Visit Provider Internal Medicine Hematology & Oncology
DX: D50.9 Iron deficiency anemia, unspecified (principal); K90.9 Intestinal malabsorption, unspecified
CPT/HCPCS: 96365; J1756

== ENCOUNTER → 2020-06-24 12:54 | Outpatient (CLI) | payer BC, SELFPAY ==
[2020-06-11 09:17] VITALS: BMI 51.7
[2020-06-23 14:33] VITALS: BMI 50.8
[2020-06-24 13:29] VITALS: BP 139/66; PULSE 54; RESP 16; TEMP 36.6; O2SAT 98; BMI 50.8
== END ==
PROVIDERS: PCP Family Medicine; Referring Provider Internal Medicine Hematology & Oncology; Visit Provider Internal Medicine Hematology & Oncology
DX: D50.9 Iron deficiency anemia, unspecified (principal); K90.9 Intestinal malabsorption, unspecified
CPT/HCPCS: 96365; J1756; J7050; A4216

== ENCOUNTER → 2020-06-25 15:21 | Outpatient (CLI) | payer BC, SELFPAY ==
[2020-06-11 09:17] VITALS: BMI 51.7
[2020-06-24 13:29] VITALS: BMI 50.8
[2020-06-25 15:45] VITALS: BP 120/79; PULSE 55; RESP 16; TEMP 36.2; BMI 34.7
[2020-06-25 16:56] VITALS: BP 139/71; PULSE 73
== END ==
PROVIDERS: PCP Family Medicine; Referring Provider Internal Medicine Hematology & Oncology; Visit Provider Internal Medicine Hematology & Oncology
DX: D50.9 Iron deficiency anemia, unspecified (principal); K90.9 Intestinal malabsorption, unspecified
CPT/HCPCS: 96365; J1756; A4216

== ENCOUNTER → 2020-06-30 10:21 | Outpatient (CLI) | payer BC, SELFPAY ==
[2020-06-11 09:17] VITALS: BMI 51.7
[2020-06-25 15:45] VITALS: BMI 34.7
[2020-06-30 10:45] VITALS: BP 134/75; PULSE 52; RESP 16; O2SAT 99; BMI 50.1
== END ==
PROVIDERS: PCP Family Medicine; Referring Provider Internal Medicine Hematology & Oncology; Visit Provider Internal Medicine Hematology & Oncology
DX: D50.9 Iron deficiency anemia, unspecified (principal); K90.9 Intestinal malabsorption, unspecified
CPT/HCPCS: 96365; J1756; J7050; A4216

== ENCOUNTER → 2020-07-01 15:23 | Outpatient (CLI) | payer BC, SELFPAY ==
[2020-06-11 09:17] VITALS: BMI 51.7
[2020-06-30 10:45] VITALS: BMI 50.1
[2020-07-01 15:29] VITALS: BP 141/96; PULSE 55; RESP 16; TEMP 36.6; O2SAT 99; BMI 50.1
[2020-07-01 16:31] VITALS: BP 138/68; PULSE 54; RESP 16; TEMP 36
== END ==
PROVIDERS: PCP Family Medicine; Referring Provider Internal Medicine Hematology & Oncology; Visit Provider Internal Medicine Hematology & Oncology
DX: D50.9 Iron deficiency anemia, unspecified (principal); K90.9 Intestinal malabsorption, unspecified
CPT/HCPCS: 96365; J1756; J7050; A4216

== ENCOUNTER → 2020-10-19 15:23 | Outpatient (CLI) | payer BC, SELFPAY ==
[2020-07-01 15:29] VITALS: BMI 50.1
[2020-10-19 15:40] VITALS: PULSE 65; RESP 18; TEMP 36.5; O2SAT 98; BMI 50.1
[2020-10-19 16:21] VITALS: BP 122/62; PULSE 64; RESP 16; TEMP 36.5; O2SAT 97; BMI 50.1
== END ==
PROVIDERS: PCP Family Medicine; Referring Provider Internal Medicine Hematology & Oncology; Visit Provider Internal Medicine Hematology & Oncology
DX: D50.9 Iron deficiency anemia, unspecified (principal)
CPT/HCPCS: 96365; J1756; J7050; A4216

== ENCOUNTER → 2020-10-26 15:28 | Outpatient (CLI) | payer BC, SELFPAY ==
[2020-10-19 16:21] VITALS: BMI 50.1
[2020-10-26 15:32] VITALS: BP 122/68; PULSE 51; RESP 16; TEMP 36.8; O2SAT 97; BMI 50.1
[2020-10-26 16:28] VITALS: BP 122/68; PULSE 45; RESP 16; TEMP 37.2; O2SAT 98
== END ==
PROVIDERS: PCP Family Medicine; Referring Provider Internal Medicine Hematology & Oncology; Visit Provider Internal Medicine Hematology & Oncology
DX: D50.9 Iron deficiency anemia, unspecified (principal)
CPT/HCPCS: 96365; J1756; J7050; A4216

== ENCOUNTER → 2020-11-02 15:31 | Outpatient (CLI) | payer BC, SELFPAY ==
[2020-10-19 16:21] VITALS: BMI 50.1
[2020-10-26 15:32] VITALS: BMI 50.1
[2020-11-02 15:50] VITALS: BP 125/59; PULSE 50; RESP 16; TEMP 35.9; O2SAT 97; BMI 50.1
[2020-11-02 16:43] VITALS: BP 135/73
== END ==
PROVIDERS: PCP Family Medicine; Referring Provider Internal Medicine Hematology & Oncology; Visit Provider Internal Medicine Hematology & Oncology
DX: D50.9 Iron deficiency anemia, unspecified (principal)
CPT/HCPCS: 96365; J1756; J7050; A4216

== ENCOUNTER → 2020-11-09 15:30 | Outpatient (CLI) | payer BC, SELFPAY ==
[2020-10-19 16:21] VITALS: BMI 50.1
[2020-11-02 15:50] VITALS: BMI 50.1
[2020-11-09 15:50] VITALS: BP 132/62; PULSE 72; RESP 16; TEMP 36.5; O2SAT 98; BMI 50.1
== END ==
PROVIDERS: PCP Family Medicine; Referring Provider Internal Medicine Hematology & Oncology; Visit Provider Internal Medicine Hematology & Oncology
DX: D50.9 Iron deficiency anemia, unspecified (principal)
CPT/HCPCS: 96365; 82784; 83516; 86255; J1756; J7050; A4216

== ENCOUNTER → 2020-11-16 15:28 | Outpatient (CLI) | payer BC, SELFPAY ==
[2020-10-19 16:21] VITALS: BMI 50.1
[2020-11-09 15:50] VITALS: BMI 50.1
[2020-11-16 15:52] VITALS: BP 114/70; PULSE 53; RESP 16; TEMP 35.8; O2SAT 97; BMI 50.1
[2020-11-16 16:35] VITALS: BP 124/76
== END ==
PROVIDERS: PCP Family Medicine; Referring Provider Internal Medicine Hematology & Oncology; Visit Provider Internal Medicine Hematology & Oncology
DX: D50.9 Iron deficiency anemia, unspecified (principal)
CPT/HCPCS: 96365; J1756

== ENCOUNTER → 2020-11-30 | Outpatient (CLI) | payer BC, SELFPAY ==
[2020-10-19 16:21] VITALS: BMI 50.1
[2020-11-16 15:52] VITALS: BMI 50.1
[2020-11-30 15:41] VITALS: BP 128/72; PULSE 78; RESP 16; TEMP 36.2; O2SAT 97; BMI 50.1
[2020-12-02 16:09] LABS: Endomysial Antibody IgA Negative (Negative)
[2020-12-02 20:30] LABS: Deamidated Gliadin IgA 4 units (0-19); Deamidated Gliadin IgG 3 units (0-19); Immunoglobulin A 127 mg/dL (87-352); t-Transglutaminase IgA <2 U/mL (0-3)
== END | disposition home or self-care (01) ==
LOC: MEDOUTP 15:29
PROVIDERS: PCP Family Medicine; Referring Provider Internal Medicine Hematology & Oncology; Visit Provider Internal Medicine Hematology & Oncology
DX: D50.9 Iron deficiency anemia, unspecified (principal)
CPT/HCPCS: 96365; 82784; 83516; 86255; J1756; J7050; A4216

== ENCOUNTER → 2020-12-07 15:29 | Outpatient (CLI) | payer BC, SELFPAY ==
[2020-11-16 15:52] VITALS: BMI 50.1
[2020-11-30 15:41] VITALS: BMI 50.1
[2020-12-07 15:41] VITALS: BP 120/64; PULSE 86; RESP 16; TEMP 36.2; O2SAT 97; BMI 50.1
== END ==
PROVIDERS: PCP Family Medicine; Referring Provider Internal Medicine Hematology & Oncology; Visit Provider Internal Medicine Hematology & Oncology
DX: D50.9 Iron deficiency anemia, unspecified (principal)
CPT/HCPCS: 96365; J1756; J7050; A4216

== ENCOUNTER → 2020-12-14 15:26 | Outpatient (CLI) | payer BC, SELFPAY ==
[2020-11-16 15:52] VITALS: BMI 50.1
[2020-12-07 15:41] VITALS: BMI 50.1
[2020-12-14 15:36] VITALS: BP 118/67; PULSE 88; RESP 16; TEMP 35.8; BMI 50.1
== END ==
PROVIDERS: PCP Family Medicine; Referring Provider Internal Medicine Hematology & Oncology; Visit Provider Internal Medicine Hematology & Oncology
DX: D50.9 Iron deficiency anemia, unspecified (principal)
CPT/HCPCS: 96365; J1756; J7050; A4216

== ENCOUNTER → 2020-12-21 15:29 | Outpatient (CLI) | payer BC, SELFPAY ==
[2020-11-16 15:52] VITALS: BMI 50.1
[2020-12-14 15:36] VITALS: BMI 50.1
[2020-12-21 15:41] VITALS: BP 122/78; PULSE 89; RESP 16; TEMP 36.6; O2SAT 98; BMI 50.1
== END ==
PROVIDERS: PCP Family Medicine; Referring Provider Internal Medicine Hematology & Oncology; Visit Provider Internal Medicine Hematology & Oncology
DX: D50.9 Iron deficiency anemia, unspecified (principal)
CPT/HCPCS: 96365; J1756; J7050; A4216

== ENCOUNTER 2021-01-04 15:20 | Outpatient (CLI) | payer BC, SELFPAY ==
[2020-11-16 15:52] VITALS: BMI 50.1
[2020-12-21 15:41] VITALS: BMI 50.1
[2021-01-04 15:27] VITALS: BP 128/76; PULSE 68; RESP 16; TEMP 36.6; O2SAT 98; BMI 50.1
== END 2021-01-04 17:00 ==
LOC: MEDOUTP 15:21
PROVIDERS: PCP Family Medicine; Referring Provider Internal Medicine Hematology & Oncology; Visit Provider Internal Medicine Hematology & Oncology
DX: D50.9 Iron deficiency anemia, unspecified (principal)
CPT/HCPCS: 96365; J1756; J7050; A4216

== ENCOUNTER → 2021-05-03 16:32 | Outpatient (CLI) | payer BC, SELFPAY ==
[2021-02-22 14:20] VITALS: BMI 52.1
--- NOTE | 2021-05-03 16:34 | CT_ITS ---
STUDY: CT ABDOMEN AND PELVIS WITH CONTRAST REASON FOR EXAM: Female, 60 years old. Iron deficiency anemia secondary to chronic blood loss. RADIATION DOSAGE (If Supplied By Facility): CTDIvol = ( 21.33 ) mGy, DLP = ( 1505.19 ) mGycm TECHNIQUE: Transaxial images were obtained from the dome of the diaphragm to the symphysis pubis with oral contrast. Oral and amp; IV Readi-CAT and amp; 100mL Isovue-300 was administered. Sagittal and coronal images were reconstructed. Individualized dose optimization techniques were used for this CT. COMPARISON: 02/03/2019. FINDINGS: The visualized lung bases are unremarkable. The visualized portions of the heart are within normal limits. Normal liver. There is non-visualization of the gallbladder, which may be secondary to either contraction or a prior cholecystectomy. Mild splenomegaly. Annual replacement pancreas without mass. Normal bilateral adrenal glands. The right kidney is small in size. Small exophytic cyst in the lower pole cortex. There are at least 2 small calcifications. The largest, in the lower pole, measures 3 mm. There is no hydronephrosis. There is a calcification in the region of the UPJ measuring 6 mm. Normal visualized right ureter. The left kidney is small in size. There are lower pole parapelvic cyst. No renal calculi or hydronephrosis. Normal visualized left ureter There is a large hiatal hernia extending into the lower left hemithorax containing the majority of the stomach. Only the antrum lies below the diaphragm. Normal small intestine. Normal colon. The appendix is visualized and appears normal. There is diffuse atherosclerotic calcification of the abdominal aorta, without a demonstrated aneurysm. Normal inferior vena cava. Normal retroperitoneum. Normal urinary bladder. Fibroid uterus. No adnexal mass. No pelvic lymphadenopathy. No free air or free fluid is seen within the peritoneal cavity. There is a small umbilical hernia containing fat. There is mild scoliosis of the lumbar spine There are diffuse degenerative changes of the visualized lumbar spine. CT/Abdomen/Pelvis WITH Contrast IMPRESSION: 1. Stable hiatal hernia. 2. Status post cholecystectomy when compared to the prior study. 3. No evidence for acute intra-abdominal or pelvic process or other interval change. Electronically Signed: Jeronimo Arceo DO at 23:45 EDT Tel [phone], Service support ,
== END ==
PROVIDERS: PCP Family Medicine
DX: D50.0 Iron deficiency anemia secondary to blood loss (chronic) (principal)
CPT/HCPCS: 74177; Q9967

== ENCOUNTER → 2021-06-30 13:09 | Outpatient (CLI) | payer BC, SELFPAY ==
[2021-02-22 14:20] VITALS: BMI 52.1
[2021-06-30 15:08] LABS: Absolute Lymphocyte Count 1.39 X10^3/uL (0.83-4.51); Absolute Neutrophil Count 3.1 X10^3/uL (2.0-7.7); Basophil# 0.02 X10^3/uL; Basophil% 0.4 % (0-1); Eosinophil# 0.27 X10^3/uL; Eosinophils% 5.2 % (0-5); Hematocrit 42.3 % (37-47); Hemoglobin 12.6 g/dL (12.0-15.0); Lymphocyte # 1.39 X10^3/ul (0.83-4.51); Lymphocyte % 26.7 % (19-41); Mean Corp Hgb Conc 29.8 g/dL (32-36); Mean Corpuscular Hgb 24.5 pg (27.0-32.0); Mean Corpuscular Volume 82.1 fL (81-99); Mean Platelet Vol. 11.8 fl (6.2-12.0); Monocyte# 0.41 X10^3/uL; Monocyte% 7.9 % (0-10); NRBC Flagged by Analyzer 0 % (0-5); Neutrophil % 59.4 % (47-70); Platelet Count 309 K/mm3 (150-450); RBC Distribution Width SD 47.8 fl (35.1-43.9); Red Blood Count 5.15 M/mm3 (4.2-5.4); White Blood Count 5.2 K/mm3 (4.4-11.0)
[2021-06-30 15:36] LABS: Anion Gap 11 (5-15); BUN 17 mg/dL (7-18); BUN/Creat Ratio 16.3 RATIO (10-20); Calcium,Total 9.5 mg/dL (8.5-10.1); Chloride 107 mmol/L (98-107); Creatinine, Serum 1.04 mg/dL (0.55-1.02); EST Glomerular Filtration Rate 57 mL/min (>60); Est Glom Filt Rate - Afr Amer 70 mL/min (>60); Glucose 103 mg/dL (74-106); Iron 23 ug/dL (50-170); Iron Binding Capacity,Total 479 ug/dL (250-450); Magnesium 2.1 mg/dL (1.6-2.6); Potassium 4.1 mmol/L (3.5-5.1); Sodium Level 141 mmol/L (136-145); Thyroid Stim Hormone (TSH) 1.15 uIU/mL (0.358-3.74)
== END ==
PROVIDERS: Physician Assistant Medical; PCP Family Medicine; Referring Provider Internal Medicine Hematology & Oncology; Visit Provider Internal Medicine Hematology & Oncology
DX: D50.8 Other iron deficiency anemias (principal); I48.0 Paroxysmal atrial fibrillation; I10 Essential (primary) hypertension; K90.0 Celiac disease; R00.0 Tachycardia, unspecified
CPT/HCPCS: 36415; 80048; 83540; 83550; 83735; 84443; 85025

== ENCOUNTER → 2021-07-07 10:15 | Outpatient (CLI) | payer BC, SELFPAY ==
[2021-02-22 14:20] VITALS: BMI 52.1
--- NOTE | 2021-07-07 10:19 | EKG12_ITS ---
Test Reason : AFIB Blood Pressure : / mmHG Vent. Rate : 060 BPM Atrial Rate : 060 BPM P-R Int : 168 ms QRS Dur : 100 ms QT Int : 488 ms P-R-T Axes : 050 037 106 degrees QTc Int : 488 ms Normal sinus rhythm with sinus arrhythmia Nonspecific T wave abnormality Prolonged QT Abnormal ECG Confirmed by GHASSAN FELICIANO, BANDAR ([id number]), editorial project manager MARCY CARTER ([id number]) on 07/11/2021 8:24:13 AM Referred By: Leslie Oquendo Confirmed By:BANDAR FERRELL MD
== END ==
PROVIDERS: PCP Family Medicine; Referring Provider Physician Assistant Medical; Visit Provider Physician Assistant Medical
DX: I48.0 Paroxysmal atrial fibrillation (principal); D50.9 Iron deficiency anemia, unspecified; I10 Essential (primary) hypertension; K90.0 Celiac disease; R00.0 Tachycardia, unspecified
CPT/HCPCS: 93005; 93225; 93226

== ENCOUNTER 2021-11-28 15:44 | Outpatient (CLI) | payer BC, SELFPAY | END 2021-11-28 23:59 | disposition short-term general hospital (02) | LOC: LABSPEC 15:46 | PROVIDERS: PCP Internal Medicine; Referring Provider Internal Medicine; Visit Provider Internal Medicine | DX: J06.9 Acute upper respiratory infection, unspecified (principal) | CPT/HCPCS: 87635; U0003; U0005 ==

== ENCOUNTER → 2022-03-15 | Outpatient (CLI) | payer BC, SELFPAY ==
[2022-03-15 09:53] LABS: Mucous, Urine 0 SEEN /hpf (<or=2+); Squamous Epithelial Cells - UA 0 SEEN /hpf (5-10)
[2022-03-15 12:59] LABS: Color, Urine Yellow (Yellow); Glucose, Dipstick Normal (Normal); Ketone-Dipstick Negative (Negative); Leukocyte Esterase-Dipstick 100 /ul (Negative); Nitrite-Dipstick Negative (Negative); Occult Blood-Urine 250 /ul (Negative); Protein-Dipstick 15 mg/dl (Negative); Specific Gravity, Urine 1.025 (1.002-1.030); Urine Bilirubin Dipstick Negative (Negative); Urine Clarity Cloudy (Clear); Urine Urobilinogen Normal (Normal)
[2022-03-15 13:20] LABS: Bacteria 2+ /hpf (None Seen); Red Blood Cells-Urine 5-10 SEEN /hpf (0-5); White Blood Cells 5-10 SEEN /hpf (0-5)
== END | disposition home or self-care (01) ==
LOC: LABSPEC 09:52
PROVIDERS: PCP Internal Medicine; Visit Provider Internal Medicine
DX: I48.0 Paroxysmal atrial fibrillation (principal); D50.9 Iron deficiency anemia, unspecified
CPT/HCPCS: 81001

== ENCOUNTER → 2022-03-25 | Outpatient (CLI) | payer BC, SELFPAY ==
--- NOTE | 2022-03-25 10:01 | US_ITS ---
STUDY: RENAL ULTRASOUND - COMPLETE REASON FOR EXAM: Female, 61 years old. Urinary frequency, hematuria TECHNIQUE: Ultrasound evaluation of the kidneys was performed with real-time and static cope-scale imaging. COMPARISON: None. FINDINGS: RIGHT KIDNEY: Normal location of the right kidney, which is normal in size. The right kidney measures 9.2 cm in length. There is a normal cortex of the right kidney. There is a 1.0 cm simple-appearing right renal cyst. There are no right renal calculi. There is no right hydronephrosis. DISTAL RIGHT URETER: There is a visualized right ureteral jet. LEFT KIDNEY: Normal location of the left kidney, which is normal in size. The left kidney measures 11.8 cm in length. There is a normal cortex of the left kidney. There are simple cysts within the lower pole measuring up to 3.1 and 0.8 cm. There is a nonobstructing 5 mm left renal calculus. There is no left hydronephrosis. DISTAL LEFT URETER: There is a visualized left ureteral jet. BLADDER: The urinary bladder has a volume of 94.1 ml. There is no post void residual. There is a normal wall thickness of the distended urinary bladder. There is no demonstrated mass within the urinary bladder. There are no demonstrated bladder calculi. US/Kidney and Bladder IMPRESSION: Bilateral renal cysts. Nonobstructing 5 mm left renal calculus. Electronically Signed: Zhane Gary MD at 17:59 EDT ,
== END | disposition home or self-care (01) ==
LOC: US 10:00
PROVIDERS: PCP Internal Medicine; Referring Provider Internal Medicine; Visit Provider Internal Medicine
DX: R31.9 Hematuria, unspecified (principal); R35.0 Frequency of micturition
CPT/HCPCS: 76770

== ENCOUNTER → 2022-04-07 | Outpatient (CLI) | payer BC, SELFPAY | END | disposition home or self-care (01) | LOC: PSN 12:12 | PROVIDERS: PCP Internal Medicine; Visit Provider Internal Medicine Pulmonary Disease | DX: U07.1 COVID-19 (principal); R05.9 Cough, unspecified | CPT/HCPCS: 87635; C9803; U0003; U0005 ==

== ENCOUNTER → 2022-06-09 | Outpatient (CLI) | payer BC, SELFPAY ==
--- NOTE | 2022-06-09 16:39 | RAD_ITS ---
STUDY: X-RAY - ABDOMEN/PELVIS REASON FOR EXAM: Female, 61 years old. KUB TECHNIQUE: Single AP view of the abdomen / pelvis. COMPARISON: None. FINDINGS: Hiatal hernia noted. There is an unremarkable bowel gas pattern. There is no demonstrated free abdominal air. The visualized liver, spleen and kidneys are grossly normal in size and morphology. Calcification the right paraspinal soft tissues at L2 level measures 8 mm, probable urinary tract calcification. Atherosclerosis of the abdominal aorta. There are diffuse degenerative changes of the visualized lumbar spine with levoscoliosis. RAD/Abdomen Single View IMPRESSION: Nonobstructive bowel gas pattern. Suspect proximal right ureter/UPJ calculus. Electronically Signed: Car Velasquez MD ([place]) at 19:09 EDT ,
== END | disposition home or self-care (01) ==
LOC: MTRAD 16:38
PROVIDERS: PCP Internal Medicine; Referring Provider Urology; Visit Provider Urology
DX: N20.0 Calculus of kidney (principal)
CPT/HCPCS: 74018

== ENCOUNTER → 2022-06-27 | Outpatient (CLI) | payer BC, SELFPAY | END | disposition home or self-care (01) | LOC: MTLAB 16:39 | PROVIDERS: PCP Internal Medicine; Referring Provider Urology; Visit Provider Urology | DX: N20.0 Calculus of kidney (principal) | CPT/HCPCS: 87086; 87088 ==

== ENCOUNTER 2022-07-04 07:00 | Day surgery (SDC) | payer BC, SELFPAY ==
[2022-07-04] VITALS (9 sets, daily range): BP systolic 140–178; BP diastolic 60–95; PULSE 55–67; RESP 16–18; TEMP 36.1–36.8; O2SAT 90–96; BMI 51.5
[2022-07-04] MEDS: Lactated Ringers 1,000 ML 15 ML IV (07:15)
--- NOTE | 2022-07-04 08:46 | DCINST_ITS ---
Discharge Instructions Diet Discharge Diet: No restrictions Activity Discharge Activity: Return to Normal Activity May resume sexual activity in: No Restrictions Dressing / Incision Call your doctor if you observe: Fever of 101 or Higher, Inability to urinate and Inability to have a bowel movement Follow Up Care Please Follow Up With: Melinda Virgen MD When: In 3 weeks in the office with a KUB just prior to the appointment Test Results: Test results from this visit will be discussed in further detail at your follow- up appointment, if applicable. Discharge Plan Admission Attending Provider: Melinda Virgen Primary Care Provider: Jaquelin Monahan Discharge Orders/Prescriptions Prescriptions: New ondansetron HCl [ondansetron HCl] 8 mg tablet 8 mg PO Q8H PRN PRN (Reason: Nausea) 7 Days Qty: 20 0RF oxycodone-acetaminophen [Percocet] 5-325 mg tablet 1 tab PO Q8H PRN (Reason: pain) 5 Days Qty: 15 0RF phenazopyridine [Pyridium] 200 mg tablet 200 mg PO TID PRN PRN (Reason: Bladder Spasms) 7 Days Qty: 30 0RF Continued ferrous sulfate 325 mg (65 mg iron) tablet,delayed release (DR/EC) 325 mg PO BID [id number]-FA 1 mg Tablet PO cephalexin 500 mg capsule 500 mg PO TID Label Comments: take 1 capsule by mouth three times a day for 5 days diltiazem HCl [Cartia XT] 120 mg capsule,extended release 24hr 120 mg PO QAM Qty: 90 3RF diltiazem HCl [Cartia XT] 240 mg capsule,extended release 24hr 240 mg PO QHS Qty: 90 3RF Rx Instructions: Takes 120 in the AM and 240 in the PM Xarelto 20 mg tablet See Rx Instructions .ROUTE .COMPLEX Qty: 90 3RF Dose Instruction: take 1 tablet by mouth once daily for BLOOD THINNER Rx Instructions: take 1 tablet by mouth once daily for BLOOD THINNER Referrals / Follow Up: Jaquelin Monahan MD [Primary Care Provider] - Disposition Disposition (needs filled in before D/C Order can be placed): Home, Self Care
--- NOTE | 2022-07-04 08:50 | OP.PCM_ITS ---
Report of Operation Date of Procedure: 07/04/22 Pre-Operative Diagnosis: Right renal calculus Post-Operative Diagnosis: Same Surgery/Procedure Performed:: Cystoscopy, right ureteral stent insertion, right renal extracorporal shockwave lithotripsy Surgeon: Melinda Virgen Type of Anesthesia: General Specimen's removed: None Description of Procedure: The patient is a 62-year-old female found to have a large right renal calculus who now presents for definitive surgical intervention. Informed consent was obtained. The patient was taken to the operating room and placed on the operating room table. Anesthesia monitored the head, neck, airway, IV access and vital signs throughout the case. Once anesthesia was appropriate ministered, the patient was placed into dorsolithotomy position and prepped and draped in usual sterile fashion. The cystoscope was inserted through the urethra under direct visualization into the urinary bladder. Bladder mucosa was visualized in its entirety and found to be without mass, erythema, ulceration or foreign body. The right ureteral orifice was in correct anatomic position. It was intubated with a 0.035 Glidewire which was advanced into the renal pelvis. A 6 Estonian 26 JJ stent was inserted over the wire with good positioning in the renal pelvis and the urinary bladder. The patient's bladder was emptied. She was repositioned with her stone within the treatment area. 3000 shocks were applied to the stone. The stone appeared to be well fragmented at the conclusion of the case. She was then awakened and taken the recovery room in good condition. There were no complications during this procedure. Grafts/Implants Used: 6 x 26 JJ stent Complications None Admit VTE Documentation VTE Present on Admission: Yes VTE Mechan Device Prophylaxis: SCD's VTE Pharm Prophylaxis ordered?: No Reason prophylaxis not ordered:: Treatment Not Indicated
[2022-07-04] MEDS: oxyCODONE 5 MG Tablet PO (12:24)
[2022-07-04] MEDS: Acetaminophen 325 MG Tablet PO (12:25)
== END 2022-07-04 14:40 | disposition home or self-care (01) ==
LOC: SDC 07:01 → AC 07:02
PROVIDERS: PCP Internal Medicine; Referring Provider Urology; Visit Provider Urology
PROC: (CPT 50590; principal; 2022-07-04 08:50)
DX: N20.0 Calculus of kidney (principal); I48.0 Paroxysmal atrial fibrillation; N39.46 Mixed incontinence; R35.1 Nocturia; N32.89 Other specified disorders of bladder; I10 Essential (primary) hypertension; D50.9 Iron deficiency anemia, unspecified; G47.33 Obstructive sleep apnea (adult) (pediatric); Z79.01 Long term (current) use of anticoagulants; Z79.899 Other long term (current) drug therapy
CPT/HCPCS: 52332; 00873; J7120; C2617; J2405

== ENCOUNTER → 2022-07-05 | Outpatient (CLI) | payer BC, SELFPAY ==
[2022-07-05 16:13] LABS: Hematocrit 41.8 % (37-47); Hemoglobin 13.4 g/dL (12.0-15.0); Mean Corp Hgb Conc 32.1 g/dL (32-36); Mean Corpuscular Hgb 28.1 pg (27.0-32.0); Mean Corpuscular Volume 87.6 fL (81-99); Mean Platelet Vol. 10.7 fl (6.2-12.0); Platelet Count 272 K/mm3 (150-450); RBC Distribution Width SD 41.1 fl (35.1-43.9); Red Blood Count 4.77 M/mm3 (4.2-5.4); White Blood Count 12.7 K/mm3 (4.4-11.0)
[2022-07-05 16:55] LABS: Anion Gap 8 (5-15); BUN 18 mg/dL (7-18); BUN/Creat Ratio 15.4 RATIO (10-20); Calcium,Total 9.5 mg/dL (8.5-10.1); Chloride 109 mmol/L (98-107); Creatinine, Serum 1.17 mg/dL (0.55-1.02); EST Glomerular Filtration Rate 50 mL/min (>60); Est Glom Filt Rate - Afr Amer 61 mL/min (>60); Glucose 129 mg/dL (74-106); Potassium 4.4 mmol/L (3.5-5.1); Sodium Level 142 mmol/L (136-145)
== END | disposition home or self-care (01) ==
LOC: MTLAB 15:27 → LAB 15:40
PROVIDERS: PCP Internal Medicine; Referring Provider Urology; Visit Provider Urology
DX: N20.0 Calculus of kidney (principal); R58 Hemorrhage, not elsewhere classified
CPT/HCPCS: 36415; 80048; 85027; 87077; 87086; 87088; 87186

== ENCOUNTER 2022-07-06 10:00 | Emergency (ER) | payer BC, SELFPAY ==
[2022-07-06 10:01] VITALS: BP 218/120; PULSE 78; RESP 23; TEMP 36.8; O2SAT 94; BMI 52.3
--- NOTE | 2022-07-06 10:11 | EKG12_ITS ---
Test Reason : AFIB Blood Pressure : / mmHG Vent. Rate : 069 BPM Atrial Rate : 000 BPM P-R Int : 000 ms QRS Dur : 094 ms QT Int : 402 ms P-R-T Axes : 000 -07 032 degrees QTc Int : 430 ms Atrial fibrillation with premature ventricular or aberrantly conducted complexes Abnormal ECG Confirmed by GHASSAN FELICIANO, BANDAR ([id number]), associate editor MARCY CARTER ([id number]) on 07/07/2022 1:31:48 PM Referred By: IVA Confirmed By:BANDAR FERRELL MD
--- NOTE | 2022-07-06 10:11 | CT_ITS ---
STUDY: CT ABDOMEN AND PELVIS WITHOUT CONTRAST REASON FOR EXAM: Female, 62 years old. Increased right-sided abdominal pain and hematuria. Recent lithotripsy. RADIATION DOSAGE (If Supplied By Facility): CTDIvol = ( 24.18 ) mGy, DLP = ( 1347.10 ) mGycm TECHNIQUE: Transaxial images were obtained from the dome of the diaphragm to the symphysis pubis without oral contrast, and without intravenous contrast. Sagittal and coronal images were reconstructed. Individualized dose optimization techniques were used for this CT. COMPARISON: Comparison is made with prior study dated 05/03/2021. FINDINGS: The visualized lung bases are unremarkable. Coronary artery calcification. Minimal anterior pericardial thickening. Normal liver. The patient is status post cholecystectomy. Normal spleen. There is diffuse atrophy of the pancreas. Normal bilateral adrenal glands. A right-sided double-J stent catheter is seen. Mild degree of increased right perinephric stranding. A fragmented calculus is seen in the right renal pelvis. The largest fragment measures 3.5 mm. Stable left renal parapelvic cysts. There is a large hiatal hernia composed mostly of the fundus of the stomach. Normal small intestine. Normal colon. The appendix is visualized and appears normal. There is diffuse atherosclerotic calcification of the abdominal aorta and its major visceral branches, without a demonstrated aneurysm. Normal inferior vena cava. Normal retroperitoneum. Normal urinary bladder. Enlarged calcified fibroid uterus. Normal abdominal wall. There are diffuse degenerative changes of the visualized lumbar spine. Levoscoliosis. CT/Abdomen/Pelvis without Cont IMPRESSION: Status post right renal lithotripsy with a right double-J stent catheter. Mild degree of increased right perinephric stranding. Fragmented calculus is seen in the region of the right renal pelvis. Large hiatal hernia. Electronically Signed: Moshe Field MD at 11:00 EDT ,
--- NOTE | 2022-07-06 10:14 | EDS_ITS ---
HPI HPI - Female History of Present Illness Chief Complaint: Flank Pain Informant: patient Pain Onset: Days Context: Gradual Onset Timing: Continuous Quality: Positive for Sharp and Stabbing Current Severity: Moderate Maximum Severity: Moderate Associated Symptoms Associated Symptoms: Positive for Hematuria; Negative for Dysuria, Frequency or Urgency Narrative Narrative: 62-year-old for male history of kidney stones and a history of A. fib with ablation. States that she had a lithotripsy done on Sunday and had a stent placed in the right. Since that time she has had constant right flank pain. She has noticed gross hematuria. Denies any fever. Nausea without vomiting. She is under the care of Dr. Harden of urology. Prior similar symptoms: Yes Recent Illness/Hospitalization: Yes [facility] Medical History Acute pyelonephritis Anemia Anemia Body mass index (BMI) 50-59.9, adult Calculus of gallbladder Chronic kidney disease Chronic knee pain CPAP (continuous positive airway pressure) dependence Dietary restriction Difficult intravenous access Essential (primary) hypertension Gout Unruly's thyroiditis History of blood transfusion History of cardioversion (11/2016) Iron deficiency anemia Kidney stone Kidney stones Left ureteral calculus Obstructive sleep apnea Osteoarthritis of knees, bilateral Paroxysmal atrial fibrillation Paroxysmal atrial flutter Sepsis Urinary frequency Walker as ambulation aid Wears partial dentures Home Medications diltiazem HCl 120 mg capsule,extended release 24 hr (Cartia XT) 120 mg PO QAM #90 caps 01/20/22 [Rx Last Taken Unknown] diltiazem HCl 240 mg capsule,extended release 24 hr (Cartia XT) 240 mg PO QHS #90 caps 01/20/22 [Rx Last Taken Unknown] rivaroxaban 20 mg tablet (Xarelto) See Rx Instructions .Route .COMPLEX #90 tabs 02/23/22 [Rx Last Taken 06/12/22] ferrous sulfate 325 mg (65 mg iron) tablet,delayed release 325 mg PO BID 04/24/22 [History Last Taken Unknown] ydexirkn-pht-[id number]-FA 1 mg tablet tab PO 06/14/22 [History Last Taken Unknown] cephalexin 500 mg capsule 500 mg PO TID 07/04/22 [History Last Taken Unknown] ondansetron HCl 8 mg tablet 8 mg PO Q8H PRN PRN Nausea 7 days #20 TABLETS 07/04/22 [Rx Last Taken Unknown] oxycodone-acetaminophen 5 mg-325 mg tablet (Percocet) 1 tab PO Q8H PRN pain 5 days #15 tabs 07/04/22 [Rx Last Taken Unknown] phenazopyridine 200 mg tablet (Pyridium) 200 mg PO TID PRN PRN Bladder Spasms 7 days #30 tabs 07/04/22 [Rx Last Taken Unknown] oxycodone-acetaminophen 5 mg-325 mg tablet (Percocet) 1 tab PO Q4H PRN pain 3 days #10 tabs 07/06/22 [Rx Last Taken Unknown] Allergy/AdvReac Type Severity Reaction Status Date / Time atenolol Allergy Severe Hives, Verified 07/06/22 10:04 anxiety, itching nadolol Allergy Itching Verified 07/06/22 10:04 and hives metoprolol AdvReac Severe Fatigue, Verified 07/06/22 10:04 weigt gain diltiazem AdvReac Intermediate Did not Verified 07/06/22 10:04 feel right on it Family History Father Afib Other Anemia Blood clot in vein Cancer Diabetes Hypertension Kidney disease Surgical History H/O nephrolithotomy with removal of calculi History of History of mandibular surgery History of radiofrequency ablation procedure for cardiac arrhythmia (04/19/22) History of right knee joint replacement History of tonsillectomy Hx laparoscopic cholecystectomy Hx of oral surgery Social History Smoking Status: Never smoker alcohol intake: never ROS ROS ED ROS Narrative Nausea. Right flank pain. Hematuria. Review of Systems ROS Unobtainable: Denies due to encephalopathy Constitutional Constitutional ED: Denies chills or fever(s) Eyes Eyes: Denies blurry vision ENT ENT ED: Denies ear pain Cardiovascular Cardiovascular: Denies chest pain Respiratory/Chest Respiratory/Chest: Denies cough Gastrointestinal Gastrointestinal: Reports abdominal pain and nausea; Denies constipation, diarrhea, melena or vomiting Genitourinary Genitourinary ED: Reports hematuria; Denies dysuria Musculoskeletal Musculoskeletal: Denies arthralgias Integumentary Denies abscess Neurologic Neurologic: Denies headache(s) Psychiatric Psychiatric: Denies anxiety Endocrine Endocrinology: Denies heat intolerance Hematologic/Lymphatic Hematologic/Lymphatic: Denies easy bleeding Allergic/Immunologic Allergic/Immunologic ED: Denies mouth swelling EXAM Physical Exam Narrative Exam Narrative: 62-year-old female. Vital signs stable afebrile. Initial blood pressure is elevated 218/120. H EENT exam unremarkable. Neck nontender. Lungs clear to auscultation bilaterally. Heart regular rhythm rate about 80 PVCs on the monitor. Abdomen soft nontender normal bowel sounds no peritoneal signs. Moving all 4 extremities. Neurologically awake and alert. Const Vital Signs: 07/06/22 10:01 07/06/22 10:56 Temperature 98.2 F Temperature Source Oral Pulse Rate 78 59 L Respiratory Rate 23 H 23 H Blood Pressure 218/120 H 148/74 H Blood Pressure Mean 152 98 Pulse Ox 94 98 Oxygen Delivery Method Room Air Room Air Positive well nourished, well developed and obese; Negative for cachectic, contractures or unkempt General Appearance ED: well developed; Negative for unkempt, cachectic, contractures, NAD or pallor Nutritional Appearance: obese; Negative for cachectic HEENT Reports moist mucous membranes Negative for trauma Eyes PERRL and EOMs intact bilaterally General Eye ED: Negative for pale conjunctiva or scleral icterus Neck no lymphadenopathy, supple and no JVD General: Negative for other Thyroid: Negative for tender Lymph Lymphatic: Negative for other Chest Wall inspection of chest normal and palpation of chest normal Chest: Negative for other Resp normal respiratory effort and clear to auscultation bilaterally Effort and Inspection: Negative for pain with movement Auscultation: Negative for rales, rhonchi or wheezes Cardio regular rate, regular rhythm, S1 normal heart sound, no murmurs and no JVD Rate: Negative for bradycardia Rhythm: Negative for abnormal rhythm GI normal to inspection, nondistended, normoactive bowel sounds, soft to palpation, non-tender, non-distended and no masses Auscultation: normoactive bowel sounds Palpation: Negative for tender, guarding or rigid Back/Spine no CVA tenderness General Back: Negative for CVA tenderness Cervical Spine: Negative for cervical spine tenderness Thoracic Spine / Upper Back: Negative for thoracic spinal tenderness Lumbar Spine / Lower Back: Negative for lumbar spinal tenderness Extremity normal to inspection and full ROM General Extremety ED: Negative for edema or tenderness General Extremity: Negative for edema Neuro oriented x3 and CN's II-XII intact bilaterally Sensorium / Orientation: alert, oriented to person, oriented to place and oriented to time; Negative for confused, lethargic or stuporous Motor Exam: strength 5/5 throughout; Negative for general weakness Psych mental status grossly normal Appearance: Negative for unkempt Attitude: No agitated Speech: No other Mood & Affect: Negative for depressed or anxious Skin no rashes or lesions noted and no wounds General Skin Exam: Negative for jaundice or pallor Rashes: No rashes noted Trauma: Negative for other MDM MDM MDM Narrative Medical decision making narrative: 62-year-old female complaint of right flank pain. History of ureteral calculi with recent lithotripsy and stent. CAT scan labs are being obtained. She will be treated with IV morphine for pain and Zofran for nausea. Repeat exam patient is doing well at 11:20 AM. Pain is resolved with morphine. I discussed with her at length that she has a few Percocet at home left from her procedure. She has nausea medication. She had a urine culture sent yesterday. She is not having any dysuria. I will give her another prescription for Percocet just [place] only to fill if she needs it for the weekend. I have her u rologist on page. Currently the patient is in a sinus rhythm and is out of her A. fib. Lab Data Attestation: I reviewed the patient's lab results. Lab results narrative: CBC shows a white count 12.8. H&H 14 and 43. Electrolytes unremarkable gap is 7 BUN and creatinine of 17 and 1.1. Glucose 126. CAT scan showed renal pelvis kidney stone fragments. But no obstruction. Labs: Laboratory Results - last 24 hr 07/06/22 07/06/22 10:13 10:13 WBC 12.8 H RBC 4.80 Hgb 14.1 Hct 43.1 MCV 89.8 MCH 29.4 MCHC 32.7 RDW Std Deviation 42.4 RDW Coeff of Kimmy 13.1 Plt Count 280 MPV 10.5 Immature Gran % (Auto) 0.700 Neut % (Auto) 77.1 H Lymph % (Auto) 13.0 L Grand % (Auto) 8.7 Eos % (Auto) 0.2 Baso % (Auto) 0.3 Absolute Neuts (auto) 9.9 H Absolute Lymphs (auto) 1.67 Nucleated RBC % 0 Sodium 139 Potassium 3.7 Chloride 106 Carbon Dioxide 26.0 Anion Gap 7 BUN 17 Creatinine 1.16 H Estim Creat Clear Calc 47.68 Est GFR (MDRD) Af Amer 61 Est GFR (MDRD) Non-Af 51 L BUN/Creatinine Ratio 14.7 Glucose 126 H Calcium 9.7 Radiography Diagnostic Testing: Clinical Impression(s) from Imaging Studies Abdomen/Pelvis CT 07/06/22 10:11 IMPRESSION: Status post right renal lithotripsy with a right double-J stent catheter. Mild degree of increased right perinephric stranding. Fragmented calculus is seen in the region of the right renal pelvis. Large hiatal hernia. Electronically Signed: Moshe Field MD at 11:00 EDT , Rhythm Strip Rhythm Strip: A-fib Rate: 69 Ectopy: PVC(s) EKG Initial EKG: Attestation: I personally reviewed and interpreted this EKG as follows: Interpretation: Atrial Fibrillation Comments: Intermittent A. fib with PVCs. Rate is 69. No acute signs of OR or ischemia. Discharge Plan Triage Chief Complaint: Flank Pain ED Provider: Roderick Orantes Dx/Rx/DC Orders Clinical Impression: Kidney stone, Acute right flank pain, History of lithotripsy, History of atrial fibrillation Instructions: ED Kidney Stone w/ Colic Prescriptions: New oxycodone-acetaminophen [Percocet] 5-325 mg tablet 1 tab PO Q4H PRN (Reason: pain) 3 Days Qty: 10 0RF No Action ferrous sulfate 325 mg (65 mg iron) tablet,delayed release (DR/EC) 325 mg PO BID [id number]-FA 1 mg Tablet PO cephalexin 500 mg capsule 500 mg PO TID Label Comments: take 1 capsule by mouth three times a day for 5 days ondansetron HCl [ondansetron HCl] 8 mg tablet 8 mg PO Q8H PRN PRN (Reason: Nausea) 7 Days Qty: 20 0RF oxycodone-acetaminophen [Percocet] 5-325 mg tablet 1 tab PO Q8H PRN (Reason: pain) 5 Days Qty: 15 0RF phenazopyridine [Pyridium] 200 mg tablet 200 mg PO TID PRN PRN (Reason: Bladder Spasms) 7 Days Qty: 30 0RF diltiazem HCl [Cartia XT] 120 mg capsule,extended release 24hr 120 mg PO QAM Qty: 90 3RF diltiazem HCl [Cartia XT] 240 mg capsule,extended release 24hr 240 mg PO QHS Qty: 90 3RF Rx Instructions: Takes 120 in the AM and 240 in the PM Xarelto 20 mg tablet See Rx Instructions .ROUTE .COMPLEX Qty: 90 3RF Dose Instruction: take 1 tablet by mouth once daily for BLOOD THINNER Rx Instructions: take 1 tablet by mouth once daily for BLOOD THINNER Primary Care Provider: Jaquelin Monahan Referrals: Melinda Virgen MD [Med Staff - Active Staff] - As soon as possible Jaquelin Monahan MD [Primary Care Provider] - Activity Restrictions/Additional Instructions: Plenty of fluids and rest. Fruits, vegetables and fiber to help with constipation. Also either magnesium citrate and oral liquid or Dulcolax suppositories fine also. Percocet as needed for pain. You may also use Motrin to help with the pain also. I did give you another prescription for Percocet only get it filled if you run out of your current prescription. Call and follow-up with your neurologist if not improving. Return if feeling worse or develop a fever. They did send a urine culture yesterday the results are not back yet. Disposition Disposition: Home, Self Care
[2022-07-06] MEDS: 0.9% Normal Saline 1,000 ML 1000 ML IV (10:17)
[2022-07-06] MEDS: Ondansetron 4 MG/2 ML Vial IV (10:18)
[2022-07-06] MEDS: morphine 8 MG/ML Syringe IV (10:18)
[2022-07-06 10:26] LABS: Absolute Lymphocyte Count 1.67 X10^3/uL (0.83-4.51); Absolute Neutrophil Count 9.9 X10^3/uL (2.0-7.7); Basophil# 0.04 X10^3/uL; Basophil% 0.3 % (0-1); Eosinophil# 0.03 X10^3/uL; Eosinophils% 0.2 % (0-5); Hematocrit 43.1 % (37-47); Hemoglobin 14.1 g/dL (12.0-15.0); Lymphocyte # 1.67 X10^3/ul (0.83-4.51); Mean Corp Hgb Conc 32.7 g/dL (32-36); Mean Corpuscular Hgb 29.4 pg (27.0-32.0); Mean Corpuscular Volume 89.8 fL (81-99); Mean Platelet Vol. 10.5 fl (6.2-12.0); Monocyte# 1.11 X10^3/uL; Monocyte% 8.7 % (0-10); NRBC Flagged by Analyzer 0 % (0-5); Neutrophil # 9.87 X10^3/uL (2.7-7.7); Neutrophil % 77.1 % (47-70); Platelet Count 280 K/mm3 (150-450); RBC Distribution Width CV 13.1 % (11.6-14.6); RBC Distribution Width SD 42.4 fl (35.1-43.9); White Blood Count 12.8 K/mm3 (4.4-11.0)
[2022-07-06 10:42] LABS: Anion Gap 7 (5-15); BUN 17 mg/dL (7-18); BUN/Creat Ratio 14.7 RATIO (10-20); Calcium,Total 9.7 mg/dL (8.5-10.1); Chloride 106 mmol/L (98-107); Creatinine, Serum 1.16 mg/dL (0.55-1.02); EST Glomerular Filtration Rate 51 mL/min (>60); Est Glom Filt Rate - Afr Amer 61 mL/min (>60); Estimated Creatinine Clearance 47.68 ml/min; Glucose 126 mg/dL (74-106); Potassium 3.7 mmol/L (3.5-5.1); Sodium Level 139 mmol/L (136-145)
[2022-07-06 10:56] VITALS: BP 148/74; PULSE 59; RESP 23; O2SAT 98
[2022-07-06 11:42] LABS: Mucous, Urine 0 SEEN /hpf (<or=2+)
[2022-07-06 11:43] LABS: Color, Urine Red (Yellow); Glucose, Dipstick Normal (Normal); Ketone-Dipstick 5 mg/dl (Negative); Leukocyte Esterase-Dipstick 100 /ul (Negative); Nitrite-Dipstick Negative (Negative); Occult Blood-Urine 250 /ul (Negative); Protein-Dipstick 500 mg/dl (Negative); Urine Clarity Turbid (Clear); Urine Urobilinogen Normal (Normal); Urine pH 6.5 (5.0 - 8.0)
[2022-07-06 11:44] LABS: Urine Bilirubin Dipstick 3 mg/dL (Negative)
[2022-07-06 11:52] LABS: Bacteria 1+ /hpf (None Seen); Red Blood Cells-Urine 25-50 SEEN /hpf (0-5); Squamous Epithelial Cells - UA 0-5 SEEN /hpf (5-10); White Blood Cells 10-25 SEEN /hpf (0-5)
== END 2022-07-06 11:47 | disposition home or self-care (01) ==
PROVIDERS: Emergency Provider Emergency Medicine; PCP Internal Medicine; Visit Provider Emergency Medicine
DX: N20.0 Calculus of kidney (principal); I48.0 Paroxysmal atrial fibrillation; R31.0 Gross hematuria; I12.9 Hypertensive chronic kidney disease with stage 1 through stage 4 chronic kidney disease, or unspecified chronic kidney disease; N18.9 Chronic kidney disease, unspecified; M17.0 Bilateral primary osteoarthritis of knee; E06.3 Autoimmune thyroiditis; G89.29 Other chronic pain; Z79.01 Long term (current) use of anticoagulants; Z79.899 Other long term (current) drug therapy; Z87.442 Personal history of urinary calculi; Z96.651 Presence of right artificial knee joint
CPT/HCPCS: 74176; 80048; 81001; 85025; 93005; 96361; 96374; 96375; 99283; J7030; A4216; J2405

== ENCOUNTER 2022-07-10 09:46 | Emergency (ER) | payer BC, SELFPAY ==
[2022-07-10] VITALS (7 sets, daily range): BP systolic 114–161; BP diastolic 58–106; PULSE 61–77; RESP 16–22; TEMP 35.6–37.6; O2SAT 94–98; BMI 50.3
--- NOTE | 2022-07-10 10:09 | EX.ED.DYSGE1 ---
HPI History of Present Illness Chief Complaint: Weakness Informant: patient and parent Narrative Narrative: 62-year-old female presenting to the emergency department with her mother and the chief complaint of I do not feel good. She tells me that she had lithotripsy and ureteral stent placed on Sunday. On she returned to the emergency department concerned with the amount of hematuria she was having. She states she is now constipated from her pain medicine and her hemorrhoids are flaring and she is tried everything she can think of to help soften the stool. Her mom states that she was septic the last time that she had a kidney stone. She states that while she has not taken her temperature she knows that she has had a fever at home because she is sweaty and chilled and her eyes are burning. She states that she is drinking lots of water but still feels very dehydrated. She states that she is not urinating nearly as much as she would expect. She states she does not have an appetite because of nausea. She notes pain in the right lower quadrant going into her right flank. When asked when the last time she visited with her urologist was she tells me that the day of surgery. I expressed concern that she has all the symptoms and did not call them back but then states that while she did speak with them on Sunday. Reportedly the patient is anticoagulated due to cardiac dysrhythmia. [facility] Medical History Acute pyelonephritis Anemia Anemia Body mass index (BMI) 50-59.9, adult Calculus of gallbladder Chronic kidney disease Chronic knee pain CPAP (continuous positive airway pressure) dependence Dietary restriction Difficult intravenous access Essential (primary) hypertension Gout Unruly's thyroiditis History of blood transfusion History of cardioversion (11/2016) Iron deficiency anemia Kidney stone Kidney stones Left ureteral calculus Obstructive sleep apnea Osteoarthritis of knees, bilateral Paroxysmal atrial fibrillation Paroxysmal atrial flutter Sepsis Urinary frequency Walker as ambulation aid Wears partial dentures Home Medications diltiazem HCl 120 mg capsule,extended release 24 hr (Cartia XT) 120 mg PO QAM #90 caps 01/20/22 [Rx Last Taken Unknown] diltiazem HCl 240 mg capsule,extended release 24 hr (Cartia XT) 240 mg PO QHS #90 caps 01/20/22 [Rx Last Taken Unknown] rivaroxaban 20 mg tablet (Xarelto) See Rx Instructions .Route .COMPLEX #90 tabs 02/23/22 [Rx Last Taken 06/12/22] ferrous sulfate 325 mg (65 mg iron) tablet,delayed release 325 mg PO BID 04/24/22 [History Last Taken Unknown] [id number]-[id number]-FA 1 mg tablet 1 tab PO DAILY 06/14/22 [History Last Taken Unknown] ondansetron HCl 8 mg tablet 8 mg PO Q8H PRN PRN Nausea 7 days #20 TABLETS 07/04/22 [Rx Last Taken Unknown] oxycodone-acetaminophen 5 mg-325 mg tablet (Percocet) 1 tab PO Q8H PRN pain 5 days #15 tabs 07/04/22 [Rx Last Taken Unknown] oxycodone-acetaminophen 5 mg-325 mg tablet (Percocet) 1 tab PO Q4H PRN pain 3 days #10 tabs 07/06/22 [Rx Last Taken Unknown] ciprofloxacin HCl 500 mg tablet 500 mg PO BID #14 TABLETS 07/10/22 [Rx Last Taken Unknown] hydrocodone-acetaminophen 5-325mg 5mg-325mg 1 tab PO Q6H PRN PRN Pain 3 days #10 TABLETS 07/10/22 [Rx Last Taken Unknown] Allergy/AdvReac Type Severity Reaction Status Date / Time atenolol Allergy Severe Hives, Verified 07/10/22 10:00 anxiety, itching nadolol Allergy Itching Verified 07/10/22 10:00 and hives metoprolol AdvReac Severe Fatigue, Verified 07/10/22 10:00 weigt gain diltiazem AdvReac Intermediate Did not Verified 07/10/22 10:00 feel right on it Family History Father Afib Other Anemia Blood clot in vein Cancer Diabetes Hypertension Kidney disease Surgical History H/O nephrolithotomy with removal of calculi History of History of mandibular surgery History of radiofrequency ablation procedure for cardiac arrhythmia (04/19/22) History of right knee joint replacement History of tonsillectomy Hx laparoscopic cholecystectomy Hx of oral surgery Social History Smoking Status: Never smoker alcohol intake: never ROS ROS ED Constitutional Constitutional ED: Reports chills, subjective and sweats; Denies weight loss Eyes Eyes: Reports other Details: Burning eyes ; Denies change in vision or diplopia ENT ENT ED: Reports other Details: Dry mouth ; Denies ear pain, rhinorrhea or sore throat Cardiovascular Cardiovascular: Denies chest pain, orthopnea, palpitations or racing heartbeat Respiratory/Chest Respiratory/Chest: Denies cough, dyspnea or orthopnea Gastrointestinal Gastrointestinal: Reports abdominal pain and constipation; Denies diarrhea, nausea or vomiting Genitourinary Genitourinary ED: Reports hematuria and urinary frequency; Denies dysuria Musculoskeletal Musculoskeletal: Denies arthralgias or myalgias Integumentary Denies abscess or rash Neurologic Neurologic: Denies headache(s) or weakness Psychiatric Psychiatric: Denies anxiety, depression, suicidal ideation or suicidal thoughts Endocrine Endocrinology: Reports polydipsia; Denies polyphagia or polyuria Allergic/Immunologic Allergic/Immunologic ED: Denies mouth swelling, tongue swelling or urticaria EXAM Physical Exam Narrative Exam Narrative: Both the patient and the mother seem very much on edge and the more they talk the louder their voices get to the point where I feel that they are engaging me. Const Vital Signs: 07/10/22 09:47 07/10/22 09:53 07/10/22 09:53 Temperature 98.8 F 98.6 F Temperature Source Temporal Temporal Pulse Rate 72 69 Respiratory Rate 18 22 H Respiratory Effort Normal Non-Labored Respiratory Pattern Normal Blood Pressure 136/87 H 131/84 H Blood Pressure Mean 103 99 Pulse Ox 98 96 Oxygen Delivery Method Room Air Room Air 07/10/22 11:06 07/10/22 11:51 07/10/22 12:34 Temperature 99.6 F H 96.1 F L 99.0 F Temperature Source Temporal Temporal Temporal Pulse Rate 66 64 62 Respiratory Rate 20 H 18 20 H Respiratory Effort Respiratory Pattern Blood Pressure 157/75 H 161/80 H 134/78 H Blood Pressure Mean 102 107 96 Pulse Ox 97 98 94 Oxygen Delivery Method Room Air Room Air Room Air 07/10/22 13:05 Temperature Temperature Source Pulse Rate 71 Respiratory Rate 16 Respiratory Effort Respiratory Pattern Blood Pressure 120/106 H Blood Pressure Mean 110 Pulse Ox 98 Oxygen Delivery Method Room Air Positive well nourished, well developed and obese General Appearance ED: well developed Nutritional Appearance: obese HEENT Reports normocephalic, head/scalp atraumatic and moist mucous membranes Eyes PERRL and EOMs intact bilaterally Neck no lymphadenopathy, supple and no JVD Resp normal respiratory effort and clear to auscultation bilaterally Cardio regular rate, regular rhythm and no murmurs GI Inspection: Negative for abdominal distention Auscultation: normoactive bowel sounds Palpation: soft and tender; Negative for guarding or rebound tenderness present Back/Spine no CVA tenderness and normal ROM Extremity normal to inspection General Extremety ED: Negative for edema General Extremity: Negative for edema Neuro oriented x3 and CN's II-XII intact bilaterally Sensorium / Orientation: alert Motor Exam: strength 5/5 throughout Psych mental status grossly normal Mood & Affect: Negative for depressed or tearful Skin no rashes or lesions noted and no wounds MDM MDM MDM Narrative Medical decision making narrative: Patient's white count is 9.2. Creatinine 1.21 with a BUN of 12. Lactic acid is normal. Urinalysis greater than 100 red cells 50-100 white cells 2+ bacteria and positive nitrates. This was sent for culture. CT of abdomen pelvis was obtained which demonstrated no significant hydronephrosis and a stent that is in good position. There are few stone fragments left in the kidney. Patient received pain nausea medicine as well as fluids. Later I gave her ceftriaxone. I spoke with her urologist Dr. Virgen. We will place her on Cipro and have her change her Percocet to hydrocodone. The patient's mother's seemingly has a bit of contentious conversation with the patient and with me. She wonders why I did not request a uric acid level. I do not think that a uric acid is really going to help us as she has no signs and symptoms of gout and she does not have uric acid stones. Lab Data Attestation: I reviewed the patient's lab results. Labs: Laboratory Results - last 24 hr 07/10/22 07/10/22 07/10/22 10:20 11:00 11:00 WBC 9.2 RBC 4.26 Hgb 12.0 Hct 38.0 MCV 89.2 MCH 28.2 MCHC 31.6 L RDW Std Deviation 42.9 RDW Coeff of Kimmy 13.2 Plt Count 195 MPV 11.0 Immature Gran % (Auto) 0.500 Neut % (Auto) 80.5 H Lymph % (Auto) 6.3 L Beadle % (Auto) 10.9 H Eos % (Auto) 1.6 Baso % (Auto) 0.2 Absolute Neuts (auto) 7.4 Absolute Lymphs (auto) 0.58 L Nucleated RBC % 0 Sodium 136 Potassium 4.1 Chloride 103 Carbon Dioxide 28.0 Anion Gap 5 BUN 12 Creatinine 1.21 H Estim Creat Clear Calc 45.71 Est GFR (MDRD) Af Amer 58 L Est GFR (MDRD) Non-Af 48 L BUN/Creatinine Ratio 9.9 L Glucose 122 H Lactic Acid Calcium 8.8 Total Bilirubin 0.60 AST 9 L ALT 13 Alkaline Phosphatase 62 Total Protein 6.6 Albumin 2.7 L Globulin 3.9 Albumin/Globulin Ratio 0.7 L Lipase 63 L Urine Color Yellow Urine Clarity Turbid Urine pH 6.5 Ur Specific [place] 1.010 Urine Protein 100 H Urine Glucose (UA) Normal Urine Ketones 15 H Urine Occult Blood 250 H Urine Nitrite Positive H Urine Bilirubin Negative Urine Urobilinogen Normal Ur Leukocyte Esterase 500 H Urine RBC > 100 SEEN Urine WBC 50-100 SEEN Ur Squamous Epith Cells 0-5 SEEN Urine Bacteria 2+ Urine Mucus 2+ 07/10/22 11:00 WBC RBC Hgb Hct MCV MCH MCHC RDW Std Deviation RDW Coeff of Kimmy Plt Count MPV Immature Gran % (Auto) Neut % (Auto) Lymph % (Auto) Beadle % (Auto) Eos % (Auto) Baso % (Auto) Absolute Neuts (auto) Absolute Lymphs (auto) Nucleated RBC % Sodium Potassium Chloride Carbon Dioxide Anion Gap BUN Creatinine Estim Creat Clear Calc Est GFR (MDRD) Af Amer Est GFR (MDRD) Non-Af BUN/Creatinine Ratio Glucose Lactic Acid 0.9 Calcium Total Bilirubin AST ALT Alkaline Phosphatase Total Protein Albumin Globulin Albumin/Globulin Ratio Lipase Urine Color Urine Clarity Urine pH Ur Specific [place] Urine Protein Urine Glucose (UA) Urine Ketones Urine Occult Blood Urine Nitrite Urine Bilirubin Urine Urobilinogen Ur Leukocyte Esterase Urine RBC Urine WBC Ur Squamous Epith Cells Urine Bacteria Urine Mucus Radiography Diagnostic Testing: Clinical Impression(s) from Imaging Studies Abdomen/Pelvis CT 07/10/22 12:10 IMPRESSION: Right double-J stent catheter is unchanged. Tiny residual fragments from a right renal calculus are seen within the right renal pelvis. No significant hydronephrosis seen. Residual right perinephric stranding. Electronically Signed: Moshe Field MD at 12:31 EDT , Discharge Plan Triage Chief Complaint: Weakness ED Provider: Dutch Dutton Dx/Rx/DC Orders Clinical Impression: UTI (urinary tract infection), Abdominal pain, Constipation, Post-operative pain Instructions: UTIs Understanding Prescriptions: New hydrocodone-acetaminophen [hydrocodone-acetaminophen] 5-325 mg tablet 1 tab PO Q6H PRN PRN (Reason: Pain) 3 Days Qty: 10 0RF ciprofloxacin HCl [ciprofloxacin HCl] 500 mg tablet 500 mg PO BID Qty: 14 0RF No Action ferrous sulfate 325 mg (65 mg iron) tablet,delayed release (DR/EC) 325 mg PO BID [id number] 1 mg Tablet 1 tab PO DAILY ondansetron HCl [ondansetron HCl] 8 mg tablet 8 mg PO Q8H PRN PRN (Reason: Nausea) 7 Days Qty: 20 0RF oxycodone-acetaminophen [Percocet] 5-325 mg tablet 1 tab PO Q8H PRN (Reason: pain) 5 Days Qty: 15 0RF oxycodone-acetaminophen [Percocet] 5-325 mg tablet 1 tab PO Q4H PRN (Reason: pain) 3 Days Qty: 10 0RF diltiazem HCl [Cartia XT] 120 mg capsule,extended release 24hr 120 mg PO QAM Qty: 90 3RF diltiazem HCl [Cartia XT] 240 mg capsule,extended release 24hr 240 mg PO QHS Qty: 90 3RF Rx Instructions: Takes 120 in the AM and 240 in the PM Xarelto 20 mg tablet See Rx Instructions .ROUTE .COMPLEX Qty: 90 3RF Dose Instruction: take 1 tablet by mouth once daily for BLOOD THINNER Rx Instructions: take 1 tablet by mouth once daily for BLOOD THINNER Primary Care Provider: Jaquelin Monahan Referrals: Melinda Virgen MD [Med Staff - Active Staff] - As soon as possible Jaquelin Monahan MD [Primary Care Provider] - Disposition Disposition: Home, Self Care
[2022-07-10 10:29] LABS: Color, Urine Yellow (Yellow); Glucose, Dipstick Normal (Normal); Ketone-Dipstick 15 mg/dl (Negative); Leukocyte Esterase-Dipstick 500 /ul (Negative); Nitrite-Dipstick Positive (Negative); Occult Blood-Urine 250 /ul (Negative); Protein-Dipstick 100 mg/dl (Negative); Urine Bilirubin Dipstick Negative (Negative); Urine Clarity Turbid (Clear); Urine Urobilinogen Normal (Normal); Urine pH 6.5 (5.0 - 8.0)
[2022-07-10 10:39] LABS: White Blood Cells 50-100 SEEN /hpf (0-5)
[2022-07-10 10:40] LABS: Red Blood Cells-Urine > 100 SEEN /hpf (0-5)
[2022-07-10 10:41] LABS: Squamous Epithelial Cells - UA 0-5 SEEN /hpf (5-10)
[2022-07-10 10:42] LABS: Bacteria 2+ /hpf (None Seen)
[2022-07-10 10:43] LABS: Mucous, Urine 2+ /hpf (<or=2+)
[2022-07-10 11:08] LABS: Absolute Lymphocyte Count 0.58 X10^3/uL (0.83-4.51); Absolute Neutrophil Count 7.4 X10^3/uL (2.0-7.7); Basophil# 0.02 X10^3/uL; Basophil% 0.2 % (0-1); Eosinophil# 0.15 X10^3/uL; Eosinophils% 1.6 % (0-5); Lymphocyte # 0.58 X10^3/ul (0.83-4.51); Lymphocyte % 6.3 % (19-41); Mean Corp Hgb Conc 31.6 g/dL (32-36); Mean Corpuscular Hgb 28.2 pg (27.0-32.0); Mean Corpuscular Volume 89.2 fL (81-99); Monocyte% 10.9 % (0-10); NRBC Flagged by Analyzer 0 % (0-5); Neutrophil # 7.41 X10^3/uL (2.7-7.7); Neutrophil % 80.5 % (47-70); POSITIVE DIFFERENTIAL YES; Platelet Count 195 K/mm3 (150-450); RBC Distribution Width CV 13.2 % (11.6-14.6); RBC Distribution Width SD 42.9 fl (35.1-43.9); Red Blood Count 4.26 M/mm3 (4.2-5.4); White Blood Count 9.2 K/mm3 (4.4-11.0)
[2022-07-10] MEDS: 0.9% Normal Saline 1,000 ML 1000 ML IV (11:09)
[2022-07-10] MEDS: Ondansetron 4 MG/2 ML Vial IV (11:11)
[2022-07-10] MEDS: Morphine 4 MG/ML Syringe IV (11:14)
[2022-07-10 11:24] LABS: ALB/GLOB Ratio 0.7 RATIO (0.9-2.4); AST(SGOT) 9 U/L (15-37); Alanine Aminotransfer ALT/SGPT 13 U/L (13-56); Albumin, Serum 2.7 g/dL (3.2-5.0); Alkaline Phosphatase 62 U/L (45-117); Anion Gap 5 (5-15); BUN 12 mg/dL (7-18); BUN/Creat Ratio 9.9 RATIO (10-20); Calcium,Total 8.8 mg/dL (8.5-10.1); Chloride 103 mmol/L (98-107); Creatinine, Serum 1.21 mg/dL (0.55-1.02); EST Glomerular Filtration Rate 48 mL/min (>60); Est Glom Filt Rate - Afr Amer 58 mL/min (>60); Estimated Creatinine Clearance 45.71 ml/min; Globulin 3.9 g/dL (2.2-4.2); Glucose 122 mg/dL (74-106); Lipase 63 U/L (73-393); Potassium 4.1 mmol/L (3.5-5.1); Protein, Total 6.6 g/dL (6.4-8.2); Sodium Level 136 mmol/L (136-145)
[2022-07-10 11:31] LABS: Differential Indicated SCAN CRITERIA MET
[2022-07-10 11:33] LABS: Lactic Acid 0.9 mmol/L (0.4-1.9)
[2022-07-10] MEDS: Ceftriaxone 1 GM/50 ML BAG IV (11:36)
--- NOTE | 2022-07-10 12:10 | CT_ITS ---
STUDY: CT ABDOMEN AND PELVIS WITH CONTRAST REASON FOR EXAM: Female, 62 years old. Right flank pain and back pain. History of kidney stones. Ureteral stent. RADIATION DOSAGE (If Supplied By Facility): CTDIvol = ( 15.91 ) mGy, DLP = ( 1241.43 ) mGycm TECHNIQUE: Transaxial images were obtained from the dome of the diaphragm to the symphysis pubis without oral contrast. IV 100mL Isovue-300 was administered. Sagittal and coronal images were reconstructed. Individualized dose optimization techniques were used for this CT. COMPARISON: Comparison is made with prior study dated 07/06/2022. FINDINGS: Minimal left pleural effusion. Coronary artery calcification. Normal liver. The patient is status post cholecystectomy. Borderline splenomegaly. There is diffuse atrophy of the pancreas. Normal bilateral adrenal glands. A right-sided double-J stent catheter is seen. There are 2 tiny residual fragments of the calculus in the right renal pelvis. Residual right perinephric stranding. Stable left parapelvic renal cysts. There is a moderate-sized hiatal hernia. Normal small intestine. Normal colon. The appendix is visualized and appears normal. There is diffuse atherosclerotic calcification of the abdominal aorta and its major visceral branches, without a demonstrated aneurysm. Normal inferior vena cava. Normal retroperitoneum. Normal urinary bladder. Large calcified fibroid uterus. Normal abdominal wall. There are diffuse degenerative changes of the visualized lumbar spine. CT/Abdomen/Pelvis W IV Cont ONLY IMPRESSION: Right double-J stent catheter is unchanged. Tiny residual fragments from a right renal calculus are seen within the right renal pelvis. No significant hydronephrosis seen. Residual right perinephric stranding. Electronically Signed: Moshe Field MD at 12:31 EDT ,
[2022-07-10] MEDS: Ketorolac 30 MG/ML Syringe IV (12:58)
--- NOTE | 2022-07-10 13:52 | CM.ED ---
TREVOR met with patient. Patient said that she has advanced directives and her iap displays analyst or the MD was supposed to fax them to [facility]. Patient said that she will follow up and have the Advanced Directives faxed to [facility]. No other issues or concerns voiced. Judith PIÑA
== END 2022-07-10 14:12 | disposition home or self-care (01) ==
PROVIDERS: Emergency Provider Emergency Medicine; PCP Internal Medicine; Visit Provider Emergency Medicine
DX: N39.0 Urinary tract infection, site not specified (principal); G89.18 Other acute postprocedural pain; R31.9 Hematuria, unspecified; I12.9 Hypertensive chronic kidney disease with stage 1 through stage 4 chronic kidney disease, or unspecified chronic kidney disease; N18.9 Chronic kidney disease, unspecified; K59.00 Constipation, unspecified; R10.9 Unspecified abdominal pain; I49.9 Cardiac arrhythmia, unspecified; K64.9 Unspecified hemorrhoids; E66.9 Obesity, unspecified; Z79.01 Long term (current) use of anticoagulants; Z79.899 Other long term (current) drug therapy
CPT/HCPCS: 36415; 74177; 80053; 81001; 83605; 83690; 85025; 87040; 87077; 87086; 87088; 87186; 96361; 96365; 96375; 99283; J7030; Q9967; A4216; J2405

== ENCOUNTER → 2022-07-19 | Outpatient (CLI) | payer BC, SELFPAY ==
--- NOTE | 2022-07-19 10:10 | RAD_ITS ---
STUDY: X-RAY - ABDOMEN/PELVIS REASON FOR EXAM: Female, 62 years old. KIDNEY STONES TECHNIQUE: Single AP view of the abdomen / pelvis. COMPARISON: Comparison is made with prior study dated 06/09/2022. FINDINGS: There is a moderate amount of colonic fecal material. A right-sided double-J stent catheter has been placed. The proximal tip is in the region of the right renal pelvis and the distal tip is in the urinary bladder. The previously seen calculus at the right ureteral pelvic junction has decreased in size. It presently measures 3.4 mm. Normal soft tissue structures. There are diffuse degenerative changes of the visualized lumbar spine. Levoscoliosis. RAD/Abdomen Single View IMPRESSION: Right-sided double-J stent catheter. The previously seen calculus at the right ureteral pelvic junction has decreased in size. It presently measures 3.4 mm. Electronically Signed: Moshe Field MD at 14:40 EDT ,
== END | disposition home or self-care (01) ==
PROVIDERS: PCP Internal Medicine; Referring Provider Urology; Visit Provider Urology
DX: N20.0 Calculus of kidney (principal)
CPT/HCPCS: 74018

== ENCOUNTER 2022-07-27 07:42 | Day surgery (SDC) | payer BC, SELFPAY ==
--- NOTE | 2022-07-27 | CALC_PTH ---
PATIENT: NELLY KHAN LOC: [facility] U#:[id number] AGE/SX: 62/F ROOM: RE07/27/[address]: Dr. Melinda Virgen MD : 1960 BED: DIS: 07/27/2022 SPEC #: [id number] RECD: 07/27/22 11:56 STATUS: JOSSY ELLIS #: [id number] VADIM: 07/27/22 00:[address]: Melinda Virgen DEPT: SURGICAL PATHOLOGY RECD BY: Joselito Azul ENTERED: 07/27/22 11:56 SP TYPE: Calculi OTHR DR: Dr. Jaquelin Monahan MD Tissues: CALCULI Procedures: Surgery Specimen Level I HEADER OPERATION: Cystoscopy, ureteroscopy, retrograde pyelogram, laser of stone PRE-OP DIAGNOSIS: Right proximal ureteral and renal calculi TISSUE SUBMITTED: Right ureteral/renal calculi GROSS DIAGNOSIS Fragments of stone, clinically right ureteral/renal calculi, submitted for analysis. YONATAN:rufus 07/28/2022 COMMENT The specimen is submitted in its entirety for chemical stone analysis. The results from this study will be reported separately. GROSS DESCRIPTION Received without fixative labeled with the patient's name and designated right ureteral/renal calculi. The specimen consists of multiple fragments of black irregular stone measuring in aggregate 1 x 0.3 x 0.2 cm. The entire specimen is submitted for stone analysis. / YONATAN:rufus 07/27/2022 CPT: 53457
[2022-07-27 08:21] VITALS: BP 152/82; PULSE 64; RESP 16; TEMP 37.4; O2SAT 99; BMI 49.8
[2022-07-27] MEDS: Lactated Ringers 1,000 ML 15 ML IV (08:24)
--- NOTE | 2022-07-27 09:17 | DCINST_ITS ---
Discharge Instructions Diet Discharge Diet: No restrictions Activity Discharge Activity: Return to Normal Activity Dressing / Incision Call your doctor if you observe: Fever of 101 or Higher, Inability to urinate and Inability to have a bowel movement Follow Up Care Please Follow Up With: Melinda Virgen MD When: Call office for appointment Test Results: Test results from this visit will be discussed in further detail at your follow- up appointment, if applicable. Discharge Plan Admission Attending Provider: Melinda Virgen Primary Care Provider: Jaquelin Monahan Discharge Orders/Prescriptions Prescriptions: New Myrbetriq 50 mg tablet extended release 24 hr 50 mg PO DAILY 30 Days Qty: 30 0RF Continued ferrous sulfate 325 mg (65 mg iron) tablet,delayed release (DR/EC) 325 mg PO BID [id number]-[id number]-FA 1 mg Tablet 1 tab PO DAILY ondansetron HCl 8 mg tablet 8 mg PO Q8H PRN PRN (Reason: Nausea) 7 Days Qty: 20 0RF oxycodone-acetaminophen [Percocet] 5-325 mg tablet 1 tab PO Q8H PRN (Reason: pain) 5 Days Qty: 15 0RF oxycodone-acetaminophen [Percocet] 5-325 mg tablet 1 tab PO Q4H PRN (Reason: pain) 3 Days Qty: 10 0RF hydrocodone-acetaminophen 5-325 mg tablet 1 tab PO Q6H PRN PRN (Reason: Pain) 3 Days Qty: 10 0RF Uribel 118-10-40.8-36 mg capsule 1 tab PO DAILY diltiazem HCl [Cartia XT] 120 mg capsule,extended release 24hr 120 mg PO QAM Qty: 90 3RF diltiazem HCl [Cartia XT] 240 mg capsule,extended release 24hr 240 mg PO QHS Qty: 90 3RF Rx Instructions: Takes 120 in the AM and 240 in the PM Xarelto 20 mg tablet See Rx Instructions .ROUTE .COMPLEX Qty: 90 3RF Dose Instruction: take 1 tablet by mouth once daily for BLOOD THINNER Rx Instructions: take 1 tablet by mouth once daily for BLOOD THINNER Referrals / Follow Up: Jaquelin Monahan MD [Primary Care Provider] - Disposition Disposition (needs filled in before D/C Order can be placed): Home, Self Care
--- NOTE | 2022-07-27 09:21 | OP.PCM_ITS ---
Report of Operation Date of Procedure: 07/27/22 Pre-Operative Diagnosis: Right proximal ureteral and renal calculi Post-Operative Diagnosis: Same Surgery/Procedure Performed:: Cystoscopy, right retrograde pyelogram, right ureteroscopy, stone basket extraction, right ureteral stent change Surgeon: Melinda Virgen Type of Anesthesia: General Specimen's removed: right renal stone fragments Description of Procedure: The patient is a 62-year-old female with a large proximal right ureteral/renal calculus who previously underwent stent insertion with extracorporal shockwave lithotripsy. She has stone burden remaining and now presents for laser lithotripsy with stone basket extraction and stent change. Informed consent has been obtained. She has been on antibiotics appropriate to her urine culture. The patient was taken to the operating room and placed on the operating room table. Anesthesia monitored the head, neck, airway, IV access and vital signs throughout the case. Once anesthesia was appropriately administered, the patient was placed into dorsal lithotomy position was prepped and draped in usual sterile fashion. The cystoscope was inserted through the urethra under direct visualization into the urinary bladder. The right indwelling ureteral stent was grasped and pulled to the urethral meatus where it was intubated with a 0.035 Glidewire. At this time a cone-tip catheter was used to inject contrast into the right ureter revealing no evidence of filling defects in the ureter. A second wire was inserted along the first and this was used for placement of a ureteral reaccessed sheath. At this time the flexible ureteroscope was used to gain access to the renal pelvis through the reaccessed sheath. A large stone was identified and lasered into smaller pieces using the 270 ?m holmium laser fiber. The stone fragments were then removed with a basket. When no further fragments were identified, the ureteroscope was used to directly visualize removal of the reaccessed sheath and there was no injury identified to the ureter. The remaining safety wire was used for placement of a 6 Algerian 26 cm JJ stent. Good positioning in the renal pelvis as well as the urinary bladder was obtained. The patient's bladder was then emptied, the cystoscope was removed and the case was terminated. The patient was awakened and taken to the recovery room in good condition. There were no complications during this procedure. Grafts/Implants Used: 6 x 26 JJ stent Complications None Admit VTE Documentation VTE Present on Admission: Yes VTE Mechan Device Prophylaxis: SCD's VTE Pharm Prophylaxis ordered?: No Reason prophylaxis not ordered:: Treatment Not Indicated
[2022-07-27 10:30] VITALS: BP 145/82; PULSE 65; PULSE 90; RESP 16; TEMP 36.6; O2SAT 93; O2SAT 94
[2022-07-27 10:45] VITALS: BP 115/102; BP 145/82; PULSE 61; RESP 16; O2SAT 93
[2022-07-27 10:55] VITALS: BP 131/78; BP 145/82; PULSE 58; RESP 16; TEMP 36.3; O2SAT 96
[2022-07-27 11:17] VITALS: BP 145/82
== END 2022-07-27 11:23 | disposition home or self-care (01) ==
LOC: SDC 07:43 → AC 07:44
PROVIDERS: PCP Internal Medicine; Referring Provider Urology; Visit Provider Urology
PROC: 0TJ98ZZ Inspection of Ureter, Via Natural or Artificial Opening Endoscopic (ICD-10-PCS; CPT 52352; principal; 2022-07-27 09:30)
DX: N20.2 Calculus of kidney with calculus of ureter (principal); I48.91 Unspecified atrial fibrillation; N32.89 Other specified disorders of bladder; R35.1 Nocturia; N39.46 Mixed incontinence; N39.0 Urinary tract infection, site not specified; D64.9 Anemia, unspecified; K90.9 Intestinal malabsorption, unspecified; Z79.01 Long term (current) use of anticoagulants; Z79.899 Other long term (current) drug therapy; Z87.442 Personal history of urinary calculi; Z96.651 Presence of right artificial knee joint
CPT/HCPCS: 52356; 00918; 76000; 82360; 88300; J7120; C2617; J2405

== ENCOUNTER → 2022-08-15 | Outpatient (CLI) | payer BC, SELFPAY | END | disposition home or self-care (01) | LOC: PSN 13:43 | PROVIDERS: PCP Internal Medicine; Referring Provider Internal Medicine Cardiovascular Disease; Visit Provider Internal Medicine Cardiovascular Disease | DX: I48.19 Other persistent atrial fibrillation (principal); R06.00 Dyspnea, unspecified | CPT/HCPCS: 93225; 93226 ==

== ENCOUNTER 2022-08-30 11:46 | Emergency (ER) | payer BC, SELFPAY ==
[2022-08-30 11:47] VITALS: BP 153/92; PULSE 55; RESP 14; TEMP 36.8; O2SAT 98; BMI 49.8
[2022-08-30 12:35] VITALS: BP 171/98; PULSE 134; RESP 20
--- NOTE | 2022-08-30 13:21 | EKG12_ITS ---
Test Reason : PALPS Blood Pressure : / mmHG Vent. Rate : 136 BPM Atrial Rate : 108 BPM P-R Int : 000 ms QRS Dur : 084 ms QT Int : 296 ms P-R-T Axes : 000 -20 -73 degrees QTc Int : 445 ms Atrial fibrillation with premature ventricular or aberrantly conducted complexes Septal infarct , age undetermined ST & T wave abnormality, consider inferolateral ischemia Abnormal ECG Confirmed by CARLOS FELICIANO, HARSHA ([id number]), editor trade journal MARCY CARTER ([id number]) on 08/31/2022 1:48:44 P M Referred By: ISAK Confirmed By:CHELLY GONZALEZ MD
--- NOTE | 2022-08-30 13:21 | RAD_ITS ---
STUDY: X-RAY CHEST REASON FOR EXAM: Female, 62 years old. chest pain TECHNIQUE: XR Chest 1 View COMPARISON: 11.29.16 FINDINGS: There is atherosclerotic calcification of the aortic arch with tortuosity. There are diffuse degenerative changes of the visualized thoracic spine. There is degenerative osteoarthritis of the bilateral shoulders. There are bilateral pleural effusions. There are bilateral infiltrates. Normal size heart. Normal mediastinum and desiree. Hiatal hernia RAD/Chest 1 View (Portable) IMPRESSION: There are no acute findings. Electronically Signed: Harvinder Tracy MD at 14:18 EDT ,
--- NOTE | 2022-08-30 13:22 | EDS_ITS ---
HPI History of Present Illness Chief Complaint: Palpitations Narrative Narrative: 62-year-old female presenting with palpitations. She has history of atrial fibrillation which is recurrent. Patient has had cardioversions in the past which were unsuccessful. Recently saw Dr. Anil simms with [facility] who did a catheter ablation which was successful. Patient has not had any issues until the last day or so. She states she started to have palpitations when she started exercising again. She states he called her cardiology office and was told to come to the ER. She denies any chest pain. She states that when she sitting in bed she is doing fine but when she gets up to walk around she feels short of breath and her heart races. Patient is currently on diltiazem 120 mg in the morning and 240 at night. Is been no changes. She is anticoagulated on Xarelto and has had no dosing changes of either medications. She is not missed any doses. Patient [place] fever, chills, cough. She has no nausea or vomiting. She states she had a normal echo recently with her design leader. [facility] Medical History Acute pyelonephritis Anemia Anemia Body mass index (BMI) 50-59.9, adult Calculus of gallbladder Cardiology follow-up encounter Chronic kidney disease Chronic knee pain CPAP (continuous positive airway pressure) dependence Dietary restriction Difficult intravenous access Essential (primary) hypertension Gout Unruly's thyroiditis History of blood transfusion History of cardioversion (11/2016) Iron deficiency anemia Kidney stone Kidney stones Left ureteral calculus Obstructive sleep apnea Osteoarthritis of knees, bilateral Paroxysmal atrial fibrillation Paroxysmal atrial flutter PONV (postoperative nausea and vomiting) Sepsis Urinary frequency Walker as ambulation aid Wears partial dentures Home Medications diltiazem HCl 120 mg capsule,extended release 24 hr (Cartia XT) 120 mg PO QAM #90 caps 01/20/22 [Rx Last Taken Unknown] diltiazem HCl 240 mg capsule,extended release 24 hr (Cartia XT) 240 mg PO QHS #90 caps 01/20/22 [Rx Last Taken Unknown] rivaroxaban 20 mg tablet (Xarelto) See Rx Instructions .Route .COMPLEX #90 tabs 02/23/22 [Rx Last Taken 07/24/22] metoprolol tartrate 50 mg tablet (Lopressor) 25 mg PO DAILY #30 tabs 08/30/22 [Rx Last Taken Unknown] Allergy/AdvReac Type Severity Reaction Status Date / Time atenolol Allergy Severe Hives, Verified 08/30/22 11:47 anxiety, itching nadolol Allergy Itching Verified 08/30/22 11:47 and hives metoprolol AdvReac Severe Fatigue, Verified 08/30/22 11:47 weigt gain Family History Father Afib Other Anemia Blood clot in vein Cancer Diabetes Hypertension Kidney disease Surgical History H/O nephrolithotomy with removal of calculi History of History of mandibular surgery History of radiofrequency ablation procedure for cardiac arrhythmia (04/19/22) History of right knee joint replacement History of tonsillectomy Hx laparoscopic cholecystectomy Hx of oral surgery Social History Smoking Status: Never smoker alcohol intake: never ROS ROS ED Constitutional Constitutional ED: Denies chills or fever(s) Eyes Eyes: Denies change in vision or diplopia ENT ENT ED: Denies rhinorrhea or sore throat Cardiovascular Cardiovascular: Reports palpitations and racing heartbeat; Denies chest pain Respiratory/Chest Respiratory/Chest: Reports dyspnea and dyspnea on exertion; Denies cough Gastrointestinal Gastrointestinal: Denies abdominal pain or constipation Genitourinary Genitourinary ED: Denies dysuria or hematuria Musculoskeletal Musculoskeletal: Denies arthralgias or back pain Integumentary Denies abscess Neurologic Neurologic: Denies headache(s) or paresthesias Psychiatric Psychiatric: Denies anxiety or depression EXAM Physical Exam Const Vital Signs: 08/30/22 11:47 08/30/22 12:35 08/30/22 12:35 Temperature 98.2 F Temperature Source Temporal Pulse Rate 55 L 134 H Respiratory Rate 14 20 H Respiratory Effort Normal Non-Labored Blood Pressure 153/92 H 171/98 H Blood Pressure Mean 112 122 Pulse Ox 98 Oxygen Delivery Method Room Air 08/30/22 13:52 08/30/22 14:00 08/30/22 16:00 Temperature Temperature Source Pulse Rate 98 115 H Respiratory Rate 20 H 20 H Respiratory Effort Blood Pressure 164/108 H 158/108 H Blood Pressure Mean 126 124 Pulse Ox 97 Oxygen Delivery Method Room Air Room Air Positive well nourished General Appearance ED: NAD; Negative for pallor HEENT Reports moist mucous membranes Eyes PERRL and EOMs intact bilaterally General Eye ED: Negative for pale conjunctiva Chest Wall inspection of chest normal and palpation of chest normal Resp normal respiratory effort and clear to auscultation bilaterally Auscultation: Negative for rales or rhonchi Cardio regular rhythm Rate: tachycardic GI normal to inspection, nondistended, normoactive bowel sounds Neuro oriented x3 and CN's II-XII intact bilaterally Sensorium / Orientation: alert Motor Exam: strength 5/5 throughout Psych mental status grossly normal Skin no wounds General Skin Exam: Negative for jaundice or pallor MDM MDM MDM Narrative Medical decision making narrative: Patient is not having any pain chest pain. She has palpitations. She was told by her design leader Dr. Ma that she probably would have is few episodes of this. She is on diltiazem 120 in the morning and 240 in the evening which has not changed. She is anticoagulated. Her initial heart rate was 55 on arrival to triage however this did become higher when she walked back to the room and was 134. We obtained an EKG which on my interpretation shows atrial fibrillation with a ventricular rate of 136 bpm without sign of ischemia. Upon entering the room the patient's heart rate was now without 100 and appears to be fluctuating between the sinus rhythm and a sinus tachycardia from 100bpm to 120 bpm. She states she feels comfortable just sitting in the bed. Her lungs are clear to auscultation. Other vital signs are stable. Patient was given Cardizem 20 mg IV, 1 L of IV fluids. We will check basic lab work and a heart troponin. Low suspicion for PE given she is anticoagulated. I spoke with the on-call nurse practitioner for Dr. Ma and he did consult with him. He states that he recommends Lopressor 25 mg p.o. twice daily. He recommended outpatient follow-up. Return precautions were discussed. Impression: 1. Atrial fibrillation with RVR 2. Dyspnea Lab Data Labs: Laboratory Results - last 24 hr 08/30/22 08/30/22 08/30/22 13:45 13:45 13:45 WBC 5.7 RBC 4.49 Hgb 12.7 Hct 40.9 MCV 91.1 MCH 28.3 MCHC 31.1 L RDW Std Deviation 47.8 H RDW Coeff of Kimmy 14.4 Plt Count 258 MPV 11.1 Immature Gran % (Auto) 0.900 Neut % (Auto) 64.9 Lymph % (Auto) 22.6 [place] % (Auto) 8.1 Eos % (Auto) 3.0 Baso % (Auto) 0.5 Absolute Neuts (auto) 3.7 Absolute Lymphs (auto) 1.29 Nucleated RBC % 0 Sodium 140 Potassium 4.9 Chloride 112 H Carbon Dioxide 21.0 Anion Gap 7 BUN 25 H Creatinine 1.31 H Estim Creat Clear Calc 42.22 Est GFR (MDRD) Af Amer 53 L Est GFR (MDRD) Non-Af 44 L BUN/Creatinine Ratio 19.1 Glucose 111 H Calcium 9.5 Troponin I High Sens 16 B-Natriuretic Peptide 116.6 H Radiography Diagnostic Testing: Clinical Impression(s) from Imaging Studies Chest X-Ray 08/30/22 13:21 IMPRESSION: There are no acute findings. Electronically Signed: Harvinder Tracy MD at 14:18 EDT Reading Location ID and State: [facility] / [place] , Service support , Discharge Plan Triage Chief Complaint: Palpitations ED Provider: Catalino Flores Dx/Rx/DC Orders Instructions: ED AFIB Prescriptions: New metoprolol tartrate [Lopressor] 50 mg tablet 25 mg PO DAILY Qty: 30 0RF No Action diltiazem HCl [Cartia XT] 120 mg capsule,extended release 24hr 120 mg PO QAM Qty: 90 3RF diltiazem HCl [Cartia XT] 240 mg capsule,extended release 24hr 240 mg PO QHS Qty: 90 3RF Rx Instructions: Takes 120 in the AM and 240 in the PM Xarelto 20 mg tablet See Rx Instructions .ROUTE .COMPLEX Qty: 90 3RF Dose Instruction: take 1 tablet by mouth once daily for BLOOD THINNER Rx Instructions: take 1 tablet by mouth once daily for BLOOD THINNER Primary Care Provider: Jaquelin Monahan Referrals: Jaquelin Monahan MD [Primary Care Provider] - Disposition Disposition: Home, Self Care
[2022-08-30] MEDS: 0.9% Normal Saline 1,000 ML 1000 ML IV (13:50)
[2022-08-30] MEDS: dilTIAZem 25 MG/5 ML Vial 20 MG IV BOLUS (13:51)
[2022-08-30 13:54] LABS: Absolute Lymphocyte Count 1.29 X10^3/uL (0.83-4.51); Absolute Neutrophil Count 3.7 X10^3/uL (2.0-7.7); Basophil# 0.03 X10^3/uL; Basophil% 0.5 % (0-1); Eosinophil# 0.17 X10^3/uL; Hematocrit 40.9 % (37-47); Hemoglobin 12.7 g/dL (12.0-15.0); Lymphocyte # 1.29 X10^3/ul (0.83-4.51); Lymphocyte % 22.6 % (19-41); Mean Corp Hgb Conc 31.1 g/dL (32-36); Mean Corpuscular Hgb 28.3 pg (27.0-32.0); Mean Corpuscular Volume 91.1 fL (81-99); Mean Platelet Vol. 11.1 fl (6.2-12.0); Monocyte# 0.46 X10^3/uL; Monocyte% 8.1 % (0-10); NRBC Flagged by Analyzer 0 % (0-5); Neutrophil # 3.71 X10^3/uL (2.7-7.7); Neutrophil % 64.9 % (47-70); Platelet Count 258 K/mm3 (150-450); RBC Distribution Width CV 14.4 % (11.6-14.6); RBC Distribution Width SD 47.8 fl (35.1-43.9); Red Blood Count 4.49 M/mm3 (4.2-5.4); White Blood Count 5.7 K/mm3 (4.4-11.0)
[2022-08-30 14:00] VITALS: BP 164/108; PULSE 98; RESP 20; O2SAT 97
[2022-08-30 14:13] LABS: Anion Gap 7 (5-15); BUN 25 mg/dL (7-18); BUN/Creat Ratio 19.1 RATIO (10-20); Calcium,Total 9.5 mg/dL (8.5-10.1); Chloride 112 mmol/L (98-107); Creatinine, Serum 1.31 mg/dL (0.55-1.02); EST Glomerular Filtration Rate 44 mL/min (>60); Est Glom Filt Rate - Afr Amer 53 mL/min (>60); Estimated Creatinine Clearance 42.22 ml/min; Glucose 111 mg/dL (74-106); Potassium 4.9 mmol/L (3.5-5.1); Sodium Level 140 mmol/L (136-145); Troponin-I HS (w/2H Reflex) 16 pg/mL (3.0-54.0)
[2022-08-30 14:15] LABS: BNP,B-Type NATRIURETIC PEPTIDE 116.6 pg/mL (0-100)
[2022-08-30 15:49] LABS: Reflex Troponin-HS? (from REC) Y
[2022-08-30 16:00] VITALS: BP 158/108; PULSE 115; RESP 20
[2022-08-30] MEDS: dilTIAZem 25 MG/5 ML Vial 10 MG IV BOLUS (16:08)
[2022-08-30 16:47] VITALS: BP 168/106; PULSE 97
== END 2022-08-30 16:48 | disposition home or self-care (01) ==
PROVIDERS: Emergency Provider Student in an Organized Health Care Education/Training Program; PCP Internal Medicine; Visit Provider Student in an Organized Health Care Education/Training Program
DX: I48.0 Paroxysmal atrial fibrillation (principal); N18.9 Chronic kidney disease, unspecified; I12.9 Hypertensive chronic kidney disease with stage 1 through stage 4 chronic kidney disease, or unspecified chronic kidney disease; M17.0 Bilateral primary osteoarthritis of knee; R06.00 Dyspnea, unspecified; Z79.01 Long term (current) use of anticoagulants; Z79.899 Other long term (current) drug therapy
CPT/HCPCS: 71045; 80048; 83880; 84484; 85025; 93005; 96361; 96374; 96376; 99284

== ENCOUNTER → 2023-07-02 | Outpatient (CLI) | payer OTHER, SELFPAY ==
--- NOTE | 2023-07-02 15:51 | RAD_ITS ---
EXAM: XR LEFT HIP WITH PELVIS WHEN PERFORMED, 2 OR 3 VIEWS CLINICAL INDICATION: fall TECHNIQUE: Two or three views of the left hip with pelvis when performed. COMPARISON: No relevant prior studies available. FINDINGS: BONES/JOINTS: Unremarkable. No displaced fracture. No destructive or sclerotic lesions. Note that overlapping bowel shadows may however obscure fine detail. Sacroiliac joint is unremarkable. No widening of the pubic symphysis. The articular structures are unremarkable. SOFT TISSUES: Unremarkable. No soft tissue swelling or gas. RAD/HIP, UNI W/ Pelvis 2-3 Views IMPRESSION: No evidence of displaced pelvic or hip fracture. Electronically Signed: Mahamed Hinds MD at 17:05 EDT ,
--- NOTE | 2023-07-02 15:51 | RAD_ITS ---
EXAM: XR LUMBOSACRAL SPINE, 2 OR 3 VIEWS CLINICAL INDICATION: fall TECHNIQUE: Frontal and lateral views of the lumbar spine and sacrum. COMPARISON: No relevant prior studies available. FINDINGS: VERTEBRAE: There is curvature of the lumbar spine is multilevel. Preserved vertebral body height. No fracture. No spondylolisthesis. No significant facet arthropathy. DISC SPACES: There is bony neural foraminal narrowing at L5-S1. GASTROINTESTINAL TRACT: Unremarkable as visualized. Included bowel gas pattern is non-obstructive. RAD/Lumbar Spine 2 or 3 Views IMPRESSION: 1. No acute osseous abnormalities. 2. Multilevel degenerative change with disc space narrowing and facet hypertrophy. There is curvature of the lumbar spine. Electronically Signed: Mahamed Hinds MD at 17:04 EDT ,
== END | disposition home or self-care (01) ==
PROVIDERS: PCP Internal Medicine; Referring Provider Physician Assistant; Visit Provider Physician Assistant
DX: M54.50 Low back pain, unspecified (principal)
CPT/HCPCS: 72100; 73502